=== PATIENT | female | born 1995 | race Caucasian/White ===

== ENCOUNTER 2023-09-19 18:35 | Emergency (ER) | payer MEDICAID, SELFPAY ==
[2023-09-19 18:37] VITALS: BP 118/73; PULSE 107; PULSE 112; RESP 16; RESP 20; TEMP 37.2; O2SAT 100; BMI 25.4
--- NOTE | 2023-09-19 19:42 | CT_ITS ---
INDICATION: truama, right cheek EXAMINATION: CT FACIAL BONES - CT Maxillofacial W/O Contrast Injection TECHNIQUE: Helically acquired images were obtained of the facial bones. A radiation dose optimization technique was used for this scan. IV Contrast dosage and agent: None. COMPARISON: None. FINDINGS: ORBITS: 1. RIGHT Preseptal soft tissue swelling/ecchymosis extending into the RIGHT infraorbital soft tissues however no post septal extension. 2. Normal appearance the bony stephenson the orbits. 3. Post septal soft tissue planes have normal appearance. 4. Normal appearance of the globes, ocular lenses and optic nerves. NASAL SKELETON: Normal, no fractures noted. Nasal septum is near midline. PARANASAL SINUSES: Diffuse ethmoid mucosal thickening. Remaining paranasal sinuses are clear. SKULL BASE AND ZYGOMATIC ARCHES: Normal, normal alignment, no fractures noted. VISUALIZED MANDIBLE: 1. Normal appearance of the mandibular condyles, TMJs, and the visualized mandible to the level of the symphysis. 2. The visualized dentition appears intact. OTHER: Normal appearance of the deep spaces of the head and visualized upper neck. Airway has normal appearance. CT/Sinus/Facial Bone IMPRESSION: 1. Preseptal and infraorbital soft tissue thickening bruising and neck and gliosis in the RIGHT without post septal extension. No soft tissue gas. No post septal extension. 2. No orbital fractures. Normal appearance the globes and retrobulbar soft tissue planes bilaterally. 3. Ethmoid mucosal thickening, remaining paranasal sinuses are clear. 4. No bony fractures noted. Electronically Signed: Omari Huerta MD at 21:22 EST ,
--- NOTE | 2023-09-19 19:43 | CT_ITS ---
INDICATION: Trauma EXAMINATION: CT BRAIN - CT Head or Brain W/O Contrast Injection TECHNIQUE: Multiple axial images were obtained of the head without intravenous contrast. A radiation dose optimization technique was used for this scan. IV Contrast dosage and agent: None. RADIATION DOSAGE (If Supplied By Facility): CTDIvol = ( 44.99 ) mGy, DLP = ( 812.98 ) mGycm COMPARISON: No relevant prior examinations for comparison FINDINGS: HEMISPHERES: 1. The cerebral parenchyma, ventricular system, subarachnoid spaces have normal configuration and density. There is a normal gyral pattern. There is normal martinez/white differentiation. No midline shift.. 2. The hemispheric white matter has normal appearance. 3. No intraparenchymal mass, hemorrhage, or acute territorial infarct. CEREBELLUM - BRAINSTEM: The cerebellum, brainstem, basilar and suprasellar cisterns have normal appearance. No Chiari malformation. PITUITARY: Infundibulum and pituitary have normal configuration. Midline structures appear normal. CSF SPACES: Appropriate for age. No hydrocephalus. Basal cisterns are patent. VESSELS: 1. No significant vascular calcifications in the cavernous carotid vessels. 2. No hyperdense vascular signs noted.. ORBITS AND PARANASAL SINUSES: 1. Preseptal soft tissue swelling/ecchymosis in the RIGHT. No post septal extension. 2. Normal appearance of the bony orbits. Normal appearance of the globes and retrobulbar soft tissues.. 3. Paranasal sinuses are clear. BONY ELEMENTS: Bony elements of the cranial vault, facial skeleton and skull base have normal appearance. SCALP AND SOFT TISSUES: Normal appearance of the soft tissues of the scalp and the visualized face OTHER: None ASPECTS Score for Acute Strokes: 10 CT/Brain/Head without Contrast IMPRESSION: 1. Normal CT examination of brain. 2. No intracranial evidence of acute traumatic injury. 3. Soft tissue swelling/bruising and ecchymosis in the RIGHT preseptal and infraorbital soft tissues. No post septal extension. 4. No intracranial mass, hemorrhage or acute territorial infarct. 5. No fractures noted. 6. No radiographically significant sinus disease.. Electronically Signed: Omari Huerta MD at 21:15 EST ,
--- NOTE | 2023-09-19 19:43 | CT_ITS ---
INDICATION: trauma - EXAMINATION: CT ABDOMEN AND PELVIS WITH CONTRAST - CT Chest Abdomen And Pelvis W/ Contrast Injection TECHNIQUE: Helically acquired images were obtained of the abdomen and pelvis following IV contrast. A radiation dose optimization technique was used for this scan. IV Contrast dosage and agent: Oral contrast: None. Radiation Dose (provided by facility) CTDIvol (13.76 ) mGy, DLP ( 1312.79) mGy-cm COMPARISON: None. FINDINGS: CT CHEST: LUNGS: [Unremarkable. No focal infiltrate consolidation or pulmonary contusion. There are subtle areas of interstitial prominence along the pleural surface of the LEFT lower lobe. Subtle nodular prominence in the periphery of the RIGHT upper lobe which however appears to be linear on reconstruction views.. PLEURAL SPACES: Unremarkable, no effusion or pneumothorax noted.. HEART: Unremarkable. No pericardial effusion. VASCULATURE: Unremarkable. No aortic aneurysm. MEDIASTINUM AND LYMPH NODES: Unremarkable. No significant adenopathy. CERVICAL THORACIC JUNCTION: There is normal appearance of the visualized airway. No masses or abnormal fluid collections. Visualized thyroid is within normal limits. CT ABDOMEN PELVIS: HEPATOBILIARY: Liver: The liver is homogeneous and shows no evidence of focal lesion. No evidence of parenchymal laceration or hemorrhage. Gallbladder: The gallbladder is unremarkable. Pancreas: Pancreas is normal size configuration and density. No mass is noted. Spleen: The spleen is homogeneous and normal in size. . No evidence of parenchymal laceration or hemorrhage. BOWEL: 1. Stomach: The stomach is normal in size configuration, no evidence of focal masses, abnormal calcifications. No hiatal hernia noted. 2. Bowel: Small and large have normal configuration, no masses or bowel obstruction noted. 3. Appendix: Short segments of the normal appendix are present.: GENITOURINARY: Adrenals: Both adrenal glands are normal in size. Kidneys: Kidneys appear symmetric in size. No calcifications are seen in the collecting system. There is no hydronephrosis or surrounding fluid. Bladder: Bladder is moderately distended. No masses or calcifications. Pelvic organs: The visualized pelvic organs are normal in size and configuration. No masses or adenopathy noted. RETROPERITONEUM: There is normal appearance of the abdominal aorta and inferior vena cava. No evidence of retroperitoneal or para-aortic masses fluid collections or adenopathy. ANTERIOR ABDOMINAL WALL: Normal, no hernia identified. CHEST ABDOMEN PELVIS - BONES AND BODY WALL SOFT TISSUES: 1. No displaced rib fractures identified. 2. No fractures identified involving the clavicles, shoulders, or sternum. 3. No evidence of acute fracture subluxation or canal stenosis involving the thoracic or the lumbar spine. Mild contour deformity of multiple thoracic endplates which appear chronic. 4. No fractures involving the pelvis or hips. OTHER: None CT/CT Chest, Abd, Pel w/Contrast IMPRESSION: 1. No CT evidence of acute traumatic injury to the chest, abdomen or pelvis. 2. Minimal interstitial prominence along the pleural surface of the LEFT lower lobe. No consolidation effusion or pneumothorax or effusion. 3. No evidence of acute vascular injury. 4. No evidence of masses bowel obstruction abscess free fluid or free air. No evidence of intraperitoneal or retroperitoneal fluid collections or hematoma. 5. No evidence of cholelithiasis or duct dilatation. 6. No evidence of obstructive uropathy. 7. No evidence of acute fractures involving the chest abdomen or pelvis. Electronically Signed: Omari Huerta MD at 21:37 EST ,
--- NOTE | 2023-09-19 19:44 | CT_ITS ---
INDICATION: Trauma EXAMINATION: CT CERVICAL SPINE - CT Spine Cervical W/O Contrast Injection TECHNIQUE: Helically acquired images were obtained of the cervical spine. 2D reformatted images were reviewed. A radiation dose optimization technique was used for this scan. Noncontrast images obtained. IV Contrast dosage and agent: None. Radiation Dose (provided by facility) CTDIvol (NA ) mGy, DLP ( NA) mGy-cm COMPARISON: : No relevant prior comparison study available FINDINGS: VERTEBRAE: No fracture or traumatic subluxation. No discrete lytic or blastic abnormality. Normal alignment. Normal craniocervical junction and cervicothoracic junction. Normal appearance of the odontoid process. DISCS and SPINAL CANAL: Disc heights are preserved. No critical stenosis. NECK SOFT TISSUES: No prevertebral soft tissue swelling. There is no cervical adenopathy. LUNG APICES: Clear. CT/Spine Cervical without Contras IMPRESSION: No evidence of acute cervical spinal fracture or spondylolisthesis. Electronically Signed: Omari Huerta MD at 21:41 EST ,
[2023-09-19] MEDS: Ondansetron 4 MG/2 ML Vial IV (20:06)
[2023-09-19] MEDS: 0.9% Normal Saline (1000mL) 1,000 ML 999 ML IV (20:06)
[2023-09-19] MEDS: Morphine 4 MG/ML Syringe IV (20:06)
[2023-09-19 20:27] LABS: Absolute Lymphocyte Count 1.13 X10^3/uL (0.83-4.51); Absolute Neutrophil Count 12.7 X10^3/uL (2.0-7.7); Basophil# 0.03 X10^3/uL; Basophil% 0.2 % (0-1); Hemoglobin 12.7 g/dL (12.0-15.0); Lymphocyte # 1.13 X10^3/ul (0.83-4.51); Lymphocyte % 7.7 % (19-41); Mean Corp Hgb Conc 31.8 g/dL (32-36); Mean Corpuscular Hgb 27.9 pg (27.0-32.0); Mean Corpuscular Volume 87.7 fL (81-99); Monocyte# 0.69 X10^3/uL; Monocyte% 4.7 % (0-10); NRBC Flagged by Analyzer 0 % (0-5); Neutrophil # 12.73 X10^3/uL (2.7-7.7); Platelet Count 274 K/mm3 (150-450); RBC Distribution Width CV 12.8 % (11.6-14.6); RBC Distribution Width SD 41.2 fl (35.1-43.9); Red Blood Count 4.56 M/mm3 (4.2-5.4); White Blood Count 14.6 K/mm3 (4.4-11.0)
[2023-09-19 20:42] LABS: Internal QC Validated? YES +Cl - CLEAR BKGD; Pregnancy, Serum, hCG Quali. NEGATIVE Negative; Record Kit Lot#, Serum Preg. 667200
[2023-09-19 20:49] LABS: AST(SGOT) 90 U/L (15-37); Alanine Aminotransfer ALT/SGPT 62 U/L (13-56); Alkaline Phosphatase 51 U/L (45-117); Anion Gap 5 (5-15); BUN 8 mg/dL (7-18); BUN/Creat Ratio 8.8 RATIO (10-20); Bilirubin, Direct 0.19 mg/dL (0.00-0.30); Calcium,Total 8.7 mg/dL (8.5-10.1); Chloride 113 mmol/L (98-107); Creatinine, Serum 0.91 mg/dL (0.55-1.02); EST Glomerular Filtration Rate 78 mL/min (>60); Est Glom Filt Rate - Afr Amer 94 mL/min (>60); Estimated Creatinine Clearance 88.71 ml/min; Globulin 3.9 g/dL (2.2-4.2); Glucose 94 mg/dL (74-106); Potassium 3.4 mmol/L (3.5-5.1); Protein, Total 7.9 g/dL (6.4-8.2); Sodium Level 143 mmol/L (136-145)
[2023-09-19 21:07] VITALS: BP 112/74; PULSE 88; RESP 16; O2SAT 99
[2023-09-19 21:15] LABS: Mucous, Urine 0 SEEN /hpf (<or=2+); Red Blood Cells-Urine 0 SEEN /hpf (0-5)
[2023-09-19 21:16] VITALS: BP 112/74; PULSE 88; RESP 16; TEMP 37.2; O2SAT 99; BMI 25.4
[2023-09-19 21:17] LABS: Color, Urine Yellow (Yellow); Glucose, Dipstick Normal (Normal); Ketone-Dipstick Negative (Negative); Leukocyte Esterase-Dipstick Negative /ul (Negative); Nitrite-Dipstick Negative (Negative); Occult Blood-Urine 25 /ul (Negative); Protein-Dipstick Negative (Negative); Specific Gravity, Urine 1.025 (1.002-1.030); Urine Bilirubin Dipstick Negative (Negative); Urine Clarity Clear (Clear); Urine Urobilinogen Normal (Normal)
--- OUTSIDE RECORDS SUMMARY | 2023-09-19 21:20 | XMS RPT_ITS | CCD ---
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 Work Phone: [facility] Work Phone: 06-13-2022 09:43-0400 SaO2% (BldA) [Mass fraction] 99 % Rustam Khoury CNP Work Phone: [facility] Work Phone: 06-13-2022 09:43-0400 Systolic blood pressure 108 mm[Hg] Rustam Khoury CNP Work Phone: [facility] Work Phone: 12-14-2021 11:07-0400 Body height 165.1 cm FLYNN Nikki Marroquin Work Phone: [facility] Work Phone: 12-14-2021 11:07-0400 Body mass index (BMI) [Ratio] 23.3 kg/m2 FLYNN Nikki Bucios Work Phone: [facility] Work Phone: 12-14-2021 11:07-0400 Body weight 63.5 kg FLYNN Marroquin Work Phone: [facility] Work Phone: 12-11-2021 17:12-0400 Heart rate 94 /min FLYNN Bucios Work Phone: [facility] Work Phone: 12-11-2021 17:12-0400 Respiratory rate 16 /min HOME CARE NURSE Nikki Marroquin Work Phone: [facility] Work Phone: 12-11-2021 17:12-0400 SaO2% (BldA) [Mass fraction] 100 % FLYNN Marroquin Work Phone: [facility] Work Phone: 12-11-2021 15:31-0400 Body height 165.1 cm FLYNN Marroquin Work Phone: [facility] Work Phone: 12-11-2021 15:31-0400 Body mass index (BMI) [Ratio] 23.3 kg/m2 FLYNN Marroquin Work Phone: [facility] Work Phone: 12-11-2021 15:31-0400 Body temperature 97.7 [degF] FLYNN Marroquin Work Phone: [facility] Work Phone: 12-11-2021 15:31-0400 Body weight 63.5 kg FLYNN Marroquin Work Phone: [facility] Work Phone: 12-11-2021 15:31-0400 Diastolic blood pressure 75 mm[Hg] FLYNN Bucios Work Phone: [facility] Work Phone: 12-11-2021 15:31-0400 Systolic blood pressure 117 mm[Hg] FLYNN Bucios Work Phone: [facility] Work Phone: 05-31-2021 00:29-0400 Body height 165.1 cm Gurvinder Parks MD Work Phone: [facility] 05-31-2021 00:29-0400 Body mass index (BMI) [Ratio] 24.13 kg/m2 Gurvinder Parks MD Work Phone: [email or web address] 05-31-2021 00:29-0400 Body temperature 98.29 [degF] Gurvinder Parks MD Work Phone: [email or web address] 05-31-2021 00:29-0400 Body weight 65.77 kg Gurvinder Parks MD Work Phone: [email or web address] 05-31-2021 00:29-0400 Diastolic blood pressure 73 mm[Hg] Gurvinder Parks MD Work Phone: [email or web address] 05-31-2021 00:29-0400 Heart rate 125 /min Gurvinder Parks MD Work Phone: [email or web address] 05-31-2021 00:29-0400 Respiratory rate 18 /min Gurvinder Parks MD Work Phone: [email or web address] 05-31-2021 00:29-0400 SaO2% (BldA) [Mass fraction] 100 % Gurvinder Parks MD Work Phone: [email or web address] 05-31-2021 00:29-0400 Systolic blood pressure 123 mm[Hg] Gurvinder Parks MD Work Phone: [email or web address] 03-27-2021 15:46-0400 Body mass index (BMI) [Ratio] 24.89 kg/m2 [facility] Nonstaff [facility] 03-27-2021 15:46-0400 Body weight 65.77 kg [facility]staff [facility] 03-27-2021 15:18-0400 Body temperature 98.71 [degF] [facility]staff [facility] 03-27-2021 15:18-0400 Diastolic blood pressure 69 mm[Hg] [facility] 03-27-2021 15:18-0400 Heart rate 76 /min [facility] Nonstaff [facility] 03-27-2021 15:18-0400 Respiratory rate 18 /min [facility] Nonstaff [facility] 03-27-2021 15:18-0400 SaO2% (BldA) [Mass fraction] 98 % [facility] Nonstaff [facility] 03-27-2021 15:18-0400 Systolic blood pressure 113 mm[Hg] [facility] Nonstaff [facility] 12-23-2020 17:51-0400 BMI (Body Mass Index) 24.9 kg/m2 Jacindakim Galvan [facility] Work Phone: 12-23-2020 17:51-0400 Body Temperature 97.1 [degF] Jacinda [facility] Work Phone: 12-23-2020 17:51-0400 Body weight 65.77 kg [facility] Work Phone: 12-23-2020 17:51-0400 BP Diastolic 79 mm[Hg] [facility] Work Phone: 12-23-2020 17:51-0400 BP Systolic 114 mm[Hg] [facility] Work Phone: 12-23-2020 17:51-0400 Height 162.56 cm [facility] Work Phone: 12-23-2020 17:51-0400 Pulse (Heart Rate) 69 /min Jacinda Harris [facility] Work Phone: 12-23-2020 17:51-0400 Pulse Oximetry 100 % [facility] Work Phone: 12-23-2020 17:51-0400 Respiratory Rate 18 /min [facility] Work Phone: 12-22-2020 13:15-0400 BMI (Body Mass Index) 25.2 kg/m2 Jacinda [facility] Work Phone: 12-22-2020 13:15-0400 Body Temperature 98.3 [degF] [facility] Work Phone: 12-22-2020 13:15-0400 Body weight 66.68 kg [facility] Work Phone: 12-22-2020 13:15-0400 BP Diastolic 83 mm[Hg] [facility] Work Phone: 12-22-2020 13:15-0400 BP Systolic 115 mm[Hg] [facility] Work Phone: 12-22-2020 13:15-0400 Height 162.56 cm [facility] Work Phone: 12-22-2020 13:15-0400 Pulse (Heart Rate) 75 /min [facility] Work Phone: 12-22-2020 13:15-0400 Pulse Oximetry 100 % [facility] Work Phone: 12-22-2020 13:15-0400 Respiratory Rate 18 /min [facility] Work Phone: 11-30-2020 01:30-0400 BP Diastolic 76 mm[Hg] [facility] Work Phone: 11-30-2020 01:30-0400 BP Systolic 124 mm[Hg] [facility] Work Phone: 11-30-2020 01:30-0400 Pulse (Heart Rate) 76 /min [facility] Work Phone: 11-30-2020 01:30-0400 Pulse Oximetry 100 % [facility] Work Phone: 11-30-2020 01:30-0400 Respiratory Rate 16 /min Jacinda Galvan [facility] Work Phone: 11-30-2020 00:36-0400 BMI (Body Mass Index) 24.9 kg/m2 Jacinda Galvan [facility] Work Phone: 11-30-2020 00:36-0400 Body Temperature 97.9 [degF] Jacinda Galvan [facility] Work Phone: 11-30-2020 00:36-0400 Body weight 65.77 kg Jacinda Galvan [facility] Work Phone: 11-30-2020 00:36-0400 Height 162.56 cm Jacinda [facility] Work Phone: 11-29-2020 11:06-0400 BMI (Body Mass Index) 24.89 kg/m2 Doc No [facility] 11-29-2020 11:06-0400 Body Temperature 97.81 [degF] Doc No [facility] 11-29-2020 11:06-0400 Body weight 65.77 kg Doc No [facility] 11-29-2020 11:06-0400 BP Diastolic 69 mm[Hg] Doc No [facility] 11-29-2020 11:06-0400 BP Systolic 118 mm[Hg] Doc No [facility] 11-29-2020 11:06-0400 Height 162.6 cm Doc No [facility] 11-29-2020 11:06-0400 Pulse (Heart Rate) 75 /min [facility] 11-29-2020 11:06-0400 Pulse Oximetry 100 % Doc No [facility] 11-29-2020 11:06-0400 Respiratory Rate 16 /min Doc No [facility] 11-22-2020 18:52-0500 BP Diastolic 73 mm[Hg] Jacinda [facility] Work Phone: 11-22-2020 18:52-0500 BP Systolic 109 mm[Hg] Jacinda [facility] Work Phone: 11-22-2020 18:52-0500 Pulse (Heart Rate) 66 /min Jacinda Galvan [facility] Work Phone: 11-22-2020 18:52-0500 Pulse Oximetry 98 % Jacinda Galvan [facility] Work Phone: 11-22-2020 18:52-0500 Respiratory Rate 16 /min Jacinda Galvan [facility] Work Phone: 11-22-2020 16:49-0500 BMI (Body Mass Index) 24 kg/m2 Jacinda Galvan [facility] Work Phone: 11-22-2020 16:49-0500 Body Temperature 98.4 [degF] Jacinda Galvan [facility] Work Phone: 11-22-2020 16:49-0500 Body weight 63.5 kg Jacinda [facility] Work Phone: 11-22-2020 16:49-0500 Height 162.56 cm Jacinda [facility] Work Phone: 06-20-2020 23:01-0400 BP Diastolic 66 mm[Hg] [facility] 06-20-2020 23:01-0400 BP Systolic 130 mm[Hg] [facility] 06-20-2020 23:01-0400 Pulse (Heart Rate) 63 /min [facility] 06-20-2020 23:01-0400 Pulse Oximetry 100 % [facility] 06-20-2020 23:01-0400 Respiratory Rate 21 /min [facility] 06-20-2020 20:50-0400 BMI (Body Mass Index) 24.37 kg/m2 [facility] 06-20-2020 20:50-0400 Body Temperature 98.01 [degF] [facility] 06-20-2020 20:50-0400 Body weight 64.41 kg [facility] 06-13-2020 17:27-0400 BMI (Body Mass Index) 24.37 kg/m2 Jose Romero [facility] 06-13-2020 17:27-0400 Body Temperature 98.29 [degF] Jose Romero [facility] 06-13-2020 17:27-0400 Body weight 64.41 kg Jose Romero [facility] 06-13-2020 17:27-0400 BP Diastolic 80 mm[Hg] Jose Romero [facility] 06-13-2020 17:27-0400 BP Systolic 132 mm[Hg] Jose Romero [facility] 06-13-2020 17:27-0400 Height 162.6 [facility] 17:27-0400 Pulse (Heart Rate) 64 /min Jose Romero [facility] 06-13-2020 17:27-0400 Pulse Oximetry 100 % [facility]-13-2020 17:27-0400 Respiratory Rate 18 /min [facility] En[facility] Encounter Date Encounter Type Care Provider Facility Start: 03-20-2023 End: 03-20-2023 General Felecia DENT Work Phone: [facility] Work Phone: Start: 03-20-2023 End: 03-20-2023 ambulatory Sarbjit Aly MD Work Phone: [facility] Work Phone: Start: 02-25-2023 End: 02-25-2023 [facility] visit, estab pt Felecia DENT Work Phone: [facility] Work Phone: Start: 02-25-2023 End: 02-25-2023 [facility] visit, estab pt Sarbjit Aly MD Work Phone: [facility] Work Phone: Start: 02-20-2023 End: 02-20-2023 [facility]QHC visit, estab pt Felecia DENT Work Phone: [facility] Work Phone: Start: 02-20-2023 End: 02-20-2023 [facility]QHC visit, estab pt Felecia Muniz EMOTIONALLY IMPAIRED TEACHER Work Phone: [facility] Work Phone: Start: 02-18-2023 End: 02-18-2023 [facility]QHC visit, estab pt Felecia Muniz EMOTIONALLY IMPAIRED TEACHER Work Phone: [facility] Work Phone: Start: 02-18-2023 End: 02-18-2023 [facility]QHC visit, estab pt Felecia Muniz EMOTIONALLY IMPAIRED TEACHER Work Phone: [facility] Work Phone: Start: 02-07-2023 End: 02-07-2023 [facility] Work [facility]: [facility] Work Phone: Start: 02-07-2023 End: 02-07-2023 ambulatory Jeffrey Moon MD Work Phone: [facility] Work Phone: Start: 01-29-2023 End: 01-29-2023 FQHC visit, estab pt Sarah Lakehead EMOTIONALLY IMPAIRED TEACHER-S Work Phone: [facility] Work Phone: Start: 01-29-2023 End: 01-29-2023 ambulatory Jackie Akins CNP Work Phone: [facility] Work Phone: Start: 01-02-2023 End: 01-02-2023 General Felecia Muniz EMOTIONALLY IMPAIRED TEACHER Work Phone: [facility] Work Phone: Start: 01-02-2023 End: 12-11-2022 General Felecia Muniz EMOTIONALLY IMPAIRED TEACHER Work Phone: [facility] Work Phone: Start: 01-02-2023 End: 01-02-2023 ambulatory Sarbjit Aly MD Work Phone: [facility] Work Phone: Start: 12-11-2022 End: 12-11-2022 FQHC visit, estab pt Edita DENT-Deyanira Work Phone: [facility] Work Phone: Start: 12-11-2022 End: 12-11-2022 ambulatory Jackie Akins HOME CARE NURSE Work Phone: [facility] Work Phone: Start: 12-09-2022 End: 12-09-2022 ambulatory Sarbjit Aly MD Work Phone: [facility] Work Phone: Start: 12-09-2022 End: 12-09-2022 General Sarbjit Aly MD Work Phone: [facility] Work Phone: Start: 12-04-2022 End: 12-04-2022 Patient encounter procedure Rustam Khoury HOME CARE NURSE Work Phone: [facility] Work Phone: Start: 12-04-2022 End: 12-04-2022 General Vilma Carballo LPCC-S Work Phone: [facility] Work Phone: Start: 11-07-2022 End: 11-07-2022 General Vilma Carballo LPCC-S Work Phone: [facility] Work Phone: Start: 11-07-2022 End: 11-07-2022 ambulatory Rustam Khoury HOME CARE NURSE Work Phone: [facility] Work Phone: Start: 11-07-2022 End: 11-07-2022 Patient encounter procedure Rustam Khoury HOME CARE NURSE Work Phone: [facility] Work Phone: Start: 10-09-2022 End: 10-09-2022 General Vilma Carballo LPCC-S Work Phone: [facility] Work Phone: Start: 10-09-2022 End: 10-09-2022 ambulatory Rustam Khoury HOME CARE NURSE Work Phone: [facility] Work Phone: Start: 09-11-2022 End: 09-11-2022 ambulatory Rustam Khoury HOME CARE NURSE Work Phone: [facility] Work Phone: Start: 09-11-2022 End: 09-11-2022 General Vilma Carballo LPCC-S Work Phone: [facility] Work Phone: Start: 08-15-2022 End: 08-15-2022 Alcohol abuse prevention Vilma Carballo LPCC-S Work Phone: [facility] Work Phone: Start: 08-15-2022 End: 08-15-2022 ambulatory Rustam Khoury HOME CARE NURSE Work Phone: [facility] Work Phone: Start: 07-18-2022 End: 07-18-2022 ambulatory Rustam Khoury HOME CARE NURSE Work Phone: [facility] Work Phone: Start: 06-20-2022 End: 06-20-2022 General Vilma Carballo LPCC-S Work Phone: [facility] Work Phone: Start: 06-20-2022 End: 06-20-2022 ambulatory Rustam Khoury CNP Work Phone: [facility] Work Phone: Start: 06-20-2022 End: 06-17-2022 General Rustam Khoury CNP Work Phone: [facility] Work Phone: Start: 06-17-2022 End: 06-18-2022 ambulatory RUSTAM KHOURY [facility] Start: 06-17-2022 End: 06-17-2022 Subsequent hospital visit by physician Cha Huang APRN - HOME CARE NURSE [facility] Start: 06-17-2022 End: 06-17-2022 Nursing evaluation of patient and report Rustam Khoury CNP Work Phone: [facility] Work Phone: Start: 06-13-2022 End: 06-13-2022 FQHC visit, estab pt Vilma Carballo [facility] Work Phone: [facility] Work Phone: Start: 06-13-2022 End: 06-13-2022 ambulatory Rustam Khoury CNP Work Phone: [facility] Work Phone: Start: 02-18-2022 End: 02-18-2022 Departed Referred PHYSICIAN MARÍA [facility] [address] Start: 12-14-2021 End: 12-14-2021 Patient encounter procedure FLYNN Marroquin Work Phone: [facility] Start: 12-11-2021 End: 12-11-2021 Emergency department patient visit FLYNN Marroquin Work Phone: [facility] Start: 05-31-2021 End: 05-31-2021 Emergency department patient visit Gurvinder Parks MD Work Phone: [facility] Emergency Department Start: 05-20-2021 End: 05-20-[address] JOHN IRVIN Facility:[facility] Start: 03-27-2021 End: 03-27-2021 Emergency department patient visit [facility] Nonstaff [facility] Emergency Department Start: 12-25-2020 End: 12-25-2020 ambulatory NONE LISTED REQUEST Facility:[facility] Start: 12-23-2020 End: 12-23-2020 Patient encounter procedure Jacinda [facility] Start: 12-22-2020 End: 12-22-2020 Emergency department patient visit Jacinda Harris [facility]gency [facility] Start: 11-29-2020 End: 11-30-2020 Emergency department patient visit Boby Espinoza [facility] Emergency Department Start: 11-22-2020 End: 11-22-2020 Emergency department patient visit Jacinda Galvan [facility]gency Department Start: 06-20-2020 End: 06-21-2020 Emergency department patient visit Dhaval Munoz Work Phone: [facility] Emergency Department Start: 06-13-2020 End: 06-13-2020 Emergency department patient visit Jose Pittman Work Phone: [facility] Emergency Department Procedures Date Procedure Procedure Detail Performing Clinician Start: 03-20-2023 Drug test prsmv read direct optical obs pr date Sarbjit Aly MD Work Phone: Start: 03-20-2023 Most recent diastoli c blood pressure < 80 mm hg Sarbjit Aly MD Work Phone: Start: 03-20-2023 Most recent systolic blood pressure <130 mm hg Sarbjit Aly MD Work Phone: Start: 03-20-2023 Psychotherapy w/dereje ent 30 minutes Felecia Muniz EMOTIONALLY IMPAIRED TEACHER Work Phone: Start: 03-20-2023 Pt scrnd tobacco use rcvd tobacco cessation talk Felecia Muniz EMOTIONALLY IMPAIRED TEACHER Work Phone: Start: 02-25-2023 Psychotherapy w/dereje ent 30 minutes Felecia Muniz EMOTIONALLY IMPAIRED TEACHER Work Phone: Start: 02-25-2023 Pt scrnd tobacco use rcvd tobacco cessation talk Felecia Muniz EMOTIONALLY IMPAIRED TEACHER Work Phone: Start: 02-20-2023 Drug test prsmv read direct optical obs pr date Sarbjit Aly MD Work Phone: Start: 02-20-2023 Psychotherapy w/dereje ent 30 minutes Felecia Muniz EMOTIONALLY IMPAIRED TEACHER Work Phone: Start: 02-20-2023 Pt scrnd tobacco use rcvd tobacco cessation talk Felecia DENT Work Phone: Start: 02-18-2023 Drug test prsmv read direct optical obs pr date Sarbjit Aly MD Work Phone: Start: 02-18-2023 Most recent diastoli c blood pressure < 80 mm hg Sarbjit Aly MD Work Phone: Start: 02-18-2023 Most recent systolic blood pressure <130 mm hg Sarbjit Aly MD Work Phone: Start: 02-18-2023 Psychotherapy w/dereje ent 30 minutes Felecia JIMENEZW Work Phone: Start: 02-18-2023 Pt scrnd tobacco use rcvd tobacco cessation talk Felecia DENT Work Phone: Start: 02-07-2023 Current tobacco smoker Jeffrey Moon MD Work Phone: Start: 02-07-2023 Most recent diastoli c blood pressure < 80 mm hg Jeffrey Moon MD Work Phone: Start: 02-07-2023 Most recent systolic blood pressure <130 mm hg Jeffrey Moon MD Work Phone: Start: 02-07-2023 Psychotherapy w/dereje ent 30 minutes Vilma Carballo [facility] Work Phone: Start: 02-07-2023 Pt scrnd tobacco use rcvd tobacco cessation talk Jeffrey Moon MD Work Phone: Start: 01-29-2023 Most recent diastoli c blood pressure < 80 mm hg Jackie Brocklehurst HOME CARE NURSE Work Phone: Start: 01-29-2023 Most recent systolic blood pressure <130 mm hg Jackie Brofabriziolehurst HOME CARE NURSE Work Phone: Start: 01-29-2023 Psychotherapy w/dereje ent 30 minutes Sarah Lakehead EMOTIONALLY IMPAIRED TEACHER-S Work Phone: Start: 01-29-2023 Pt scrnd tobacco use rcvd tobacco cessation talk Sarah Rosy EMOTIONALLY IMPAIRED TEACHER-S Work Phone: Start: 01-02-2023 Psychotherapy w/dereje ent 30 minutes Felecia Muniz EMOTIONALLY IMPAIRED TEACHER Work Phone: Start: 01-02-2023 Pt scrnd tobacco use rcvd tobacco cessation talk Felecia Muniz EMOTIONALLY IMPAIRED TEACHER Work Phone: Start: 12-11-2022 Iaadiadoo streptococ cus group a Jackie Brocklehurst HOME CARE NURSE Work Phone: Start: 12-11-2022 Most recent diastoli c blood pressure < 80 mm hg Jackie Brocklehurst HOME CARE NURSE Work Phone: Start: 12-11-2022 Most recent systolic blood pressure <130 mm hg Jackie Brocklehurst HOME CARE NURSE Work Phone: Start: 12-11-2022 Psychotherapy w/dereje ent 30 minutes Edita Marte EMOTIONALLY IMPAIRED TEACHER-S Work Phone: Start: 12-11-2022 Pt scrnd tobacco use rcvd tobacco cessation talk Edita Marte EMOTIONALLY IMPAIRED TEACHER-S Work Phone: Start: 12-09-2022 Drug test prsmv read direct optical obs pr date Sarbjit Aly MD Work Phone: Start: 12-09-2022 Psychotherapy w/dereje ent 30 minutes Felecia Muniz EMOTIONALLY IMPAIRED TEACHER Work Phone: Start: 12-09-2022 Pt scrnd tobacco use rcvd tobacco cessation talk Felecia Muniz EMOTIONALLY IMPAIRED TEACHER Work Phone: Start: 11-07-2022 Drug test prsmv read direct optical obs pr date Rustam Peng HOME CARE NURSE Work Phone: Start: 11-07-2022 Most recent diastoli c blood pressure < 80 mm hg Rustam Peng HOME CARE NURSE Work Phone: Start: 11-07-2022 Most recent systolic blood pressure <130 mm hg Rustam Peng HOME CARE NURSE Work Phone: Start: 11-07-2022 Psychotherapy w/dereje ent 30 minutes Vilma Carballo [facility] Work Phone: Start: 11-07-2022 Therapeutic prophylactic/dx injection subq/im Rustam Peng HOME CARE NURSE Work Phone: Start: 10-09-2022 Drug test prsmv read direct optical obs pr date Rustam Peng HOME CARE NURSE Work Phone: Start: 10-09-2022 Most recent diastoli c blood pressure < 80 mm hg Rustam Peng HOME CARE NURSE Work Phone: Start: 10-09-2022 Most recent systolic blood pressure <130 mm hg Rustam Peng HOME CARE NURSE Work Phone: Start: 10-09-2022 Psychotherapy w/dereje ent 30 minutes Vilma [facility] Work Phone: Start: 10-09-2022 Pt scrnd tobacco use rcvd tobacco cessation talk Rustam Peng HOME CARE NURSE Work Phone: Start: 10-09-2022 Therapeutic prophylactic/dx injection subq/im Rustam Peng HOME CARE NURSE Work Phone: Start: 09-11-2022 Drug test prsmv read direct optical obs pr date Rustam Peng HOME CARE NURSE Work Phone: Start: 09-11-2022 Most recent diastoli c blood pressure < 80 mm hg Rustam Peng HOME CARE NURSE Work Phone: Start: 09-11-2022 Most recent systolic blood pressure <130 mm hg Rustam Peng HOME CARE NURSE Work Phone: Start: 09-11-2022 Pt scrnd tobacco use rcvd tobacco cessation talk Rustam Khoury HOME CARE NURSE Work Phone: Start: 09-11-2022 Therapeutic prophylactic/dx injection subq/im Rustam Peng HOME CARE NURSE Work Phone: Start: 08-15-2022 Drug test prsmv read direct optical obs pr date Rustam Peng HOME CARE NURSE Work Phone: Start: 08-15-2022 Most recent diastoli c blood pressure < 80 mm hg Rustam Peng HOME CARE NURSE Work Phone: Start: 08-15-2022 Most recent systolic blood pressure <130 mm hg Rustam Peng HOME CARE NURSE Work Phone: Start: 08-15-2022 Psychotherapy w/dereje ent 30 minutes [facility] Work Phone: Start: 08-15-2022 Therapeutic prophylactic/dx injection subq/im Rustam Peng HOME CARE NURSE Work Phone: Start: 08-15-2022 Vivitrol 380Mg INJ From [facility] Rustam Brancher HOME CARE NURSE Work Phone: Start: 07-18-2022 Drug test prsmv read direct optical obs pr date Rustam Peng HOME CARE NURSE Work Phone: Start: 07-18-2022 Most recent diastoli c blood pressure < 80 mm hg Rustam Peng HOME CARE NURSE Work Phone: Start: 07-18-2022 Most recent systolic blood pressure <130 mm hg Rustam Peng HOME CARE NURSE Work Phone: Start: 07-18-2022 Therapeutic prophylactic/dx injection subq/im Rustam Peng HOME CARE NURSE Work Phone: Start: 06-20-2022 Drug test prsmv read direct optical obs pr date Rustam Peng HOME CARE NURSE Work Phone: Start: 06-20-2022 Most recent diastoli c blood pressure < 80 mm hg Rustam Peng HOME CARE NURSE Work Phone: Start: 06-20-2022 Most recent systolic blood pressure <130 mm hg Rustam Khoury CNP Work Phone: Start: 06-20-2022 Naltrexone, depot form Rustam Khoury CNP Work Phone: Start: 06-20-2022 Psychotherapy w/dereje ent 30 minutes Vilma Carballo [facility] Work Phone: Start: 06-20-2022 Therapeutic prophylactic/dx injection subq/im Rustam Khoury CNP Work Phone: Start: 06-17-2022 Antibody screen Cha guerin [employer] - HOME CARE NURSE Start: 06-17-2022 Comprehensive metabo lic panel Rustam Khoury [employer] - HR DIRECTOR Work Phone: Start: 06-17-2022 Drug test prsmv read direct optical obs pr date Rustam Khoury CNP Work Phone: Start: 06-17-2022 T. PALLIDUM AB Rustam Khoury [employer] - HR DIRECTOR Work Phone: Start: 06-13-2022 Drug test prsmv read direct optical obs pr date Rustam Khoury CNP Work Phone: Start: 06-13-2022 Hemoglobin glycosyla joann a1c Rustam Khoury CNP Work Phone: Start: 06-13-2022 Most recent diastoli c blood pressure 80-89 mm hg Rustam Khoury CNP Work Phone: Start: 06-13-2022 Most recent hemoglob in a1c level < 7.0% Rustam Khoury CNP Work Phone: Start: 06-13-2022 Most recent systolic blood pressure <130 mm hg Rustam Khoury CNP Work Phone: Start: 06-13-2022 Psychotherapy w/dereje ent 30 minutes Vilma Carballo [facility] Work Phone: Start: 06-13-2022 Surgical procedure Samantha Khoury CNP Work Phone: Start: 06-13-2022 Tonsillectomy and adenoidectomy Rustam Khoury CNP Work Phone: Start: 06-20-2020 Assay of troponin quantitative Dhaval Munoz Work Phone: Start: 06-20-2020 Ct thorax w/contrast material Dhaval Munoz Work Phone: Start: 06-20-2020 Standard ECG Dhaval Munoz Work Phone: Start: 06-20-2020 Urine test visual color cmprsn meths Dhaval Munoz Work Phone: Start: 06-20-2020 Urnls dip stick/tabl et rgnt auto w/o microscopy Dhaval Munoz Work Phone: Start: 06-20-2020 Assay of lipase Dhaval Garcia Work Phone: Start: 06-20-2020 Assay of troponin quantitative Dhaval Munoz Work Phone: Start: 06-20-2020 CBC WITH DIFFERENTIAL A rick Munoz Work Phone: Start: 06-20-2020 COMPLETE BLOOD COUNT WITH DIFFERENTIAL Dhaval Munoz Work Phone: Start: 06-20-2020 Comprehensive metabo lic panel Dhaval Munoz Work Phone: Start: 06-20-2020 D-DIMER Dhaval Munoz Work Phone: Start: 06-20-2020 Sedimentation rate r bc automated Dhaval Munoz Work Phone: Start: 06-13-2020 Radiologic exam ches t single view Jose Pittman Work Phone: Start: 06-13-2020 Radex shoulder compl ete minimum 2 views Jose Pittman Work Phone: Start: 06-13-2020 Standard ECG Jose Pittman Work Phone: Start: 06-13-2020 Assay of troponin quantitative Jose Pittman Work Phone: Start: 06-13-2020 CBC WITH DIFFERENTIAL Herminio Pittman Work Phone: Start: 06-13-2020 COMPLETE BLOOD COUNT WITH DIFFERENTIAL Jose Pittman Work Phone: NEGATED: Highlighted row has not occurred!Start: 03-20-2023 Ligation of fallopian tube Sarbjit Aly MD Work Phone: NEGATED: Highlighted row has not occurred!Start: 02-20-2023 Ligation of fallopian tube Sarbjit Aly MD Work Phone: NEGATED: Highlighted row has not occurred!Start: 02-18-2023 Ligation of fallopian tube Sarbjit Aly MD Work Phone: NEGATED: Highlighted row has not occurred!Start: 01-04-2023 Ligation of fallopian tube Sarbjit Aly MD Work Phone: NEGATED: Highlighted row has not occurred!Start: 12-09-2022 Ligation of fallopian tube Sarbjit Aly MD Work Phone: Plan of Treatment Date Care Activity Detail Author Start: 04-17-2023 Medical Substance Abuse [facility] Work Phone: Start: 03-20-2023 End: 03-20-2023 Patient education based on identified need [facility] Start: 03-20-2023 Medical Substance Abuse [facility] Work Phone: Start: 03-10-2023 FQHC visit, estab pt Medical Established Patient [facility] Work Phone: Start: 03-09-2023 CBC W Auto Differential panel - Blood [facility] Start: 03-09-2023 Comprehensive metabolic 2000 panel - Serum or Plasma Comprehensive Metabolic Panel (CP) [facility] Start: 02-25-2023 FQHC visit, estab pt Medical Established Patient [facility] Work Phone: Start: 02-25-2023 End: 02-25-2023 Patient education based on identified need [facility] Start: 02-20-2023 Nursing evaluation of patient and report Nurse Visit [facility] Work Phone: Start: 02-20-2023 End: 02-20-2023 Patient education based on identified need [facility] Start: 02-18-2023 End: 02-18-2023 Patient education based on identified need [facility] Start: 02-07-2023 End: 02-07-2023 Patient education based on identified need [facility] Start: 01-29-2023 End: 01-29-2023 Patient education based on identified need [facility] Start: 01-29-2023 End: 01-29-2023 Patient education based on identified need [facility] Start: 01-06-2023 Medical Substance Abuse [facility] Work Phone: Start: 01-02-2023 End: 01-02-2023 Patient education based on identified need [facility] Start: 12-11-2022 End: 12-11-2022 Provider instructions for treatment Intervention and counseling on cessation of tobacco use, 3-10 minutes Discussed medication and nicotine replacement for tobacco cessation [facility] Start: 12-11-2022 End: 12-11-2022 Patient education based on identified need [facility] Start: 12-09-2022 End: 12-09-2022 Patient education based on identified need [facility] Start: 11-07-2022 End: 11-07-2022 Patient education based on identified need [facility] Start: 11-06-2022 Medical Substance Abuse [facility] Work Phone: Start: 10-09-2022 Medical Substance Abuse [facility] Work Phone: Start: 10-09-2022 End: 10-09-2022 Patient education based on identified need [facility] Start: 09-12-2022 Medical Substance Abuse [facility] Work Phone: Start: 09-11-2022 End: 09-11-2022 Patient education based on identified need [facility] Start: 09-11-2022 Medical Substance Abuse [facility] Work Phone: Start: 08-15-2022 Medical Substance Abuse [facility] Work Phone: Start: 08-15-2022 End: 08-15-2022 Patient education based on identified need [facility] Start: 07-18-2022 FQHC visit, estab pt Medical Established Patient [facility] Work Phone: Start: 07-18-2022 End: 07-18-2022 Patient education based on identified need [facility] Start: 06-20-2022 Medical Substance Abuse [facility] Work Phone: Start: 06-20-2022 End: 06-20-2022 Patient education based on identified need [facility] Start: 06-17-2022 Nursing evaluation of patient and report Nurse Visit [facility] Work Phone: Start: 06-13-2022 Antibody screen [facility] Start: 06-13-2022 CBC W Auto Differential panel - Blood CBC WITH DIFF [facility] Start: 06-13-2022 Lipid 1996 panel - Serum or Plasma LIPID PROFILE [facility] Start: 06-13-2022 Reagin Ab [Presence] in Serum by RPR RPR [facility] Start: 06-13-2022 Thyrotropin [Units/volume] in Serum or Plasma TSH [facility] Start: 06-13-2022 End: 06-13-2022 Patient education based on identified need [facility] introduced pt to [facility] integrated model of care ~P offered active listening and supportive feedback; normalized emotions and feelings; provided opportunity to explore alcohol use hx/sx/dx/ and tx options. Provided psychoeducation focused on MAT program including requirements for clean UDS. ~P discussed potential benefits of counseling in conjunction with MAT. ~Supported use of healthy coping methods and seeking support, as needed [facility] Start: 06-13-2022 End: 06-13-2022 Patient education based on identified need [facility] Start: 04-15-2022 Influenza vaccination Flu vaccine (#1) [employer] [facility] Start: 04-15-2021 Influenza vaccination INFLUENZA VACCINE [facility] Start: 04-15-2020 Influenza vaccination INFLUENZA VACCINE [facility] Start: 2019 COTEST / HPV COTEST / HPV [facility] Start: 2015 Microscopic observation Cyto stain Nom (Cvx) PAP SMEAR [facility] Start: 2015 Screening for malignant neoplasm of cervix CERVICAL CANCER SCREENING [facility] Start: 2013 DTaP/Tdap/Td vaccine (1 - Tdap) DTaP/Tdap/Td vaccine (1 - Tdap) [facility] Start: 2013 DTaP/Tdap/Td VACCINES (1 - Tdap) DTaP/Tdap/Td VACCINES (1 - Tdap) [facility] Start: 02-22-2012 HEPATITIS C SCREENING HEPATITIS C SCREENING [facility] Start: 2009 HIV SCREENING HIV SCREENING [facility] Start: 2005 TETANUS VACCINE 11+ TETANUS VACCINE 11+ [facility] Start: 1997 ANNUAL PREVENTIVE PHYSICAL (INCLUDES MAAP) ANNUAL PREVENTIVE PHYSICAL (INCLUDES MAAP) [facility] Start: 1994 COVID-19 Vaccine (#1) COVID-19 Vaccine (#1) [facility] End: 06-17-2022 Erythrocyte porphyrin [facility] Work Phone: Immunizations Immunization Date Immunization Notes Care Provider Dorys townsend 01-25-2013 tetanus toxoid, redu arelis diphtheria toxoid, and acellular pertussis vaccine, adsorbed Rustam Khoury HOME CARE NURSE Work Phone: [facility] Payers Date Payer Category Payer Unknown [id number] 1994 Unknown [id number] 1994 Unknown [id number] 1994 Unknown [id number] 1959 Private Health Insurance [facility] [id number] Medicaid [facility] MEDICAID NON CONTRACTED [facility] PLN MEDICAID NON CONTRACTED [id number] Effective for all dates [phone] [address] [place] [address] O [id number] Self-pay [facility] [id number] Self-pay [id number] Social History Date Type Detail Facility Start: 06-13-2020 End: 06-20-2020 Tobacco smoking status [facility] Current every day smoker [facility] Start: 06-13-2020 End: 03-27-2021 Cigarettes smoked current (pack per day) - Reported [facility] Start: 02-08-2016 End: 06-13-2020 Alcohol intake Current non-drinker of alcohol (finding) [facility] Start: 1995 Sex Assigned At Not on file P [facility] Exposure to SARS-CoV-2 (event) Not sure [facility] Start: 06-20-2020 End: 03-27-2021 Tobacco use and exposure Never used [facility] Start: 11-29-2020 End: 03-27-2021 Tobacco smoking status [facility] Former smoker [facility] Start: 11-29-2020 Tobacco Comment quit smoking [facility] Start: 12-22-2020 End: 12-11-2021 Tobacco smoking status [facility] Unknown if ever smoked [facility] Work Phone: Start: 12-22-2020 Never [facility] Work Phone: Start: 12-22-2020 Rarely [facility] Work Phone: Start: 12-22-2020 No [facility] Work Phone: Start: 1995 Sex Assigned At Female F [facility] Start: 03-27-2021 Alcohol intake Current drinke r of alcohol (finding) [facility] Start: 03-27-2021 Alcohol Comment occ [facility] Assertion Lives with grand parents (finding) [facility] Assertion Lives with famil y (finding) [facility] Assertion Interpersonal relationship finding (finding) [facility] Assertion [facility] Assertion Problem situatio n relating to social and personal history (finding) [facility] Finding of alcoh ol intake (finding) [facility] Assertion Currently not se xually active (finding) [facility] Gender identity finding (finding) [facility] Finding of sexua l orientation (finding) [facility] Start: 08-30-2015 Tobacco smoking status [facility] Occasional tobacco smoker [facility] Work Phone: Assertion Full-time employ ment (finding) [facility] Assertion Stopped drinking alcohol (finding) [facility] Assertion Patient has move d away (finding) [facility] Emotional stress (finding) [facility] Assertion Contraception (finding) [facility] Sexually active (finding) [facility] Assertion Social drinker (finding) [facility] Assertion Smoker (finding) [facility] Assertion Finding of educa tional achievement (finding) [facility] Assertion Lives alone (finding) [facility] Assertion Ex-drinker (finding) [facility] Assertion Single person (finding) [facility] Assertion Family problems (finding) [facility] NEGATED: Highlighted row Assertion Exposure to pollution (event) [facility] NEGATED: Highlighted row Assertion Finding relating to drug misuse behavior (finding) [facility] NEGATED: Highlighted row Assertion [facility] NEGATED: Highlighted row Assertion Current drinker of alcohol (finding) [facility] NEGATED: Highlighted row Assertion Criminal behavior (finding) [facility] NEGATED: Highlighted row Assertion Contraception (finding) [facility] NEGATED: Highlighted row Assertion Inadequate food diet (finding) [facility] NEGATED: Highlighted row Assertion Legal problem (finding) [facility] NEGATED: Highlighted row Assertion History of deployment (situation) [facility] NEGATED: Highlighted row Assertion Finding of snf record and criminal activity details (finding) [facility] NEGATED: Highlighted row Assertion Attending school (finding) [facility] NEGATED: Highlighted row Assertion Finding relating to mosque movement or belief (finding) [facility] Goals Date Patient Goal Desired Activity /State Mental Status Date Assessment Result Facility Cognitive function Cognitive fun ctioning was normal Cognitive function finding (finding) [facility] Work Phone: Clinical Notes 03-27-2021 to 03-20-2023 Note Date & Type Note Facility [facility] Work Phone: 1(985) 835-249607-06-2023 Evaluation note Includes: Assessments for all patient encounters Findings Encounter Date [Z68.23 - Body mass index [B NJ] 23.0-23.9, adult] assessment of body mass index Medical Substance Abuse with Sarbjit Aly MD 03/20/2023 [facility] Work Phone: 1(169) 201-866707-06-2023 Evaluation note Includes: Assessments for all patient encounters Findings Encounter Date Alcohol dependence uncomplicated BH Subs tance Abuse with Felecia DENT 03/20/2023 [facility] Work Phone: 1([phone]) 932-518107-06-2023 History general Narrative - Reported Includes: Medical History in patient's chart Description Last Updated Not planning to have a baby in the next 12 months 03/20/2023 [facility] Work Phone: 1([phone]) 401-659807-06-2023 Progress note* Progress note Date Encounter Last Documented by 03/20/2023 Medical Substance Abuse Last doc umented on 03/20/2023; 2:40 PM, Sarbjit Aly MD; [facility] Active Problems & Conditions - F10.20 - Alcohol Dependence Uncomplicated - F41.9 - Anxiety Disorder Nos - F90.9 - Undifferentiated Attention Deficit Disorder - 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 sleep issues. Referred Here Not referred by urgent care clinic and not the emergency room. No prior encounters. - Data to be reviewed: no clinical lab tests History of Present Illness - Allergy list reviewed - Reviewed Medications d/c zofran, famotidine, flonase , adderall xr 5 mg Current Medication - Famotidine 20 MG Oral Tablet take 20 mg PO at HS, 30 days, 0 refills - Flonase Allergy Relief 50 MCG/ACT Nasal Suspension one puff to each nare daily, 31 days, 0 refills Past Medical/Surgical History Other: No previous suicide attempt. Interpersonal relationship problems Reported: No Safety Measures. Medical: No medical history or no significant history and no previous hospitalizations. Partners sexually transmitted infection status not known. : Not planning to have a baby in the next 12 months. Personal: Re-experiencing a previous traumatic event. Procedural: - Tooth extraction Surgical: - Extraction of wisdom tooth - Tonsillectomy with adenoidectomy - General surgery kidney x6 stents, tubes, cut some of the tube out - No tubal ligation Social History Environmental Exposure: No secondhand cigarette smoke exposure. Tobacco use: Using electronic cigarettes/vaping. Alcohol: Not using alcohol. Drug Use: Not using drugs denied by patient. Sexual: Denied sexual activity, sexual orientation Bisexual, and gender identity Female. Allergies - No Known Allergies Family History Father alcoholic Maternal: Depression committed suicide Review Of Systems Systemic: No systemic symptoms. Head: No head symptoms. Neck: No neck symptoms. Eyes: No eye symptoms. Otolaryngeal: No ear symptoms, no nasal symptoms, no throat symptoms, and no oral cavity symptoms. Cardiovascular: No cardiovascular symptoms. Pulmonary: No pulmonary symptoms. Gastrointestinal: No gastrointestinal symptoms and normal appetite. Genitourinary: No genitourinary symptoms. Endocrine: No endocrine symptoms. Hematologic: No hematologic symptoms. Musculoskeletal: No musculoskeletal symptoms. Neurological: No neurological symptoms. Psychological: No psychological symptoms. Skin: No skin symptoms. Allergic and Immunologic: No allergic/immunologic symptoms. She is here for her MAT follow up. She has lost her Medicaid and Vivitrol will cost her about $700 a month! The naltrexone tablets are afordable. She stopped taking Adderall and feels better without it. She is interested in trying Buspar for her anxiety (see notes). Her blood pressure is at goal. Her weight is at a healthy level. Physical Findings - Vitals taken 03/20/2023 02:07 pm BP-Pnuqwif826/78 mmHg Pulse Rate-Hgyjidk70 bpm Respiration Rate18 per min Temp-Oral97.9 F Clsrcr31 in Mynzcd319 lbs Body Mass Index23.8 kg/m2 Body Surface Area1.7 m2 Oxygen Bvxyneqwsb508 % General Appearance: - Awake. - Alert. - Well developed. - Well nourished. Head: Appearance: - Head normocephalic. Face: - Examination was performed. Neck: Thyroid: - Is normal. Eyes: General/bilateral: Pupils: - PERRLA. - Reactive to light. Ears: General/bilateral: Outer Ear: - Normal. Right Ear: - Examined. Left Ear: - Examined. Nose: General/bilateral: Discharge: - No nasal discharge. Oral Cavity: - General condition was good. Lungs: - Normal. - Respiration rhythm and depth was normal. - Respiratory movements were normal. - Clear to auscultation. Cardiovascular: Auscultation: - Normal. Heart Rate And Rhythm: - Normal. Heart Sounds: - Normal. Abdomen: Visual Inspection: - Abdomen was normal on visual inspection. Auscultation: - Bowel sounds were normal. Palpation: - Abdominal non-tender. Musculoskeletal System: General/bilateral: - Normal movement of all extremities. Posture: General/bilateral: - Posture was normal. Neurological: - No confusion was observed. - Oriented to time, place, and person. Psychiatric: - Expression of emotions finding was normal. Demonstrated Behavior: - Appropriate behavior for patient. Skin: - General appearance was normal. - Texture was normal. General body state finding: - In good general health. Tests Laboratory-based Chemistry: Drug Screen: Urine drug screen by multiple class procedure. Assessment - Z68.23 - Body mass index [BMI] 23.0-23.9, adult - F90.9 - Attention-deficit hyperactivity disorder, unspecified type - F10.20 - Alcohol dependence, uncomplicated - F41.9 - Anxiety disorder, unspecified Counseling/Education - No not wishing to stop using electronic cigarettes/vaping - Not requesting contraception Plan StartCited- Other Follow-up Appointment 1 month Naltrexone HCl 50 MG tablet 1 po qd, 30 days, 5 refills busPIRone HCl 10 MG tablet 1 po bid, 30 days, 5 refills [facility] Practice Management Systolic blood pressure < 130 mmHg and diastolic < 80 mmHg diastolic < 80 mmHg. Advance Directives - Living Will Health Reminders - Assess BMI satisfied 03/20/2023. - Assess Tobacco Use satisfied 03/20/2023. 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 sleep issues. Referred Here Not referred by urgent care clinic and not the emergency room. No prior encounters. - Data to be reviewed: no clinical lab tests History of Present Illness - Allergy list reviewed - Reviewed Medications d/c zofran, famotidine, flonase , adderall xr 5 mg Current Medication - Famotidine 20 MG Oral Tablet take 20 mg PO at HS, 30 days, 0 refills - Flonase Allergy Relief 50 MCG/ACT Nasal Suspension one puff to each nare daily, 31 days, 0 refills Past Medical/Surgical History Other: No previous suicide attempt. Interpersonal relationship problems Reported: No Safety Measures. Medical: No medical history or no significant history and no previous hospitalizations. Partners sexually transmitted infection status not known. : Not planning to have a baby in the next 12 months. Personal: Re-experiencing a previous traumatic event. Procedural: - Tooth extraction Surgical: - Extraction of wisdom tooth - Tonsillectomy with adenoidectomy - General surgery kidney x6 stents, tubes, cut some of the tube out - No tubal ligation Social History Environmental Exposure: No secondhand cigarette smoke exposure. Tobacco use: Using electronic cigarettes/vaping. Alcohol: Not using alcohol. Drug Use: Not using drugs denied by patient. Sexual: Denied sexual activity, sexual orientation Bisexual, and gender identity Female. Allergies - No Known Allergies Family History Father alcoholic Maternal: Depression committed suicide Review Of Systems Systemic: No systemic symptoms. Head: No head symptoms. Neck: No neck symptoms. Eyes: No eye symptoms. Otolaryngeal: No ear symptoms, no nasal symptoms, no throat symptoms, and no oral cavity symptoms. Cardiovascular: No cardiovascular symptoms. Pulmonary: No pulmonary symptoms. Gastrointestinal: No gastrointestinal symptoms and normal appetite. Genitourinary: No genitourinary symptoms. Endocrine: No endocrine symptoms. Hematologic: No hematologic symptoms. Musculoskeletal: No musculoskeletal symptoms. Neurological: No neurological symptoms. Psychological: No psychological symptoms. Skin: No skin symptoms. Allergic and Immunologic: No allergic/immunologic symptoms. She is here for her MAT follow up. She has lost her Medicaid and [facility] will cost her about $700 a month! The naltrexone tablets are afordable. She stopped taking Adderall and feels better without it. She is interested in trying Buspar for her anxiety (see notes). Her blood pressure is at goal. Her weight is at a healthy level. Physical Findings - Vitals taken 03/20/2023 02:07 pm BP-Ugxcgic603/78 mmHg Pulse Rate-Keqwbpv44 bpm Respiration Rate18 per min Temp-Oral97.9 F Midbpw58 in Ynpyiu498 lbs Body Mass Index23.8 kg/m2 Body Surface Area1.7 m2 Oxygen Ovsvkxcbwz353 % General Appearance: - Awake. - Alert. - Well developed. - Well nourished. Head: Appearance: - Head normocephalic. Face: - Examination was performed. Neck: Thyroid: - Is normal. Eyes: General/bilateral: Pupils: - PERRLA. - Reactive to light. Ears: General/bilateral: Outer Ear: - Normal. Right Ear: - Examined. Left Ear: - Examined. Nose: General/bilateral: Discharge: - No nasal discharge. Oral Cavity: - General condition was good. Lungs: - Normal. - Respiration rhythm and depth was normal. - Respiratory movements were normal. - Clear to auscultation. Cardiovascular: Auscultation: - Normal. Heart Rate And Rhythm: - Normal. Heart Sounds: - Normal. Abdomen: Visual Inspection: - Abdomen was normal on visual inspection. Auscultation: - Bowel sounds were normal. Palpation: - Abdominal non-tender. Musculoskeletal System: General/bilateral: - Normal movement of all extremities. Posture: General/bilateral: - Posture was normal. Neurological: - No confusion was observed. - Oriented to time, place, and person. Psychiatric: - Expression of emotions finding was normal. Demonstrated Behavior: - Appropriate behavior for patient. Skin: - General appearance was normal. - Texture was normal. General body state finding: - In good general health. Assessment - Z68.23 - Body mass index [BMI] 23.0-23.9, adult - F90.9 - Attention-deficit hyperactivity disorder, unspecified type - F10.20 - Alcohol dependence, uncomplicated - F41.9 - Anxiety disorder, unspecified Counseling/Education - No not wishing to stop using electronic cigarettes/vaping - Not requesting contraception Plan StartCited- Other Follow-up Appointment 1 month Naltrexone HCl 50 MG tablet 1 po qd, 30 days, 5 refills busPIRone HCl 10 MG tablet 1 po bid, 30 days, 5 refills EndCited Practice Management Systolic blood pressure < 130 mmHg and diastolic < 80 mmHg diastolic < 80 mmHg. Advance Directives - Living Will Health Reminders - Assess BMI satisfied 03/20/2023. - Assess Tobacco Use satisfied 03/20/2023. 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 History of Present Illness - No Bipolar Behaviors. - No service. - Appetite not normal - Irritability - Anxiety - Depression - Energy level is fair - Easily distracted - Racing thoughts - Impulsive behavior - No sleep disturbances - Not sleeping too much - No loss of interest in activities - Not feeling that nothing matters - No fear of loss of control - Not feeling guilty - Not feeling persecuted - Not feeling unique and all-powerful - Not regularly taking risks - No social isolation - Not more talkative than usual - No compulsive behavior - No high involvement in pleasurable activities - - Progress: Pt shares she stopped taking adderall several days ago and states it was causing her to be irritable. Pt has been on the vivitrol shot and has been successfully staying away from alcohol for a couple months. Pt lost her medical insurance and cannot afford the cost of the shot. Pt is willing to switch to naltrexone to remain abstinent from alcohol. Pt would like to try buspar for anxiety sxs. Pt states a friend she has is taking buspar and says it works. Pt has no other concerns today Current Medication - busPIRone HCl 10 MG Oral Tablet 1 po bid, 30 days, 5 refills - Famotidine 20 MG Oral Tablet take 20 mg PO at HS, 30 days, 0 refills - Flonase Allergy Relief 50 MCG/ACT Nasal Suspension one puff to each nare daily, 31 days, 0 refills - Naltrexone HCl 50 MG Oral Tablet 1 po qd, 30 days, 5 refills Past Medical/Surgical History Other: Interpersonal relationship problems Reported: Medical: Partners sexually transmitted infection status known. : Not planning to have a baby in the next 12 months. Personal: Re-experiencing a previous traumatic event. Procedural: - Tooth extraction Surgical: - Extraction of wisdom tooth - Tonsillectomy with adenoidectomy - General surgery kidney x6 stents, tubes, cut some of the tube out - No tubal ligation Social History Environmental Exposure: No secondhand cigarette smoke exposure. Not on probation and not on parole. Personal: Recent breakup with significant other, interpersonal problems, family problems, recent legal problems NAEL, and recent relocation. Tobacco use: Using electronic cigarettes/vaping. Alcohol: Beer consumption did not consume any alcohol since 02/17/23, evening, a social drinker wknds around 6 beers, having stopped drinking alcohol, and recovering alcoholic. Drug Use: Using marijuana and drug use. Antisocial: No criminal behavior (Felony traffic violations, Civil involvement, Criminal involvement). Housing And Economic Circumstances: Lives alone and with grandparent(s). Education: Educational level: grade. Work: Working [employer]. Faith Status: Faith practices were unknown. Marital: You are currently single. Sexual: Sexually active, denied sexual activity, sexual orientation Bisexual, and gender identity Female. - Substance Use: Recovery Allergies - No Known Allergies Family History Father alcoholic Maternal: Depression committed suicide Review Of Systems Gastrointestinal: Decreased appetite. Physical Findings General Appearance: - Normal Appearance. - You did not appear uncomfortable. - In no acute distress. Musculoskeletal System: Posture: General/bilateral: - Posture was normal. Neurological: - Estimated intelligence was normal. - Oriented to time, place, and person. - Normal recent memory for registration. - Judgement was not impaired. Speech: - Is Normal. Motor: - No involuntary movements were seen. Gait And Stance: - Normal. Psychiatric: - Attitude Open. Demonstrated Behavior: - Motor Activity Normal Activity. - Eye Contact Appropriate. Thought Content: - Insight was intact. - No report of thinking about suicide was noted. - No Passive thoughts of . - No suicidal plans. - No suicidal intent. - No report of thinking about killing someone was noted. - Revealed no plan to kill someone. - Revealed no intent to kill someone. Past Medical: - No repetitive self injurious behavior. Tests Laboratory-based Chemistry: Other Laboratory Tests: Screening for sexually transmitted infections was not performed. 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 - Non-adherent with medications stopped taking adderall- states it was causing irritability. - Plan - begin naltrexone 50mg., d/c vivitrol shot and Collaborated with patient and provider: Counseling/Education - No not wishing to stop using electronic cigarettes/vaping - Patient education about adverse reactions to medication - Reviewed side effects and Risks/Benefits analysis Discussed and encouraged healthy lifestyle behaviors. Provided supportive listening, empathy, and validation of feelings. Reviewed progress with mood sxs/management. Patient education regarding connection between physical and mental health. Stress management, coping skills, and support discussed. Educated on good sleep hygiene practices. Educated on taking medication and discuss stopping with a doctor. Plan BH at next visit. Continue taking medications as prescribed. Follow discharge instructions. Advance Directives - Living Will Health Reminders - Assess Tobacco Use satisfied 03/20/2023. - Smoking & Tobacco Cessation Intervention and Counseling satisfied 03/20/2023. [facility]07-06-2023 Instructions Includes: Instructions for all patient encounters Instructions to patient Intervention and counseling on cessation of tobacco use, 3-10 minutes Discussed medication and nicotine replacement for tobacco cessation Last Documented On 3 9:26AM ; [facility] Education and Decision Aids were provided during visit for: Not requesting contraception Last Documented On 3 2:12PM ; [facility] Not requesting contraception Last Documented On 3 9:08AM ; [facility] Patient education about adve rse reactions to medication Last Documented On 3 9:18AM ; [facility] Discussed and encouraged hea lthy lifestyle behaviors. ~Provided supportive listening, empathy, and validation of feelings. ~Reviewed progress with mood sxs/management. ~Patient education regarding connection between physical and mental health. ~Stress management, coping skills, and support discussed. ~Educated on good sleep hygiene practices. ~Praise for adderall management Last Documented On 3 9:18AM ; [facility] Reviewed side effects and Ri sks/Benefits analysis Last Documented On 3 9:18AM ; [facility] Patient education about adve rse reactions to medication Last Documented On 3 9:03AM ; [facility] Discussed and encouraged hea lthy lifestyle behaviors. ~Provided supportive listening, empathy, and validation of feelings. ~Reviewed progress with mood sxs/management. ~Patient education regarding connection between physical and mental health. ~Stress management, coping skills, and support discussed. ~Discussed sleep hygiene Last Documented On 3 9:03AM ; [facility] Reviewed side effects and Ri sks/Benefits analysis Last Documented On 3 9:03AM ; [facility] Discussed nutritional needs teach healthy choices including fruits and vegetables Last Documented On 3 8:47AM ; [facility] Patient education about a pr oper diet Last Documented On 3 8:47AM ; [facility] Discussed concerns about exe rcise : promote physical activity Last Documented On 3 8:47AM ; [facility] Not requesting contraception Last Documented On 3 8:47AM ; [facility] Patient education about adve rse reactions to medication Last Documented On 3 10:09AM ; [facility] Discussed and encouraged hea lthy lifestyle behaviors. ~Provided supportive listening, empathy, and validation of feelings. ~Reviewed progress with mood sxs/management. ~Patient education regarding connection between physical and mental health. ~Stress management, coping skills, and support discussed. ~Educated on good sleep hygiene practices. ~Relapse Prevention and harm reduction Last Documented On 3 10:09AM ; [facility] Reviewed side effects and Ri sks/Benefits analysis Last Documented On 3 10:09AM ; [facility] Not requesting contraception Last Documented On 3 9:22AM ; [facility] Discussed nutritional needs teach healthy choices including fruits and vegetables Last Documented On 3 1:55PM ; [facility] Patient education about a pr oper diet Last Documented On 3 1:55PM ; [facility] Discussed concerns about exe rcise : promote physical activity Last Documented On 3 1:55PM ; [facility] provided pt space to sha re concerns and process thoughts; utilized opportunity to explore symptoms, mood, and functioning. Offered empathy and reflective feedback. ~Discussed medication effectiveness; promoted use, as prescribed. ~ Explored stress relief methods and self-care practices; promoted use, as needed Last Documented On 3 2:33PM ; [facility] Discussed nutritional needs teach healthy choices including fruits and vegetables Last Documented On 3 2:54PM ; [facility] No patient education about a dverse reactions to medication Last Documented On 3 3:21PM ; [facility] Discussed concerns about exe rcise : promote physical activity Last Documented On 3 2:54PM ; [facility] Motivational Interviewing ~E ncouraged use of healthy coping skills ~Encouraged good sleep hygiene ~Provided active and supportive listening ~Validated and normalized emotions Last Documented On 3 3:21PM ; [facility] Reviewed side effects and Ri sks/Benefits analysis Last Documented On 3 3:21PM ; [facility] Discussed nutritional needs teach healthy choices including fruits and vegetables Last Documented On 3 12:56PM ; [facility] Patient education about a pr oper diet Last Documented On 3 12:56PM ; [facility] Discussed concerns about exe rcise : promote physical activity Last Documented On 3 12:56PM ; [facility] Discussed nutritional needs teach healthy choices including fruits and vegetables Last Documented On 3 3:41PM ; [facility] Patient education about a pr oper diet Last Documented On 3 3:41PM ; [facility] Discussed concerns about exe rcise : promote physical activity Last Documented On 3 3:41PM ; [facility] Patient education about adve rse reactions to medication Last Documented On 3 9:36AM ; [facility] Discussed lifestyle changes with patient that impact chronic illnesses. ~Supported patient's personal health goals for chronic illness management ~Discussed pt desire to be future oriented and goal directed ~Self care techniques including mindfulness techniques, deep breathing and hobbies ~Risk management: Local Crisis number, reaching out to friends/family, and community resources. ~Harm reduction and relapse prevention Last Documented On 3 9:36AM ; [facility] Reviewed side effects and Ri sks/Benefits analysis Last Documented On 3 9:36AM ; [facility] Discussed nutritional needs teach healthy choices including fruits and vegetables Last Documented On 3 9:19AM ; [facility] Patient education about a pr oper diet Last Documented On 3 9:19AM ; [facility] Patient education about adve rse reactions to medication Last Documented On 3 9:19AM ; [facility] Discussed concerns about exe rcise : promote physical activity Last Documented On 3 9:19AM ; [facility], explained role of B[facility], and briefly talked about problem behaviors and coping strategies. ~ ~P offered emotional supports, explored thoughts, feelings, behaviors, utilized motivational interviewing to encourage self-care and ongoing progress, and mindfulness practice to boost healthy dzwm-czwv-cxicda connections Last Documented On 3 9:19AM ; [facility] Reviewed side effects and Ri sks/Benefits analysis Last Documented On 3 9:19AM ; [facility] Discussed nutritional needs teach healthy choices including fruits and vegetables Last Documented On 3 8:27AM ; [facility] Patient education about a pr oper diet Last Documented On 3 8:27AM ; [facility] Discussed concerns about exe rcise : promote physical activity Last Documented On 3 8:27AM ; [facility] Patient education about adve rse reactions to medication Last Documented On 3 6:29PM ; [facility] Discussed lifestyle changes with patient that impact chronic illnesses. ~Supported patient's personal health goals for chronic illness management ~Discussed pt desire to be future oriented and goal directed ~Self care techniques including mindfulness techniques, deep breathing and hobbies ~Risk management: Local Crisis number, reaching out to friends/family, and community resources. ~Harm reduction and relapse prevention Last Documented On 3 6:29PM ; [facility] Reviewed side effects and Ri sks/Benefits analysis Last Documented On 3 6:29PM ; [facility] Discussed nutritional needs teach healthy choices including fruits and vegetables Last Documented On 3 6:00PM ; [facility] Patient education about a pr oper diet Last Documented On 3 6:00PM ; [facility] Discussed concerns about exe rcise : promote physical activity Last Documented On 3 6:00PM ; [facility] Not requesting contraception Last Documented On 3 6:00PM ; [facility] provided active listenin g; offered pt time to provide feedback required to assess for recent use/uges/cravings/triggers. ~Provided time for the pt to share and process thoughts and concerns regarding use of prescribed medication for ADHD symtoms; expressed concern for pt's health and well-being. ~Explored and assessed for issues or concerns impacting recovery; acknowledged reported abstinence/good progress. ~Encouraged use of healthy coping methods and seeking sober support, as needed Last Documented On 3 5:57PM ; [facility] Discussed nutritional needs teach healthy choices including fruits and vegetables Last Documented On 3 6:49PM ; [facility] Patient education about a pr oper diet Last Documented On 3 6:49PM ; [facility] Discussed concerns about exe rcise : promote physical activity ~ ~Follow up in 4 weeks Last Documented On 3 8:47AM ; [facility] Discussed nutritional needs teach healthy choices including fruits and vegetables Last Documented On 3 3:59PM ; [facility] Patient education about a pr oper diet Last Documented On 3 3:59PM ; [facility] Discussed concerns about exe rcise : promote physical activity ~ ~Will start hydroxyzine as needed for anxiety ~ ~Follow up in 4 weeks Last Documented On 3 4:55PM ; [facility], support and helped pt process though current symptoms and stressor(s); explored effectiveness of medication, coping mechanisms, and self-care practices. ~Encouraged use, when needed Last Documented On 3 3:57PM ; [facility] Discussed nutritional needs teach healthy choices including fruits and vegetables Last Documented On 2 6:58PM ; [facility] Patient education about a pr oper diet Last Documented On 2 6:58PM ; [facility] Discussed concerns about exe rcise : promote physical activity Last Documented On 2 6:58PM ; [facility] actively listened; provid ed empathy and unconditional positive regard. ~Acknowledged and validated emotions. ~Helped the pt to process recent alcohol use; provided encouragement to move forward with her recovery. ~Supported pt's interest in attending sober support groups and professional tx. ~Provided pt MH/[facility] resource list' ~Discussed medication; encouraged medication complaince and contacting [facility] with questions or concerns Last Documented On 2 10:15AM ; [facility] Discussed nutritional needs teach healthy choices including fruits and vegetables Last Documented On 2 7:19PM ; [facility] Patient education about a pr oper diet Last Documented On 2 7:19PM ; [facility] Discussed concerns about exe rcise : promote physical activity Last Documented On 2 7:19PM ; [facility] provided active listenin g, support and helped pt process though current stressor(s). Discussed effectiveness of medication; acknowledged and validated concerns. ~Explored use of coping mechanisms, self-care practices, and support system. ~Encouraged use, when needed Last Documented On 2 8:10AM ; [facility] Discussed nutritional needs teach healthy choices including fruits and vegetables Last Documented On 2 6:39PM ; [facility] Patient education about a pr oper diet Last Documented On 2 6:39PM ; [facility] Discussed concerns about exe rcise : promote physical activity ~ ~Follow up in 4 weeks Last Documented On 2 5:33AM ; [facility] Discussed nutritional needs teach healthy choices including fruits and vegetables Last Documented On 2 2:22PM ; [facility] Patient education about a pr oper diet Last Documented On 2 2:22PM ; [facility] Discussed concerns about exe rcise : promote physical activity Last Documented On 2 2:22PM ; [facility] provided active listenin g; assessed current symptoms and stressor(s) coping mechanisms, support system, and self-care practices Last Documented On 2 4:02PM ; [facility] introduced pt to HPWO in tegrated model of care ~[facility] offered active listening and supportive feedback; normalized emotions and feelings; provided opportunity to explore alcohol use hx/sx/dx/ and tx options. Provided psychoeducation focused on MAT program including requirements for clean UDS. ~[facility] discussed potential benefits of counseling in conjunction with MAT. ~Supported use of healthy coping methods and seeking support, as needed Last Documented On 2 11:27AM ; [facility] Discussed nutritional needs teach healthy choices including fruits and vegetables Last Documented On 2 9:47AM ; [facility] Patient education about a pr oper diet Last Documented On 2 9:47AM ; [facility] Discussed concerns about exe rcise : promote physical activity ~ ~Follow up Friday or Friday for UDS, will try for induction next Last Documented On 2 10:35AM ; [facility] Work Phone: [phone] 265-852507-06-2023 Instructions Includes: Instructions for all patient encounters Instructions to patient Intervention and counseling on cessation of tobacco use, 3-10 minutes Discussed medication and nicotine replacement for tobacco cessation Last Documented On 3 9:26AM ; [facility] Education and Decision Aids were provided during visit for: Not requesting contraception Last Documented On 3 2:12PM ; [facility] Not requesting contraception Last Documented On 3 9:08AM ; [facility] Patient education about adve rse reactions to medication Last Documented On 3 9:18AM ; [facility] Discussed and encouraged hea lthy lifestyle behaviors. ~Provided supportive listening, empathy, and validation of feelings. ~Reviewed progress with mood sxs/management. ~Patient education regarding connection between physical and mental health. ~Stress management, coping skills, and support discussed. ~Educated on good sleep hygiene practices. ~Praise for adderall management Last Documented On 3 9:18AM ; [facility] Reviewed side effects and Ri sks/Benefits analysis Last Documented On 3 9:18AM ; [facility] Patient education about adve rse reactions to medication Last Documented On 3 9:03AM ; [facility] Discussed and encouraged hea lthy lifestyle behaviors. ~Provided supportive listening, empathy, and validation of feelings. ~Reviewed progress with mood sxs/management. ~Patient education regarding connection between physical and mental health. ~Stress management, coping skills, and support discussed. ~Discussed sleep hygiene Last Documented On 3 9:03AM ; [facility] Reviewed side effects and Ri sks/Benefits analysis Last Documented On 3 9:03AM ; [facility] Discussed nutritional needs teach healthy choices including fruits and vegetables Last Documented On 3 8:47AM ; [facility] Patient education about a pr oper diet Last Documented On 3 8:47AM ; [facility] Discussed concerns about exe rcise : promote physical activity Last Documented On 3 8:47AM ; [facility] Not requesting contraception Last Documented On 3 8:47AM ; [facility] Patient education about adve rse reactions to medication Last Documented On 3 10:09AM ; [facility] Discussed and encouraged hea lthy lifestyle behaviors. ~Provided supportive listening, empathy, and validation of feelings. ~Reviewed progress with mood sxs/management. ~Patient education regarding connection between physical and mental health. ~Stress management, coping skills, and support discussed. ~Educated on good sleep hygiene practices. ~Relapse Prevention and harm reduction Last Documented On 3 10:09AM ; [facility] Reviewed side effects and Ri sks/Benefits analysis Last Documented On 3 10:09AM ; [facility] Not requesting contraception Last Documented On 3 9:22AM ; [facility] Discussed nutritional needs teach healthy choices including fruits and vegetables Last Documented On 3 1:55PM ; [facility] Patient education about a pr oper diet Last Documented On 3 1:55PM ; [facility] Discussed concerns about exe rcise : promote physical activity Last Documented On 3 1:55PM ; [facility] provided pt space to sha re concerns and process thoughts; utilized opportunity to explore symptoms, mood, and functioning. Offered empathy and reflective feedback. ~Discussed medication effectiveness; promoted use, as prescribed. ~ Explored stress relief methods and self-care practices; promoted use, as needed Last Documented On 3 2:33PM ; [facility] Discussed nutritional needs teach healthy choices including fruits and vegetables Last Documented On 3 2:54PM ; [facility] No patient education about a dverse reactions to medication Last Documented On 3 3:21PM ; [facility] Discussed concerns about exe rcise : promote physical activity Last Documented On 3 2:54PM ; [facility] Motivational Interviewing ~E ncouraged use of healthy coping skills ~Encouraged good sleep hygiene ~Provided active and supportive listening ~Validated and normalized emotions Last Documented On 3 3:21PM ; [facility] Reviewed side effects and Ri sks/Benefits analysis Last Documented On 3 3:21PM ; [facility] Discussed nutritional needs teach healthy choices including fruits and vegetables Last Documented On 3 12:56PM ; [facility] Patient education about a pr oper diet Last Documented On 3 12:56PM ; [facility] Discussed concerns about exe rcise : promote physical activity Last Documented On 3 12:56PM ; [facility] Discussed nutritional needs teach healthy choices including fruits and vegetables Last Documented On 3 3:41PM ; [facility] Patient education about a pr oper diet Last Documented On 3 3:41PM ; [facility] Discussed concerns about exe rcise : promote physical activity Last Documented On 3 3:41PM ; [facility] Patient education about adve rse reactions to medication Last Documented On 3 9:36AM ; [facility] Discussed lifestyle changes with patient that impact chronic illnesses. ~Supported patient's personal health goals for chronic illness management ~Discussed pt desire to be future oriented and goal directed ~Self care techniques including mindfulness techniques, deep breathing and hobbies ~Risk management: Local Crisis number, reaching out to friends/family, and community resources. ~Harm reduction and relapse prevention Last Documented On 3 9:36AM ; [facility] Reviewed side effects and Ri sks/Benefits analysis Last Documented On 3 9:36AM ; [facility] Discussed nutritional needs teach healthy choices including fruits and vegetables Last Documented On 3 9:19AM ; [facility] Patient education about a pr oper diet Last Documented On 3 9:19AM ; [facility] Patient education about adve rse reactions to medication Last Documented On 3 9:19AM ; [facility] Discussed concerns about exe rcise : promote physical activity Last Documented On 3 9:19AM ; [facility] BHP introduced self to patie nt, explained role of BHP, and briefly talked about problem behaviors and coping strategies. ~ ~[facility] offered emotional supports, explored thoughts, feelings, behaviors, utilized motivational interviewing to encourage self-care and ongoing progress, and mindfulness practice to boost healthy [id number] connections Last Documented On 3 9:19AM ; [facility] Reviewed side effects and Ri sks/Benefits analysis Last Documented On 3 9:19AM ; [facility] Discussed nutritional needs teach healthy choices including fruits and vegetables Last Documented On 3 8:27AM ; [facility] Patient education about a pr oper diet Last Documented On 3 8:27AM ; [facility] Discussed concerns about exe rcise : promote physical activity Last Documented On 3 8:27AM ; [facility] Patient education about adve rse reactions to medication Last Documented On 3 6:29PM ; [facility] Discussed lifestyle changes with patient that impact chronic illnesses. ~Supported patient's personal health goals for chronic illness management ~Discussed pt desire to be future oriented and goal directed ~Self care techniques including mindfulness techniques, deep breathing and hobbies ~Risk management: Local Crisis number, reaching out to friends/family, and community resources. ~Harm reduction and relapse prevention Last Documented On 3 6:29PM ; [facility] Reviewed side effects and Ri sks/Benefits analysis Last Documented On 3 6:29PM ; [facility] Discussed nutritional needs teach healthy choices including fruits and vegetables Last Documented On 3 6:00PM ; [facility] Patient education about a pr oper diet Last Documented On 3 6:00PM ; [facility] Discussed concerns about exe rcise : promote physical activity Last Documented On 3 6:00PM ; [facility] Not requesting contraception Last Documented On 3 6:00PM ; [facility] provided active listenin g; offered pt time to provide feedback required to assess for recent use/uges/cravings/triggers. ~Provided time for the pt to share and process thoughts and concerns regarding use of prescribed medication for ADHD symtoms; expressed concern for pt's health and well-being. ~Explored and assessed for issues or concerns impacting recovery; acknowledged reported abstinence/good progress. ~Encouraged use of healthy coping methods and seeking sober support, as needed Last Documented On 3 5:57PM ; [facility] Discussed nutritional needs teach healthy choices including fruits and vegetables Last Documented On 3 6:49PM ; [facility] Patient education about a pr oper diet Last Documented On 3 6:49PM ; [facility] Discussed concerns about exe rcise : promote physical activity ~ ~Follow up in 4 weeks Last Documented On 3 8:47AM ; [facility] Discussed nutritional needs teach healthy choices including fruits and vegetables Last Documented On 3 3:59PM ; [facility] Patient education about a pr oper diet Last Documented On 3 3:59PM ; [facility] Discussed concerns about exe rcise : promote physical activity ~ ~Will start hydroxyzine as needed for anxiety ~ ~Follow up in 4 weeks Last Documented On 3 4:55PM ; [facility] provided active listenin g, support and helped pt process though current symptoms and stressor(s); explored effectiveness of medication, coping mechanisms, and self-care practices. ~Encouraged use, when needed Last Documented On 3 3:57PM ; [facility] Discussed nutritional needs teach healthy choices including fruits and vegetables Last Documented On 2 6:58PM ; [facility] Patient education about a pr oper diet Last Documented On 2 6:58PM ; [facility] Discussed concerns about exe rcise : promote physical activity Last Documented On 2 6:58PM ; [facility] actively listened; provid ed empathy and unconditional positive regard. ~Acknowledged and validated emotions. ~Helped the pt to process recent alcohol use; provided encouragement to move forward with her recovery. ~Supported pt's interest in attending sober support groups and professional tx. ~Provided pt MH/[facility] resource list' ~Discussed medication; encouraged medication complaince and contacting [facility] with questions or concerns Last Documented On 2 10:15AM ; [facility] Discussed nutritional needs teach healthy choices including fruits and vegetables Last Documented On 2 7:19PM ; [facility] Patient education about a pr oper diet Last Documented On 2 7:19PM ; [facility] Discussed concerns about exe rcise : promote physical activity Last Documented On 2 7:19PM ; [facility] provided active listenin g, support and helped pt process though current stressor(s). Discussed effectiveness of medication; acknowledged and validated concerns. ~Explored use of coping mechanisms, self-care practices, and support system. ~Encouraged use, when needed Last Documented On 2 8:10AM ; [facility] Discussed nutritional needs teach healthy choices including fruits and vegetables Last Documented On 2 6:39PM ; [facility] Patient education about a pr oper diet Last Documented On 2 6:39PM ; [facility] Discussed concerns about exe rcise : promote physical activity ~ ~Follow up in 4 weeks Last Documented On 2 5:33AM ; [facility] Discussed nutritional needs teach healthy choices including fruits and vegetables Last Documented On 2 2:22PM ; [facility] Patient education about a pr oper diet Last Documented On 2 2:22PM ; [facility] Discussed concerns about exe rcise : promote physical activity Last Documented On 2 2:22PM ; [facility] provided active listenin g; assessed current symptoms and stressor(s) coping mechanisms, support system, and self-care practices Last Documented On 2 4:02PM ; [facility] introduced pt to HPWO in tegrated model of care ~[facility] offered active listening and supportive feedback; normalized emotions and feelings; provided opportunity to explore alcohol use hx/sx/dx/ and tx options. Provided psychoeducation focused on MAT program including requirements for clean UDS. ~P discussed potential benefits of counseling in conjunction with MAT. ~Supported use of healthy coping methods and seeking support, as needed Last Documented On 2 11:27AM ; [facility] Discussed nutritional needs teach healthy choices including fruits and vegetables Last Documented On 2 9:47AM ; [facility] Patient education about a pr oper diet Last Documented On 2 9:47AM ; [facility] Discussed concerns about exe rcise : promote physical activity ~ ~Follow up Friday or Friday for UDS, will try for induction next Last Documented On 2 10:35AM ; [facility] Work Phone: [phone] Instructions Includes: Instructions for all patient encounters Instructions to patient Intervention and counseling on cessation of tobacco use, 3-10 minutes Discussed medication and nicotine replacement for tobacco cessation Last Documented On 3 9:26AM ; [facility] Education and Decision Aids were provided during visit for: Not requesting contraception Last Documented On 3 2:12PM ; [facility] Patient education about adve rse reactions to medication Last Documented On 3 4:25PM ; [facility] Discussed and encouraged hea lthy lifestyle behaviors. ~Provided supportive listening, empathy, and validation of feelings. ~Reviewed progress with mood sxs/management. ~Patient education regarding connection between physical and mental health. ~Stress management, coping skills, and support discussed. ~Educated on good sleep hygiene practices. ~Educated on taking medication and discuss stopping with a doctor Last Documented On 3 4:25PM ; [facility] Reviewed side effects and Ri sks/Benefits analysis Last Documented On 3 4:25PM ; [facility] Not requesting contraception Last Documented On 3 9:08AM ; [facility] Patient education about adve rse reactions to medication Last Documented On 3 9:18AM ; [facility] Discussed and encouraged hea lthy lifestyle behaviors. ~Provided supportive listening, empathy, and validation of feelings. ~Reviewed progress with mood sxs/management. ~Patient education regarding connection between physical and mental health. ~Stress management, coping skills, and support discussed. ~Educated on good sleep hygiene practices. ~Praise for adderall management Last Documented On 3 9:18AM ; [facility] Reviewed side effects and Ri sks/Benefits analysis Last Documented On 3 9:18AM ; [facility] Patient education about adve rse reactions to medication Last Documented On 3 9:03AM ; [facility] Discussed and encouraged hea lthy lifestyle behaviors. ~Provided supportive listening, empathy, and validation of feelings. ~Reviewed progress with mood sxs/management. ~Patient education regarding connection between physical and mental health. ~Stress management, coping skills, and support discussed. ~Discussed sleep hygiene Last Documented On 3 9:03AM ; [facility] Reviewed side effects and Ri sks/Benefits analysis Last Documented On 3 9:03AM ; [facility] Discussed nutritional needs teach healthy choices including fruits and vegetables Last Documented On 3 8:47AM ; [facility] Patient education about a pr oper diet Last Documented On 3 8:47AM ; [facility] Discussed concerns about exe rcise : promote physical activity Last Documented On 3 8:47AM ; [facility] Not requesting contraception Last Documented On 3 8:47AM ; [facility] Patient education about adve rse reactions to medication Last Documented On 3 10:09AM ; [facility] Discussed and encouraged hea lthy lifestyle behaviors. ~Provided supportive listening, empathy, and validation of feelings. ~Reviewed progress with mood sxs/management. ~Patient education regarding connection between physical and mental health. ~Stress management, coping skills, and support discussed. ~Educated on good sleep hygiene practices. ~Relapse Prevention and harm reduction Last Documented On 3 10:09AM ; [facility] Reviewed side effects and Ri sks/Benefits analysis Last Documented On 3 10:09AM ; [facility] Not requesting contraception Last Documented On 3 9:22AM ; [facility] Discussed nutritional needs teach healthy choices including fruits and vegetables Last Documented On 3 1:55PM ; [facility] Patient education about a pr oper diet Last Documented On 3 1:55PM ; [facility] Discussed concerns about exe rcise : promote physical activity Last Documented On 3 1:55PM ; [facility] provided pt space to sha re concerns and process thoughts; utilized opportunity to explore symptoms, mood, and functioning. Offered empathy and reflective feedback. ~Discussed medication effectiveness; promoted use, as prescribed. ~ Explored stress relief methods and self-care practices; promoted use, as needed Last Documented On 3 2:33PM ; [facility] Discussed nutritional needs teach healthy choices including fruits and vegetables Last Documented On 3 2:54PM ; [facility] No patient education about a dverse reactions to medication Last Documented On 3 3:21PM ; [facility] Discussed concerns about exe rcise : promote physical activity Last Documented On 3 2:54PM ; [facility] Motivational Interviewing ~E ncouraged use of healthy coping skills ~Encouraged good sleep hygiene ~Provided active and supportive listening ~Validated and normalized emotions Last Documented On 3 3:21PM ; [facility] Reviewed side effects and Ri sks/Benefits analysis Last Documented On 3 3:21PM ; [facility] Discussed nutritional needs teach healthy choices including fruits and vegetables Last Documented On 3 12:56PM ; [facility] Patient education about a pr oper diet Last Documented On 3 12:56PM ; [facility] Discussed concerns about exe rcise : promote physical activity Last Documented On 3 12:56PM ; [facility] Discussed nutritional needs teach healthy choices including fruits and vegetables Last Documented On 3 3:41PM ; [facility] Patient education about a pr oper diet Last Documented On 3 3:41PM ; [facility] Discussed concerns about exe rcise : promote physical activity Last Documented On 3 3:41PM ; [facility] Patient education about adve rse reactions to medication Last Documented On 3 9:36AM ; [facility] Discussed lifestyle changes with patient that impact chronic illnesses. ~Supported patient's personal health goals for chronic illness management ~Discussed pt desire to be future oriented and goal directed ~Self care techniques including mindfulness techniques, deep breathing and hobbies ~Risk management: Local Crisis number, reaching out to friends/family, and community resources. ~Harm reduction and relapse prevention Last Documented On 3 9:36AM ; [facility] Reviewed side effects and Ri sks/Benefits analysis Last Documented On 3 9:36AM ; [facility] Discussed nutritional needs teach healthy choices including fruits and vegetables Last Documented On 3 9:19AM ; [facility] Patient education about a pr oper diet Last Documented On 3 9:19AM ; [facility] Patient education about adve rse reactions to medication Last Documented On 3 9:19AM ; [facility] Discussed concerns about exe rcise : promote physical activity Last Documented On 3 9:19AM ; [facility] BHP introduced self to patie nt, explained role of BHP, and briefly talked about problem behaviors and coping strategies. ~ ~[facility] offered emotional supports, explored thoughts, feelings, behaviors, utilized motivational interviewing to encourage self-care and ongoing progress, and mindfulness practice to boost healthy [id number] connections Last Documented On 3 9:19AM ; [facility] Reviewed side effects and Ri sks/Benefits analysis Last Documented On 3 9:19AM ; [facility] Discussed nutritional needs teach healthy choices including fruits and vegetables Last Documented On 3 8:27AM ; [facility] Patient education about a pr oper diet Last Documented On 3 8:27AM ; [facility] Discussed concerns about exe rcise : promote physical activity Last Documented On 3 8:27AM ; [facility] Patient education about adve rse reactions to medication Last Documented On 3 6:29PM ; [facility] Discussed lifestyle changes with patient that impact chronic illnesses. ~Supported patient's personal health goals for chronic illness management ~Discussed pt desire to be future oriented and goal directed ~Self care techniques including mindfulness techniques, deep breathing and hobbies ~Risk management: Local Crisis number, reaching out to friends/family, and community resources. ~Harm reduction and relapse prevention Last Documented On 3 6:29PM ; [facility] Reviewed side effects and Ri sks/Benefits analysis Last Documented On 3 6:29PM ; [facility] Discussed nutritional needs teach healthy choices including fruits and vegetables Last Documented On 3 6:00PM ; [facility] Patient education about a pr oper diet Last Documented On 3 6:00PM ; [facility] Discussed concerns about exe rcise : promote physical activity Last Documented On 3 6:00PM ; [facility] Not requesting contraception Last Documented On 3 6:00PM ; [facility] provided active listenin g; offered pt time to provide feedback required to assess for recent use/uges/cravings/triggers. ~Provided time for the pt to share and process thoughts and concerns regarding use of prescribed medication for ADHD symtoms; expressed concern for pt's health and well-being. ~Explored and assessed for issues or concerns impacting recovery; acknowledged reported abstinence/good progress. ~Encouraged use of healthy coping methods and seeking sober support, as needed Last Documented On 3 5:57PM ; [facility] Discussed nutritional needs teach healthy choices including fruits and vegetables Last Documented On 3 6:49PM ; [facility] Patient education about a pr oper diet Last Documented On 3 6:49PM ; [facility] Discussed concerns about exe rcise : promote physical activity ~ ~Follow up in 4 weeks Last Documented On 3 8:47AM ; [facility] Discussed nutritional needs teach healthy choices including fruits and vegetables Last Documented On 3 3:59PM ; [facility] Patient education about a pr oper diet Last Documented On 3 3:59PM ; [facility] Discussed concerns about exe rcise : promote physical activity ~ ~Will start hydroxyzine as needed for anxiety ~ ~Follow up in 4 weeks Last Documented On 3 4:55PM ; [facility] provided active listenin g, support and helped pt process though current symptoms and stressor(s); explored effectiveness of medication, coping mechanisms, and self-care practices. ~Encouraged use, when needed Last Documented On 3 3:57PM ; [facility] Discussed nutritional needs teach healthy choices including fruits and vegetables Last Documented On 2 6:58PM ; [facility] Patient education about a pr oper diet Last Documented On 2 6:58PM ; [facility] Discussed concerns about exe rcise : promote physical activity Last Documented On 2 6:58PM ; [facility] actively listened; provid ed empathy and unconditional positive regard. ~Acknowledged and validated emotions. ~Helped the pt to process recent alcohol use; provided encouragement to move forward with her recovery. ~Supported pt's interest in attending sober support groups and professional tx. ~Provided pt MH/[facility] resource list' ~Discussed medication; encouraged medication complaince and contacting [facility] with questions or concerns Last Documented On 2 10:15AM ; [facility] Discussed nutritional needs teach healthy choices including fruits and vegetables Last Documented On 2 7:19PM ; [facility] Patient education about a pr oper diet Last Documented On 2 7:19PM ; [facility] Discussed concerns about exe rcise : promote physical activity Last Documented On 2 7:19PM ; [facility] provided active listenin g, support and helped pt process though current stressor(s). Discussed effectiveness of medication; acknowledged and validated concerns. ~Explored use of coping mechanisms, self-care practices, and support system. ~Encouraged use, when needed Last Documented On 2 8:10AM ; [facility] Discussed nutritional needs teach healthy choices including fruits and vegetables Last Documented On 2 6:39PM ; [facility] Patient education about a pr oper diet Last Documented On 2 6:39PM ; [facility] Discussed concerns about exe rcise : promote physical activity ~ ~Follow up in 4 weeks Last Documented On 2 5:33AM ; [facility] Discussed nutritional needs teach healthy choices including fruits and vegetables Last Documented On 2 2:22PM ; [facility] Patient education about a pr oper diet Last Documented On 2 2:22PM ; [facility] Discussed concerns about exe rcise : promote physical activity Last Documented On 2 2:22PM ; [facility] provided active listenin g; assessed current symptoms and stressor(s) coping mechanisms, support system, and self-care practices Last Documented On 2 4:02PM ; [facility] introduced pt to HPWO in tegrated model of care ~[facility] offered active listening and supportive feedback; normalized emotions and feelings; provided opportunity to explore alcohol use hx/sx/dx/ and tx options. Provided psychoeducation focused on MAT program including requirements for clean UDS. ~[facility] discussed potential benefits of counseling in conjunction with MAT. ~Supported use of healthy coping methods and seeking support, as needed Last Documented On 2 11:27AM ; [facility] Discussed nutritional needs teach healthy choices including fruits and vegetables Last Documented On 2 9:47AM ; [facility] Patient education about a pr oper diet Last Documented On 2 9:47AM ; [facility] Discussed concerns about exe rcise : promote physical activity ~ ~Follow up Friday or Friday for UDS, will try for induction next Last Documented On 2 10:35AM ; [facility] Work Phone: [phone]) 823-319906-13-2023 History general Narrative - Reported Includes: Medical History in patient's chart Description Last Updated Not planning to have a baby in the next 12 months 02/25/2023 [facility] Work Phone: [phone]) 724-726006-13-2023 History general Narrative - Reported Includes: Medical History in patient's chart Description Last Updated Not planning to have a baby in the next 12 months 02/25/2023 [facility] Work Phone: [phone]) 306-179606-13-2023 Progress note* Progress note Date Encounter Last Documented by 02/25/2023 Medical Established Patient Last documented on 02/25/2023; 9:18 AM, Sarbjit Aly MD; [facility] Active Problems & Conditions - F10.20 - Alcohol Dependence Uncomplicated - F41.9 - Anxiety Disorder Nos - F90.9 - Undifferentiated Attention Deficit Disorder - 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 Referred Here Not referred by urgent care clinic and not the emergency room. No prior encounters. - Data to be reviewed: no clinical lab tests History of Present Illness - Allergy list reviewed - Reviewed Medications Current Medication - Adderall XR 5 MG Oral Capsule Extended Release 24 Hour ONE PO QD, 30 days, 0 refills - Famotidine 20 MG Oral Tablet take 20 mg PO at HS, 30 days, 0 refills - Flonase Allergy Relief 50 MCG/ACT Nasal Suspension one puff to each nare daily, 31 days, 0 refills - Naltrexone HCl 50 MG Oral Tablet 1 po qd, 90 days, 1 refills - Ondansetron HCl 4 MG Oral Tablet take 4 mg PO every 8 hours as needed, 3 days, 0 refills - Vivitrol 380 MG Intramuscular Suspension Reconstituted Inject intrarmuscular every month, 28 days, 12 refills Past Medical/Surgical History Other: No previous suicide attempt. Interpersonal relationship problems Reported: No Safety Measures. Medical: No medical history or no significant history and no previous hospitalizations. Partners sexually transmitted infection status not known. : Not planning to have a baby in the next 12 months. Personal: Re-experiencing a previous traumatic event. Procedural: - Tooth extraction Surgical: - Extraction of wisdom tooth - Tonsillectomy with adenoidectomy - General surgery kidney x6 stents, tubes, cut some of the tube out - No tubal ligation Social History Environmental Exposure: No secondhand cigarette smoke exposure. Tobacco use: Using electronic cigarettes/vaping. Alcohol: Not using alcohol. Drug Use: Not using drugs denied by patient. Sexual: Denied sexual activity, sexual orientation Bisexual, and gender identity Female. Allergies - No Known Allergies Family History Father alcoholic Maternal: Depression committed suicide Review Of Systems Systemic: No systemic symptoms. Head: No head symptoms. Neck: No neck symptoms. Eyes: No eye symptoms. Otolaryngeal: No ear symptoms, no nasal symptoms, no throat symptoms, and no oral cavity symptoms. Cardiovascular: No cardiovascular symptoms. Pulmonary: No pulmonary symptoms. Gastrointestinal: No gastrointestinal symptoms and normal appetite. Genitourinary: No genitourinary symptoms. Endocrine: No endocrine symptoms. Hematologic: No hematologic symptoms. Musculoskeletal: No musculoskeletal symptoms. Neurological: No neurological symptoms. Psychological: No psychological symptoms. Skin: No skin symptoms. Allergic and Immunologic: No allergic/immunologic symptoms. She is here to follow up on her ADHD. She has taken 2 of her Adderall XR daily as directed with good results. I will refill it at the 10mg dose. Her alcohol cravings have been well controlled by her Vivitrol injection. Her blood pressure is fine. Her weight is stable. Physical Findings - Vitals taken 02/25/2023 09:05 am BP-Qhrzzzf287/77 mmHg Pulse Rate-Zfparmh25 bpm Respiration Rate18 per min Temp-Oral97.2 F Wikkiy84 in Bmjgrs933 lbs 6.4 oz Body Mass Index24.2 kg/m2 Body Surface Area1.7 m2 Oxygen Yfwrzfczlm27 % General Appearance: - Awake. - Alert. - Well developed. - Well nourished. Head: Appearance: - Head normocephalic. Face: - Examination was performed. Neck: Thyroid: - Is normal. Eyes: General/bilateral: Pupils: - PERRLA. - Reactive to light. Ears: General/bilateral: Outer Ear: - Normal. Right Ear: - Examined. Left Ear: - Examined. Nose: General/bilateral: Discharge: - No nasal discharge. Oral Cavity: - General condition was good. Lungs: - Normal. - Respiration rhythm and depth was normal. - Respiratory movements were normal. - Clear to auscultation. Cardiovascular: Auscultation: - Normal. Heart Rate And Rhythm: - Normal. Heart Sounds: - Normal. Abdomen: Visual Inspection: - Abdomen was normal on visual inspection. Auscultation: - Bowel sounds were normal. Palpation: - Abdominal non-tender. Musculoskeletal System: General/bilateral: - Normal movement of all extremities. Posture: General/bilateral: - Posture was normal. Neurological: - No confusion was observed. - Oriented to time, place, and person. Psychiatric: - Expression of emotions finding was normal. Demonstrated Behavior: - Appropriate behavior for patient. Skin: - General appearance was normal. - Texture was normal. General body state finding: - In good general health. Assessment - Z68.24 - Body mass index [BMI] 24.0-24.9, adult Counseling/Education - No not wishing to stop using electronic cigarettes/vaping - Not requesting contraception Plan StartCited- Other Follow-up Appointment 3 weeks Amphetamine-Dextroamphet ER 10 MG capsule 1 po qam, 21 days, 0 refills EndCited Practice Management Systolic blood pressure < 130 mmHg and diastolic < 80 mmHg diastolic < 80 mmHg. Advance Directives - Living Will Health Reminders - Assess BMI satisfied 02/25/2023. - Assess Tobacco Use satisfied 02/25/2023. 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 History of Present Illness - No Bipolar Behaviors. - No service. - Normal appetite. - Anxiety - Depression - Energy level is fair - Fear of loss of control - No sleep disturbances - Not sleeping too much - No loss of interest in activities - Not feeling that nothing matters - Not feeling guilty - Not feeling persecuted - Not feeling unique and all-powerful - Not easily distracted - No racing thoughts - Not regularly taking risks - No social isolation - Not more talkative than usual - No compulsive behavior - No impulsive behavior - No high involvement in pleasurable activities - - Progress: Pt states the adjustment to adderall XR, taking 2- 5mg in the morninghas been beneficial for pt's focus and concentration. Pt states she is not having any crash ib the afternoon and is no longer having any headaches. Pt states there has been fewer interruptions in her sleep since the adjustment to her adderall. Pt states the first few days after the vivitrol shot she felt weak. Pt will further discuss this with PCP - Irritability Current Medication - Adderall XR 5 MG Oral Capsule Extended Release 24 Hour ONE PO QD, 30 days, 0 refills - Amphetamine-Dextroamphet ER 10 MG Oral Capsule Extended Release 24 Hour 1 po qam, 21 days, 0 refills - Famotidine 20 MG Oral Tablet take 20 mg PO at HS, 30 days, 0 refills - Flonase Allergy Relief 50 MCG/ACT Nasal Suspension one puff to each nare daily, 31 days, 0 refills - Naltrexone HCl 50 MG Oral Tablet 1 po qd, 90 days, 1 refills - Ondansetron HCl 4 MG Oral Tablet take 4 mg PO every 8 hours as needed, 3 days, 0 refills - Vivitrol 380 MG Intramuscular Suspension Reconstituted Inject intrarmuscular every month, 28 days, 12 refills Past Medical/Surgical History Other: Interpersonal relationship problems Reported: Medical: Partners sexually transmitted infection status not known. : Not planning to have a baby in the next 12 months. Personal: Re-experiencing a previous traumatic event. Procedural: - Tooth extraction Surgical: - Extraction of wisdom tooth - Tonsillectomy with adenoidectomy - General surgery kidney x6 stents, tubes, cut some of the tube out Social History Environmental Exposure: No secondhand cigarette smoke exposure. Not on probation and not on parole. Personal: Recent breakup with significant other, interpersonal problems, family problems, recent legal problems NAEL, and recent relocation. Behavioral: Not a current tobacco user. Tobacco use: Using electronic cigarettes/vaping. Alcohol: A social drinker wknds around 6 beers, having stopped drinking alcohol, and recovering alcoholic. Drug Use: Using marijuana and drug use. Antisocial: No criminal behavior (Felony traffic violations, Civil involvement, Criminal involvement). Housing And Economic Circumstances: Lives alone and with grandparent(s). Education: Educational level: grade. Work: Working [employer]. Faith Status: Faith practices were unknown. Marital: You are currently single. Sexual: Sexually active, denied sexual activity, sexual orientation Chose Not to Disclose, and gender identity Chose Not To Disclose. - Substance Use: Recovery Allergies - No Known Allergies Family History Father alcoholic Maternal: Depression committed suicide Physical Findings General Appearance: - Normal Appearance. - You did not appear uncomfortable. - In no acute distress. Musculoskeletal System: Posture: General/bilateral: - Posture was normal. Neurological: - Cognitive Functions was Normal. - Estimated intelligence was normal. - Oriented to time, place, and person. - No perceptual disturbances were noted. - No imagined perceptions not based in reality. - Memory was unimpaired. - Normal recent memory for registration. - Judgement was not impaired. Speech: - Is Normal. Motor: - No involuntary movements were seen. Gait And Stance: - Normal. Psychiatric: - Mood is Euthymic. - Attitude Guarded. Demonstrated Behavior: - Motor Activity Normal Activity. - Eye Contact Decreased. Affect: - Congruent with the mood. Thought Processes: - Not impaired. Thought Content: - Revealed no impairment. - Insight was intact. - No delusions. - No report of thinking about suicide was noted. - No Passive thoughts of . - No suicidal plans. - No suicidal intent. - No report of thinking about killing someone was noted. - Revealed no plan to kill someone. - Revealed no intent to kill someone. Past Medical: - No repetitive self injurious behavior. Tests Laboratory-based Chemistry: Other Laboratory Tests: Screening for sexually transmitted infections was not performed. 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 - Adherent with medications. - Plan - do not modify medication. Collaborated with patient and provider: Counseling/Education - No not wishing to stop using electronic cigarettes/vaping - Patient education about adverse reactions to medication - Reviewed side effects and Risks/Benefits analysis Discussed and encouraged healthy lifestyle behaviors. Provided supportive listening, empathy, and validation of feelings. Reviewed progress with mood sxs/management. Patient education regarding connection between physical and mental health. Stress management, coping skills, and support discussed. Educated on good sleep hygiene practices. Praise for adderall management. Plan BH at next visit. Take medication as prescribed. Follow discharge instructions. Advance Directives - Living Will Health Reminders - Assess Tobacco Use satisfied 02/25/2023. - Smoking & Tobacco Cessation Intervention and Counseling satisfied 02/25/2023. [facility]06-13-2023 Instructions Includes: Instructions for all patient encounters Instructions to patient Intervention and counseling on cessation of tobacco use, 3-10 minutes Discussed medication and nicotine replacement for tobacco cessation Last Documented On 3 9:26AM ; [facility] Education and Decision Aids were provided during visit for: Not requesting contraception Last Documented On 3 9:08AM ; [facility] Patient education about adve rse reactions to medication Last Documented On 3 9:03AM ; [facility] Discussed and encouraged hea lthy lifestyle behaviors. ~Provided supportive listening, empathy, and validation of feelings. ~Reviewed progress with mood sxs/management. ~Patient education regarding connection between physical and mental health. ~Stress management, coping skills, and support discussed. ~Discussed sleep hygiene Last Documented On 3 9:03AM ; [facility] Reviewed side effects and Ri sks/Benefits analysis Last Documented On 3 9:03AM ; [facility] Discussed nutritional needs teach healthy choices including fruits and vegetables Last Documented On 3 8:47AM ; [facility] Patient education about a pr oper diet Last Documented On 3 8:47AM ; [facility] Discussed concerns about exe rcise : promote physical activity Last Documented On 3 8:47AM ; [facility] Not requesting contraception Last Documented On 3 8:47AM ; [facility] Patient education about adve rse reactions to medication Last Documented On 3 10:09AM ; [facility] Discussed and encouraged hea lthy lifestyle behaviors. ~Provided supportive listening, empathy, and validation of feelings. ~Reviewed progress with mood sxs/management. ~Patient education regarding connection between physical and mental health. ~Stress management, coping skills, and support discussed. ~Educated on good sleep hygiene practices. ~Relapse Prevention and harm reduction Last Documented On 3 10:09AM ; [facility] Reviewed side effects and Ri sks/Benefits analysis Last Documented On 3 10:09AM ; [facility] Not requesting contraception Last Documented On 3 9:22AM ; [facility] Discussed nutritional needs teach healthy choices including fruits and vegetables Last Documented On 3 1:55PM ; [facility] Patient education about a pr oper diet Last Documented On 3 1:55PM ; [facility] Discussed concerns about exe rcise : promote physical activity Last Documented On 3 1:55PM ; [facility] provided pt space to sha re concerns and process thoughts; utilized opportunity to explore symptoms, mood, and functioning. Offered empathy and reflective feedback. ~Discussed medication effectiveness; promoted use, as prescribed. ~ Explored stress relief methods and self-care practices; promoted use, as needed Last Documented On 3 2:33PM ; [facility] Discussed nutritional needs teach healthy choices including fruits and vegetables Last Documented On 3 2:54PM ; [facility] No patient education about a dverse reactions to medication Last Documented On 3 3:21PM ; [facility] Discussed concerns about exe rcise : promote physical activity Last Documented On 3 2:54PM ; [facility] Motivational Interviewing ~E ncouraged use of healthy coping skills ~Encouraged good sleep hygiene ~Provided active and supportive listening ~Validated and normalized emotions Last Documented On 3 3:21PM ; [facility] Reviewed side effects and Ri sks/Benefits analysis Last Documented On 3 3:21PM ; [facility] Discussed nutritional needs teach healthy choices including fruits and vegetables Last Documented On 3 12:56PM ; [facility] Patient education about a pr oper diet Last Documented On 3 12:56PM ; [facility] Discussed concerns about exe rcise : promote physical activity Last Documented On 3 12:56PM ; [facility] Discussed nutritional needs teach healthy choices including fruits and vegetables Last Documented On 3 3:41PM ; [facility] Patient education about a pr oper diet Last Documented On 3 3:41PM ; [facility] Discussed concerns about exe rcise : promote physical activity Last Documented On 3 3:41PM ; [facility] Patient education about adve rse reactions to medication Last Documented On 3 9:36AM ; [facility] Discussed lifestyle changes with patient that impact chronic illnesses. ~Supported patient's personal health goals for chronic illness management ~Discussed pt desire to be future oriented and goal directed ~Self care techniques including mindfulness techniques, deep breathing and hobbies ~Risk management: Local Crisis number, reaching out to friends/family, and community resources. ~Harm reduction and relapse prevention Last Documented On 3 9:36AM ; [facility] Reviewed side effects and Ri sks/Benefits analysis Last Documented On 3 9:36AM ; [facility] Discussed nutritional needs teach healthy choices including fruits and vegetables Last Documented On 3 9:19AM ; [facility] Patient education about a pr oper diet Last Documented On 3 9:19AM ; [facility] Patient education about adve rse reactions to medication Last Documented On 3 9:19AM ; [facility] Discussed concerns about exe rcise : promote physical activity Last Documented On 3 9:19AM ; [facility] BHP introduced self to patie nt, explained role of BHP, and briefly talked about problem behaviors and coping strategies. ~ ~[facility] offered emotional supports, explored thoughts, feelings, behaviors, utilized motivational interviewing to encourage self-care and ongoing progress, and mindfulness practice to boost healthy uwry-bhht-wbfvei connections Last Documented On 3 9:19AM ; [facility] Reviewed side effects and Ri sks/Benefits analysis Last Documented On 3 9:19AM ; [facility] Discussed nutritional needs teach healthy choices including fruits and vegetables Last Documented On 3 8:27AM ; [facility] Patient education about a pr oper diet Last Documented On 3 8:27AM ; [facility] Discussed concerns about exe rcise : promote physical activity Last Documented On 3 8:27AM ; [facility] Patient education about adve rse reactions to medication Last Documented On 3 6:29PM ; [facility] Discussed lifestyle changes with patient that impact chronic illnesses. ~Supported patient's personal health goals for chronic illness management ~Discussed pt desire to be future oriented and goal directed ~Self care techniques including mindfulness techniques, deep breathing and hobbies ~Risk management: Local Crisis number, reaching out to friends/family, and community resources. ~Harm reduction and relapse prevention Last Documented On 3 6:29PM ; [facility] Reviewed side effects and Ri sks/Benefits analysis Last Documented On 3 6:29PM ; [facility] Discussed nutritional needs teach healthy choices including fruits and vegetables Last Documented On 3 6:00PM ; [facility] Patient education about a pr oper diet Last Documented On 3 6:00PM ; [facility] Discussed concerns about exe rcise : promote physical activity Last Documented On 3 6:00PM ; [facility] Not requesting contraception Last Documented On 3 6:00PM ; [facility] provided active listenin g; offered pt time to provide feedback required to assess for recent use/uges/cravings/triggers. ~Provided time for the pt to share and process thoughts and concerns regarding use of prescribed medication for ADHD symtoms; expressed concern for pt's health and well-being. ~Explored and assessed for issues or concerns impacting recovery; acknowledged reported abstinence/good progress. ~Encouraged use of healthy coping methods and seeking sober support, as needed Last Documented On 3 5:57PM ; [facility] Discussed nutritional needs teach healthy choices including fruits and vegetables Last Documented On 3 6:49PM ; [facility] Patient education about a pr oper diet Last Documented On 3 6:49PM ; [facility] Discussed concerns about exe rcise : promote physical activity ~ ~Follow up in 4 weeks Last Documented On 3 8:47AM ; [facility] Discussed nutritional needs teach healthy choices including fruits and vegetables Last Documented On 3 3:59PM ; [facility] Patient education about a pr oper diet Last Documented On 3 3:59PM ; [facility] Discussed concerns about exe rcise : promote physical activity ~ ~Will start hydroxyzine as needed for anxiety ~ ~Follow up in 4 weeks Last Documented On 3 4:55PM ; [facility] provided active listenin g, support and helped pt process though current symptoms and stressor(s); explored effectiveness of medication, coping mechanisms, and self-care practices. ~Encouraged use, when needed Last Documented On 3 3:57PM ; [facility] Discussed nutritional needs teach healthy choices including fruits and vegetables Last Documented On 2 6:58PM ; [facility] Patient education about a pr oper diet Last Documented On 2 6:58PM ; [facility] Discussed concerns about exe rcise : promote physical activity Last Documented On 2 6:58PM ; [facility] actively listened; provid ed empathy and unconditional positive regard. ~Acknowledged and validated emotions. ~Helped the pt to process recent alcohol use; provided encouragement to move forward with her recovery. ~Supported pt's interest in attending sober support groups and professional tx. ~Provided pt MH/ANTONY resource list' ~Discussed medication; encouraged medication complaince and contacting [facility] with questions or concerns Last Documented On 2 10:15AM ; [facility] Discussed nutritional needs teach healthy choices including fruits and vegetables Last Documented On 2 7:19PM ; [facility] Patient education about a pr oper diet Last Documented On 2 7:19PM ; [facility] Discussed concerns about exe rcise : promote physical activity Last Documented On 2 7:19PM ; [facility] provided active listenin g, support and helped pt process though current stressor(s). Discussed effectiveness of medication; acknowledged and validated concerns. ~Explored use of coping mechanisms, self-care practices, and support system. ~Encouraged use, when needed Last Documented On 2 8:10AM ; [facility] Discussed nutritional needs teach healthy choices including fruits and vegetables Last Documented On 11/03/202 2 6:39PM ; [facility] Patient education about a pr oper diet Last Documented On 2 6:39PM ; [facility] Discussed concerns about exe rcise : promote physical activity ~ ~Follow up in 4 weeks Last Documented On 2 5:33AM ; [facility] Discussed nutritional needs teach healthy choices including fruits and vegetables Last Documented On 2 2:22PM ; [facility] Patient education about a pr oper diet Last Documented On 2 2:22PM ; [facility] Discussed concerns about exe rcise : promote physical activity Last Documented On 2 2:22PM ; [facility] provided active listenin g; assessed current symptoms and stressor(s) coping mechanisms, support system, and self-care practices Last Documented On 2 4:02PM ; [facility] introduced pt to HPWO in tegrated model of care ~[facility] offered active listening and supportive feedback; normalized emotions and feelings; provided opportunity to explore alcohol use hx/sx/dx/ and tx options. Provided psychoeducation focused on MAT program including requirements for clean UDS. ~[facility] discussed potential benefits of counseling in conjunction with MAT. ~Supported use of healthy coping methods and seeking support, as needed Last Documented On 2 11:27AM ; [facility] Discussed nutritional needs teach healthy choices including fruits and vegetables Last Documented On 2 9:47AM ; [facility] Patient education about a pr oper diet Last Documented On 2 9:47AM ; [facility] Discussed concerns about exe rcise : promote physical activity ~ ~Follow up Friday or Friday for UDS, will try for induction next Last Documented On 2 10:35AM ; [facility] Work Phone: 1([phone]) 519-593206-08-2023 History general Narrative - Reported Includes: Medical History in patient's chart Description Last Updated Not planning to have a baby in the next 12 months 02/20/2023 [facility] Work Phone: 1(270) 514-633406-08-2023 Progress note* Progress note Date Encounter Last Documented by 02/20/2023 Established Patient Last docu mented on 02/20/2023; 11:55 AM, Felecia DENT; [facility] Active Problems & Conditions - F10.20 - Alcohol Dependence Uncomplicated - F41.9 - Anxiety Disorder Nos - 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 History of Present Illness - No Bipolar Behaviors. - No service. - Normal appetite. - Anxiety - Hard to stay asleep due to anxiety waking 4 to 5 times a night - Energy level is fair - Fear of loss of control - Easily distracted - Racing thoughts - No depression - Not sleeping too much - No loss of interest in activities - Not feeling that nothing matters - Not feeling guilty - Not feeling persecuted - Not feeling unique and all-powerful - Not regularly taking risks - No social isolation - No compulsive behavior - No impulsive behavior - No high involvement in pleasurable activities - - Progress: Pt reports she is not crashing as much when taking the adderall during the day. Pt is taking the medication at 7-8am and the next dose at 1pm. Pt is still waking 4-5 times a night - No Irritability Current Medication - Adderall XR 5 MG Oral Capsule Extended Release 24 Hour ONE PO QD, 30 days, 0 refills - Famotidine 20 MG Oral Tablet take 20 mg PO at HS, 30 days, 0 refills - Flonase Allergy Relief 50 MCG/ACT Nasal Suspension one puff to each nare daily, 31 days, 0 refills - Naltrexone HCl 50 MG Oral Tablet 1 po qd, 90 days, 1 refills - Ondansetron HCl 4 MG Oral Tablet take 4 mg PO every 8 hours as needed, 3 days, 0 refills - Vivitrol 380 MG Intramuscular Suspension Reconstituted Inject intrarmuscular every month, 28 days, 12 refills Past Medical/Surgical History Other: Interpersonal relationship problems Reported: Medical: Partners sexually transmitted infection status not known. : Not planning to have a baby in the next 12 months. Personal: Re-experiencing a previous traumatic event. Procedural: - Tooth extraction Surgical: - Extraction of wisdom tooth - Tonsillectomy with adenoidectomy - General surgery kidney x6 stents, tubes, cut some of the tube out - No tubal ligation Social History Environmental Exposure: No secondhand cigarette smoke exposure. Not on probation and not on parole. Personal: Recent breakup with significant other, interpersonal problems, family problems, recent legal problems NAEL, and recent relocation. Tobacco use: Using electronic cigarettes/vaping. Alcohol: Beer consumption did not consume any alcohol since 02/17/23, evening and a social drinker wknds around 6 beers. Drug Use: Using marijuana and drug use. Antisocial: No criminal behavior (Felony traffic violations, Civil involvement, Criminal involvement). Housing And Economic Circumstances: Lives alone and with grandparent(s). Education: Educational level: grade. Work: Working [employer]. Marital: You are currently single. Sexual: Sexually active, denied sexual activity, sexual orientation Bisexual, and gender identity Female. - Substance Use: Recovery Allergies - No Known Allergies Family History Father alcoholic Maternal: Depression committed suicide Physical Findings General Appearance: - Normal Appearance. - You did not appear uncomfortable. - In no acute distress. Musculoskeletal System: Posture: General/bilateral: - Posture was normal. Neurological: - Not oriented to time, place, and person. - Cognitive Functions was Normal. - Estimated intelligence was normal. - No perceptual disturbances were noted. - No imagined perceptions not based in reality. - Memory was unimpaired. - Normal recent memory for registration. - Judgement was not impaired. Speech: - Is Normal. Motor: - No involuntary movements were seen. Gait And Stance: - Normal. Psychiatric: - Mood is Euthymic. - Attitude Guarded. Demonstrated Behavior: - Motor Activity Normal Activity. - Eye Contact Decreased. Affect: - Congruent with the mood. Thought Processes: - Not impaired. Thought Content: - Revealed no impairment. - Insight was intact. - No delusions. - No report of thinking about suicide was noted. - No Passive thoughts of . - No suicidal plans. - No suicidal intent. - No report of thinking about killing someone was noted. - Revealed no plan to kill someone. - Revealed no intent to kill someone. Past Medical: - No repetitive self injurious behavior. Tests Laboratory-based Chemistry: Other Laboratory Tests: Screening for sexually transmitted infections was not performed. 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 - Adherent with medications taking adderall at 7-8a and then at 1p. - Plan - do not modify medication. Collaborated with patient and provider: Counseling/Education - No not wishing to stop using electronic cigarettes/vaping - Patient education about adverse reactions to medication - Reviewed side effects and Risks/Benefits analysis Discussed and encouraged healthy lifestyle behaviors. Provided supportive listening, empathy, and validation of feelings. Reviewed progress with mood sxs/management. Patient education regarding connection between physical and mental health. Stress management, coping skills, and support discussed. Discussed sleep hygiene. Plan BH at next visit. Take medication as prescribed. Follow discharge instructions. Advance Directives - Living Will Health Reminders - Assess Tobacco Use satisfied 02/20/2023. - Smoking & Tobacco Cessation Intervention and Counseling satisfied 02/20/2023. 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 Referred Here Not referred by urgent care clinic and not the emergency room. No prior encounters. - Data to be reviewed: no clinical lab tests History of Present Illness - Reviewed Medications. Current Medication - Adderall XR 5 MG Oral Capsule Extended Release 24 Hour ONE PO QD, 30 days, 0 refills - Famotidine 20 MG Oral Tablet take 20 mg PO at HS, 30 days, 0 refills - Flonase Allergy Relief 50 MCG/ACT Nasal Suspension one puff to each nare daily, 31 days, 0 refills - Naltrexone HCl 50 MG Oral Tablet 1 po qd, 90 days, 1 refills - Ondansetron HCl 4 MG Oral Tablet take 4 mg PO every 8 hours as needed, 3 days, 0 refills - Vivitrol 380 MG Intramuscular Suspension Reconstituted Inject intrarmuscular every month, 28 days, 12 refills Past Medical/Surgical History Other: No previous suicide attempt. Interpersonal relationship problems Reported: No Safety Measures. Medical: No medical history or no significant history and no previous hospitalizations. Partners sexually transmitted infection status not known. : Not planning to have a baby in the next 12 months. Personal: Re-experiencing a previous traumatic event. Procedural: - Tooth extraction Surgical: - Extraction of wisdom tooth - Tonsillectomy with adenoidectomy - General surgery kidney x6 stents, tubes, cut some of the tube out - No tubal ligation Social History Environmental Exposure: No secondhand cigarette smoke exposure. Behavioral: Not a current tobacco user. Tobacco use: Not using electronic cigarettes/vaping. Alcohol: Not using alcohol. Drug Use: Not using drugs denied by patient. Sexual: Denied sexual activity, sexual orientation Chose Not to Disclose, and gender identity Chose Not To Disclose. Allergies - No Known Allergies Family History Father alcoholic Maternal: Depression committed suicide Physical Findings - Vitals taken 02/20/2023 08:45 am BP-Fjuqfuu843/68 mmHg BP Cuff SizeRegular Pulse Rate-Vnfovqq40 bpm Respiration Rate20 per min Temp-Gvtsdqam26.2 F Yseemf78 in Cxztke649 lbs Body Mass Index24.1 kg/m2 Body Surface Area1.7 m2 Oxygen Kjgufkqrik67 % O2 DeviceNone (Room Air) AuN804 % Tests Urinalysis Was Performed: Urine color. Laboratory-based Chemistry: Drug Screen: Value UDS Staff Members Present 2 Urine drug screen by multiple class procedure. THC Not Present, PCP Not Present, OXY Not Present, SRK758 Not Present, MTD Not Present, MET Not Present, MDMA Not Present, MESHA Not Present, BZO Not Present, BUP Not Present, and BAR Not Present. AMP Present and UDS Specimen sent to lab Urine Temperature. Assessment - Z68.24 - Body mass index [BMI] 24.0-24.9, adult Therapy - Other Administered 1 applicator of Vivitrol 380 MG on 02/20/23 08:15a, Patient tolerated therapy well. No signs or symptoms of adverse reactions. Patient waited in clinic for 15 minutes after administration. - Patient refused flu vaccine. Discussed benefits of flu vaccine with Patient. Vaccinations - Received dose of Reported: Patient has received the COVID Vaccine Counseling/Education - Discussed nutritional needs teach healthy choices including fruits and vegetables - Patient education about a proper diet - Not requesting contraception - Discussed concerns about exercise: promote physical activity Notes - Patient is not interested in the COVID-19 vaccination at this time. Practice Management Systolic blood pressure < 130 mmHg and diastolic < 80 mmHg diastolic < 80 mmHg. Advance Directives - Living Will Health Reminders - Assess BMI satisfied 02/20/2023. - Assess Tobacco Use satisfied 02/20/2023. [facility]06-06-2023 History general Narrative - Reported Includes: Medical History in patient's chart Description Last Updated Not planning to have a baby in the next 12 months 02/18/2023 [facility] Work Phone: 1(104) 331-930506-06-2023 History general Narrative - Reported Includes: Medical History in patient's chart Description Last Updated Not planning to have a baby in the next 12 months 02/18/2023 [facility] Work Phone: [phone]) 779-586906-06-2023 Progress note* Progress note Date Encounter Last Documented by 02/18/2023 Established Patient Last docu mented on 02/18/2023; 10:19 AM, Felecia DENT; [facility] Active Problems & Conditions - F10.20 - Alcohol Dependence Uncomplicated - F41.9 - Anxiety Disorder Nos - F90.9 - Undifferentiated Attention Deficit Disorder - 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 Pt was seen 02/07/23 at [facility] and rescheduled an appointment with [facility] on 03/10/23. History of Present Illness - No Bipolar Behaviors. - No service. - Normal appetite. - Anxiety - Depression - Sleeping too much - Loss of interest in activities - Feeling that nothing matters - Energy level is fair - Fear of loss of control - Easily distracted - Racing thoughts - Regularly taking risks - Impulsive behavior - Not feeling guilty - Not feeling persecuted - Not feeling unique and all-powerful - No social isolation - No compulsive behavior - No high involvement in pleasurable activities - - Progress: Pt was recently seen at [facility] and recieved adderall. Pt was also assess for a vivitrol shot. Pt states she has been taking 3 adderall pills per day. Pt states the doctor she saw in [place] told her she was to take 3 a day and will be out soon. [facility] could not find evidence pt was directed to take adderall 3 times a day. Pt is not taking Pt would like to have her vivitrol shot today but did drink alcohol last night. Pt is not taking effexor, strattera, naltrexone, or hydroxzyine - Irritability Current Medication - Adderall XR 5 MG Oral Capsule Extended Release 24 Hour ONE PO QD, 30 days, 0 refills - Effexor XR 37.5 MG Oral Capsule Extended Release 24 Hour 1 po qd, 30 days, 5 refills - Famotidine 20 MG Oral Tablet take 20 mg PO at HS, 30 days, 0 refills - Flonase Allergy Relief 50 MCG/ACT Nasal Suspension one puff to each nare daily, 31 days, 0 refills - hydrOXYzine HCl 25 MG Oral Tablet Take one tablet three times a day as needed for anxiety, 30 days, 5 refills - MiraLax 17 GM/SCOOP Oral Powder Dissolve one capful (17g) into 4-8oz of liquid and drink daily, 30 days, 2 refills - Naltrexone HCl 50 MG Oral Tablet 1 po qd, 90 days, 1 refills - Ondansetron HCl 4 MG Oral Tablet take 4 mg PO every 8 hours as needed, 3 days, 0 refills - Strattera 18 MG Oral Capsule 1 po qd, 30 days, 5 refills - Vivitrol 380 MG Intramuscular Suspension Reconstituted Inject intrarmuscular every month, 28 days, 12 refills - Vivitrol 380 MG Intramuscular Suspension Reconstituted Inject intrarmuscular every month, 28 days, 11 refills Past Medical/Surgical History Other: Interpersonal relationship problems Reported: Medical: Partners sexually transmitted infection status not known. : Not planning to have a baby in the next 12 months. Personal: Re-experiencing a previous traumatic event. Procedural: - Tooth extraction Surgical: - Extraction of wisdom tooth - Tonsillectomy with adenoidectomy - General surgery kidney x6 stents, tubes, cut some of the tube out - No tubal ligation Social History Environmental Exposure: No secondhand cigarette smoke exposure. Not on probation and not on parole. Personal: Recent breakup with significant other, interpersonal problems, family problems, recent legal problems NAEL, and recent relocation. Tobacco use: Using electronic cigarettes/vaping. Alcohol: Beer consumption tall boy and 2 bottle of bud light several weks ago. Drug Use: Using marijuana and drug use. Antisocial: No criminal behavior (Felony traffic violations, Civil involvement, Criminal involvement). Housing And Economic Circumstances: Lives alone and with grandparent(s). Education: Educational level: grade. Work: Working [employer]. Marital: You are currently single. Sexual: Sexually active, sexual orientation Bisexual, and gender identity Female. - Substance Use: Recovery Allergies - No Known Allergies Family History Father alcoholic Maternal: Depression committed suicide Physical Findings General Appearance: - Normal Appearance. - You did not appear uncomfortable. - In no acute distress. Musculoskeletal System: Posture: General/bilateral: - Posture was normal. Neurological: - Cognitive Functions was Normal. - Estimated intelligence was normal. - Oriented to time, place, and person. - No perceptual disturbances were noted. - No imagined perceptions not based in reality. - Memory was unimpaired. - Normal recent memory for registration. - Judgement was not impaired. Speech: - Is Normal. Motor: - No involuntary movements were seen. Gait And Stance: - Normal. Psychiatric: - Mood was anxious. - Attitude Evasive. Demonstrated Behavior: - Motor Activity Normal Activity. - Eye Contact Appropriate. Affect: - Flat. - Anxious. - Congruent with the mood. Thought Processes: - Not impaired. Thought Content: - Revealed no impairment. - Insight was intact. - No delusions. - No report of thinking about suicide was noted. - No Passive thoughts of . - No suicidal plans. - No suicidal intent. - No report of thinking about killing someone was noted. - Revealed no plan to kill someone. - Revealed no intent to kill someone. Past Medical: - No repetitive self injurious behavior. Tests Laboratory-based Chemistry: Other Laboratory Tests: Screening for sexually transmitted infections was not performed. 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 - Non-adherent with medications. - Plan - begin taking 2 .5mg adderall each morning for 1 week and Collaborated with patient and provider: Counseling/Education - No not wishing to stop using electronic cigarettes/vaping - Patient education about adverse reactions to medication - Reviewed side effects and Risks/Benefits analysis Discussed and encouraged healthy lifestyle behaviors. Provided supportive listening, empathy, and validation of feelings. Reviewed progress with mood sxs/management. Patient education regarding connection between physical and mental health. Stress management, coping skills, and support discussed. Educated on good sleep hygiene practices. Relapse Prevention and harm reduction. Plan BH at next visit. Take medication as prescribed. Follow discharge instructions. Pt to return on 02/20 for vivitrol shot. Pt to return Sunday 02/25 to reassess adderall. Advance Directives - Living Will Health Reminders - Assess Tobacco Use satisfied 02/18/2023. - Smoking & Tobacco Cessation Intervention and Counseling satisfied 02/18/2023. 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 No prior encounters. - Data to be reviewed: no clinical lab tests History of Present Illness - Allergy list reviewed - Reviewed Medications d/c effexor , hydroxyzine , miralax, strattera Current Medication - Adderall XR 5 MG Oral Capsule Extended Release 24 Hour ONE PO QD, 30 days, 0 refills - Effexor XR 37.5 MG Oral Capsule Extended Release 24 Hour 1 po qd, 30 days, 5 refills - Famotidine 20 MG Oral Tablet take 20 mg PO at HS, 30 days, 0 refills - Flonase Allergy Relief 50 MCG/ACT Nasal Suspension one puff to each nare daily, 31 days, 0 refills - hydrOXYzine HCl 25 MG Oral Tablet Take one tablet three times a day as needed for anxiety, 30 days, 5 refills - MiraLax 17 GM/SCOOP Oral Powder Dissolve one capful (17g) into 4-8oz of liquid and drink daily, 30 days, 2 refills - Naltrexone HCl 50 MG Oral Tablet 1 po qd, 90 days, 1 refills - Ondansetron HCl 4 MG Oral Tablet take 4 mg PO every 8 hours as needed, 3 days, 0 refills - Strattera 18 MG Oral Capsule 1 po qd, 30 days, 5 refills - Vivitrol 380 MG Intramuscular Suspension Reconstituted Inject intrarmuscular every month, 28 days, 11 refills Past Medical/Surgical History Other: No previous suicide attempt. Interpersonal relationship problems Reported: No Safety Measures. Medical: No medical history or no significant history and no previous hospitalizations. : Not planning to have a baby in the next 12 months. Personal: Re-experiencing a previous traumatic event. Procedural: - Tooth extraction Surgical: - Extraction of wisdom tooth - Tonsillectomy with adenoidectomy - General surgery kidney x6 stents, tubes, cut some of the tube out - No tubal ligation Social History Environmental Exposure: No secondhand cigarette smoke exposure. Tobacco use: Using electronic cigarettes/vaping. Alcohol: A social drinker wknds around 6 beers. Drug Use: Not using drugs denied by patient. Sexual: Denied sexual activity, sexual orientation Bisexual, and gender identity Female. Allergies - No Known Allergies Family History Father alcoholic Maternal: Depression committed suicide Review Of Systems Systemic: No systemic symptoms. Head: No head symptoms. Neck: No neck symptoms. Eyes: No eye symptoms. Otolaryngeal: No ear symptoms, no nasal symptoms, no throat symptoms, and no oral cavity symptoms. Cardiovascular: No cardiovascular symptoms. Pulmonary: No pulmonary symptoms. Gastrointestinal: No gastrointestinal symptoms and normal appetite. Genitourinary: No genitourinary symptoms. Endocrine: No endocrine symptoms. Hematologic: No hematologic symptoms. Musculoskeletal: No musculoskeletal symptoms. Neurological: No neurological symptoms. Psychological: No psychological symptoms. Skin: No skin symptoms. Allergic and Immunologic: No allergic/immunologic symptoms. She is here to follow up on her alcoholism. she requested a Vivitrol injection. It was due 2 weeks ago. She drank a significant amount of alcohol last evening and we agreed to give her the Vivitrol in 2 days to avoid inducing nausea. She also reports the 5mg dose of Adderall XR does not feel like it is doing anything. I instructed her to take 2 capsules (10mg) qam for a week and return here in 1 week to reassess. She has 15 capsules left which will last a week. Her blood pressure is at goal. Her weight is stable. Physical Findings - Vitals taken 02/18/2023 09:14 am BP-Gwubngl809/70 mmHg Pulse Rate-Dmkhtou10 bpm Respiration Rate18 per min Temp-Oral98.2 F Pkhmci34 in Aeeuwm128 lbs 12.8 oz Body Mass Index24.3 kg/m2 Body Surface Area1.7 m2 Oxygen Zahnssbsog10 % General Appearance: - Awake. - Alert. - Well developed. - Well nourished. Head: Appearance: - Head normocephalic. Face: - Examination was performed. Neck: Thyroid: - Is normal. Eyes: General/bilateral: Pupils: - PERRLA. - Reactive to light. Ears: General/bilateral: Outer Ear: - Normal. Right Ear: - Examined. Left Ear: - Examined. Nose: General/bilateral: Discharge: - No nasal discharge. Oral Cavity: - General condition was good. Lungs: - Normal. - Respiration rhythm and depth was normal. - Respiratory movements were normal. - Clear to auscultation. Cardiovascular: Auscultation: - Normal. Heart Rate And Rhythm: - Normal. Heart Sounds: - Normal. Abdomen: Visual Inspection: - Abdomen was normal on visual inspection. Auscultation: - Bowel sounds were normal. Palpation: - Abdominal non-tender. Musculoskeletal System: General/bilateral: - Normal movement of all extremities. Posture: General/bilateral: - Posture was normal. Neurological: - No confusion was observed. - Oriented to time, place, and person. Psychiatric: - Expression of emotions finding was normal. Demonstrated Behavior: - Appropriate behavior for patient. Skin: - General appearance was normal. - Texture was normal. General body state finding: - In good general health. Assessment - Z68.24 - Body mass index [BMI] 24.0-24.9, adult - F90.9 - Attention-deficit hyperactivity disorder, unspecified type - F10.20 - Alcohol dependence, uncomplicated - F41.9 - Anxiety disorder, unspecified Therapy - Patient refused flu vaccine. Discussed benefits of flu vaccine with Patient. Vaccinations - Did not receive dose of Reported: Patient has not received the Covid Vaccine Counseling/Education - No not wishing to stop using electronic cigarettes/vaping - Not requesting contraception Plan StartCited- Alcohol abuse, uncomplicated Vivitrol 380 MG each Inject intrarmuscular every month, 28 days, 12 refills EndCited StartCited- Other Follow-up Appointment Vivitrol injection this - [facility] visit 1 week with me EndCited Notes - Patient is not interested in the COVID-19 vaccination at this time. Practice Management Systolic blood pressure < 130 mmHg and diastolic < 80 mmHg diastolic < 80 mmHg. Advance Directives - Living Will Health Reminders - Assess BMI satisfied 02/18/2023. - Assess Tobacco Use satisfied 02/18/2023. [facility]05-26-2023 History general Narrative - Reported Includes: Medical History in patient's chart Description Last Updated Not planning to have a baby in the next 12 months 02/07/2023 [facility] Work Phone: 1(327) 388-238705-26-2023 History general Narrative - Reported Includes: Medical History in patient's chart Description Last Updated Not planning to have a baby in the next 12 months 02/07/2023 [facility] Work Phone: 1(462) 412-533205-26-2023 Progress note* Progress note Date Encounter Last Documented by 02/07/2023 Open Access - Established Last d ocumented on 02/07/2023; 2:18 PM, Jeffrey Moon MD; [facility] Active Problems & Conditions - F10.20 - Alcohol Dependence Uncomplicated - F41.9 - Anxiety Disorder Nos - 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 Referred Here No prior encounters. History of Present Illness Melina Valenzuela is a 27 year old female. - Allergy list reviewed - Medication reconciliation performed Reviewed Medications - Duration of symptoms PATIENT RETURNS FOR TREATEMENT OF ADD -- FINDS ADDERALL HELPS CONCENTRATION BUT WHEN DOSE WEARS OFF SHE FEELS PROFOUNDLY DOWN -- WILL DECREASE DOSE FROM 10 MG TO 5 MG XR AND TRY FOR A MONTH, MAY NEED 2-3 SMALL DOSES DURING THE DAY -- WANTS TO RESUME VIVITROL FOR ETOH -- WILL CHECK UDS AND UPDATE BW -- WILL RESUME VIVITROL ON RETURN -- - Date of last menstruation 01/24/2023 Current Medication - Effexor XR 37.5 MG Oral Capsule Extended Release 24 Hour 1 po qd, 30 days, 5 refills - Famotidine 20 MG Oral Tablet take 20 mg PO at HS, 30 days, 0 refills - Flonase Allergy Relief 50 MCG/ACT Nasal Suspension one puff to each nare daily, 31 days, 0 refills - hydrOXYzine HCl 25 MG Oral Tablet Take one tablet three times a day as needed for anxiety, 30 days, 5 refills - MiraLax 17 GM/SCOOP Oral Powder Dissolve one capful (17g) into 4-8oz of liquid and drink daily, 30 days, 2 refills - Naltrexone HCl 50 MG Oral Tablet 1 po qd, 90 days, 1 refills - OLANZapine 2.5 MG Oral Tablet 15 days, 0 refills - Ondansetron HCl 4 MG Oral Tablet take 4 mg PO every 8 hours as needed, 3 days, 0 refills - Strattera 18 MG Oral Capsule 1 po qd, 30 days, 5 refills - Vivitrol 380 MG Intramuscular Suspension Reconstituted Inject intrarmuscular every month, 28 days, 11 refills Past Medical/Surgical History Other: Interpersonal relationship problems Reported: : Not planning to have a baby in the next 12 months. Personal: Re-experiencing a previous traumatic event. Procedural: - Tooth extraction Surgical: - Extraction of wisdom tooth - Tonsillectomy with adenoidectomy - General surgery kidney x6 stents, tubes, cut some of the tube out Social History Environmental Exposure: No secondhand cigarette smoke exposure. Personal: Recent breakup with significant other, interpersonal problems, recent legal problems NAEL, and recent relocation. Behavioral: Not a current tobacco user. Tobacco use: Using electronic cigarettes/vaping. Alcohol: Beer consumption tall boy and 2 bottle of bud light several weks ago, a social drinker, having stopped drinking alcohol, and recovering alcoholic. Drug Use: Not using drugs denied by patient. Using marijuana. Housing And Economic Circumstances: Lives alone and with grandparent(s). Education: Educational level: grade. Work: Working [employer]. Marital: Single. Sexual: Sexually active, denied sexual activity, sexual orientation Straight (not lesbian or crawford), sexual orientation Bisexual, and gender identity Female. - Substance Use: Early Recovery Allergies - No Known Allergies Family History Father alcoholic Maternal: Depression committed suicide Review Of Systems Systemic: No systemic symptoms. Head: No head symptoms. Eyes: No eye symptoms. Cardiovascular: No cardiovascular symptoms. Pulmonary: No pulmonary symptoms. Gastrointestinal: No gastrointestinal symptoms. Genitourinary: No genitourinary symptoms. Endocrine: No endocrine symptoms. Hematologic: No hematologic symptoms. Neurological: No neurological symptoms. Psychological: No psychological symptoms. Skin: No skin symptoms. Nursing Assessment: Other reporting data. Objective OBJECTIVE [Use for s.o.a.p note free text]. Physical Findings - Vitals taken 02/07/2023 01:52 pm BP-Sitting R118/80 mmHg Pulse Rate-Lblsbou52 bpm Nimrnw77 in Dngfrk281 lbs Body Mass Index23.5 kg/m2 Body Surface Area1.7 m2 Oxygen Fhffzfpfkn90 % Assessment - Z68.23 - Body mass index [BMI] 23.0-23.9, adult - F90.9 - Attention-deficit hyperactivity disorder, unspecified type - F10.20 - Alcohol dependence, uncomplicated PLAN. Therapy - Patient refused flu vaccine. Discussed benefits of flu vaccine with Patient. Vaccinations - Did not receive dose of Reported: Patient has not received the Covid Vaccine Counseling/Education - No not wishing to stop using electronic cigarettes/vaping - Discussed nutritional needs teach healthy choices including fruits and vegetables - Patient education about a proper diet - Discussed concerns about exercise: promote physical activity Plan StartCited- Alcohol dependence, uncomplicated Outside Labs/General Labs: CBC with diff (CDP), Comprehensive Metabolic Panel (CP), GGT Enzyme (GGT) EndCited StartCited- Attention-deficit hyperactivity disorder, unspecified type Adderall XR 5 MG capsule ONE PO QD, 30 days, 0 refills EndCited Notes - Patient is not interested in the COVID-19 vaccination at this time. Practice Management Systolic blood pressure < 130 mmHg and diastolic < 80 mmHg diastolic < 80 mmHg. Advance Directives - Living Will Health Reminders - Assess BMI satisfied 02/07/2023. - Assess Tobacco Use satisfied 02/07/2023. - Smoking & Tobacco Cessation Intervention and Counseling satisfied 02/07/2023. 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 Pt advised that she has stopped all medication and decided to return to [facility] because she feels comfortable at this center and likes everyone who works here. Pt shared concerns regarding negative effects associated with adderall ADHD and abilify for depression symptoms. Pt reported crashing when the adderall wears off and sleeping up to 18 hours after taking the abilify. Pt was receptive to sharing in discussion focused on lowering dosage of adderall to 5 mg. and return in one month for med f/up with plan to restart Vivitrol due to recurrent alcohol use. Pt also advised that she would like to discuss other treatment options for depression. Chief Complaint The Chief Complaint is: Pt presents for anxiety symptoms. Current Medication - Adderall XR 5 MG Oral Capsule Extended Release 24 Hour ONE PO QD, 30 days, 0 refills - Effexor XR 37.5 MG Oral Capsule Extended Release 24 Hour 1 po qd, 30 days, 5 refills - Famotidine 20 MG Oral Tablet take 20 mg PO at HS, 30 days, 0 refills - Flonase Allergy Relief 50 MCG/ACT Nasal Suspension one puff to each nare daily, 31 days, 0 refills - hydrOXYzine HCl 25 MG Oral Tablet Take one tablet three times a day as needed for anxiety, 30 days, 5 refills - MiraLax 17 GM/SCOOP Oral Powder Dissolve one capful (17g) into 4-8oz of liquid and drink daily, 30 days, 2 refills - Naltrexone HCl 50 MG Oral Tablet 1 po qd, 90 days, 1 refills - OLANZapine 2.5 MG Oral Tablet 15 days, 0 refills - Ondansetron HCl 4 MG Oral Tablet take 4 mg PO every 8 hours as needed, 3 days, 0 refills - Strattera 18 MG Oral Capsule 1 po qd, 30 days, 5 refills - Vivitrol 380 MG Intramuscular Suspension Reconstituted Inject intrarmuscular every month, 28 days, 11 refills Past Medical/Surgical History Other: No previous suicide attempt. Interpersonal relationship problems Reported: No Safety Measures. Medical: No medical history or no significant history and no previous hospitalizations. : Not planning to have a baby in the next 12 months. Personal: Re-experiencing a previous traumatic event. Procedural: - Tooth extraction Surgical: - Extraction of wisdom tooth - Tonsillectomy with adenoidectomy - General surgery kidney x6 stents, tubes, cut some of the tube out - No tubal ligation Social History Environmental Exposure: No secondhand cigarette smoke exposure. Not on probation and not on parole. Personal: Recent breakup with significant other, interpersonal problems, recent legal problems NAEL, and recent relocation. Behavioral: Not a current tobacco user. Tobacco use: Using electronic cigarettes/vaping. Alcohol: Not using alcohol. Beer consumption tall boy and 2 bottle of bud light several weks ago, having stopped drinking alcohol, and recovering alcoholic. Drug Use: Not using drugs denied by patient. Using marijuana. Not using drugs. Antisocial: No criminal behavior (Felony traffic violations, Civil involvement, Criminal involvement), no legal problems or arrests: on probation / parole for felony, and no conviction for driving while intoxicated. Housing And Economic Circumstances: Lives alone and with grandparent(s). Abuse or neglect: Not receiving inadequate meals. Education: Currently not in school. Educational level: grade. : No deployment, direct combat. Work: Working [employer]. Marital: Single. Sexual: Sexually active, denied sexual activity, sexual orientation Bisexual, and gender identity Female. No report of control being practiced. - Substance Use: Early Recovery Allergies - No Known Allergies Family History Father alcoholic Maternal: Depression committed suicide Physical Findings General Appearance: - Normal Appearance. Neurological: - Cognitive Functions was Normal. - Oriented to time, place, and person. - Executive Functions: Logical and organized. Speech: - Is Normal. Psychiatric: - Mood is Euthymic. - Attitude Open. Appearance: - Normal. Demonstrated Behavior: - Motor Activity Normal Activity. - Eye Contact Appropriate. Thought Processes: - Not impaired. Thought Content: - Revealed no impairment. - No suicidal ideation. - No suicidal plans. - No suicidal intent. Assessment - F90.9 - Attention-deficit hyperactivity disorder, unspecified type Therapy - Brief solution-focused therapy. - Collaborated with patient and provider: Counseling/Education BHP provided pt space to share concerns and process thoughts; utilized opportunity to explore symptoms, mood, and functioning. Offered empathy and reflective feedback. Discussed medication effectiveness; promoted use, as prescribed. Explored stress relief methods and self-care practices; promoted use, as needed. Plan Patient to implement coping skills and positive supports as discussed. Pt to take medications as prescribed and contact [facility] with any questions or concerns. BHP to follow-up with patient at next visit in office in one month, as needed. Advance Directives - Living Will Health Reminders - Assess Tobacco Use satisfied 02/07/2023. - Smoking & Tobacco Cessation Intervention and Counseling satisfied 02/07/2023. 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 met with pt to assess symptoms. Pt presents as irritable, tearful and alert and oriented x 4. Pt reports poor sleep, poor appetite and increased anxiety. She denies alcohol use or other drug use. She reports that at her last appt with PCP she decided to stop the vivotrol shots and start Naltrexone. Pt also shared that she contacted a psychiatrist in [place] that she used to see, who called in Zyprexa 2.5mg for her. Pt did not want to take the Zyprexa because it makes her tired. Pt denies SI/HI, and reports no symptoms of psychosis or delusional thinking. Pt agreed to f/u with Dr. Aly on 02-18-23 and agreed to support calls from until her appt. History of Present Illness Melina Valenzuela is a 27 year old female. - No Bipolar Behaviors. - No service. - Anxiety - Depression - Difficulty falling asleep - Middle-night awakening with difficulty getting back to sleep - Hard to stay asleep due to anxiety - Loss of interest in activities - Apathy - Energy level is fair - Fear of loss of control - Paranoid ideations - Easily distracted - Racing thoughts - Regularly taking risks - Impulsive behavior - No hypersomnia - Not feeling guilty - No feelings of grandeur - No social isolation - Not more talkative than usual - No compulsive behavior - No high involvement in pleasurable activities - Irritability Current Medication - Effexor XR 37.5 MG Oral Capsule Extended Release 24 Hour 1 po qd, 30 days, 5 refills - Famotidine 20 MG Oral Tablet take 20 mg PO at HS, 30 days, 0 refills - Flonase Allergy Relief 50 MCG/ACT Nasal Suspension one puff to each nare daily, 31 days, 0 refills - hydrOXYzine HCl 25 MG Oral Tablet Take one tablet three times a day as needed for anxiety, 30 days, 5 refills - MiraLax 17 GM/SCOOP Oral Powder Dissolve one capful (17g) into 4-8oz of liquid and drink daily, 30 days, 2 refills - Naltrexone HCl 50 MG Oral Tablet 1 po qd, 90 days, 1 refills - OLANZapine 2.5 MG Oral Tablet 15 days, 0 refills - Ondansetron HCl 4 MG Oral Tablet take 4 mg PO every 8 hours as needed, 3 days, 0 refills - Strattera 18 MG Oral Capsule 1 po qd, 30 days, 5 refills - Vivitrol 380 MG Intramuscular Suspension Reconstituted Inject intrarmuscular every month, 28 days, 11 refills Past Medical/Surgical History Other: No previous suicide attempt. Interpersonal relationship problems Reported: No Safety Measures. Medical: No medical history or no significant history and no previous hospitalizations. : Not planning to have a baby in the next 12 months. Personal: Re-experiencing a previous traumatic event. Procedural: - Tooth extraction Surgical: - Extraction of wisdom tooth - Tonsillectomy with adenoidectomy - General surgery kidney x6 stents, tubes, cut some of the tube out - No tubal ligation Social History Environmental Exposure: Secondhand cigarette smoke exposure. Personal: Interpersonal problems and recent emotional stress. Tobacco use: Using electronic cigarettes/vaping. Alcohol: Recovering alcoholic. Drug Use: Not using drugs. Antisocial: No criminal behavior (Felony traffic violations, Civil involvement, Criminal involvement). Housing And Economic Circumstances: Lives alone. Education: Currently not in school. Educational level: grade. : No deployment, direct combat. Work: Working [employer]. Marital: Single. Sexual: Sexually active, sexual orientation Lesbian or Crawford, and gender identity Female. Allergies - No Known Allergies Family History Father alcoholic Maternal: Depression committed suicide Review Of Systems Gastrointestinal: Decreased appetite. Physical Findings General Appearance: - Appears distressed. Musculoskeletal System: Posture: General/bilateral: - Posture was normal. Neurological: - Estimated intelligence was not average. - Cognitive Functions was Normal. - Judgement was impaired. - Oriented to time, place, and person. - No hallucinations. - Executive Functions: Logical and organized. Speech: - Is Normal. Motor: - No involuntary movements were seen. Gait And Stance: - Normal. Psychiatric: - Mood was anxious. - Mood was depressed. - Attitude Open. Demonstrated Behavior: - Motor Activity Normal Activity. - Eye Contact Appropriate. Affect: - Anxious. - Depressed. Thought Processes: - Not impaired. Thought Content: - Impaired insight. - Revealed no impairment. - No delusions. - No suicidal ideation. - No Passive thoughts of . - No suicidal plans. - No suicidal intent. - No homicidal ideations. - No homicidal plans. - No homicidal intent. Past Medical: - No repetitive self injurious behavior. - No access to weapons / guns in home. 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 - Non-adherent with medications. - Plan - do not modify medication. Collaborated with patient and provider: Counseling/Education - No not wishing to stop using electronic cigarettes/vaping - Discussed nutritional needs teach healthy choices including fruits and vegetables - No patient education about adverse reactions to medication - Reviewed side effects and Risks/Benefits analysis - Discussed concerns about exercise: promote physical activity Motivational Interviewing Encouraged use of healthy coping skills Encouraged good sleep hygiene Provided active and supportive listening Validated and normalized emotions. Plan Pt agreed to f/u with Dr. Aly on 02-18-23 Discussed healthy coping skills and support system offered emotional support and reflected and normalized thoughts and emotions Encouraged pt to practice good sleep hygiene Encouraged medication compliance to remain available for support as needed. Advance Directives - Living Will Health Reminders - Assess Tobacco Use satisfied 01/29/2023. User Defined 1 Do you feel stress - tense, restless, nervous, or anxious, or unable to sleep at night because your mind is troubled all the time - these days? Very much, Does patient feel physically and emotionally safe where he/she lives: Yes, What is the highest grade or level of school you have completed or the highest degree you have received? More than high school, and How often does patient see or talk to people that that he/she cares about and feels close to: 1 or 2 times a week. [facility]05-17-2023 Progress note* Progress note Date Encounter Last Documented by 01/29/2023 Open Access - Established Last d ocumented on 01/29/2023; 4:41 PM, Jackie Akins CNP; [facility] Active Problems & Conditions - F10.20 - Alcohol Dependence Uncomplicated - F41.9 - Anxiety Disorder Nos - F90.9 - Undifferentiated Attention Deficit Disorder - U07.0 - Vaping Related Disorder Chief Complaint The Chief Complaint is: Anxiety. wants a med change. Referred Here No prior encounters. History of Present Illness Melina Valenzuela is a 27 year old female. - Allergy list reviewed - Reviewed Medications - Date of last menstruation 01/24/2023 Patient encounter for possible medication change due to increased anxiety Patient reports recent telehealth visit with childhood pcp - states He prescribed me Olanzapine but it makes me tired so I need something else for my anxiety Current Medication - Effexor XR 37.5 MG Oral Capsule Extended Release 24 Hour 1 po qd, 30 days, 5 refills - Famotidine 20 MG Oral Tablet take 20 mg PO at HS, 30 days, 0 refills - Flonase Allergy Relief 50 MCG/ACT Nasal Suspension one puff to each nare daily, 31 days, 0 refills - hydrOXYzine HCl 25 MG Oral Tablet Take one tablet three times a day as needed for anxiety, 30 days, 5 refills - MiraLax 17 GM/SCOOP Oral Powder Dissolve one capful (17g) into 4-8oz of liquid and drink daily, 30 days, 2 refills - Naltrexone HCl 50 MG Oral Tablet 1 po qd, 90 days, 1 refills - OLANZapine 2.5 MG Oral Tablet 15 days, 0 refills - Ondansetron HCl 4 MG Oral Tablet take 4 mg PO every 8 hours as needed, 3 days, 0 refills - Strattera 18 MG Oral Capsule 1 po qd, 30 days, 5 refills - Vivitrol 380 MG Intramuscular Suspension Reconstituted Inject intrarmuscular every month, 28 days, 11 refills Past Medical/Surgical History Other: No previous suicide attempt. Interpersonal relationship problems Reported: No Safety Measures. Medical: No medical history or no significant history and no previous hospitalizations. : Not planning to have a baby in the next 12 months. Procedural: - Tooth extraction Surgical: - Extraction of wisdom tooth - Tonsillectomy with adenoidectomy - General surgery kidney x6 stents, tubes, cut some of the tube out - No tubal ligation Social History Environmental Exposure: No secondhand cigarette smoke exposure. Behavioral: Not a current tobacco user. Tobacco use: Using electronic cigarettes/vaping. Alcohol: Not using alcohol. Drug Use: Not using drugs denied by patient. Sexual: Denied sexual activity, sexual orientation Bisexual, and gender identity Female. Allergies - No Known Allergies Family History Father alcoholic Maternal: Depression committed suicide Review Of Systems Systemic: No systemic symptoms. Head: No head symptoms. Neck: No neck symptoms. Eyes: No eye symptoms. Otolaryngeal: No ear symptoms and no throat symptoms. Cardiovascular: No cardiovascular symptoms. Pulmonary: No pulmonary symptoms. Gastrointestinal: No gastrointestinal symptoms. Genitourinary: No genitourinary symptoms. Endocrine: No endocrine symptoms. Musculoskeletal: No musculoskeletal symptoms. Neurological: No neurological symptoms. Psychological: Anxiety Patient reports increaseed anxiety and sleep patient reports difficulty initiating and maintaining sleep. Skin: No skin symptoms. Physical Findings - Vitals taken 01/29/2023 12:51 pm BP-Mjyrjgi062/71 mmHg Pulse Rate-[id number] bpm Respiration Rate18 per min Temp-Oral98.6 F Kqrsxp42 in Lxazmq714 lbs 6 oz Body Mass Index24 kg/m2 Body Surface Area1.7 m2 Oxygen Tfdgignmpe68 % O2 DeviceNone (Room Air) [id number] % General Appearance: - Awake. - Alert. - Well developed. - Well nourished. - In no acute distress. Head: Appearance: - Head normocephalic. Eyes: General/bilateral: Pupils: - PERRLA. Ears: Right Ear: - Examined. Left Ear: - Examined. Nose: General/bilateral: Discharge: - No nasal discharge. Cavity: - Nasal turbinate normal. Sinus Tenderness: - No sinus tenderness. Pharynx: Oropharynx: - Normal. Lymph Nodes: - No adenopathy. Lungs: - Respiration rhythm and depth was normal. - Clear to auscultation. Cardiovascular: Heart Rate And Rhythm: - Normal. Heart Sounds: - Normal. Abdomen: Visual Inspection: - Abdomen was normal on visual inspection. Auscultation: - Bowel sounds were normal. Musculoskeletal System: General/bilateral: - Normal movement of all extremities. Neurological: - No confusion was observed. - Oriented to time, place, and person. Cranial Nerves: - Normal. Sensation: - No sensory exam abnormalities were noted. Balance: - Normal. Gait And Stance: - Normal. Psychiatric: Appearance: - Not tired. - Clothing was appropriate. - Grooming was normal. Demonstrated Behavior: - Appropriate behavior for patient. Attitude: - Not abnormal. Affect: - Abnormal. - Flat. Thought Processes: - Rate of thought was normal. - Attention demonstrated no abnormalities. Thought Content: - Revealed no impairment. - No suicidal thoughts. Skin: - General appearance was normal. Assessment - Z68.24 - Body mass index [BMI] 24.0-24.9, adult Therapy - Patient refused flu vaccine. Discussed benefits of flu vaccine with Patient. Vaccinations - Did not receive dose of Reported: Patient has not received the Covid Vaccine Counseling/Education - No not wishing to stop using electronic cigarettes/vaping - Discussed nutritional needs teach healthy choices including fruits and vegetables - Patient education about a proper diet - Discussed concerns about exercise: promote physical activity Plan Patient advised to start Olanzapine as prescribed Follow up with pcp as scheduled . Notes - Patient is not interested in the COVID-19 vaccination at this time. Practice Management Systolic blood pressure < 130 mmHg and diastolic < 80 mmHg diastolic < 80 mmHg. Advance Directives - Living Will Health Reminders - Assess BMI satisfied 01/29/2023. - Assess Tobacco Use satisfied 01/29/2023. - Smoking & Tobacco Cessation Intervention and Counseling satisfied 01/29/2023. [facility]04-20-2023 Evaluation note Includes: Assessments for all patient encounters Findings Encounter Date [Z68.24 - Body mass index [B NJ] 24.0-24.9, adult] assessment of body mass index Medical Substance Abuse with Sarbjit Aly MD 01/02/2023 [facility] Work Phone: 1(955) 422-952104-20-2023 Progress note* Progress note Date Encounter Last Documented by 01/02/2023 Medical Substance Abuse Last doc umented on 01/02/2023; 4:28 PM, Sarbjit Aly MD; [facility] Active Problems & Conditions - F10.20 - Alcohol Dependence Uncomplicated - F41.9 - Anxiety Disorder Nos - 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 Referred Here No prior encounters. History of Present Illness - Reviewed Medications. Current Medication - Effexor XR 37.5 MG Oral Capsule Extended Release 24 Hour 1 po qd, 30 days, 5 refills - Famotidine 20 MG Oral Tablet take 20 mg PO at HS, 30 days, 0 refills - Flonase Allergy Relief 50 MCG/ACT Nasal Suspension one puff to each nare daily, 31 days, 0 refills - hydrOXYzine HCl 25 MG Oral Tablet Take one tablet three times a day as needed for anxiety, 30 days, 1 refills - MiraLax 17 GM/SCOOP Oral Powder Dissolve one capful (17g) into 4-8oz of liquid and drink daily, 30 days, 2 refills - Ondansetron HCl 4 MG Oral Tablet take 4 mg PO every 8 hours as needed, 3 days, 0 refills - Vivitrol 380 MG Intramuscular Suspension Reconstituted Inject intrarmuscular every month, 28 days, 11 refills Past Medical/Surgical History Other: No previous suicide attempt. Interpersonal relationship problems Reported: No Safety Measures. Medical: No medical history or no significant history and no previous hospitalizations. : Not planning to have a baby in the next 12 months. Procedural: - Tooth extraction Surgical: - Extraction of wisdom tooth - Tonsillectomy with adenoidectomy - General surgery kidney x6 stents, tubes, cut some of the tube out - No tubal ligation Social History Environmental Exposure: Secondhand cigarette smoke exposure. No secondhand cigarette smoke exposure. Tobacco use: Using electronic cigarettes/vaping. Alcohol: Not using alcohol. Drug Use: Not using drugs denied by patient. Sexual: Sexually active, sexual orientation Lesbian or [place], and gender identity Female. Allergies - No Known Allergies Family History Father alcoholic Maternal: Depression committed suicide Review Of Systems Systemic: No systemic symptoms. Head: No head symptoms. Neck: No neck symptoms. Eyes: No eye symptoms. Otolaryngeal: No ear symptoms, no nasal symptoms, no throat symptoms, and no oral cavity symptoms. Cardiovascular: No cardiovascular symptoms. Pulmonary: No pulmonary symptoms. Gastrointestinal: No gastrointestinal symptoms and normal appetite. Genitourinary: No genitourinary symptoms. Endocrine: No endocrine symptoms. Hematologic: No hematologic symptoms. Musculoskeletal: No musculoskeletal symptoms. Neurological: No neurological symptoms. Psychological: No psychological symptoms. Skin: No skin symptoms. Allergic and Immunologic: No allergic/immunologic symptoms. She is here for her MAT follow up. She asks to switch from Vivitrol injections to oral naltrexone because her job will have her travelling and she cannot get back for the injection. The medication has been effective at helping her avoid alcohol abuse. Straterra was effective for her ADHD but caused her heart rate to be in the 100- 120 range. We agreed to try a lower dose. Her blood pressure is at goal. Her weight remains at a healthy level. Physical Findings - Vitals taken 01/02/2023 03:27 pm BP-Qpsgsur295/79 mmHg Pulse Rate-Lsyxzqe84 bpm Respiration Rate18 per min Temp-Oral99 F Kcejxw08 in Lsrdae974 lbs Body Mass Index24.1 kg/m2 Body Surface Area1.7 m2 Oxygen Ijigmgvutg226 % General Appearance: - Awake. - Alert. - Well developed. - Well nourished. Head: Appearance: - Head normocephalic. Face: - Examination was performed. Neck: Thyroid: - Is normal. Eyes: General/bilateral: Pupils: - PERRLA. - Reactive to light. Ears: General/bilateral: Outer Ear: - Normal. Right Ear: - Examined. Left Ear: - Examined. Nose: General/bilateral: Discharge: - No nasal discharge. Oral Cavity: - General condition was good. Lungs: - Normal. - Respiration rhythm and depth was normal. - Respiratory movements were normal. - Clear to auscultation. Cardiovascular: Auscultation: - Normal. Heart Rate And Rhythm: - Normal. Heart Sounds: - Normal. Abdomen: Visual Inspection: - Abdomen was normal on visual inspection. Auscultation: - Bowel sounds were normal. Palpation: - Abdominal non-tender. Musculoskeletal System: General/bilateral: - Normal movement of all extremities. Posture: General/bilateral: - Posture was normal. Neurological: - No confusion was observed. - Oriented to time, place, and person. Psychiatric: - Expression of emotions finding was normal. Demonstrated Behavior: - Appropriate behavior for patient. Skin: - General appearance was normal. - Texture was normal. General body state finding: - In good general health. 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 Discussed benefits of flu vaccine with Patient. - Referral to mental health team. Vaccinations - Did not receive dose of Reported: Patient has not received the Covid Vaccine Counseling/Education - Discussed nutritional needs teach healthy choices including fruits and vegetables - Patient education about a proper diet - Discussed concerns about exercise: promote physical activity Plan StartCited- Anxiety disorder, unspecified hydrOXYzine HCl 25 MG tablet Take one tablet three times a day as needed for anxiety, 30 days, 5 refills EndCited StartCited- Other Follow-up Appointment 3 months Strattera 18 MG capsule 1 po qd, 30 days, 5 refills Naltrexone HCl 50 MG tablet 1 po qd, 90 days, 1 refills EndCited Notes - Patient is not interested in the COVID-19 vaccination at this time. Practice Management Systolic blood pressure < 130 mmHg and diastolic < 80 mmHg diastolic < 80 mmHg. Advance Directives - Living Will Health Reminders - Assess BMI satisfied 01/02/2023. - Assess Tobacco Use satisfied 01/02/2023. - PHQ9 / PHQA satisfied 01/02/2023. User Defined 1 PHQ-9: total score was twelve 01/02/2023 If you checked off problems, how difficult is it for you to do your work? + : Somewhat difficult, [PHQ-9-1] Little interest or pleasure in doing things? + 2 pt : More than half the days, [PHQ-9-2] Feeling down, depressed, or hopeless? + 2 pt : More than half the days, [PHQ-9-3] Trouble falling or staying asleep or sleeping too much? + 2 pt : More than half the days, [PHQ-9-4] Feeling tired or having little energy? + 1 pt : Several days, [PHQ-9-5] Poor appetite or overeating? + 1 pt : Several days, [PHQ-9-6] Feeling bad about yourself-or that you are a failure + 0 pt : Not at all, [PHQ-9-7] Trouble concentrating on things such as reading the newspaper + 1 pt : Several days, [PHQ-9-8] Moving or speaking so slowly that other people have noticed. + 3 pt : Nearly every day, and [PHQ-9-9] Thoughts that you would be better off or hurting yourself? + 0 pt : Not at all. [facility]04-20-2023 Progress note* Progress note Date Encounter Last Documented by 01/02/2023 Substance Abuse Last document ed on 01/04/2023; 9:39 AM, Felecia DENT; [facility] Active Problems & Conditions - F10.20 - Alcohol Dependence Uncomplicated - F41.9 - Anxiety Disorder Nos - F90.9 - Undifferentiated Attention Deficit Disorder - U07.0 - Vaping Related Disorder Chief Complaint The Chief Complaint is: MAT follow up- vivitrol shot. History of Present Illness - No Bipolar Behaviors. - No service. - Normal appetite. - Anxiety - Depression - Hard to stay asleep due to anxiety - Energy level is fair - Fear of loss of control - Easily distracted - Racing thoughts - Impulsive behavior - Not sleeping too much - No loss of interest in activities - Not feeling that nothing matters - Not feeling guilty - Not feeling persecuted - Not feeling unique and all-powerful - Not regularly taking risks - No compulsive behavior - No high involvement in pleasurable activities - - Progress: Pt states she stopped taking Strattera and says it caused high heart rate, but the medication was working to help control her sxs. Pt is wanting to stop her vivitrol shot and switch to naltrexone tablets because she is going to be travelling for work for the next several months. Pt reports hydroxyzine was helping for anxiety and did not make her tired - Irritability Current Medication - Effexor XR 37.5 MG Oral Capsule Extended Release 24 Hour 1 po qd, 30 days, 5 refills - Famotidine 20 MG Oral Tablet take 20 mg PO at HS, 30 days, 0 refills - Flonase Allergy Relief 50 MCG/ACT Nasal Suspension one puff to each nare daily, 31 days, 0 refills - hydrOXYzine HCl 25 MG Oral Tablet Take one tablet three times a day as needed for anxiety, 30 days, 5 refills - hydrOXYzine HCl 25 MG Oral Tablet Take one tablet three times a day as needed for anxiety, 30 days, 1 refills - MiraLax 17 GM/SCOOP Oral Powder Dissolve one capful (17g) into 4-8oz of liquid and drink daily, 30 days, 2 refills - Naltrexone HCl 50 MG Oral Tablet 1 po qd, 90 days, 1 refills - Ondansetron HCl 4 MG Oral Tablet take 4 mg PO every 8 hours as needed, 3 days, 0 refills - Strattera 18 MG Oral Capsule 1 po qd, 30 days, 5 refills - Vivitrol 380 MG Intramuscular Suspension Reconstituted Inject intrarmuscular every month, 28 days, 11 refills Past Medical/Surgical History Other: Interpersonal relationship problems Reported: : Not planning to have a baby in the next 12 months. Procedural: - Tooth extraction Surgical: - Extraction of wisdom tooth - Tonsillectomy with adenoidectomy - General surgery kidney x6 stents, tubes, cut some of the tube out - No tubal ligation Social History Environmental Exposure: No secondhand cigarette smoke exposure. Not on probation and not on parole. Personal: Recent breakup with significant other, recent legal problems NAEL, and recent relocation. Behavioral: Not a current tobacco user. Tobacco use: Using electronic cigarettes/vaping. Alcohol: Having stopped drinking alcohol and recovering alcoholic. Drug Use: Using marijuana and drug use. Antisocial: No criminal behavior (Felony traffic violations, Civil involvement, Criminal involvement). Housing And Economic Circumstances: Lives with grandparent(s). Work: Working [employer]. Sexual: Sexually active, sexual orientation Bisexual, and gender identity Female. - Substance Use: Early Recovery Allergies - No Known Allergies Family History Father alcoholic Maternal: Depression committed suicide Physical Findings General Appearance: - Normal Appearance. - You did not appear uncomfortable. - In no acute distress. Musculoskeletal System: Posture: General/bilateral: - Posture was normal. Neurological: - Cognitive Functions was Normal. - Estimated intelligence was normal. - Oriented to time, place, and person. - No perceptual disturbances were noted. - No imagined perceptions not based in reality. - Memory was unimpaired. - Cognitive functioning was not decreased. - Normal recent memory for registration. - Judgement was not impaired. Speech: - Is Normal. Motor: - No involuntary movements were seen. Gait And Stance: - Normal. Psychiatric: - Mood was concerned. - Mood is Euthymic. - Attitude Open. Demonstrated Behavior: - Motor Activity Normal Activity. - Eye Contact Appropriate. Affect: - Congruent with the mood. Thought Processes: - Not impaired. Thought Content: - Revealed no impairment. - Insight was intact. - No delusions. - No report of thinking about suicide was noted. - No Passive thoughts of . - No suicidal plans. - No suicidal intent. - No report of thinking about killing someone was noted. - Revealed no plan to kill someone. - Revealed no intent to kill someone. Past Medical: - No repetitive self injurious behavior. 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 - Non-adherent with medications pt stopped taking strattera 2-3 days after beginning it d/t high heart rate. - Plan - d/c straterra 25mg and begin strattera 18mg. d/c vivitrol shot and begin naltrexone 50mg and Collaborated with patient and provider: Counseling/Education - No not wishing to stop using electronic cigarettes/vaping - Patient education about adverse reactions to medication - Reviewed side effects and Risks/Benefits analysis Discussed lifestyle changes with patient that impact chronic illnesses. Supported patient's personal health goals for chronic illness management Discussed pt desire to be future oriented and goal directed Self care techniques including mindfulness techniques, deep breathing and hobbies Risk management: Local Crisis number, reaching out to friends/family, and community resources. Harm reduction and relapse prevention. Plan Pt to maintain healthy people, places, and situations to avoid relapse. Pt to abstain from all illicit/rx substances and alcohol. Pt to follow up with and PCP next visit - 4weeks. Possible Qelbree if strattera continues to cause high heart rate. Advance Directives - Living Will Health Reminders - Assess Tobacco Use satisfied 01/04/2023. [facility]04-20-2023 Reason for referral (narrative)* Date Encounter Description Provider Reason for Referral 01/02/23 Medical Substance Abuse Sarbjit Aly MD Referral To Mental Health Team 10/09/22 [facility]stance [facility] To [facility] Health Team 06/13/22 Established Patient Vilma Carballo [facility] Referral To Mental Health Team [facility] Work Phone: 1(398) 394-999304-20-2023 Instructions Includes: Instructions for all patient encounters Instructions to patient Intervention and counseling on cessation of tobacco use, 3-10 minutes Discussed medication and nicotine replacement for tobacco cessation Last Documented On 3 9:26AM ; [facility] Education and Decision Aids were provided during visit for: Discussed nutritional needs teach healthy choices including fruits and vegetables Last Documented On 3 3:41PM ; [facility] Patient education about a pr oper diet Last Documented On 3 3:41PM ; [facility] Discussed concerns about exe rcise : promote physical activity Last Documented On 3 3:41PM ; [facility] Discussed nutritional needs teach healthy choices including fruits and vegetables Last Documented On 3 9:19AM ; [facility] Patient education about a pr oper diet Last Documented On 3 9:19AM ; [facility] Patient education about adve rse reactions to medication Last Documented On 3 9:19AM ; [facility] Discussed concerns about exe rcise : promote physical activity Last Documented On 3 9:19AM ; [facility], explained role of [facility], and briefly talked about problem behaviors and coping strategies. ~ ~P offered emotional supports, explored thoughts, feelings, behaviors, utilized motivational interviewing to encourage self-care and ongoing progress, and mindfulness practice to boost healthy lwhv-kpkv-gixrxb connections Last Documented On 3 9:19AM ; [facility] Reviewed side effects and Ri sks/Benefits analysis Last Documented On 3 9:19AM ; [facility] Discussed nutritional needs teach healthy choices including fruits and vegetables Last Documented On 3 8:27AM ; [facility] Patient education about a pr oper diet Last Documented On 3 8:27AM ; [facility] Discussed concerns about exe rcise : promote physical activity Last Documented On 3 8:27AM ; [facility] Patient education about adve rse reactions to medication Last Documented On 3 6:29PM ; [facility] Discussed lifestyle changes with patient that impact chronic illnesses. ~Supported patient's personal health goals for chronic illness management ~Discussed pt desire to be future oriented and goal directed ~Self care techniques including mindfulness techniques, deep breathing and hobbies ~Risk management: Local Crisis number, reaching out to friends/family, and community resources. ~Harm reduction and relapse prevention Last Documented On 3 6:29PM ; [facility] Reviewed side effects and Ri sks/Benefits analysis Last Documented On 3 6:29PM ; [facility] Discussed nutritional needs teach healthy choices including fruits and vegetables Last Documented On 3 6:00PM ; [facility] Patient education about a pr oper diet Last Documented On 3 6:00PM ; [facility] Discussed concerns about exe rcise : promote physical activity Last Documented On 3 6:00PM ; [facility] Not requesting contraception Last Documented On 3 6:00PM ; [facility] provided active listenin g; offered pt time to provide feedback required to assess for recent use/uges/cravings/triggers. ~Provided time for the pt to share and process thoughts and concerns regarding use of prescribed medication for ADHD symtoms; expressed concern for pt's health and well-being. ~Explored and assessed for issues or concerns impacting recovery; acknowledged reported abstinence/good progress. ~Encouraged use of healthy coping methods and seeking sober support, as needed Last Documented On 3 5:57PM ; [facility] Discussed nutritional needs teach healthy choices including fruits and vegetables Last Documented On 3 6:49PM ; [facility] Patient education about a pr oper diet Last Documented On 3 6:49PM ; [facility] Discussed concerns about exe rcise : promote physical activity ~ ~Follow up in 4 weeks Last Documented On 3 8:47AM ; [facility] Discussed nutritional needs teach healthy choices including fruits and vegetables Last Documented On 3 3:59PM ; [facility] Patient education about a pr oper diet Last Documented On 3 3:59PM ; [facility] Discussed concerns about exe rcise : promote physical activity ~ ~Will start hydroxyzine as needed for anxiety ~ ~Follow up in 4 weeks Last Documented On 3 4:55PM ; [facility], support and helped pt process though current symptoms and stressor(s); explored effectiveness of medication, coping mechanisms, and self-care practices. ~Encouraged use, when needed Last Documented On 3 3:57PM ; [facility] Discussed nutritional needs teach healthy choices including fruits and vegetables Last Documented On 2 6:58PM ; [facility] Patient education about a pr oper diet Last Documented On 2 6:58PM ; [facility] Discussed concerns about exe rcise : promote physical activity Last Documented On 2 6:58PM ; [facility] actively listened; provid ed empathy and unconditional positive regard. ~Acknowledged and validated emotions. ~Helped the pt to process recent alcohol use; provided encouragement to move forward with her recovery. ~Supported pt's interest in attending sober support groups and professional tx. ~Provided pt MH/[facility] resource list' ~Discussed medication; encouraged medication complaince and contacting [facility] with questions or concerns Last Documented On 2 10:15AM ; [facility] Discussed nutritional needs teach healthy choices including fruits and vegetables Last Documented On 2 7:19PM ; [facility] Patient education about a pr oper diet Last Documented On 2 7:19PM ; [facility] Discussed concerns about exe rcise : promote physical activity Last Documented On 2 7:19PM ; [facility] provided active listenin g, support and helped pt process though current stressor(s). Discussed effectiveness of medication; acknowledged and validated concerns. ~Explored use of coping mechanisms, self-care practices, and support system. ~Encouraged use, when needed Last Documented On 2 8:10AM ; [facility] Discussed nutritional needs teach healthy choices including fruits and vegetables Last Documented On 2 6:39PM ; [facility] Patient education about a pr oper diet Last Documented On 2 6:39PM ; [facility] Discussed concerns about exe rcise : promote physical activity ~ ~Follow up in 4 weeks Last Documented On 2 5:33AM ; [facility] Discussed nutritional needs teach healthy choices including fruits and vegetables Last Documented On 2 2:22PM ; [facility] Patient education about a pr oper diet Last Documented On 2 2:22PM ; [facility] Discussed concerns about exe rcise : promote physical activity Last Documented On 2 2:22PM ; [facility] provided active listenin g; assessed current symptoms and stressor(s) coping mechanisms, support system, and self-care practices Last Documented On 2 4:02PM ; [facility] introduced pt to [facility] in tegrated model of care ~[facility] offered active listening and supportive feedback; normalized emotions and feelings; provided opportunity to explore alcohol use hx/sx/dx/ and tx options. Provided psychoeducation focused on MAT program including requirements for clean UDS. ~[facility] discussed potential benefits of counseling in conjunction with MAT. ~Supported use of healthy coping methods and seeking support, as needed Last Documented On 2 11:27AM ; [facility] Discussed nutritional needs teach healthy choices including fruits and vegetables Last Documented On 2 9:47AM ; [facility] Patient education about a pr oper diet Last Documented On 2 9:47AM ; [facility] Discussed concerns about exe rcise : promote physical activity ~ ~Follow up Friday or Friday for UDS, will try for induction next Last Documented On 2 10:35AM ; [facility] Work Phone: [phone]) 820-898203-29-2023 Evaluation note Includes: Assessments for all patient encounters Findings Encounter Date Alcohol dependence uncomplicated BH Esta blished Patient with Edita GOMES 12/11/2022 [facility] Work Phone: [phone]) 606-185003-29-2023 History general Narrative - Reported Includes: Medical History in patient's chart Description Last Updated Interpersonal relationship problems 11/14 [facility] Work Phone: [phone]) 293-873703-29-2023 History general Narrative - Reported Includes: Medical History in patient's chart Description Last Updated Interpersonal relationship problems 11/14 [facility] Work Phone: [phone]) [phone] Progress note* Progress note Date Encounter Last Documented by 12/11/2022 Open Access - Established Last d ocumented on 12/11/2022; 9:24 AM, Jackie Akins CNP; [facility] Active Problems & Conditions - F10.20 - Alcohol Dependence Uncomplicated - F41.9 - Anxiety Disorder Nos - 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 Referred Here No prior encounters. History of Present Illness Melina Valenzuela is a 27 year old female. - Allergy list reviewed - Reviewed Medications hasn't started new medications yet - Medication list reviewed - Date of last menstruation 11/26/2022 Patient encounter for nausea, headache, body aches and fatigue after taking Nyquil Friday evening for cold-like symptoms Patient received vivitrol injection friday; states I did not know it had alcohol in it Patient states she has not started taking Strattera or Effexor; states she wants to do it at home because I don't know how it will affect me and I don't want to be around people Patient denies using or cravings Patient requesting work slip Current Medication - Effexor XR 37.5 MG Oral Capsule Extended Release 24 Hour 1 po qd, 30 days, 5 refills - hydrOXYzine HCl 25 MG Oral Tablet Take one tablet three times a day as needed for anxiety, 30 days, 1 refills - MiraLax 17 GM/SCOOP Oral Powder Dissolve one capful (17g) into 4-8oz of liquid and drink daily, 30 days, 2 refills - Strattera 25 MG Oral Capsule 1 po am, 30 days, 5 refills - Vivitrol 380 MG Intramuscular Suspension Reconstituted Inject intrarmuscular every month, 28 days, 11 refills Past Medical/Surgical History Other: No interpersonal relationship problems Reported: Medical: No medical history or no significant history and no previous hospitalizations. : Not planning to have a baby in the next 12 months. Procedural: - Tooth extraction Surgical: - Extraction of wisdom tooth - Tonsillectomy with adenoidectomy - General surgery kidney x6 stents, tubes, cut some of the tube out - No tubal ligation Social History Environmental Exposure: No secondhand cigarette smoke exposure. Behavioral: Not a current tobacco user. Tobacco use: Using electronic cigarettes/vaping. Alcohol: Not using alcohol. Drug Use: Not using drugs denied by patient. Sexual: Sexually active, sexual orientation Bisexual, and gender identity Female. No report of control being practiced. Allergies - No Known Allergies Family History Father alcoholic Maternal: Depression committed suicide Review Of Systems Systemic: Aching. Head: Headache generalized. Neck: No neck symptoms. Eyes: No eye symptoms. Otolaryngeal: No ear symptoms. Nasal discharge and itchy throat. Cardiovascular: No cardiovascular symptoms. Pulmonary: No pulmonary symptoms. Gastrointestinal: Nausea. Genitourinary: No genitourinary symptoms. Musculoskeletal: No musculoskeletal symptoms. Neurological: No neurological symptoms. Psychological: No psychological symptoms. Skin: No skin symptoms. Physical Findings - Vitals taken 12/11/2022 08:28 am BP-Yejujip395/64 mmHg Pulse Rate-Jxfjqrl69 bpm Respiration Rate18 per min Temp-Oral97.1 F Rqmaio76 in Kbmqxg156 lbs 4 oz Body Mass Index24.2 kg/m2 Body Surface Area1.7 m2 Oxygen Wzynpnhzgw38 % O2 DeviceNone (Room Air) KlP890 % General Appearance: - Awake. - Alert. - Well developed. - Well nourished. - In no acute distress. Head: Appearance: - Head normocephalic. Eyes: General/bilateral: Pupils: - PERRLA. Ears: Right Ear: - Examined. Left Ear: - Examined. Nose: General/bilateral: Discharge: - No nasal discharge. Cavity: - Nasal turbinate abnormalities. - Nasal turbinate erythematous. - Nasal turbinate swollen. Sinus Tenderness: - No sinus tenderness. Oral Cavity: Palate: - Hard palate was abnormal. - Petechiae on the hard palate. - Petechiae midline on the hard palate. Pharynx: Oropharynx: - Abnormal oropharynx inflammed and erythematous. Lymph Nodes: - No adenopathy. - Cervical lymph nodes were not enlarged. Lungs: - Respiration rhythm and depth was normal. - Clear to auscultation. Cardiovascular: Heart Rate And Rhythm: - Normal. Heart Sounds: - Normal. Abdomen: Visual Inspection: - Abdomen was normal on visual inspection. Auscultation: - Bowel sounds were normal. Musculoskeletal System: General/bilateral: - Normal movement of all extremities. Neurological: - No confusion was observed. - Oriented to time, place, and person. Speech: - Normal. Cranial Nerves: - Normal. Balance: - Normal. Gait And Stance: - Normal. Psychiatric: - Expression of emotions finding was normal. Skin: - General appearance was normal. Tests Laboratory-based Chemistry: Immunology Studies: Streptococcus Group A Screen was negative. Assessment - Z68.24 - Body mass index [BMI] 24.0-24.9, adult Therapy - Patient refused flu vaccine. Discussed benefits of flu vaccine with Patient. Vaccinations - Did not receive dose of Reported: Patient has not received the Covid Vaccine Counseling/Education - Not wishing to stop smoking offered Quit Line information - Discussed nutritional needs teach healthy choices including fruits and vegetables - Patient education about a proper diet - Discussed concerns about exercise: promote physical activity Plan StartCited- Allergic rhinitis, unspecified Flonase Allergy Relief 50 MCG/ACT mL one puff to each nare daily, 31 days, 0 refills EndCited StartCited- Nausea Ondansetron HCl 4 MG tablet take 4 mg PO every 8 hours as needed, 3 days, 0 refills EndCited StartCited- Other gastritis without bleeding Famotidine 20 MG tablet take 20 mg PO at HS, 30 days, 0 refills EndCited Medications as discussed Patient advised to read all ingredients in sbap-lec-qtpzzyb medications prior to consumption Follow up with pcp as scheduled- sooner with concerns. Notes - Patient is not interested in the COVID-19 vaccination at this time. Practice Management Systolic blood pressure < 130 mmHg and diastolic < 80 mmHg diastolic < 80 mmHg. Advance Directives - Living Will Health Reminders - Assess BMI satisfied 12/11/2022. - Assess Tobacco Use satisfied 12/11/2022. [facility]03-29-2023 Progress note* Progress note Date Encounter Last Documented by 12/11/2022 Established Patient Last docu mented on 12/11/2022; 4:53 PM, Edita GOMES; [facility] Chief Complaint The Chief Complaint is: Pt was seen by [facility] today at [facility] when he presented for headache and nausea and due for follow-up and support. History of Present Illness Melina Valenzuela is a 27 year old female. - Bipolar Behaviors. - No service. - Normal appetite. - No Stuttering. - Anxiety - Depression - Sleep disturbances - Loss of interest in activities - Energy level is fair - Easily distracted - Being more talkative than usual - No apathy - No fear of loss of control - Not feeling guilty - No paranoid ideations - No feelings of grandeur - No racing thoughts - Not regularly taking risks - No social isolation - No compulsive behavior - No impulsive behavior - No high involvement in pleasurable activities - - Progress: Pt was seen by [facility] today at [facility] when she presented for not feeling well. She told the medical provider that she waitinng on taking her new meds that were just prescribed since her stomach hurts and she was scared to make it worse. She was open to feedback and support, denies any SI/HI, and agreed to try one med today, and the other tomorrow. Planning on calling back if she has any issues - No Irritability Past Medical/Surgical History Other: No previous suicide attempt. Interpersonal relationship problems Reported: No Safety Measures. Social History Environmental Exposure: No secondhand cigarette smoke exposure. Not on probation and not on parole. Personal: Recent breakup with significant other, recent legal problems NAEL, and recent relocation. Behavioral: Not a current tobacco user. Tobacco use: Using electronic cigarettes/vaping. Alcohol: Not using alcohol. Having stopped drinking alcohol. Drug Use: Using marijuana and drug use. Antisocial: No criminal behavior (Felony traffic violations, Civil involvement, Criminal involvement), no legal problems or arrests: on probation / parole for felony, and no conviction for driving while intoxicated. Housing And Economic Circumstances: Lives with grandparent(s). Abuse and Neglect: Not receiving inadequate meals. : No deployment, direct combat. Work: Working [employer] through [email or web address]. Sexual: Sexually active, denied sexual activity, sexual orientation Bisexual, gender identity Female, and control is being practiced Other. - Substance Use: Early Recovery Review Of Systems Gastrointestinal: Not a picky eater, appetite not decreased, and appetite not increased. No anorexia. Physical Findings General Appearance: - Normal Appearance. - Patient did not appear uncomfortable. - Body odor was normal. - In no acute distress. Musculoskeletal System: Posture: General/bilateral: ? Posture was normal. Neurological: - Cognitive Functions was Normal. - Judgement was impaired. - Estimated intelligence was normal. - Oriented to time, place, and person. - No perceptual disturbances were noted. - Memory was unimpaired. - Cognitive functioning was not decreased. - Normal recent memory for registration. - Executive Functions: Logical and organized. - No Incongruent with content of speech. Speech: ? Is Normal. ? Rate was normal. ? Volume was normal. ? Fluent. ? No articulation abnormalities. ? Pragmatics were normal. Motor: ? No involuntary movements were seen. Gait And Stance: ? Normal. Psychiatric: - Mood was anxious. - Mood was concerned. - Mood was depressed. - Mood was euphoric. - Mood was fearful. - Mood is Euthymic. Appearance: ? Not unkempt. ? Grooming was not meticulous. ? Abnormal grooming. Demonstrated Behavior: ? Motor Activity Normal Activity. ? Eye Contact Appropriate. Affect: ? Flat. ? Tearful. ? Anxious. ? Depressed. ? Not elated. ? Not inappropriate. ? Not labile. ? Not sad. ? Showed no irritability. ? Not agitated. ? Not angry. ? Congruent with the mood. ? No Expansive. Thought Processes: ? Not impaired. Thought Content: ? Impaired insight. ? Revealed no impairment. ? No suicidal ideation. ? No Passive thoughts of . ? No suicidal plans. ? No suicidal intent. ? No homicidal ideations. ? No homicidal plans. ? No homicidal intent. Past Medical: - No repetitive self injurious behavior. - No access to weapons / guns in home. Assessment - Undifferentiated attention deficit disorder - Alcohol dependence uncomplicated - Vaping related disorder - Anxiety disorder NOS - Intervention and counseling on cessation of tobacco use, 3-10 minutes Discussed medication and nicotine replacement for tobacco cessation Therapy - Cognitive behavioral and brief solution-focused. - Non-adherent with medications has been a little reluctant to taking her effexor and strattera, but P ensured that if she was prescibed them they should be fine, advised to take one one day, then the other the next so she would know if she had a side effect which med caused it. - Plan - famotidine, flonase, ondansetron and Collaborated with patient and provider: Edita Akins. Counseling/Education - No not wishing to stop using electronic cigarettes/vaping - Discussed nutritional needs teach healthy choices including fruits and vegetables - Patient education about a proper diet - Patient education about adverse reactions to medication - Reviewed side effects and Risks/Benefits analysis - Discussed concerns about exercise: promote physical activity BHP introduced self to patient, explained role of BHP, and briefly talked about problem behaviors and coping strategies. [facility] offered emotional supports, explored thoughts, feelings, behaviors, utilized motivational interviewing to encourage self-care and ongoing progress, and mindfulness practice to boost healthy uvtm-ymqc-jorrka connections. Plan Follow-up with [facility] at next visit or as needed. Follow-up with [facility]/team [place] for routine wellness and medication management/exploration. Educated on [place], Quit Line, area resources for counsling services and ongoing supoort. Recommended AA/NA/CR meetings. User Defined 1 Has not worked without getting the payment you thought you would, has not felt pressured to do something against will to keep job, have not felt threatened in a relationship, has not been put down, humilitated, or someone has tried to control them, has not been hit, kicked, punched, or sexually forced to do something, or hurt, and not afraid of someone you have a relationship with. Domestic Violence/ Human Trafficking Screening was completed. [facility]03-29-2023 Instructions Includes: Instructions for all patient encounters Instructions to patient Intervention and counseling on cessation of tobacco use, 3-10 minutes Discussed medication and nicotine replacement for tobacco cessation Last Documented On 3 9:26AM ; [facility] Education and Decision Aids were provided during visit for: Not requesting contraception Last Documented On 3 9:22AM ; [facility] Discussed nutritional needs teach healthy choices including fruits and vegetables Last Documented On 3 1:55PM ; [facility] Patient education about a pr oper diet Last Documented On 3 1:55PM ; [facility] Discussed concerns about exe rcise : promote physical activity Last Documented On 3 1:55PM ; [facility] provided pt space to sha re concerns and process thoughts; utilized opportunity to explore symptoms, mood, and functioning. Offered empathy and reflective feedback. ~Discussed medication effectiveness; promoted use, as prescribed. ~ Explored stress relief methods and self-care practices; promoted use, as needed Last Documented On 3 2:33PM ; [facility] Discussed nutritional needs teach healthy choices including fruits and vegetables Last Documented On 3 2:54PM ; [facility] No patient education about a dverse reactions to medication Last Documented On 3 3:21PM ; [facility] Discussed concerns about exe rcise : promote physical activity Last Documented On 3 2:54PM ; [facility] Motivational Interviewing ~E ncouraged use of healthy coping skills ~Encouraged good sleep hygiene ~Provided active and supportive listening ~Validated and normalized emotions Last Documented On 3 3:21PM ; [facility] Reviewed side effects and Ri sks/Benefits analysis Last Documented On 3 3:21PM ; [facility] Discussed nutritional needs teach healthy choices including fruits and vegetables Last Documented On 3 12:56PM ; [facility] Patient education about a pr oper diet Last Documented On 3 12:56PM ; [facility] Discussed concerns about exe rcise : promote physical activity Last Documented On 3 12:56PM ; [facility] Discussed nutritional needs teach healthy choices including fruits and vegetables Last Documented On 3 3:41PM ; [facility] Patient education about a pr oper diet Last Documented On 3 3:41PM ; [facility] Discussed concerns about exe rcise : promote physical activity Last Documented On 3 3:41PM ; [facility] Patient education about adve rse reactions to medication Last Documented On 3 9:36AM ; [facility] Discussed lifestyle changes with patient that impact chronic illnesses. ~Supported patient's personal health goals for chronic illness management ~Discussed pt desire to be future oriented and goal directed ~Self care techniques including mindfulness techniques, deep breathing and hobbies ~Risk management: Local Crisis number, reaching out to friends/family, and community resources. ~Harm reduction and relapse prevention Last Documented On 3 9:36AM ; [facility] Reviewed side effects and Ri sks/Benefits analysis Last Documented On 3 9:36AM ; [facility] Discussed nutritional needs teach healthy choices including fruits and vegetables Last Documented On 3 9:19AM ; [facility] Patient education about a pr oper diet Last Documented On 3 9:19AM ; [facility] Patient education about adve rse reactions to medication Last Documented On 3 9:19AM ; [facility] Discussed concerns about exe rcise : promote physical activity Last Documented On 3 9:19AM ; [facility], explained role of [facility], and briefly talked about problem behaviors and coping strategies. ~ ~P offered emotional supports, explored thoughts, feelings, behaviors, utilized motivational interviewing to encourage self-care and ongoing progress, and mindfulness practice to boost healthy yxxa-wxyd-jgupnz connections Last Documented On 3 9:19AM ; [facility] Reviewed side effects and Ri sks/Benefits analysis Last Documented On 3 9:19AM ; [facility] Discussed nutritional needs teach healthy choices including fruits and vegetables Last Documented On 3 8:27AM ; [facility] Patient education about a pr oper diet Last Documented On 3 8:27AM ; [facility] Discussed concerns about exe rcise : promote physical activity Last Documented On 3 8:27AM ; [facility] Patient education about adve rse reactions to medication Last Documented On 3 6:29PM ; [facility] Discussed lifestyle changes with patient that impact chronic illnesses. ~Supported patient's personal health goals for chronic illness management ~Discussed pt desire to be future oriented and goal directed ~Self care techniques including mindfulness techniques, deep breathing and hobbies ~Risk management: Local Crisis number, reaching out to friends/family, and community resources. ~Harm reduction and relapse prevention Last Documented On 3 6:29PM ; [facility] Reviewed side effects and Ri sks/Benefits analysis Last Documented On 3 6:29PM ; [facility] Discussed nutritional needs teach healthy choices including fruits and vegetables Last Documented On 3 6:00PM ; [facility] Patient education about a pr oper diet Last Documented On 3 6:00PM ; [facility] Discussed concerns about exe rcise : promote physical activity Last Documented On 3 6:00PM ; [facility] Not requesting contraception Last Documented On 3 6:00PM ; [facility] provided active listenin g; offered pt time to provide feedback required to assess for recent use/uges/cravings/triggers. ~Provided time for the pt to share and process thoughts and concerns regarding use of prescribed medication for ADHD symtoms; expressed concern for pt's health and well-being. ~Explored and assessed for issues or concerns impacting recovery; acknowledged reported abstinence/good progress. ~Encouraged use of healthy coping methods and seeking sober support, as needed Last Documented On 3 5:57PM ; [facility] Discussed nutritional needs teach healthy choices including fruits and vegetables Last Documented On 3 6:49PM ; [facility] Patient education about a pr oper diet Last Documented On 3 6:49PM ; [facility] Discussed concerns about exe rcise : promote physical activity ~ ~Follow up in 4 weeks Last Documented On 3 8:47AM ; [facility] Discussed nutritional needs teach healthy choices including fruits and vegetables Last Documented On 3 3:59PM ; [facility] Patient education about a pr oper diet Last Documented On 3 3:59PM ; [facility] Discussed concerns about exe rcise : promote physical activity ~ ~Will start hydroxyzine as needed for anxiety ~ ~Follow up in 4 weeks Last Documented On 3 4:55PM ; [facility] provided active listenin g, support and helped pt process though current symptoms and stressor(s); explored effectiveness of medication, coping mechanisms, and self-care practices. ~Encouraged use, when needed Last Documented On 3 3:57PM ; [facility] Discussed nutritional needs teach healthy choices including fruits and vegetables Last Documented On 2 6:58PM ; [facility] Patient education about a pr oper diet Last Documented On 2 6:58PM ; [facility] Discussed concerns about exe rcise : promote physical activity Last Documented On 2 6:58PM ; [facility] actively listened; provid ed empathy and unconditional positive regard. ~Acknowledged and validated emotions. ~Helped the pt to process recent alcohol use; provided encouragement to move forward with her recovery. ~Supported pt's interest in attending sober support groups and professional tx. ~Provided pt MH/[facility] resource list' ~Discussed medication; encouraged medication complaince and contacting [facility] with questions or concerns Last Documented On 2 10:15AM ; [facility] Discussed nutritional needs teach healthy choices including fruits and vegetables Last Documented On 2 7:19PM ; [facility] Patient education about a pr oper diet Last Documented On 2 7:19PM ; [facility] Discussed concerns about exe rcise : promote physical activity Last Documented On 2 7:19PM ; [facility] provided active listenin g, support and helped pt process though current stressor(s). Discussed effectiveness of medication; acknowledged and validated concerns. ~Explored use of coping mechanisms, self-care practices, and support system. ~Encouraged use, when needed Last Documented On 2 8:10AM ; [facility] Discussed nutritional needs teach healthy choices including fruits and vegetables Last Documented On 2 6:39PM ; [facility] Patient education about a pr oper diet Last Documented On 2 6:39PM ; [facility] Discussed concerns about exe rcise : promote physical activity ~ ~Follow up in 4 weeks Last Documented On 2 5:33AM ; [facility] Discussed nutritional needs teach healthy choices including fruits and vegetables Last Documented On 2 2:22PM ; [facility] Patient education about a pr oper diet Last Documented On 2 2:22PM ; [facility] [facility] Discussed concerns about exe rcise : promote physical activity Last Documented On 2 2:22PM ; [facility] provided active listenin g; assessed current symptoms and stressor(s) coping mechanisms, support system, and self-care practices Last Documented On 2 4:02PM ; [facility] introduced pt to HPWO in tegrated model of care ~[facility] offered active listening and supportive feedback; normalized emotions and feelings; provided opportunity to explore alcohol use hx/sx/dx/ and tx options. Provided psychoeducation focused on MAT program including requirements for clean UDS. ~[facility] discussed potential benefits of counseling in conjunction with MAT. ~Supported use of healthy coping methods and seeking support, as needed Last Documented On 2 11:27AM ; [facility] Discussed nutritional needs teach healthy choices including fruits and vegetables Last Documented On 2 9:47AM ; [facility] Patient education about a pr oper diet Last Documented On 2 9:47AM ; [facility] Discussed concerns about exe rcise : promote physical activity ~ ~Follow up Friday or Friday for UDS, will try for induction next Last Documented On 2 10:35AM ; [facility] Work Phone: [phone] Instructions Includes: Instructions for all patient encounters Instructions to patient Intervention and counseling on cessation of tobacco use, 3-10 minutes Discussed medication and nicotine replacement for tobacco cessation Last Documented On 3 9:26AM ; [facility] Education and Decision Aids were provided during visit for: Not requesting contraception Last Documented On 3 9:22AM ; [facility] Discussed nutritional needs teach healthy choices including fruits and vegetables Last Documented On 3 1:55PM ; [facility] Patient education about a pr oper diet Last Documented On 3 1:55PM ; [facility] Discussed concerns about exe rcise : promote physical activity Last Documented On 3 1:55PM ; [facility] provided pt space to sha re concerns and process thoughts; utilized opportunity to explore symptoms, mood, and functioning. Offered empathy and reflective feedback. ~Discussed medication effectiveness; promoted use, as prescribed. ~ Explored stress relief methods and self-care practices; promoted use, as needed Last Documented On 3 2:33PM ; [facility] Discussed nutritional needs teach healthy choices including fruits and vegetables Last Documented On 3 2:54PM ; [facility] No patient education about a dverse reactions to medication Last Documented On 3 3:21PM ; [facility] Discussed concerns about exe rcise : promote physical activity Last Documented On 3 2:54PM ; [facility] Motivational Interviewing ~E ncouraged use of healthy coping skills ~Encouraged good sleep hygiene ~Provided active and supportive listening ~Validated and normalized emotions Last Documented On 3 3:21PM ; [facility] Reviewed side effects and Ri sks/Benefits analysis Last Documented On 3 3:21PM ; [facility] Discussed nutritional needs teach healthy choices including fruits and vegetables Last Documented On 3 12:56PM ; [facility] Patient education about a pr oper diet Last Documented On 3 12:56PM ; [facility] Discussed concerns about exe rcise : promote physical activity Last Documented On 3 12:56PM ; [facility] Discussed nutritional needs teach healthy choices including fruits and vegetables Last Documented On 3 3:41PM ; [facility] Patient education about a pr oper diet Last Documented On 3 3:41PM ; [facility] Discussed concerns about exe rcise : promote physical activity Last Documented On 3 3:41PM ; [facility] Patient education about adve rse reactions to medication Last Documented On 3 9:36AM ; [facility] Discussed lifestyle changes with patient that impact chronic illnesses. ~Supported patient's personal health goals for chronic illness management ~Discussed pt desire to be future oriented and goal directed ~Self care techniques including mindfulness techniques, deep breathing and hobbies ~Risk management: Local Crisis number, reaching out to friends/family, and community resources. ~Harm reduction and relapse prevention Last Documented On 3 9:36AM ; [facility] Reviewed side effects and Ri sks/Benefits analysis Last Documented On 3 9:36AM ; [facility] Discussed nutritional needs teach healthy choices including fruits and vegetables Last Documented On 3 9:19AM ; [facility] Patient education about a pr oper diet Last Documented On 3 9:19AM ; [facility] Patient education about adve rse reactions to medication Last Documented On 3 9:19AM ; [facility] Discussed concerns about exe rcise : promote physical activity Last Documented On 3 9:19AM ; [facility] BHP introduced self to patidavid nt, explained role of BHP, and briefly talked about problem behaviors and coping strategies. ~ ~P offered emotional supports, explored thoughts, feelings, behaviors, utilized motivational interviewing to encourage self-care and ongoing progress, and mindfulness practice to boost healthy [id number] connections Last Documented On 3 9:19AM ; [facility] Reviewed side effects and Ri sks/Benefits analysis Last Documented On 3 9:19AM ; [facility] Discussed nutritional needs teach healthy choices including fruits and vegetables Last Documented On 3 8:27AM ; [facility] Patient education about a pr oper diet Last Documented On 3 8:27AM ; [facility] Discussed concerns about exe rcise : promote physical activity Last Documented On 3 8:27AM ; [facility] Patient education about adve rse reactions to medication Last Documented On 3 6:29PM ; [facility] Discussed lifestyle changes with patient that impact chronic illnesses. ~Supported patient's personal health goals for chronic illness management ~Discussed pt desire to be future oriented and goal directed ~Self care techniques including mindfulness techniques, deep breathing and hobbies ~Risk management: Local Crisis number, reaching out to friends/family, and community resources. ~Harm reduction and relapse prevention Last Documented On 3 6:29PM ; [facility] Reviewed side effects and Ri sks/Benefits analysis Last Documented On 3 6:29PM ; [facility] Discussed nutritional needs teach healthy choices including fruits and vegetables Last Documented On 3 6:00PM ; [facility] Patient education about a pr oper diet Last Documented On 3 6:00PM ; [facility] Discussed concerns about exe rcise : promote physical activity Last Documented On 3 6:00PM ; [facility] Not requesting contraception Last Documented On 3 6:00PM ; [facility] provided active listenin g; offered pt time to provide feedback required to assess for recent use/uges/cravings/triggers. ~Provided time for the pt to share and process thoughts and concerns regarding use of prescribed medication for ADHD symtoms; expressed concern for pt's health and well-being. ~Explored and assessed for issues or concerns impacting recovery; acknowledged reported abstinence/good progress. ~Encouraged use of healthy coping methods and seeking sober support, as needed Last Documented On 3 5:57PM ; [facility] Discussed nutritional needs teach healthy choices including fruits and vegetables Last Documented On 3 6:49PM ; [facility] Patient education about a pr oper diet Last Documented On 3 6:49PM ; [facility] Discussed concerns about exe rcise : promote physical activity ~ ~Follow up in 4 weeks Last Documented On 3 8:47AM ; [facility] Discussed nutritional needs teach healthy choices including fruits and vegetables Last Documented On 3 3:59PM ; [facility] Patient education about a pr oper diet Last Documented On 3 3:59PM ; [facility] Discussed concerns about exe rcise : promote physical activity ~ ~Will start hydroxyzine as needed for anxiety ~ ~Follow up in 4 weeks Last Documented On 3 4:55PM ; [facility] support and helped pt process though current symptoms and stressor(s); explored effectiveness of medication, coping mechanisms, and self-care practices. ~Encouraged use, when needed Last Documented On 3 3:57PM ; [facility] Discussed nutritional needs teach healthy choices including fruits and vegetables Last Documented On 2 6:58PM ; [facility] Patient education about a pr oper diet Last Documented On 2 6:58PM ; [facility] Discussed concerns about exe rcise : promote physical activity Last Documented On 2 6:58PM ; [facility] actively listened; provid ed empathy and unconditional positive regard. ~Acknowledged and validated emotions. ~Helped the pt to process recent alcohol use; provided encouragement to move forward with her recovery. ~Supported pt's interest in attending sober support groups and professional tx. ~Provided pt MH/[facility] resource list' ~Discussed medication; encouraged medication complaince and contacting [facility] with questions or concerns Last Documented On 2 10:15AM ; [facility] Discussed nutritional needs teach healthy choices including fruits and vegetables Last Documented On 2 7:19PM ; [facility] Patient education about a pr oper diet Last Documented On 2 7:19PM ; [facility] Discussed concerns about exe rcise : promote physical activity Last Documented On 2 7:19PM ; [facility] provided active listenin g, support and helped pt process though current stressor(s). Discussed effectiveness of medication; acknowledged and validated concerns. ~Explored use of coping mechanisms, self-care practices, and support system. ~Encouraged use, when needed Last Documented On 2 8:10AM ; [facility] Discussed nutritional needs teach healthy choices including fruits and vegetables Last Documented On 2 6:39PM ; [facility] Patient education about a pr oper diet Last Documented On 2 6:39PM ; [facility] Discussed concerns about exe rcise : promote physical activity ~ ~Follow up in 4 weeks Last Documented On 2 5:33AM ; [facility] Discussed nutritional needs teach healthy choices including fruits and vegetables Last Documented On 2 2:22PM ; [facility] Patient education about a pr oper diet Last Documented On 2 2:22PM ; [facility] Discussed concerns about exe rcise : promote physical activity Last Documented On 2 2:22PM ; [facility] provided active listenin g; assessed current symptoms and stressor(s) coping mechanisms, support system, and self-care practices Last Documented On 2 4:02PM ; [facility] introduced pt to HPWO in tegrated model of care ~[facility] offered active listening and supportive feedback; normalized emotions and feelings; provided opportunity to explore alcohol use hx/sx/dx/ and tx options. Provided psychoeducation focused on MAT program including requirements for clean UDS. ~[facility] discussed potential benefits of counseling in conjunction with MAT. ~Supported use of healthy coping methods and seeking support, as needed Last Documented On 2 11:27AM ; [facility] Discussed nutritional needs teach healthy choices including fruits and vegetables Last Documented On 2 9:47AM ; [facility] Patient education about a pr oper diet Last Documented On 2 9:47AM ; [facility] Discussed concerns about exe rcise : promote physical activity ~ ~Follow up Friday or Friday for UDS, will try for induction next Last Documented On 2 10:35AM ; [facility] Work Phone: [phone] Instructions Includes: Instructions for all patient encounters Instructions to patient Intervention and counseling on cessation of tobacco use, 3-10 minutes Discussed medication and nicotine replacement for tobacco cessation Last Documented On 3 9:26AM ; [facility] Education and Decision Aids were provided during visit for: Patient education about adve rse reactions to medication Last Documented On 3 10:09AM ; [facility] Discussed and encouraged hea lthy lifestyle behaviors. ~Provided supportive listening, empathy, and validation of feelings. ~Reviewed progress with mood sxs/management. ~Patient education regarding connection between physical and mental health. ~Stress management, coping skills, and support discussed. ~Educated on good sleep hygiene practices. ~Relapse Prevention and harm reduction Last Documented On 3 10:09AM ; [facility] Reviewed side effects and Ri sks/Benefits analysis Last Documented On 3 10:09AM ; [facility] Not requesting contraception Last Documented On 3 9:22AM ; [facility] Discussed nutritional needs teach healthy choices including fruits and vegetables Last Documented On 3 1:55PM ; [facility] Patient education about a pr oper diet Last Documented On 3 1:55PM ; [facility] Discussed concerns about exe rcise : promote physical activity Last Documented On 3 1:55PM ; [facility] provided pt space to sha re concerns and process thoughts; utilized opportunity to explore symptoms, mood, and functioning. Offered empathy and reflective feedback. ~Discussed medication effectiveness; promoted use, as prescribed. ~ Explored stress relief methods and self-care practices; promoted use, as needed Last Documented On 3 2:33PM ; [facility] Discussed nutritional needs teach healthy choices including fruits and vegetables Last Documented On 3 2:54PM ; [facility] No patient education about a dverse reactions to medication Last Documented On 3 3:21PM ; [facility] Discussed concerns about exe rcise : promote physical activity Last Documented On 3 2:54PM ; [facility] Motivational Interviewing ~E ncouraged use of healthy coping skills ~Encouraged good sleep hygiene ~Provided active and supportive listening ~Validated and normalized emotions Last Documented On 3 3:21PM ; [facility] Reviewed side effects and Ri sks/Benefits analysis Last Documented On 3 3:21PM ; [facility] Discussed nutritional needs teach healthy choices including fruits and vegetables Last Documented On 3 12:56PM ; [facility] Patient education about a pr oper diet Last Documented On 3 12:56PM ; [facility] Discussed concerns about exe rcise : promote physical activity Last Documented On 3 12:56PM ; [facility] Discussed nutritional needs teach healthy choices including fruits and vegetables Last Documented On 3 3:41PM ; [facility] Patient education about a pr oper diet Last Documented On 3 3:41PM ; [facility] Discussed concerns about exe rcise : promote physical activity Last Documented On 3 3:41PM ; [facility] Patient education about adve rse reactions to medication Last Documented On 3 9:36AM ; [facility] Discussed lifestyle changes with patient that impact chronic illnesses. ~Supported patient's personal health goals for chronic illness management ~Discussed pt desire to be future oriented and goal directed ~Self care techniques including mindfulness techniques, deep breathing and hobbies ~Risk management: Local Crisis number, reaching out to friends/family, and community resources. ~Harm reduction and relapse prevention Last Documented On 3 9:36AM ; [facility] Reviewed side effects and Ri sks/Benefits analysis Last Documented On 3 9:36AM ; [facility] Discussed nutritional needs teach healthy choices including fruits and vegetables Last Documented On 3 9:19AM ; [facility] Patient education about a pr oper diet Last Documented On 3 9:19AM ; [facility] Patient education about adve rse reactions to medication Last Documented On 3 9:19AM ; [facility] Discussed concerns about exe rcise : promote physical activity Last Documented On 3 9:19AM ; [facility] BHP introduced self to patie nt, explained role of BHP, and briefly talked about problem behaviors and coping strategies. ~ ~[facility] offered emotional supports, explored thoughts, feelings, behaviors, utilized motivational interviewing to encourage self-care and ongoing progress, and mindfulness practice to boost healthy wild-[id number]-[id number] connections Last Documented On 3 9:19AM ; [facility] Reviewed side effects and Ri sks/Benefits analysis Last Documented On 3 9:19AM ; [facility] Discussed nutritional needs teach healthy choices including fruits and vegetables Last Documented On 3 8:27AM ; [facility] Patient education about a pr oper diet Last Documented On 3 8:27AM ; [facility] Discussed concerns about exe rcise : promote physical activity Last Documented On 3 8:27AM ; [facility] Patient education about adve rse reactions to medication Last Documented On 3 6:29PM ; [facility] Discussed lifestyle changes with patient that impact chronic illnesses. ~Supported patient's personal health goals for chronic illness management ~Discussed pt desire to be future oriented and goal directed ~Self care techniques including mindfulness techniques, deep breathing and hobbies ~Risk management: Local Crisis number, reaching out to friends/family, and community resources. ~Harm reduction and relapse prevention Last Documented On 3 6:29PM ; [facility] Reviewed side effects and Ri sks/Benefits analysis Last Documented On 3 6:29PM ; [facility] Discussed nutritional needs teach healthy choices including fruits and vegetables Last Documented On 3 6:00PM ; [facility] Patient education about a pr oper diet Last Documented On 3 6:00PM ; [facility] Discussed concerns about exe rcise : promote physical activity Last Documented On 3 6:00PM ; [facility] Not requesting contraception Last Documented On 3 6:00PM ; [facility] provided active listenin g; offered pt time to provide feedback required to assess for recent use/uges/cravings/triggers. ~Provided time for the pt to share and process thoughts and concerns regarding use of prescribed medication for ADHD symtoms; expressed concern for pt's health and well-being. ~Explored and assessed for issues or concerns impacting recovery; acknowledged reported abstinence/good progress. ~Encouraged use of healthy coping methods and seeking sober support, as needed Last Documented On 3 5:57PM ; [facility] Discussed nutritional needs teach healthy choices including fruits and vegetables Last Documented On 3 6:49PM ; [facility] Patient education about a pr oper diet Last Documented On 3 6:49PM ; [facility] Discussed concerns about exe rcise : promote physical activity ~ ~Follow up in 4 weeks Last Documented On 3 8:47AM ; [facility] Discussed nutritional needs teach healthy choices including fruits and vegetables Last Documented On 3 3:59PM ; [facility] Patient education about a pr oper diet Last Documented On 3 3:59PM ; [facility] Discussed concerns about exe rcise : promote physical activity ~ ~Will start hydroxyzine as needed for anxiety ~ ~Follow up in 4 weeks Last Documented On 3 4:55PM ; [facility] provided active listenin g, support and helped pt process though current symptoms and stressor(s); explored effectiveness of medication, coping mechanisms, and self-care practices. ~Encouraged use, when needed Last Documented On 3 3:57PM ; [facility] Discussed nutritional needs teach healthy choices including fruits and vegetables Last Documented On 2 6:58PM ; [facility] Patient education about a pr oper diet Last Documented On 2 6:58PM ; [facility] Discussed concerns about exe rcise : promote physical activity Last Documented On 2 6:58PM ; [facility] actively listened; provid ed empathy and unconditional positive regard. ~Acknowledged and validated emotions. ~Helped the pt to process recent alcohol use; provided encouragement to move forward with her recovery. ~Supported pt's interest in attending sober support groups and professional tx. ~Provided pt MH/[facility] resource list' ~Discussed medication; encouraged medication complaince and contacting [facility] with questions or concerns Last Documented On 2 10:15AM ; [facility] Discussed nutritional needs teach healthy choices including fruits and vegetables Last Documented On 2 7:19PM ; [facility] Patient education about a pr oper diet Last Documented On 2 7:19PM ; [facility] Discussed concerns about exe rcise : promote physical activity Last Documented On 2 7:19PM ; [facility] provided active listenin g, support and helped pt process though current stressor(s). Discussed effectiveness of medication; acknowledged and validated concerns. ~Explored use of coping mechanisms, self-care practices, and support system. ~Encouraged use, when needed Last Documented On 2 8:10AM ; [facility] Discussed nutritional needs teach healthy choices including fruits and vegetables Last Documented On 2 6:39PM ; [facility] Patient education about a pr oper diet Last Documented On 2 6:39PM ; [facility] Discussed concerns about exe rcise : promote physical activity ~ ~Follow up in 4 weeks Last Documented On 2 5:33AM ; [facility] Discussed nutritional needs teach healthy choices including fruits and vegetables Last Documented On 2 2:22PM ; [facility] Patient education about a pr oper diet Last Documented On 2 2:22PM ; [facility] Discussed concerns about exe rcise : promote physical activity Last Documented On 2 2:22PM ; [facility] provided active listenin g; assessed current symptoms and stressor(s) coping mechanisms, support system, and self-care practices Last Documented On 2 4:02PM ; [facility] introduced pt to HPWO in tegrated model of care ~P offered active listening and supportive feedback; normalized emotions and feelings; provided opportunity to explore alcohol use hx/sx/dx/ and tx options. Provided psychoeducation focused on MAT program including requirements for clean UDS. ~[facility] discussed potential benefits of counseling in conjunction with MAT. ~Supported use of healthy coping methods and seeking support, as needed Last Documented On 2 11:27AM ; [facility] Discussed nutritional needs teach healthy choices including fruits and vegetables Last Documented On 2 9:47AM ; [facility] Patient education about a pr oper diet Last Documented On 2 9:47AM ; [facility] Discussed concerns about exe rcise : promote physical activity ~ ~Follow up Friday or Friday for UDS, will try for induction next Last Documented On 2 10:35AM ; [facility] Work Phone: [phone]) [phone] Instructions Includes: Instructions for all patient encounters Instructions to patient Intervention and counseling on cessation of tobacco use, 3-10 minutes Discussed medication and nicotine replacement for tobacco cessation Last Documented On 3 9:26AM ; [facility] Education and Decision Aids were provided during visit for: Patient education about adve rse reactions to medication Last Documented On 3 10:09AM ; [facility] Discussed and encouraged hea lthy lifestyle behaviors. ~Provided supportive listening, empathy, and validation of feelings. ~Reviewed progress with mood sxs/management. ~Patient education regarding connection between physical and mental health. ~Stress management, coping skills, and support discussed. ~Educated on good sleep hygiene practices. ~Relapse Prevention and harm reduction Last Documented On 3 10:09AM ; [facility] Reviewed side effects and Ri sks/Benefits analysis Last Documented On 3 10:09AM ; [facility] Not requesting contraception Last Documented On 3 9:22AM ; [facility] Discussed nutritional needs teach healthy choices including fruits and vegetables Last Documented On 3 1:55PM ; [facility] Patient education about a pr oper diet Last Documented On 3 1:55PM ; [facility] Discussed concerns about exe rcise : promote physical activity Last Documented On 3 1:55PM ; [facility] provided pt space to sha re concerns and process thoughts; utilized opportunity to explore symptoms, mood, and functioning. Offered empathy and reflective feedback. ~Discussed medication effectiveness; promoted use, as prescribed. ~ Explored stress relief methods and self-care practices; promoted use, as needed Last Documented On 3 2:33PM ; [facility] Discussed nutritional needs teach healthy choices including fruits and vegetables Last Documented On 3 2:54PM ; [facility] No patient education about a dverse reactions to medication Last Documented On 3 3:21PM ; [facility] Discussed concerns about exe rcise : promote physical activity Last Documented On 3 2:54PM ; [facility] Motivational Interviewing ~E ncouraged use of healthy coping skills ~Encouraged good sleep hygiene ~Provided active and supportive listening ~Validated and normalized emotions Last Documented On 3 3:21PM ; [facility] Reviewed side effects and Ri sks/Benefits analysis Last Documented On 3 3:21PM ; [facility] Discussed nutritional needs teach healthy choices including fruits and vegetables Last Documented On 3 12:56PM ; [facility] Patient education about a pr oper diet Last Documented On 3 12:56PM ; [facility] Discussed concerns about exe rcise : promote physical activity Last Documented On 3 12:56PM ; [facility] Discussed nutritional needs teach healthy choices including fruits and vegetables Last Documented On 3 3:41PM ; [facility] Patient education about a pr oper diet Last Documented On 3 3:41PM ; [facility] Discussed concerns about exe rcise : promote physical activity Last Documented On 3 3:41PM ; [facility] Patient education about adve rse reactions to medication Last Documented On 3 9:36AM ; [facility] Discussed lifestyle changes with patient that impact chronic illnesses. ~Supported patient's personal health goals for chronic illness management ~Discussed pt desire to be future oriented and goal directed ~Self care techniques including mindfulness techniques, deep breathing and hobbies ~Risk management: Local Crisis number, reaching out to friends/family, and community resources. ~Harm reduction and relapse prevention Last Documented On 3 9:36AM ; [facility] Reviewed side effects and Ri sks/Benefits analysis Last Documented On 3 9:36AM ; [facility] Discussed nutritional needs teach healthy choices including fruits and vegetables Last Documented On 3 9:19AM ; [facility] Patient education about a pr oper diet Last Documented On 3 9:19AM ; [facility] Patient education about adve rse reactions to medication Last Documented On 3 9:19AM ; [facility] Discussed concerns about exe rcise : promote physical activity Last Documented On 3 9:19AM ; [facility] BHP introduced self to patie nt, explained role of BHP, and briefly talked about problem behaviors and coping strategies. ~ ~[facility] offered emotional supports, explored thoughts, feelings, behaviors, utilized motivational interviewing to encourage self-care and ongoing progress, and mindfulness practice to boost healthy xshn-fdoc-oewrky connections Last Documented On 3 9:19AM ; [facility] Reviewed side effects and Ri sks/Benefits analysis Last Documented On 3 9:19AM ; [facility] Discussed nutritional needs teach healthy choices including fruits and vegetables Last Documented On 3 8:27AM ; [facility] Patient education about a pr oper diet Last Documented On 3 8:27AM ; [facility] Discussed concerns about exe rcise : promote physical activity Last Documented On 3 8:27AM ; [facility] Patient education about adve rse reactions to medication Last Documented On 3 6:29PM ; [facility] Discussed lifestyle changes with patient that impact chronic illnesses. ~Supported patient's personal health goals for chronic illness management ~Discussed pt desire to be future oriented and goal directed ~Self care techniques including mindfulness techniques, deep breathing and hobbies ~Risk management: Local Crisis number, reaching out to friends/family, and community resources. ~Harm reduction and relapse prevention Last Documented On 3 6:29PM ; [facility] Reviewed side effects and Ri sks/Benefits analysis Last Documented On 3 6:29PM ; [facility] Discussed nutritional needs teach healthy choices including fruits and vegetables Last Documented On 3 6:00PM ; [facility] Patient education about a pr oper diet Last Documented On 3 6:00PM ; [facility] Discussed concerns about exe rcise : promote physical activity Last Documented On 3 6:00PM ; [facility] Not requesting contraception Last Documented On 3 6:00PM ; [facility] provided active listenin g; offered pt time to provide feedback required to assess for recent use/uges/cravings/triggers. ~Provided time for the pt to share and process thoughts and concerns regarding use of prescribed medication for ADHD symtoms; expressed concern for pt's health and well-being. ~Explored and assessed for issues or concerns impacting recovery; acknowledged reported abstinence/good progress. ~Encouraged use of healthy coping methods and seeking sober support, as needed Last Documented On 3 5:57PM ; [facility] Discussed nutritional needs teach healthy choices including fruits and vegetables Last Documented On 3 6:49PM ; [facility] Patient education about a pr oper diet Last Documented On 3 6:49PM ; [facility] Discussed concerns about exe rcise : promote physical activity ~ ~Follow up in 4 weeks Last Documented On 3 8:47AM ; [facility] Discussed nutritional needs teach healthy choices including fruits and vegetables Last Documented On 3 3:59PM ; [facility] Patient education about a pr oper diet Last Documented On 3 3:59PM ; [facility] Discussed concerns about exe rcise : promote physical activity ~ ~Will start hydroxyzine as needed for anxiety ~ ~Follow up in 4 weeks Last Documented On 3 4:55PM ; [facility] provided active listenin g, support and helped pt process though current symptoms and stressor(s); explored effectiveness of medication, coping mechanisms, and self-care practices. ~Encouraged use, when needed Last Documented On 3 3:57PM ; [facility] Discussed nutritional needs teach healthy choices including fruits and vegetables Last Documented On 2 6:58PM ; [facility] Patient education about a pr oper diet Last Documented On 2 6:58PM ; [facility] Discussed concerns about exe rcise : promote physical activity Last Documented On 2 6:58PM ; [facility] actively listened; provid ed empathy and unconditional positive regard. ~Acknowledged and validated emotions. ~Helped the pt to process recent alcohol use; provided encouragement to move forward with her recovery. ~Supported pt's interest in attending sober support groups and professional tx. ~Provided pt MH/[facility] resource list' ~Discussed medication; encouraged medication complaince and contacting [facility] with questions or concerns Last Documented On 2 10:15AM ; [facility] Discussed nutritional needs teach healthy choices including fruits and vegetables Last Documented On 2 7:19PM ; [facility] Patient education about a pr oper diet Last Documented On 2 7:19PM ; [facility] Discussed concerns about exe rcise : promote physical activity Last Documented On 2 7:19PM ; [facility] provided active listenin g, support and helped pt process though current stressor(s). Discussed effectiveness of medication; acknowledged and validated concerns. ~Explored use of coping mechanisms, self-care practices, and support system. ~Encouraged use, when needed Last Documented On 2 8:10AM ; [facility] Discussed nutritional needs teach healthy choices including fruits and vegetables Last Documented On 2 6:39PM ; [facility] Patient education about a pr oper diet Last Documented On 2 6:39PM ; [facility] Discussed concerns about exe rcise : promote physical activity ~ ~Follow up in 4 weeks Last Documented On 2 5:33AM ; [facility] Discussed nutritional needs teach healthy choices including fruits and vegetables Last Documented On 2 2:22PM ; [facility] Patient education about a pr oper diet Last Documented On 2 2:22PM ; [facility] Discussed concerns about exe rcise : promote physical activity Last Documented On 2 2:22PM ; [facility] provided active listenin g; assessed current symptoms and stressor(s) coping mechanisms, support system, and self-care practices Last Documented On 2 4:02PM ; [facility] introduced pt to HPWO in tegrated model of care ~[facility] offered active listening and supportive feedback; normalized emotions and feelings; provided opportunity to explore alcohol use hx/sx/dx/ and tx options. Provided psychoeducation focused on MAT program including requirements for clean UDS. ~[facility] discussed potential benefits of counseling in conjunction with MAT. ~Supported use of healthy coping methods and seeking support, as needed Last Documented On 2 11:27AM ; [facility] Discussed nutritional needs teach healthy choices including fruits and vegetables Last Documented On 2 9:47AM ; [facility] Patient education about a pr oper diet Last Documented On 2 9:47AM ; [facility] Discussed concerns about exe rcise : promote physical activity ~ ~Follow up Friday or Friday for UDS, will try for induction next Last Documented On 2 10:35AM ; [facility] Work Phone: [phone]) [phone] Instructions Includes: Instructions for all patient encounters Instructions to patient Intervention and counseling on cessation of tobacco use, 3-10 minutes Discussed medication and nicotine replacement for tobacco cessation Last Documented On 3 9:26AM ; [facility] Education and Decision Aids were provided during visit for: Patient education about adve rse reactions to medication Last Documented On 3 9:03AM ; [facility] Discussed and encouraged hea lthy lifestyle behaviors. ~Provided supportive listening, empathy, and validation of feelings. ~Reviewed progress with mood sxs/management. ~Patient education regarding connection between physical and mental health. ~Stress management, coping skills, and support discussed. ~Discussed sleep hygiene Last Documented On 3 9:03AM ; [facility] Reviewed side effects and Ri sks/Benefits analysis Last Documented On 3 9:03AM ; [facility] Discussed nutritional needs teach healthy choices including fruits and vegetables Last Documented On 3 8:47AM ; [facility] Patient education about a pr oper diet Last Documented On 3 8:47AM ; [facility] Discussed concerns about exe rcise : promote physical activity Last Documented On 3 8:47AM ; [facility] Not requesting contraception Last Documented On 3 8:47AM ; [facility] Patient education about adve rse reactions to medication Last Documented On 3 10:09AM ; [facility] Discussed and encouraged hea lthy lifestyle behaviors. ~Provided supportive listening, empathy, and validation of feelings. ~Reviewed progress with mood sxs/management. ~Patient education regarding connection between physical and mental health. ~Stress management, coping skills, and support discussed. ~Educated on good sleep hygiene practices. ~Relapse Prevention and harm reduction Last Documented On 3 10:09AM ; [facility] Reviewed side effects and Ri sks/Benefits analysis Last Documented On 3 10:09AM ; [facility] Not requesting contraception Last Documented On 3 9:22AM ; [facility] Discussed nutritional needs teach healthy choices including fruits and vegetables Last Documented On 3 1:55PM ; [facility] Patient education about a pr oper diet Last Documented On 3 1:55PM ; [facility] Discussed concerns about exe rcise : promote physical activity Last Documented On 3 1:55PM ; [facility] provided pt space to sha re concerns and process thoughts; utilized opportunity to explore symptoms, mood, and functioning. Offered empathy and reflective feedback. ~Discussed medication effectiveness; promoted use, as prescribed. ~ Explored stress relief methods and self-care practices; promoted use, as needed Last Documented On 3 2:33PM ; [facility] Discussed nutritional needs teach healthy choices including fruits and vegetables Last Documented On 3 2:54PM ; [facility] No patient education about a dverse reactions to medication Last Documented On 3 3:21PM ; [facility] Discussed concerns about exe rcise : promote physical activity Last Documented On 3 2:54PM ; [facility] Motivational Interviewing ~E ncouraged use of healthy coping skills ~Encouraged good sleep hygiene ~Provided active and supportive listening ~Validated and normalized emotions Last Documented On 3 3:21PM ; [facility] Reviewed side effects and Ri sks/Benefits analysis Last Documented On 3 3:21PM ; [facility] Discussed nutritional needs teach healthy choices including fruits and vegetables Last Documented On 3 12:56PM ; [facility] Patient education about a pr oper diet Last Documented On 3 12:56PM ; [facility] Discussed concerns about exe rcise : promote physical activity Last Documented On 3 12:56PM ; [facility] Discussed nutritional needs teach healthy choices including fruits and vegetables Last Documented On 3 3:41PM ; [facility] Patient education about a pr oper diet Last Documented On 3 3:41PM ; [facility] Discussed concerns about exe rcise : promote physical activity Last Documented On 3 3:41PM ; [facility] Patient education about adve rse reactions to medication Last Documented On 3 9:36AM ; [facility] Discussed lifestyle changes with patient that impact chronic illnesses. ~Supported patient's personal health goals for chronic illness management ~Discussed pt desire to be future oriented and goal directed ~Self care techniques including mindfulness techniques, deep breathing and hobbies ~Risk management: Local Crisis number, reaching out to friends/family, and community resources. ~Harm reduction and relapse prevention Last Documented On 3 9:36AM ; [facility] Reviewed side effects and Ri sks/Benefits analysis Last Documented On 3 9:36AM ; [facility] Discussed nutritional needs teach healthy choices including fruits and vegetables Last Documented On 3 9:19AM ; [facility] Patient education about a pr oper diet Last Documented On 3 9:19AM ; [facility] Patient education about adve rse reactions to medication Last Documented On 3 9:19AM ; [facility] Discussed concerns about exe rcise : promote physical activity Last Documented On 3 9:19AM ; [facility]HP introduced self to patidavid nt, explained role of BHP, and briefly talked about problem behaviors and coping strategies. ~ ~[facility] offered emotional supports, explored thoughts, feelings, behaviors, utilized motivational interviewing to encourage self-care and ongoing progress, and mindfulness practice to boost healthy dyeo-itzr-[id number] connections Last Documented On 3 9:19AM ; [facility] Reviewed side effects and Ri sks/Benefits analysis Last Documented On 3 9:19AM ; [facility] Discussed nutritional needs teach healthy choices including fruits and vegetables Last Documented On 3 8:27AM ; [facility] Patient education about a pr oper diet Last Documented On 3 8:27AM ; [facility] Discussed concerns about exe rcise : promote physical activity Last Documented On 3 8:27AM ; [facility] Patient education about adve rse reactions to medication Last Documented On 3 6:29PM ; [facility] Discussed lifestyle changes with patient that impact chronic illnesses. ~Supported patient's personal health goals for chronic illness management ~Discussed pt desire to be future oriented and goal directed ~Self care techniques including mindfulness techniques, deep breathing and hobbies ~Risk management: Local Crisis number, reaching out to friends/family, and community resources. ~Harm reduction and relapse prevention Last Documented On 3 6:29PM ; [facility] Reviewed side effects and Ri sks/Benefits analysis Last Documented On 3 6:29PM ; [facility] Discussed nutritional needs teach healthy choices including fruits and vegetables Last Documented On 3 6:00PM ; [facility] Patient education about a pr oper diet Last Documented On 3 6:00PM ; [facility] Discussed concerns about exe rcise : promote physical activity Last Documented On 3 6:00PM ; [facility] Not requesting contraception Last Documented On 3 6:00PM ; [facility] provided active listenin g; offered pt time to provide feedback required to assess for recent use/uges/cravings/triggers. ~Provided time for the pt to share and process thoughts and concerns regarding use of prescribed medication for ADHD symtoms; expressed concern for pt's health and well-being. ~Explored and assessed for issues or concerns impacting recovery; acknowledged reported abstinence/good progress. ~Encouraged use of healthy coping methods and seeking sober support, as needed Last Documented On 3 5:57PM ; [facility] Discussed nutritional needs teach healthy choices including fruits and vegetables Last Documented On 3 6:49PM ; [facility] Patient education about a pr oper diet Last Documented On 3 6:49PM ; [facility] Discussed concerns about exe rcise : promote physical activity ~ ~Follow up in 4 weeks Last Documented On 3 8:47AM ; [facility] Discussed nutritional needs teach healthy choices including fruits and vegetables Last Documented On 3 3:59PM ; [facility] Patient education about a pr oper diet Last Documented On 3 3:59PM ; [facility] Discussed concerns about exe rcise : promote physical activity ~ ~Will start hydroxyzine as needed for anxiety ~ ~Follow up in 4 weeks Last Documented On 3 4:55PM ; [facility] provided active listenin g, support and helped pt process though current symptoms and stressor(s); explored effectiveness of medication, coping mechanisms, and self-care practices. ~Encouraged use, when needed Last Documented On 3 3:57PM ; [facility] Discussed nutritional needs teach healthy choices including fruits and vegetables Last Documented On 2 6:58PM ; [facility] Patient education about a pr oper diet Last Documented On 2 6:58PM ; [facility] Discussed concerns about exe rcise : promote physical activity Last Documented On 2 6:58PM ; [facility] actively listened; provid ed empathy and unconditional positive regard. ~Acknowledged and validated emotions. ~Helped the pt to process recent alcohol use; provided encouragement to move forward with her recovery. ~Supported pt's interest in attending sober support groups and professional tx. ~Provided pt MH/[facility] resource list' ~Discussed medication; encouraged medication complaince and contacting [facility] with questions or concerns Last Documented On 2 10:15AM ; [facility] Discussed nutritional needs teach healthy choices including fruits and vegetables Last Documented On 2 7:19PM ; [facility] Patient education about a pr oper diet Last Documented On 2 7:19PM ; [facility] Discussed concerns about exe rcise : promote physical activity Last Documented On 2 7:19PM ; [facility] provided active listenin g, support and helped pt process though current stressor(s). Discussed effectiveness of medication; acknowledged and validated concerns. ~Explored use of coping mechanisms, self-care practices, and support system. ~Encouraged use, when needed Last Documented On 2 8:10AM ; [facility] Discussed nutritional needs teach healthy choices including fruits and vegetables Last Documented On 2 6:39PM ; [facility] Patient education about a pr oper diet Last Documented On 2 6:39PM ; [facility] Discussed concerns about exe rcise : promote physical activity ~ ~Follow up in 4 weeks Last Documented On 2 5:33AM ; [facility] Discussed nutritional needs teach healthy choices including fruits and vegetables Last Documented On 2 2:22PM ; [facility] Patient education about a pr oper diet Last Documented On 2 2:22PM ; [facility] Discussed concerns about exe rcise : promote physical activity Last Documented On 2 2:22PM ; [facility] provided active listenin g; assessed current symptoms and stressor(s) coping mechanisms, support system, and self-care practices Last Documented On 2 4:02PM ; [facility] introduced pt to HPWO in tegrated model of care ~P offered active listening and supportive feedback; normalized emotions and feelings; provided opportunity to explore alcohol use hx/sx/dx/ and tx options. Provided psychoeducation focused on MAT program including requirements for clean UDS. ~P discussed potential benefits of counseling in conjunction with MAT. ~Supported use of healthy coping methods and seeking support, as needed Last Documented On 2 11:27AM ; [facility] Discussed nutritional needs teach healthy choices including fruits and vegetables Last Documented On 2 9:47AM ; [facility] Patient education about a pr oper diet Last Documented On 2 9:47AM ; [facility] Discussed concerns about exe rcise : promote physical activity ~ ~Follow up Friday or Friday for UDS, will try for induction next Last Documented On 2 10:35AM ; [facility] Work Phone: [phone] Instructions Includes: Instructions for all patient encounters Instructions to patient Intervention and counseling on cessation of tobacco use, 3-10 minutes Discussed medication and nicotine replacement for tobacco cessation Last Documented On 3 9:26AM ; [facility] Education and Decision Aids were provided during visit for: Patient education about adve rse reactions to medication Last Documented On 3 9:03AM ; [facility] Discussed and encouraged hea lthy lifestyle behaviors. ~Provided supportive listening, empathy, and validation of feelings. ~Reviewed progress with mood sxs/management. ~Patient education regarding connection between physical and mental health. ~Stress management, coping skills, and support discussed. ~Discussed sleep hygiene Last Documented On 3 9:03AM ; [facility] Reviewed side effects and Ri sks/Benefits analysis Last Documented On 3 9:03AM ; [facility] Discussed nutritional needs teach healthy choices including fruits and vegetables Last Documented On 3 8:47AM ; [facility] Patient education about a pr oper diet Last Documented On 3 8:47AM ; [facility] Discussed concerns about exe rcise : promote physical activity Last Documented On 3 8:47AM ; [facility] Not requesting contraception Last Documented On 3 8:47AM ; [facility] Patient education about adve rse reactions to medication Last Documented On 3 10:09AM ; [facility] Discussed and encouraged hea lthy lifestyle behaviors. ~Provided supportive listening, empathy, and validation of feelings. ~Reviewed progress with mood sxs/management. ~Patient education regarding connection between physical and mental health. ~Stress management, coping skills, and support discussed. ~Educated on good sleep hygiene practices. ~Relapse Prevention and harm reduction Last Documented On 3 10:09AM ; [facility] Reviewed side effects and Ri sks/Benefits analysis Last Documented On 3 10:09AM ; [facility] Not requesting contraception Last Documented On 3 9:22AM ; [facility] Discussed nutritional needs teach healthy choices including fruits and vegetables Last Documented On 3 1:55PM ; [facility] Patient education about a pr oper diet Last Documented On 3 1:55PM ; [facility] Discussed concerns about exe rcise : promote physical activity Last Documented On 3 1:55PM ; [facility] provided pt space to sha re concerns and process thoughts; utilized opportunity to explore symptoms, mood, and functioning. Offered empathy and reflective feedback. ~Discussed medication effectiveness; promoted use, as prescribed. ~ Explored stress relief methods and self-care practices; promoted use, as needed Last Documented On 3 2:33PM ; [facility] Discussed nutritional needs teach healthy choices including fruits and vegetables Last Documented On 3 2:54PM ; [facility] No patient education about a dverse reactions to medication Last Documented On 3 3:21PM ; [facility] Discussed concerns about exe rcise : promote physical activity Last Documented On 3 2:54PM ; [facility] Motivational Interviewing ~E ncouraged use of healthy coping skills ~Encouraged good sleep hygiene ~Provided active and supportive listening ~Validated and normalized emotions Last Documented On 3 3:21PM ; [facility] Reviewed side effects and Ri sks/Benefits analysis Last Documented On 3 3:21PM ; [facility] Discussed nutritional needs teach healthy choices including fruits and vegetables Last Documented On 3 12:56PM ; [facility] Patient education about a pr oper diet Last Documented On 3 12:56PM ; [facility] Discussed concerns about exe rcise : promote physical activity Last Documented On 3 12:56PM ; [facility] Discussed nutritional needs teach healthy choices including fruits and vegetables Last Documented On 3 3:41PM ; [facility] Patient education about a pr oper diet Last Documented On 3 3:41PM ; [facility] Discussed concerns about exe rcise : promote physical activity Last Documented On 3 3:41PM ; [facility] Patient education about adve rse reactions to medication Last Documented On 3 9:36AM ; [facility] Discussed lifestyle changes with patient that impact chronic illnesses. ~Supported patient's personal health goals for chronic illness management ~Discussed pt desire to be future oriented and goal directed ~Self care techniques including mindfulness techniques, deep breathing and hobbies ~Risk management: Local Crisis number, reaching out to friends/family, and community resources. ~Harm reduction and relapse prevention Last Documented On 3 9:36AM ; [facility] Reviewed side effects and Ri sks/Benefits analysis Last Documented On 3 9:36AM ; [facility] Discussed nutritional needs teach healthy choices including fruits and vegetables Last Documented On 3 9:19AM ; [facility] Patient education about a pr oper diet Last Documented On 3 9:19AM ; [facility] Patient education about adve rse reactions to medication Last Documented On 3 9:19AM ; [facility] Discussed concerns about exe rcise : promote physical activity Last Documented On 3 9:19AM ; [facility] introduced self to patidavid nt, explained role of BHP, and briefly talked about problem behaviors and coping strategies. ~ ~P offered emotional supports, explored thoughts, feelings, behaviors, utilized motivational interviewing to encourage self-care and ongoing progress, and mindfulness practice to boost healthy [id number] connections Last Documented On 3 9:19AM ; [facility] Reviewed side effects and Ri sks/Benefits analysis Last Documented On 3 9:19AM ; [facility] Discussed nutritional needs teach healthy choices including fruits and vegetables Last Documented On 3 8:27AM ; [facility] Patient education about a pr oper diet Last Documented On 3 8:27AM ; [facility] Discussed concerns about exe rcise : promote physical activity Last Documented On 3 8:27AM ; [facility] Patient education about adve rse reactions to medication Last Documented On 3 6:29PM ; [facility] Discussed lifestyle changes with patient that impact chronic illnesses. ~Supported patient's personal health goals for chronic illness management ~Discussed pt desire to be future oriented and goal directed ~Self care techniques including mindfulness techniques, deep breathing and hobbies ~Risk management: Local Crisis number, reaching out to friends/family, and community resources. ~Harm reduction and relapse prevention Last Documented On 3 6:29PM ; [facility] Reviewed side effects and Ri sks/Benefits analysis Last Documented On 3 6:29PM ; [facility] Discussed nutritional needs teach healthy choices including fruits and vegetables Last Documented On 3 6:00PM ; [facility] Patient education about a pr oper diet Last Documented On 3 6:00PM ; [facility] Discussed concerns about exe rcise : promote physical activity Last Documented On 3 6:00PM ; [facility] Not requesting contraception Last Documented On 3 6:00PM ; [facility] provided active listenin g; offered pt time to provide feedback required to assess for recent use/uges/cravings/triggers. ~Provided time for the pt to share and process thoughts and concerns regarding use of prescribed medication for ADHD symtoms; expressed concern for pt's health and well-being. ~Explored and assessed for issues or concerns impacting recovery; acknowledged reported abstinence/good progress. ~Encouraged use of healthy coping methods and seeking sober support, as needed Last Documented On 3 5:57PM ; [facility] Discussed nutritional needs teach healthy choices including fruits and vegetables Last Documented On 3 6:49PM ; [facility] Patient education about a pr oper diet Last Documented On 3 6:49PM ; [facility] Discussed concerns about exe rcise : promote physical activity ~ ~Follow up in 4 weeks Last Documented On 3 8:47AM ; [facility] Discussed nutritional needs teach healthy choices including fruits and vegetables Last Documented On 3 3:59PM ; [facility] Patient education about a pr oper diet Last Documented On 3 3:59PM ; [facility] Discussed concerns about exe rcise : promote physical activity ~ ~Will start hydroxyzine as needed for anxiety ~ ~Follow up in 4 weeks Last Documented On 3 4:55PM [facility] support and helped pt process though current symptoms and stressor(s); explored effectiveness of medication, coping mechanisms, and self-care practices. ~Encouraged use, when needed Last Documented On 3 3:57PM ; [facility] Discussed nutritional needs teach healthy choices including fruits and vegetables Last Documented On 2 6:58PM ; [facility] Patient education about a pr oper diet Last Documented On 2 6:58PM ; [facility] Discussed concerns about exe rcise : promote physical activity Last Documented On 2 6:58PM ; [facility] actively listened; provid ed empathy and unconditional positive regard. ~Acknowledged and validated emotions. ~Helped the pt to process recent alcohol use; provided encouragement to move forward with her recovery. ~Supported pt's interest in attending sober support groups and professional tx. ~Provided pt MH/[facility] resource list' ~Discussed medication; encouraged medication complaince and contacting [facility] with questions or concerns Last Documented On 2 10:15AM ; [facility] Discussed nutritional needs teach healthy choices including fruits and vegetables Last Documented On 2 7:19PM ; [facility] Patient education about a pr oper diet Last Documented On 2 7:19PM ; [facility] Discussed concerns about exe rcise : promote physical activity Last Documented On 2 7:19PM ; [facility] provided active listenin g, support and helped pt process though current stressor(s). Discussed effectiveness of medication; acknowledged and validated concerns. ~Explored use of coping mechanisms, self-care practices, and support system. ~Encouraged use, when needed Last Documented On 2 8:10AM ; [facility] Discussed nutritional needs teach healthy choices including fruits and vegetables Last Documented On 2 6:39PM ; [facility] Patient education about a pr oper diet Last Documented On 2 6:39PM ; [facility] Discussed concerns about exe rcise : promote physical activity ~ ~Follow up in 4 weeks Last Documented On 2 5:33AM ; [facility] Discussed nutritional needs teach healthy choices including fruits and vegetables Last Documented On 2 2:22PM ; [facility] Patient education about a pr oper diet Last Documented On 2 2:22PM ; [facility] Discussed concerns about exe rcise : promote physical activity Last Documented On 2 2:22PM ; [facility] provided active listenin g; assessed current symptoms and stressor(s) coping mechanisms, support system, and self-care practices Last Documented On 2 4:02PM ; [facility] introduced pt to HPWO in tegrated model of care ~[facility] offered active listening and supportive feedback; normalized emotions and feelings; provided opportunity to explore alcohol use hx/sx/dx/ and tx options. Provided psychoeducation focused on MAT program including requirements for clean UDS. ~[facility] discussed potential benefits of counseling in conjunction with MAT. ~Supported use of healthy coping methods and seeking support, as needed Last Documented On 2 11:27AM ; [facility] Discussed nutritional needs teach healthy choices including fruits and vegetables Last Documented On 2 9:47AM ; [facility] Patient education about a pr oper diet Last Documented On 2 9:47AM ; [facility] Discussed concerns about exe rcise : promote physical activity ~ ~Follow up Friday or Friday for UDS, will try for induction next Last Documented On 2 10:35AM ; [facility] Work Phone: [phone] Instructions Includes: Instructions for all patient encounters Instructions to patient Intervention and counseling on cessation of tobacco use, 3-10 minutes Discussed medication and nicotine replacement for tobacco cessation Last Documented On 3 9:26AM ; [facility] Education and Decision Aids were provided during visit for: Patient education about adve rse reactions to medication Last Documented On 3 9:03AM ; [facility] Discussed and encouraged hea lthy lifestyle behaviors. ~Provided supportive listening, empathy, and validation of feelings. ~Reviewed progress with mood sxs/management. ~Patient education regarding connection between physical and mental health. ~Stress management, coping skills, and support discussed. ~Discussed sleep hygiene Last Documented On 3 9:03AM ; [facility] Reviewed side effects and Ri sks/Benefits analysis Last Documented On 3 9:03AM ; [facility] Discussed nutritional needs teach healthy choices including fruits and vegetables Last Documented On 3 8:47AM ; [facility] Patient education about a pr oper diet Last Documented On 3 8:47AM ; [facility] Discussed concerns about exe rcise : promote physical activity Last Documented On 3 8:47AM ; [facility] Not requesting contraception Last Documented On 3 8:47AM ; [facility] Patient education about adve rse reactions to medication Last Documented On 3 10:09AM ; [facility] Discussed and encouraged hea lthy lifestyle behaviors. ~Provided supportive listening, empathy, and validation of feelings. ~Reviewed progress with mood sxs/management. ~Patient education regarding connection between physical and mental health. ~Stress management, coping skills, and support discussed. ~Educated on good sleep hygiene practices. ~Relapse Prevention and harm reduction Last Documented On 3 10:09AM ; [facility] Reviewed side effects and Ri sks/Benefits analysis Last Documented On 3 10:09AM ; [facility] Not requesting contraception Last Documented On 3 9:22AM ; [facility] Discussed nutritional needs teach healthy choices including fruits and vegetables Last Documented On 3 1:55PM ; [facility] Patient education about a pr oper diet Last Documented On 3 1:55PM ; [facility] Discussed concerns about exe rcise : promote physical activity Last Documented On 3 1:55PM ; [facility] provided pt space to sha re concerns and process thoughts; utilized opportunity to explore symptoms, mood, and functioning. Offered empathy and reflective feedback. ~Discussed medication effectiveness; promoted use, as prescribed. ~ Explored stress relief methods and self-care practices; promoted use, as needed Last Documented On 3 2:33PM ; [facility] Discussed nutritional needs teach healthy choices including fruits and vegetables Last Documented On 3 2:54PM ; [facility] No patient education about a dverse reactions to medication Last Documented On 3 3:21PM ; [facility] Discussed concerns about exe rcise : promote physical activity Last Documented On 3 2:54PM ; [facility] Motivational Interviewing ~E ncouraged use of healthy coping skills ~Encouraged good sleep hygiene ~Provided active and supportive listening ~Validated and normalized emotions Last Documented On 3 3:21PM ; [facility] Reviewed side effects and Ri sks/Benefits analysis Last Documented On 3 3:21PM ; [facility] Discussed nutritional needs teach healthy choices including fruits and vegetables Last Documented On 3 12:56PM ; [facility] Patient education about a pr oper diet Last Documented On 3 12:56PM ; [facility] Discussed concerns about exe rcise : promote physical activity Last Documented On 3 12:56PM ; [facility] Discussed nutritional needs teach healthy choices including fruits and vegetables Last Documented On 3 3:41PM ; [facility] Patient education about a pr oper diet Last Documented On 3 3:41PM ; [facility] Discussed concerns about exe rcise : promote physical activity Last Documented On 3 3:41PM ; [facility] Patient education about adve rse reactions to medication Last Documented On 3 9:36AM ; [facility] Discussed lifestyle changes with patient that impact chronic illnesses. ~Supported patient's personal health goals for chronic illness management ~Discussed pt desire to be future oriented and goal directed ~Self care techniques including mindfulness techniques, deep breathing and hobbies ~Risk management: Local Crisis number, reaching out to friends/family, and community resources. ~Harm reduction and relapse prevention Last Documented On 3 9:36AM ; [facility] Reviewed side effects and Ri sks/Benefits analysis Last Documented On 3 9:36AM ; [facility] Discussed nutritional needs teach healthy choices including fruits and vegetables Last Documented On 3 9:19AM ; [facility] Patient education about a pr oper diet Last Documented On 3 9:19AM ; [facility] Patient education about adve rse reactions to medication Last Documented On 3 9:19AM ; [facility] Discussed concerns about exe rcise : promote physical activity Last Documented On 3 9:19AM ; [facility] introduced self to patidavid nt, explained role of P, and briefly talked about problem behaviors and coping strategies. ~ ~[facility] offered emotional supports, explored thoughts, feelings, behaviors, utilized motivational interviewing to encourage self-care and ongoing progress, and mindfulness practice to boost healthy [id number] connections Last Documented On 3 9:19AM ; [facility] Reviewed side effects and Ri sks/Benefits analysis Last Documented On 3 9:19AM ; [facility] Discussed nutritional needs teach healthy choices including fruits and vegetables Last Documented On 3 8:27AM ; [facility] Patient education about a pr oper diet Last Documented On 3 8:27AM ; [facility] Discussed concerns about exe rcise : promote physical activity Last Documented On 3 8:27AM ; [facility] Patient education about adve rse reactions to medication Last Documented On 3 6:29PM ; [facility] Discussed lifestyle changes with patient that impact chronic illnesses. ~Supported patient's personal health goals for chronic illness management ~Discussed pt desire to be future oriented and goal directed ~Self care techniques including mindfulness techniques, deep breathing and hobbies ~Risk management: Local Crisis number, reaching out to friends/family, and community resources. ~Harm reduction and relapse prevention Last Documented On 3 6:29PM ; [facility] Reviewed side effects and Ri sks/Benefits analysis Last Documented On 3 6:29PM ; [facility] Discussed nutritional needs teach healthy choices including fruits and vegetables Last Documented On 3 6:00PM ; [facility] Patient education about a pr oper diet Last Documented On 3 6:00PM ; [facility] Discussed concerns about exe rcise : promote physical activity Last Documented On 3 6:00PM ; [facility] Not requesting contraception Last Documented On 3 6:00PM ; [facility] provided active listenin g; offered pt time to provide feedback required to assess for recent use/uges/cravings/triggers. ~Provided time for the pt to share and process thoughts and concerns regarding use of prescribed medication for ADHD symtoms; expressed concern for pt's health and well-being. ~Explored and assessed for issues or concerns impacting recovery; acknowledged reported abstinence/good progress. ~Encouraged use of healthy coping methods and seeking sober support, as needed Last Documented On 3 5:57PM ; [facility] Discussed nutritional needs teach healthy choices including fruits and vegetables Last Documented On 3 6:49PM ; [facility] Patient education about a pr oper diet Last Documented On 3 6:49PM ; [facility] Discussed concerns about exe rcise : promote physical activity ~ ~Follow up in 4 weeks Last Documented On 3 8:47AM ; [facility] Discussed nutritional needs teach healthy choices including fruits and vegetables Last Documented On 3 3:59PM ; [facility] Patient education about a pr oper diet Last Documented On 3 3:59PM ; [facility] Discussed concerns about exe rcise : promote physical activity ~ ~Will start hydroxyzine as needed for anxiety ~ ~Follow up in 4 weeks Last Documented On 3 4:55PM ; [facility] provided active listenin g, support and helped pt process though current symptoms and stressor(s); explored effectiveness of medication, coping mechanisms, and self-care practices. ~Encouraged use, when needed Last Documented On 3 3:57PM ; [facility] Discussed nutritional needs teach healthy choices including fruits and vegetables Last Documented On 2 6:58PM ; [facility] Patient education about a pr oper diet Last Documented On 2 6:58PM ; [facility] Discussed concerns about exe rcise : promote physical activity Last Documented On 2 6:58PM ; [facility] actively listened; provid ed empathy and unconditional positive regard. ~Acknowledged and validated emotions. ~Helped the pt to process recent alcohol use; provided encouragement to move forward with her recovery. ~Supported pt's interest in attending sober support groups and professional tx. ~Provided pt MH/[facility] resource list' ~Discussed medication; encouraged medication complaince and contacting [facility] with questions or concerns Last Documented On 2 10:15AM ; [facility] Discussed nutritional needs teach healthy choices including fruits and vegetables Last Documented On 2 7:19PM ; [facility] Patient education about a pr oper diet Last Documented On 2 7:19PM ; [facility] Discussed concerns about exe rcise : promote physical activity Last Documented On 2 7:19PM ; [facility] provided active listenin g, support and helped pt process though current stressor(s). Discussed effectiveness of medication; acknowledged and validated concerns. ~Explored use of coping mechanisms, self-care practices, and support system. ~Encouraged use, when needed Last Documented On 2 8:10AM ; [facility] Discussed nutritional needs teach healthy choices including fruits and vegetables Last Documented On 2 6:39PM ; [facility] Patient education about a pr oper diet Last Documented On 2 6:39PM ; [facility] Discussed concerns about exe rcise : promote physical activity ~ ~Follow up in 4 weeks Last Documented On 2 5:33AM ; [facility] Discussed nutritional needs teach healthy choices including fruits and vegetables Last Documented On 2 2:22PM ; [facility] Patient education about a pr oper diet Last Documented On 2 2:22PM ; [facility] Discussed concerns about exe rcise : promote physical activity Last Documented On 2 2:22PM ; [facility] provided active listenin g; assessed current symptoms and stressor(s) coping mechanisms, support system, and self-care practices Last Documented On 2 4:02PM ; [facility] introduced pt to HPWO in tegrated model of care ~[facility] offered active listening and supportive feedback; normalized emotions and feelings; provided opportunity to explore alcohol use hx/sx/dx/ and tx options. Provided psychoeducation focused on MAT program including requirements for clean UDS. ~[facility] discussed potential benefits of counseling in conjunction with MAT. ~Supported use of healthy coping methods and seeking support, as needed Last Documented On 2 11:27AM ; [facility] Discussed nutritional needs teach healthy choices including fruits and vegetables Last Documented On 2 9:47AM ; [facility] Patient education about a pr oper diet Last Documented On 2 9:47AM ; [facility] Discussed concerns about exe rcise : promote physical activity ~ ~Follow up Friday or Friday for UDS, will try for induction next Last Documented On 2 10:35AM ; [facility] Work Phone: 1(489) 930-503203-29-2023 Instructions Includes: Instructions for all patient encounters Instructions to patient Intervention and counseling on cessation of tobacco use, 3-10 minutes Discussed medication and nicotine replacement for tobacco cessation Last Documented On 3 9:26AM ; [facility] Education and Decision Aids were provided during visit for: Discussed nutritional needs teach healthy choices including fruits and vegetables Last Documented On 3 9:19AM ; [facility] Patient education about a pr oper diet Last Documented On 3 9:19AM ; [facility] Patient education about adve rse reactions to medication Last Documented On 3 9:19AM ; [facility] Discussed concerns about exe rcise : promote physical activity Last Documented On 3 9:19AM ; [facility] BHP introduced self to patie nt, explained role of BHP, and briefly talked about problem behaviors and coping strategies. ~ ~[facility] offered emotional supports, explored thoughts, feelings, behaviors, utilized motivational interviewing to encourage self-care and ongoing progress, and mindfulness practice to boost healthy jket-hoai-lihdlv connections Last Documented On 3 9:19AM ; [facility] Reviewed side effects and Ri sks/Benefits analysis Last Documented On 3 9:19AM ; [facility] Discussed nutritional needs teach healthy choices including fruits and vegetables Last Documented On 3 8:27AM ; [facility] Patient education about a pr oper diet Last Documented On 3 8:27AM ; [facility] Discussed concerns about exe rcise : promote physical activity Last Documented On 3 8:27AM ; [facility] Patient education about adve rse reactions to medication Last Documented On 3 6:29PM ; [facility] Discussed lifestyle changes with patient that impact chronic illnesses. ~Supported patient's personal health goals for chronic illness management ~Discussed pt desire to be future oriented and goal directed ~Self care techniques including mindfulness techniques, deep breathing and hobbies ~Risk management: Local Crisis number, reaching out to friends/family, and community resources. ~Harm reduction and relapse prevention Last Documented On 3 6:29PM ; [facility] Reviewed side effects and Ri sks/Benefits analysis Last Documented On 3 6:29PM ; [facility] Discussed nutritional needs teach healthy choices including fruits and vegetables Last Documented On 3 6:00PM ; [facility] Patient education about a pr oper diet Last Documented On 3 6:00PM ; [facility] Discussed concerns about exe rcise : promote physical activity Last Documented On 3 6:00PM ; [facility] Not requesting contraception Last Documented On 3 6:00PM ; [facility] provided active listenin g; offered pt time to provide feedback required to assess for recent use/uges/cravings/triggers. ~Provided time for the pt to share and process thoughts and concerns regarding use of prescribed medication for ADHD symtoms; expressed concern for pt's health and well-being. ~Explored and assessed for issues or concerns impacting recovery; acknowledged reported abstinence/good progress. ~Encouraged use of healthy coping methods and seeking sober support, as needed Last Documented On 3 5:57PM ; [facility] Discussed nutritional needs teach healthy choices including fruits and vegetables Last Documented On 3 6:49PM ; [facility] Patient education about a pr oper diet Last Documented On 3 6:49PM ; [facility] Discussed concerns about exe rcise : promote physical activity ~ ~Follow up in 4 weeks Last Documented On 3 8:47AM ; [facility] Discussed nutritional needs teach healthy choices including fruits and vegetables Last Documented On 3 3:59PM ; [facility] Patient education about a pr oper diet Last Documented On 3 3:59PM ; [facility] Discussed concerns about exe rcise : promote physical activity ~ ~Will start hydroxyzine as needed for anxiety ~ ~Follow up in 4 weeks Last Documented On 3 4:55PM ; [facility] provided active listenin g, support and helped pt process though current symptoms and stressor(s); explored effectiveness of medication, coping mechanisms, and self-care practices. ~Encouraged use, when needed Last Documented On 3 3:57PM ; [facility] Discussed nutritional needs teach healthy choices including fruits and vegetables Last Documented On 2 6:58PM ; [facility] Patient education about a pr oper diet Last Documented On 2 6:58PM ; [facility] Discussed concerns about exe rcise : promote physical activity Last Documented On 2 6:58PM ; [facility] actively listened; provid ed empathy and unconditional positive regard. ~Acknowledged and validated emotions. ~Helped the pt to process recent alcohol use; provided encouragement to move forward with her recovery. ~Supported pt's interest in attending sober support groups and professional tx. ~Provided pt MH/[facility] resource list' ~Discussed medication; encouraged medication complaince and contacting [facility] with questions or concerns Last Documented On 2 10:15AM ; [facility] Discussed nutritional needs teach healthy choices including fruits and vegetables Last Documented On 2 7:19PM ; [facility] Patient education about a pr oper diet Last Documented On 2 7:19PM ; [facility] Discussed concerns about exe rcise : promote physical activity Last Documented On 2 7:19PM ; [facility] provided active listenin g, support and helped pt process though current stressor(s). Discussed effectiveness of medication; acknowledged and validated concerns. ~Explored use of coping mechanisms, self-care practices, and support system. ~Encouraged use, when needed Last Documented On 2 8:10AM ; [facility] Discussed nutritional needs teach healthy choices including fruits and vegetables Last Documented On 2 6:39PM ; [facility] Patient education about a pr oper diet Last Documented On 2 6:39PM ; [facility] Discussed concerns about exe rcise : promote physical activity ~ ~Follow up in 4 weeks Last Documented On 2 5:33AM ; [facility] Discussed nutritional needs teach healthy choices including fruits and vegetables Last Documented On 2 2:22PM ; [facility] Patient education about a pr oper diet Last Documented On 2 2:22PM ; [facility] Discussed concerns about exe rcise : promote physical activity Last Documented On 2 2:22PM ; [facility] provided active listenin g; assessed current symptoms and stressor(s) coping mechanisms, support system, and self-care practices Last Documented On 2 4:02PM ; [facility] introduced pt to HPWO in tegrated model of care ~[facility] offered active listening and supportive feedback; normalized emotions and feelings; provided opportunity to explore alcohol use hx/sx/dx/ and tx options. Provided psychoeducation focused on MAT program including requirements for clean UDS. ~[facility] discussed potential benefits of counseling in conjunction with MAT. ~Supported use of healthy coping methods and seeking support, as needed Last Documented On 2 11:27AM ; [facility] Discussed nutritional needs teach healthy choices including fruits and vegetables Last Documented On 2 9:47AM ; [facility] Patient education about a pr oper diet Last Documented On 2 9:47AM ; [facility] Discussed concerns about exe rcise : promote physical activity ~ ~Follow up Friday or Friday for UDS, will try for induction next Last Documented On 2 10:35AM ; [facility] Work Phone: [phone]) 143-824503-27-2023 Evaluation note Includes: Assessments for all patient encounters Findings Encounter Date Alcohol dependence uncomplicated BH Esta blished Patient with Felecia Muniz 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/09/2022 [facility] Work Phone: [phone]) [phone] Evaluation note Includes: Assessments for all patient encounters Findings Encounter Date Alcohol dependence uncomplicated BH Esta blished Patient with Felecia Muniz 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/09/2022 [facility] Work Phone: [phone] History general Narrative - Reported Includes: Medical History in patient's chart Description Last Updated No interpersonal relationship problems 0 12/09/2022 [facility] Work Phone: [phone]) [phone] History general Narrative - Reported Includes: Medical History in patient's chart Description Last Updated Not planning to have a baby in the next 12 months 12/09/2022 [facility] Work Phone: [phone]) 700-785003-27-2023 History general Narrative - Reported Includes: Medical History in patient's chart Description Last Updated No interpersonal relationship problems 0 12/09/2022 [facility] Work Phone: [phone]) [phone] Progress note* Progress note Date Encounter Last Documented by 12/09/2022 Established Patient Last docu mented on 12/09/2022; 6:45 PM, Felecia DENT; [facility] Active Problems & Conditions - F10.20 - Alcohol Dependence Uncomplicated - F41.9 - Anxiety Disorder Nos - F90.9 - Undifferentiated Attention Deficit Disorder - 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 History of Present Illness - No Bipolar Behaviors. - No service. - Normal appetite. - Anxiety - Depression - Sleep disturbances - Energy level is fair - Fear of loss of control - Racing thoughts - Not sleeping too much - No loss of interest in activities - Not feeling that nothing matters - Not feeling persecuted - Not easily distracted - No social isolation - - Progress: Pt is here to get her monthly vivitrol shot. Pt recently moved to [place] from the [facility]. Pt is going through a break up and is liing with family in [place]. Pt is taking Adderall but does not like the rapid heartbeat te medication causes. Pt is also taking wellbutrin and thinks she is having suicidal thoughts because of the medication. Pt would like to take medication for focus and concentration and also for her depression. Pt states she understands getting the corret medication can be trial and error. Pt also shares her mom committed suicide - No Irritability Current Medication - Effexor XR 37.5 MG Oral Capsule Extended Release 24 Hour 1 po qd, 30 days, 5 refills - hydrOXYzine HCl 25 MG Oral Tablet Take one tablet three times a day as needed for anxiety, 30 days, 1 refills - MiraLax 17 GM/SCOOP Oral Powder Dissolve one capful (17g) into 4-8oz of liquid and drink daily, 30 days, 2 refills - Strattera 25 MG Oral Capsule 1 po am, 30 days, 5 refills - Vivitrol 380 MG Intramuscular Suspension Reconstituted Inject intrarmuscular every month, 28 days, 11 refills Past Medical/Surgical History Other: No interpersonal relationship problems Reported: : Not planning to have a baby in the next 12 months. Procedural: - Tooth extraction Surgical: - Extraction of wisdom tooth - Tonsillectomy with adenoidectomy - General surgery kidney x6 stents, tubes, cut some of the tube out - No tubal ligation Social History Environmental Exposure: No secondhand cigarette smoke exposure. Personal: Recent breakup with significant other, recent legal problems NAEL, and recent relocation. Behavioral: Not a current tobacco user. Tobacco use: Using electronic cigarettes/vaping. Alcohol: Having stopped drinking alcohol. Drug Use: Using marijuana and drug use. Antisocial: No criminal behavior (Felony traffic violations, Civil involvement, Criminal involvement). Housing And Economic Circumstances: Lives with grandparent(s). Work: Working [employer]. Sexual: Sexually active, denied sexual activity, sexual orientation Bisexual, gender identity Female, and control is being practiced Other. - Substance Use: Early Recovery Allergies - No Known Allergies Family History Father alcoholic Maternal: Depression committed suicide Physical Findings General Appearance: - Normal Appearance. Musculoskeletal System: Posture: General/bilateral: - Posture was normal. Neurological: - Cognitive Functions was Normal. - Estimated intelligence was normal. - Oriented to time, place, and person. - Normal recent memory for registration. - Judgement was not impaired. Speech: - Is Normal. Motor: - No involuntary movements were seen. Gait And Stance: - Normal. Psychiatric: - Mood is Euthymic. Affect: - Congruent with the mood. Thought Processes: - Not impaired. Thought Content: - Revealed no impairment. - Insight was intact. 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 - Reviewed side effects and Risks/Benefits analysis. - Adherent with medications. - Plan - begin strattera and effexor xr; d/c adderall and wellbutrin and Collaborated with patient and provider: Counseling/Education - No not wishing to stop using electronic cigarettes/vaping - Patient education about adverse reactions to medication Discussed lifestyle changes with patient that impact chronic illnesses. Supported patient's personal health goals for chronic illness management Discussed pt desire to be future oriented and goal directed Self care techniques including mindfulness techniques, deep breathing and hobbies Risk management: Local Crisis number, reaching out to friends/family, and community resources. Harm reduction and relapse prevention. Plan Pt to maintain healthy people, places, and situations to avoid relapse. Pt to abstain from all illicit/rx substances and alcohol. Pt to follow up with and PCP next visit - 4 weeks. Advance Directives - Living Will Health Reminders - Assess Tobacco Use satisfied 12/09/2022. 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 Pt reporting that she does not like the way adderall effects her heartbeat. Pt also states the wellbutrin has caused her to have suicidal thoughts in past-reports she does have depression at times but is not suicidal. Preventive care visit. Referred Here Not referred by urgent care clinic and not the emergency room. No prior encounters. - Data to be reviewed: no clinical lab tests History of Present Illness preliminary background HPI [use for free text]. - Allergy list reviewed - Reviewed Medications - No headache - No sinus pain - No sore throat - Not feeling congested in the chest - No cough - No wheezing - No nausea - No abdominal pain - No diarrhea - No hematuria - No dysuria - No burning sensation during urination - No myalgia Current Medication - hydrOXYzine HCl 25 MG Oral Tablet Take one tablet three times a day as needed for anxiety, 30 days, 1 refills - MiraLax 17 GM/SCOOP Oral Powder Dissolve one capful (17g) into 4-8oz of liquid and drink daily, 30 days, 2 refills - Vivitrol 380 MG Intramuscular Suspension Reconstituted Inject intrarmuscular every month, 28 days, 11 refills Past Medical/Surgical History Reported: Medical: No medical history or no significant history and no previous hospitalizations. : Not planning to have a baby in the next 12 months. Procedural: - Tooth extraction Surgical: - Extraction of wisdom tooth - Tonsillectomy with adenoidectomy - General surgery kidney x6 stents, tubes, cut some of the tube out Social History Environmental Exposure: Secondhand cigarette smoke exposure. No secondhand cigarette smoke exposure. Personal: Recent breakup with significant other and recent legal problems NAEL. Behavioral: Not a current tobacco user. Tobacco use: Using electronic cigarettes/vaping. Alcohol: Not using alcohol. Beer consumption tall boy and 2 bottle of bud light several weks ago. Drug Use: Not using drugs denied by patient. Using marijuana. Housing And Economic Circumstances: Lives with grandparent(s). Sexual: Sexually active, denied sexual activity, sexual orientation Bisexual, gender identity Female, and control is being practiced Other. Allergies - No Known Allergies Family History Father alcoholic Maternal: Depression committed suicide Review Of Systems Systemic: No fever, no chills, and no recent weight change. Head: No facial pain. Neck: No neck pain, no neck stiffness, and no muscle spasms in the neck. Eyes: No vision problems. Otolaryngeal: No hearing loss, no earache, no nasal discharge, and no sore throat. Cardiovascular: No chest pain or discomfort. Pulmonary: No dyspnea and no cough. Gastrointestinal: No heartburn. No nausea, no vomiting, no abdominal pain, and no melena. No diarrhea and no chronic constipation. Genitourinary: No change in urinary frequency. No dysuria. Musculoskeletal: No lower back pain. No muscle aches. Neurological: No vertigo, no fainting, no difficulty walking, and no numbness/tingling. Psychological: No anxiety and no depression. Skin: No pruritus and no rash. She is here to transfer her primary care and MAT from our [place] office as she moved to the [facility]. Vivitrol has been effective to help her avoid alcohol. Wellbutrin caused suicidal ideation and we will change this to Effexor. Adderall causes tachycardia and we agreed to try Strattera. Her blood pressure is normal. Her weight is at a healthy level for he height. Physical Findings - Vitals taken 12/09/2022 05:56 pm BP-Hxuedlo970/78 mmHg BP Cuff SizeRegular Pulse Rate-Bctibla83 bpm Respiration Rate18 per min Temp-Yuxplcgc364.4 F Hzspco46 in Cfmzay163 lbs 9.6 oz Body Mass Index24.2 kg/m2 Body Surface Area1.7 m2 Oxygen Gftombkfiw929 % O2 DeviceNone (Room Air) TiO160 % Standard Measurements: - Patient's weight not too low. - Patient was not cachectic. General Appearance: - Normal. - Alert and oriented. Neck: Suppleness: - Neck demonstrated no decrease in suppleness. Thyroid: - Showed no abnormalities. Eyes: General/bilateral: - Eyes: normal. Extraocular Movements: - Normal. Ears: General/bilateral: - Ears: normal. Nose: General/bilateral: External Deformities: - No external nose deformities. Sinus Tenderness: - No sinus tenderness. Pharynx: Oropharynx: - Normal. - Not inflamed. Mucosal: - Pharynx was not dry. Lungs: - Normal breath sounds/voice sounds. - No decrease in breath sounds was heard. - No wheezing was heard. - No rhonchi were heard. - No rales/crackles were heard. Cardiovascular: Heart Rate And Rhythm: - Heart rate was normal. - Heart rhythm regular. Murmurs: - No murmurs were heard. Edema: - Not present. - No pitting edema. Back: - No costovertebral angle tenderness. Abdomen: Palpation: - Abdomen was not soft. - Abdominal non-tender. Musculoskeletal System: Other: General/bilateral: - No tenderness was elicited. Urinalysis Was Performed: - Skin was normal. Tests Urinalysis Was Performed: Urine color. Laboratory-based Chemistry: Drug Screen: Value UDS Staff Members Present 2 Urine drug screen by multiple class procedure. THC Not Present, PCP Not Present, OXY Not Present, [id number] Not Present, MTD Not Present, MET Not Present, MDMA Not Present, MESHA Not Present, BZO Not Present, BUP Not Present, BAR Not Present, and AMP Not Present. Urine Temperature. Assessment - Z68.24 - Body mass index [BMI] 24.0-24.9, adult - F90.9 - Attention-deficit hyperactivity disorder, unspecified type - F10.20 - Alcohol dependence, uncomplicated - F41.9 - Anxiety disorder, unspecified Therapy - Other Administered 1 applicator of Vivitrol 380 MG on 12/09/22 06:15p, Patient tolerated therapy well. No signs or symptoms of adverse reactions. - Patient refused flu vaccine. Discussed benefits of flu vaccine with Patient. Vaccinations - Did not receive dose of Reported: Patient has not received the Covid Vaccine Counseling/Education - No not wishing to stop using electronic cigarettes/vaping - Discussed nutritional needs teach healthy choices including fruits and vegetables - Patient education about a proper diet - Not requesting contraception - Discussed concerns about exercise: promote physical activity Plan StartCited- Other Strattera 25 MG capsule 1 po am, 30 days, 5 refills Effexor XR 37.5 MG capsule 1 po qd, 30 days, 5 refills EndCited Notes - Patient is not interested in the COVID-19 vaccination at this time. Practice Management Systolic blood pressure < 130 mmHg and diastolic < 80 mmHg diastolic < 80 mmHg. Advance Directives - Living Will Health Reminders - Assess BMI satisfied 12/09/2022. - Assess Tobacco Use satisfied 12/09/2022. 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 Pt reporting that she does not like the way adderall effects her heartbeat. Pt also states the wellbutrin has caused her to have suicidal thoughts in past-reports she does have depression at times but is not suicidal. Preventive care visit. Referred Here Not referred by urgent care clinic and not the emergency room. No prior encounters. - Data to be reviewed: no clinical lab tests History of Present Illness preliminary background HPI [use for free text]. - Allergy list reviewed - Reviewed Medications - No headache - No sinus pain - No sore throat - Not feeling congested in the chest - No cough - No wheezing - No nausea - No abdominal pain - No diarrhea - No hematuria - No dysuria - No burning sensation during urination - No myalgia Current Medication - hydrOXYzine HCl 25 MG Oral Tablet Take one tablet three times a day as needed for anxiety, 30 days, 1 refills - MiraLax 17 GM/SCOOP Oral Powder Dissolve one capful (17g) into 4-8oz of liquid and drink daily, 30 days, 2 refills - Vivitrol 380 MG Intramuscular Suspension Reconstituted Inject intrarmuscular every month, 28 days, 11 refills Past Medical/Surgical History Reported: Medical: No medical history or no significant history and no previous hospitalizations. : Not planning to have a baby in the next 12 months. Procedural: - Tooth extraction Surgical: - Extraction of wisdom tooth - Tonsillectomy with adenoidectomy - General surgery kidney x6 stents, tubes, cut some of the tube out Social History Environmental Exposure: Secondhand cigarette smoke exposure. No secondhand cigarette smoke exposure. Personal: Recent breakup with significant other and recent legal problems NAEL. Behavioral: Not a current tobacco user. Tobacco use: Using electronic cigarettes/vaping. Alcohol: Not using alcohol. Beer consumption tall boy and 2 bottle of bud light several weks ago. Drug Use: Not using drugs denied by patient. Using marijuana. Housing And Economic Circumstances: Lives with grandparent(s). Sexual: Sexually active, denied sexual activity, sexual orientation Bisexual, gender identity Female, and control is being practiced Other. Allergies - No Known Allergies Family History Father alcoholic Maternal: Depression committed suicide Review Of Systems Systemic: No fever, no chills, and no recent weight change. Head: No facial pain. Neck: No neck pain, no neck stiffness, and no muscle spasms in the neck. Eyes: No vision problems. Otolaryngeal: No hearing loss, no earache, no nasal discharge, and no sore throat. Cardiovascular: No chest pain or discomfort. Pulmonary: No dyspnea and no cough. Gastrointestinal: No heartburn. No nausea, no vomiting, no abdominal pain, and no melena. No diarrhea and no chronic constipation. Genitourinary: No change in urinary frequency. No dysuria. Musculoskeletal: No lower back pain. No muscle aches. Neurological: No vertigo, no fainting, no difficulty walking, and no numbness/tingling. Psychological: No anxiety and no depression. Skin: No pruritus and no rash. She is here to transfer her primary care and MAT from our [place] office as she moved to the [facility]. Vivitrol has been effective to help her avoid alcohol. Wellbutrin caused suicidal ideation and we will change this to Effexor. Adderall causes tachycardia and we agreed to try Strattera. Her blood pressure is normal. Her weight is at a healthy level for he height. Physical Findings - Vitals taken 12/09/2022 05:56 pm BP-Usljuyp730/78 mmHg BP Cuff SizeRegular Pulse Rate-Tiltewd03 bpm Respiration Rate18 per min Temp-Nuppcegb757.4 F Evedgl89 in Vdjlcm554 lbs 9.6 oz Body Mass Index24.2 kg/m2 Body Surface Area1.7 m2 Oxygen Jtdisqcjdd531 % O2 DeviceNone (Room Air) YuY455 % Standard Measurements: - Patient's weight not too low. - Patient was not cachectic. General Appearance: - Normal. - Alert and oriented. Neck: Suppleness: - Neck demonstrated no decrease in suppleness. Thyroid: - Showed no abnormalities. Eyes: General/bilateral: - Eyes: normal. Extraocular Movements: - Normal. Ears: General/bilateral: - Ears: normal. Nose: General/bilateral: External Deformities: - No external nose deformities. Sinus Tenderness: - No sinus tenderness. Pharynx: Oropharynx: - Normal. - Not inflamed. Mucosal: - Pharynx was not dry. Lungs: - Normal breath sounds/voice sounds. - No decrease in breath sounds was heard. - No wheezing was heard. - No rhonchi were heard. - No rales/crackles were heard. Cardiovascular: Heart Rate And Rhythm: - Heart rate was normal. - Heart rhythm regular. Murmurs: - No murmurs were heard. Edema: - Not present. - No pitting edema. Back: - No costovertebral angle tenderness. Abdomen: Palpation: - Abdomen was not soft. - Abdominal non-tender. Musculoskeletal System: Other: General/bilateral: - No tenderness was elicited. Urinalysis Was Performed: - Skin was normal. Tests Urinalysis Was Performed: Urine color. Laboratory-based Chemistry: Drug Screen: Value UDS Staff Members Present 2 Urine drug screen by multiple class procedure. THC Not Present, PCP Not Present, OXY Not Present, [id number] Not Present, MTD Not Present, MET Not Present, MDMA Not Present, MESHA Not Present, BZO Not Present, BUP Not Present, BAR Not Present, and AMP Not Present. Urine Temperature. Assessment - Z68.24 - Body mass index [BMI] 24.0-24.9, adult - F90.9 - Attention-deficit hyperactivity disorder, unspecified type - F10.20 - Alcohol dependence, uncomplicated - F41.9 - Anxiety disorder, unspecified Therapy - Other Administered 1 applicator of Vivitrol 380 MG on 12/09/22 06:15p, Patient tolerated therapy well. No signs or symptoms of adverse reactions. - Patient refused flu vaccine. Discussed benefits of flu vaccine with Patient. Vaccinations - Did not receive dose of Reported: Patient has not received the Covid Vaccine Counseling/Education - No not wishing to stop using electronic cigarettes/vaping - Discussed nutritional needs teach healthy choices including fruits and vegetables - Patient education about a proper diet - Not requesting contraception - Discussed concerns about exercise: promote physical activity Plan StartCited- Other Strattera 25 MG capsule 1 po am, 30 days, 5 refills Effexor XR 37.5 MG capsule 1 po qd, 30 days, 5 refills EndCited Notes - Patient is not interested in the COVID-19 vaccination at this time. Practice Management Systolic blood pressure < 130 mmHg and diastolic < 80 mmHg diastolic < 80 mmHg. Advance Directives - Living Will Health Reminders - Assess BMI satisfied 12/09/2022. - Assess Tobacco Use satisfied 12/09/2022. [facility]02-23-2023 Evaluation note Includes: Assessments for all patient encounters Findings Encounter Date Opioid dependence BH Substance Abuse with Vilma Carballo [facility] 11/07/2022 [facility] Work Phone: [phone]) 605-580002-23-2023 Evaluation note Includes: Assessments for all patient encounters Findings Encounter Date Opioid dependence Substance Abuse with Vilma Carballo [facility] 11/07/2022 [facility] Work Phone: [phone]) 330-550802-23-2023 Progress note* Progress note Date Encounter Last Documented by 11/07/2022 Substance Abuse Last document ed on 11/08/2022; 5:58 PM, Vilma Carballo [facility]; [facility] Active Problems & Conditions - F10.20 - Alcohol Dependence Uncomplicated - F41.9 - Anxiety Disorder Nos - 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 Pt reported she recognizes the seriousness of getting this off the streets but felt that it was important to disclose use. Pt advised that she has moved and will need to transfer care to [place] [facility] office and expressed concern for what this may mean for her treatment. Pt requested PCP consider prescribing her Adderall; acknowledged having been prescribed this throughout much of her chiildhood and adolescence. Pt confirmed that she has experienced some relief in symtoms with use of prescribed Wellbutrin and confirmed that she will continue to take it as prescribed. Pt expressed appreciation for the support and treatment she has received at the center. Chief Complaint The Chief Complaint is: Pt presents for MSA - 28 days/Vivitrol. History of Present Illness Melina Valenzuela is a 27 year old female. - Easily distracted. - - Progress: Pt advised she has been using Adderall for the past 2 weeks and finds that it has provided her with significant relief for focus and concentration problems. Pt reported she recognizes the seriousness of getting this off the streets but felt that it was important to disclose use. Pt advised that she has moved and will need to transfer care to [facility] office and expressed concern for what this may mean for her treatment. Pt requested PCP consider prescribing her Adderall; acknowledged having been prescribed this throughout much of her chiildhood and adolescence. Pt confirmed that she has experienced some relief in symtoms with use of prescribed Wellbutrin and confirmed that she will continue to take it as prescribed. Pt expressed appreciation for the support and treatment she has received at the center Current Medication - hydrOXYzine HCl 25 MG Oral Tablet Take one tablet three times a day as needed for anxiety, 30 days, 1 refills - MiraLax 17 GM/SCOOP Oral Powder Dissolve one capful (17g) into 4-8oz of liquid and drink daily, 30 days, 2 refills - Vivitrol 380 MG Intramuscular Suspension Reconstituted Inject intrarmuscular every month, 28 days, 11 refills - Wellbutrin XL 150 MG Oral Tablet Extended Release 24 Hour Take one tablet daily, 30 days, 1 refills Past Medical/Surgical History Reported: Medical: No medical history or no significant history and no previous hospitalizations. Procedural: - Tooth extraction Surgical: - Extraction of wisdom tooth - Tonsillectomy with adenoidectomy - General surgery kidney x6 stents, tubes, cut some of the tube out Social History Environmental Exposure: No secondhand cigarette smoke exposure. Personal: Recent breakup with significant other and recent legal problems NAEL. Behavioral: Not a current tobacco user. Tobacco use: Using electronic cigarettes/vaping. Alcohol: Not using alcohol. Beer consumption tall boy and 2 bottle of bud light several weks ago. Drug Use: Not using drugs denied by patient. Using marijuana. Housing And Economic Circumstances: Lives with grandparent(s). Sexual: Denied sexual activity, sexual orientation Bisexual, and gender identity Female. Allergies - No Known Allergies Family History Father alcoholic Maternal: Depression committed suicide Physical Findings General Appearance: - Normal Appearance. Neurological: - Cognitive Functions was Normal. - Oriented to time, place, and person. - Executive Functions: Logical and organized. Speech: - Is Normal. Psychiatric: - Mood is Euthymic. - Attitude Bonita Friendly. Appearance: - Normal. Demonstrated Behavior: - Motor Activity Normal Activity. - Eye Contact Appropriate. Thought Processes: - Not impaired. Thought Content: - Revealed no impairment. - No suicidal ideation. - No Passive thoughts of . - No suicidal plans. - No suicidal intent. Assessment - F90.9 - Attention-deficit hyperactivity disorder, unspecified type - F11.20 - Opioid dependence, uncomplicated Therapy - Brief solution-focused therapy. - Plan - modify medication Pt will begin Adderall XR 10 MG and continue with Wellbutrin XL 150 MG, and Vivitrol 380 MG. Counseling/Education P provided active listening; offered pt time to provide feedback required to assess for recent use/uges/cravings/triggers. Provided time for the pt to share and process thoughts and concerns regarding use of prescribed medication for ADHD symtoms; expressed concern for pt's health and well-being. Explored and assessed for issues or concerns impacting recovery; acknowledged reported abstinence/good progress. Encouraged use of healthy coping methods and seeking sober support, as needed. Plan Patient to implement coping skills and positive supports as discussed. Pt to take medications as prescribed and contact WO with any questions or concerns. Pt to transfer services to [facility]. Advance Directives - Living Will Health Reminders - Assess Tobacco Use satisfied 11/07/2022. 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 Referred Here Not referred by urgent care clinic and not the emergency room. No prior encounters. - Data to be reviewed: no clinical lab tests History of Present Illness Melina Valenzuela is a 27 year old female. - Reviewed Medications. Patient present for follow up carolynn States that she got some adderall and thinks it has helped with mental health, was on adderall in the past for years, however it does raise her heart rate, does not know that dose thinks its 20mg But due to being on the adderall for years in the past and tolerating it well would like to restart it. Patient states that she started adderall when she was 6 years old and continued to take medication until 2013, then was on and off of it Currently has moved, and will be transfering to [facility] in [place], states she moved to help with her sobriety Denies triggers, cravings or drug use . Current Medication - hydrOXYzine HCl 25 MG Oral Tablet Take one tablet three times a day as needed for anxiety, 30 days, 1 refills - MiraLax 17 GM/SCOOP Oral Powder Dissolve one capful (17g) into 4-8oz of liquid and drink daily, 30 days, 2 refills - Vivitrol 380 MG Intramuscular Suspension Reconstituted Inject intrarmuscular every month, 28 days, 11 refills - Wellbutrin XL 150 MG Oral Tablet Extended Release 24 Hour Take one tablet daily, 30 days, 1 refills Past Medical/Surgical History Reported: Medical: No medical history or no significant history and no previous hospitalizations. Procedural: - Tooth extraction Surgical: - Extraction of wisdom tooth - Tonsillectomy with adenoidectomy - General surgery kidney x6 stents, tubes, cut some of the tube out Social History Environmental Exposure: No secondhand cigarette smoke exposure. Behavioral: Not a current tobacco user. Tobacco use: Using electronic cigarettes/vaping. Alcohol: Not using alcohol. Drug Use: Not using drugs denied by patient. Sexual: Sexual orientation Bisexual and gender identity Female. Allergies - No Known Allergies Family History Father alcoholic Maternal: Depression committed suicide Review Of Systems Head: No head symptoms and no facial pain. Otolaryngeal: No nose and sinus finding. Cardiovascular: No cardiovascular symptoms. Pulmonary: No pulmonary symptoms. Musculoskeletal: No musculoskeletal symptoms. Neurological: No neurological symptoms. Psychological: Psychological symptoms. Skin: No skin symptoms. review of systems [use for free text]. Physical Findings - Vitals taken 11/07/2022 06:46 pm BP-Sitting R118/77 mmHg BP Cuff SizeRegular Pulse Rate-Funclvc529 bpm Pulse RhythmRegular Temp-Ivoqeycn44.5 F Jwxwic31 in Gypdjs932 lbs 6.4 oz Body Mass Index24 kg/m2 Body Surface Area1.7 m2 Oxygen Huhlvuppsl43 % General Appearance: - Awake. - Alert. - Well developed. Lungs: - Respiration rhythm and depth was normal. - Clear to auscultation. Cardiovascular: Heart Rate And Rhythm: - Normal. Heart Sounds: - Normal. Neurological: - Oriented to time, place, and person. Psychiatric: - Expression of emotions finding was normal. Tests Laboratory-based Chemistry: Drug Screen: Value UDS Staff Members Present 2.0 Urine Temperature 94 Urine drug screen by multiple class procedure. THC Not Present, PCP Not Present, OXY Not Present, [id number] Not Present, MTD Not Present, MET Not Present, MDMA Not Present, MESHA Not Present, BZO Not Present, BUP Not Present, and BAR Not Present. AMP Present. Assessment - Body mass index [Body mass index [BMI] 24.0-24.9, adult] - Undifferentiated attention deficit disorder [Attention-deficit hyperactivity disorder, unspecified type] - Alcohol dependence uncomplicated [Alcohol dependence, uncomplicated] Therapy - Other Administered 4.2 mL of Vivitrol 380 MG on 11/07/22 06:15p, Patient tolerated therapy well. No signs or symptoms of adverse reactions. Patient refused to wait 15 minutes after injection. - Patient refused flu vaccine. Discussed benefits of flu vaccine with Patient. Vaccinations - Did not receive dose of Reported: Patient has not received the Covid Vaccine Counseling/Education - No not wishing to stop using electronic cigarettes/vaping - Discussed nutritional needs teach healthy choices including fruits and vegetables - Patient education about a proper diet - Discussed concerns about exercise: promote physical activity Follow up in 4 weeks Plan StartCited- Alcohol dependence, uncomplicated In House Medications/Meds: Vivitrol 380mg INJ From a Pharmacy In House Medications/Injection Codes: 15244 Therapeutic Prophy or Diag Injection, EACH EndCited StartCited- Attention-deficit hyperactivity disorder, unspecified type Adderall XR 10 MG capsule Take one tablet daily, 30 days, 0 refills Adderall XR 10 MG capsule Take one tablet daily, 30 days, 0 refills EndCited Notes - Patient is not interested in the COVID-19 vaccination at this time. Practice Management Systolic blood pressure < 130 mmHg and diastolic < 80 mmHg diastolic < 80 mmHg. Advance Directives - Living Will [facility]01-25-2023 Instructions Includes: Instructions for all patient encounters Education and Decision Aids were provided during visit for: Discussed nutritional needs teach healthy choices including fruits and vegetables Last Documented On 3 3:59PM ; [facility] Patient education about a pr oper diet Last Documented On 3 3:59PM ; [facility] Discussed concerns about exe rcise : promote physical activity ~ ~Will start hydroxyzine as needed for anxiety ~ ~Follow up in 4 weeks Last Documented On 3 4:55PM ; [facility] provided active listenin g, support and helped pt process though current symptoms and stressor(s); explored effectiveness of medication, coping mechanisms, and self-care practices. ~Encouraged use, when needed Last Documented On 3 3:57PM ; [facility] Discussed nutritional needs teach healthy choices including fruits and vegetables Last Documented On 2 6:58PM ; [facility] Patient education about a pr oper diet Last Documented On 2 6:58PM ; [facility] Discussed concerns about exe rcise : promote physical activity Last Documented On 2 6:58PM ; [facility] actively listened; provid ed empathy and unconditional positive regard. ~Acknowledged and validated emotions. ~Helped the pt to process recent alcohol use; provided encouragement to move forward with her recovery. ~Supported pt's interest in attending sober support groups and professional tx. ~Provided pt MH/ANTONY resource list' ~Discussed medication; encouraged medication complaince and contacting [facility] with questions or concerns Last Documented On 2 10:15AM ; [facility] Discussed nutritional needs teach healthy choices including fruits and vegetables Last Documented On 2 7:19PM ; [facility] Patient education about a pr oper diet Last Documented On 2 7:19PM ; [facility] Discussed concerns about exe rcise : promote physical activity Last Documented On 2 7:19PM ; [facility] provided active listenin g, support and helped pt process though current stressor(s). Discussed effectiveness of medication; acknowledged and validated concerns. ~Explored use of coping mechanisms, self-care practices, and support system. ~Encouraged use, when needed Last Documented On 2 8:10AM ; [facility] Discussed nutritional needs teach healthy choices including fruits and vegetables Last Documented On 2 6:39PM ; [facility] Patient education about a pr oper diet Last Documented On 2 6:39PM ; [facility] Discussed concerns about exe rcise : promote physical activity ~ ~Follow up in 4 weeks Last Documented On 2 5:33AM ; [facility] Discussed nutritional needs teach healthy choices including fruits and vegetables Last Documented On 2 2:22PM ; [facility] Patient education about a pr oper diet Last Documented On 2 2:22PM ; [facility] Discussed concerns about exe rcise : promote physical activity Last Documented On 2 2:22PM ; [facility] provided active listenin g; assessed current symptoms and stressor(s) coping mechanisms, support system, and self-care practices Last Documented On 2 4:02PM ; [facility] introduced pt to HPWO in tegrated model of care ~[facility] offered active listening and supportive feedback; normalized emotions and feelings; provided opportunity to explore alcohol use hx/sx/dx/ and tx options. Provided psychoeducation focused on MAT program including requirements for clean UDS. ~[facility] discussed potential benefits of counseling in conjunction with MAT. ~Supported use of healthy coping methods and seeking support, as needed Last Documented On 2 11:27AM ; [facility] Discussed nutritional needs teach healthy choices including fruits and vegetables Last Documented On 2 9:47AM ; [facility] Patient education about a pr oper diet Last Documented On 2 9:47AM ; [facility] Discussed concerns about exe rcise : promote physical activity ~ ~Follow up Friday or Friday for UDS, will try for induction next Last Documented On 2 10:35AM ; [facility] Work Phone: 1(330) 131-431101-25-2023 Instructions Includes: Instructions for all patient encounters Education and Decision Aids were provided during visit for: Discussed nutritional needs teach healthy choices including fruits and vegetables Last Documented On 3 3:59PM ; [facility] Patient education about a pr oper diet Last Documented On 3 3:59PM ; [facility] Discussed concerns about exe rcise : promote physical activity ~ ~Will start hydroxyzine as needed for anxiety ~ ~Follow up in 4 weeks Last Documented On 3 4:55PM ; [facility] provided active listenin g, support and helped pt process though current symptoms and stressor(s); explored effectiveness of medication, coping mechanisms, and self-care practices. ~Encouraged use, when needed Last Documented On 3 3:57PM ; [facility] Discussed nutritional needs teach healthy choices including fruits and vegetables Last Documented On 2 6:58PM ; [facility] Patient education about a pr oper diet Last Documented On 2 6:58PM ; [facility] Discussed concerns about exe rcise : promote physical activity Last Documented On 2 6:58PM ; [facility] actively listened; provid ed empathy and unconditional positive regard. ~Acknowledged and validated emotions. ~Helped the pt to process recent alcohol use; provided encouragement to move forward with her recovery. ~Supported pt's interest in attending sober support groups and professional tx. ~Provided pt MH/ANTONY resource list' ~Discussed medication; encouraged medication complaince and contacting [facility] with questions or concerns Last Documented On 2 10:15AM ; [facility] Discussed nutritional needs teach healthy choices including fruits and vegetables Last Documented On 2 7:19PM ; [facility] Patient education about a pr oper diet Last Documented On 2 7:19PM ; [facility] Discussed concerns about exe rcise : promote physical activity Last Documented On 2 7:19PM ; [facility] provided active listenin g, support and helped pt process though current stressor(s). Discussed effectiveness of medication; acknowledged and validated concerns. ~Explored use of coping mechanisms, self-care practices, and support system. ~Encouraged use, when needed Last Documented On 2 8:10AM ; [facility] Discussed nutritional needs teach healthy choices including fruits and vegetables Last Documented On 2 6:39PM ; [facility] Patient education about a pr oper diet Last Documented On 2 6:39PM ; [facility] Discussed concerns about exe rcise : promote physical activity ~ ~Follow up in 4 weeks Last Documented On 2 5:33AM ; [facility] Discussed nutritional needs teach healthy choices including fruits and vegetables Last Documented On 2 2:22PM ; [facility] Patient education about a pr oper diet Last Documented On 2 2:22PM ; [facility] Discussed concerns about exe rcise : promote physical activity Last Documented On 2 2:22PM ; [facility] provided active listenin g; assessed current symptoms and stressor(s) coping mechanisms, support system, and self-care practices Last Documented On 2 4:02PM ; [facility] introduced pt to HPWO in tegrated model of care ~[facility] offered active listening and supportive feedback; normalized emotions and feelings; provided opportunity to explore alcohol use hx/sx/dx/ and tx options. Provided psychoeducation focused on MAT program including requirements for clean UDS. ~[facility] discussed potential benefits of counseling in conjunction with MAT. ~Supported use of healthy coping methods and seeking support, as needed Last Documented On 2 11:27AM ; [facility] Discussed nutritional needs teach healthy choices including fruits and vegetables Last Documented On 2 9:47AM ; [facility] Patient education about a pr oper diet Last Documented On 2 9:47AM ; [facility] Discussed concerns about exe rcise : promote physical activity ~ ~Follow up Friday or Friday for UDS, will try for induction next Last Documented On 2 10:35AM ; [facility] Work Phone: [phone]) 332-381101-25-2023 Evaluation note Includes: Assessments for all patient encounters Findings Encounter Date Alcohol dependence uncomplicated BH Subs tance Abuse with Vilmaaileen GillCarballo [facility] 10/09/2022 [facility] Work Phone: [phone] Evaluation note Includes: Assessments for all patient encounters Findings Encounter Date Alcohol dependence uncomplicated BH Subs tance [facility] 10/09/2022 [facility] Work Phone: [phone]) 702-383201-25-2023 Progress note* Progress note Date Encounter Last Documented by 10/09/2022 Substance Abuse Last document ed on 10/10/2022; 11:48 AM, Vilma Carballo [facility]; [facility] Active Problems & Conditions - F10.20 - Alcohol Dependence Uncomplicated - F41.9 - Anxiety Disorder Nos - F90.9 - Undifferentiated Attention Deficit Disorder Subjective Pt reported I didn't take that medicine referring to Buspirone prescribed for anxiety symptoms. Pt reported noticing increased anxiety after taking it and additionally expressed concern regarding prescribed medication Wellbutrin. Pt reported noticing increased agitation/irritation and being an asshole to people she cares about. Pt reported having noticed improvement in motivation and energy level and questioned if these changes could be attributed to the medication. Pt engaged in time provided to explore and assess benefits vs risks of medication and making a change in medication prescribed for anxiety symptoms. Pt was agreeable to continuing with Wellbutrin and adding Hydroxyzine with plan to return for F/up. Pt reported they will contact the center should they have questions or concerns. Chief Complaint The Chief Complaint is: Pt presents MSA - 4 week /Vivitrol. History of Present Illness Melina Valenzuela is a 27 year old female. - Anxiety. Current Medication - hydrOXYzine HCl 25 MG Oral Tablet Take one tablet three times a day as needed for anxiety, 30 days, 1 refills - MiraLax 17 GM/SCOOP Oral Powder Dissolve one capful (17g) into 4-8oz of liquid and drink daily, 30 days, 2 refills - Vivitrol 380 MG Intramuscular Suspension Reconstituted Inject intrarmuscular every month, 28 days, 11 refills - Wellbutrin XL 150 MG Oral Tablet Extended Release 24 Hour Take one tablet daily, 30 days, 1 refills Past Medical/Surgical History Reported: Medical: No medical history or no significant history and no previous hospitalizations. Procedural: - Tooth extraction Surgical: - Extraction of wisdom tooth - Tonsillectomy with adenoidectomy - General surgery kidney x6 stents, tubes, cut some of the tube out Social History Environmental Exposure: No secondhand cigarette smoke exposure. Personal: Recent breakup with significant other and recent legal problems NAEL. Behavioral: Not a current tobacco user. Tobacco use: Using electronic cigarettes/vaping. Alcohol: Not using alcohol. Beer consumption tall boy and 2 bottle of bud light several weks ago. Drug Use: Not using drugs denied by patient. Using marijuana. Housing And Economic Circumstances: Lives with grandparent(s). Sexual: Denied sexual activity, sexual orientation Bisexual, and gender identity Female. Allergies - No Known Allergies Family History Father alcoholic Maternal: Depression committed suicide Physical Findings General Appearance: - Abnormal Appearance. Neurological: - Cognitive Functions was Normal. - Oriented to time, place, and person. - Executive Functions: Logical and organized. Speech: - Is Normal. Psychiatric: - Mood is Euthymic. Appearance: - Normal. Demonstrated Behavior: - Eye Contact Appropriate. Affect: - Irritability. Thought Processes: - Not impaired. Thought Content: - Revealed no impairment. - No suicidal ideation. - No Passive thoughts of . - No suicidal plans. - No suicidal intent. Assessment - F10.20 - Alcohol dependence, uncomplicated Therapy - Brief solution-focused therapy. - Referral to mental health team. Counseling/Education [facility] provided active listening, support and helped pt process though current symptoms and stressor(s); explored effectiveness of medication, coping mechanisms, and self-care practices. Encouraged use, when needed. Plan Patient to implement coping skills and positive supports as discussed. Pt to contact [facility] with any questions or concerns. [facility] to follow-up with patient at next visit in office in 28 days. Advance Directives - Living Will Health Reminders - Assess Tobacco Use satisfied 10/09/2022. - PHQ9 / PHQA satisfied 10/09/2022. User Defined 1 Not afraid of someone you have a relationship with No. Has lack of transportation kept patient from medical appointments or from getting medications: No and lack of transportation has kept patient from beneficial non-medical activities: No. Do you feel stress - tense, restless, nervous, or anxious, or unable to sleep at night because your mind is troubled all the time - these days? Somewhat and Does patient feel physically and emotionally safe where he/she lives: Yes. Is patient is worried about losing housing: No. What is the highest grade or level of school you have completed or the highest degree you have received? More than high school. In the past year, patient or family members in household were unable to get needed clothing: No, unable to get needed child caregiver: No, unable to get other needs No, unable to get needed phone: No, unable to get needed utilities: No, unable to get needed Medicine or Health Care: No, and In the past year, patient or family members in household were unable to get needed food: No. How often does patient see or talk to people that that he/she cares about and feels close to: 1 or 2 times a week. PHQ-9: total score was seven 10/09/2022 If you checked off problems, how difficult is it for you to do your work? + : Somewhat difficult, [PHQ-9-1] Little interest or pleasure in doing things? + 1 pt : Several days, [PHQ-9-2] Feeling down, depressed, or hopeless? + 0 pt : Not at all, [PHQ-9-3] Trouble falling or staying asleep or sleeping too much? + 2 pt : More than half the days, [PHQ-9-4] Feeling tired or having little energy? + 0 pt : Not at all, [PHQ-9-5] Poor appetite or overeating? + 2 pt : More than half the days, [PHQ-9-6] Feeling bad about yourself-or that you are a failure + 0 pt : Not at all, [PHQ-9-7] Trouble concentrating on things such as reading the newspaper + 0 pt : Not at all, [PHQ-9-8] Moving or speaking so slowly that other people have noticed. + 2 pt : More than half the days, and [PHQ-9-9] Thoughts that you would be better off or hurting yourself? + 0 pt : Not at all. [facility]01-25-2023 Progress note* Progress note Date Encounter Last Documented by 10/09/2022 Medical Substance Abuse Last doc umented on 10/10/2022; 4:48 PM, Rustam Khoury CNP; [facility] Active Problems & Conditions - F10.20 - Alcohol Dependence Uncomplicated - F41.9 - Anxiety Disorder Nos - F90.9 - Undifferentiated Attention Deficit Disorder Chief Complaint The Chief Complaint is: Vivitrol injection would lik to talk about medications. Probation needs letter stating that they are recieving vivitrol injections from us monthly. Referred Here Not referred by urgent care clinic and not the emergency room. No prior encounters. - Data to be reviewed: no clinical lab tests History of Present Illness Melina Valenzuela is a 27 year old female. - Allergy list reviewed - Reviewed Medications Patient present for vivitrol injection Denies triggers, cravings or use States that buspirone made her more anxious and does not want to continue taking it Has more motivation with the wellbutrin Current Medication - MiraLax 17 GM/SCOOP Oral Powder Dissolve one capful (17g) into 4-8oz of liquid and drink daily, 30 days, 2 refills - Vivitrol 380 MG Intramuscular Suspension Reconstituted Inject intrarmuscular every month, 28 days, 11 refills - Wellbutrin XL 150 MG Oral Tablet Extended Release 24 Hour Take one tablet daily, 30 days, 1 refills Past Medical/Surgical History Reported: Medical: No medical history or no significant history and no previous hospitalizations. Procedural: - Tooth extraction Surgical: - Extraction of wisdom tooth - Tonsillectomy with adenoidectomy - General surgery kidney x6 stents, tubes, cut some of the tube out Social History Environmental Exposure: No secondhand cigarette smoke exposure. Behavioral: Not a current tobacco user. Tobacco use: Using electronic cigarettes/vaping. Alcohol: Not using alcohol. Drug Use: Using marijuana. Sexual: Sexual orientation Bisexual and gender identity Female. Allergies - No Known Allergies Family History Father alcoholic Maternal: Depression committed suicide Review Of Systems Head: No head symptoms and no facial pain. Otolaryngeal: No nose and sinus finding. Cardiovascular: No cardiovascular symptoms. Pulmonary: No pulmonary symptoms. Musculoskeletal: No musculoskeletal symptoms. Neurological: No neurological symptoms. Psychological: Psychological symptoms. Skin: No skin symptoms. Physical Findings - Vitals taken 10/09/2022 03:56 pm BP-Sitting R121/76 mmHg BP Cuff SizeRegular Pulse Rate-Svwatop23 bpm Pulse RhythmRegular Temp-Cazfplek53.7 F Kkwyvo49 in Sjqbob388 lbs Body Mass Index25.1 kg/m2 Body Surface Area1.8 m2 Oxygen Smlivppdqr04 % General Appearance: - Awake. - Alert. - Well developed. Lungs: - Respiration rhythm and depth was normal. - Clear to auscultation. Cardiovascular: Heart Rate And Rhythm: - Normal. Heart Sounds: - Normal. Neurological: - Oriented to time, place, and person. Psychiatric: - Expression of emotions finding was normal. Tests Laboratory-based Chemistry: Drug Screen: Value UDS Staff Members Present 2.0 Urine Temperature 94 Urine drug screen by multiple class procedure. THC Not Present, PCP Not Present, OXY Not Present, DRI028 Not Present, MTD Not Present, MET Not Present, MDMA Not Present, MESHA Not Present, BZO Not Present, BUP Not Present, BAR Not Present, and AMP Not Present. Assessment - Body mass index [Body mass index [BMI] 25.0-25.9, adult] - Undifferentiated attention deficit disorder [Attention-deficit hyperactivity disorder, unspecified type] - Alcohol dependence uncomplicated [Alcohol dependence, uncomplicated] Therapy - Other Administered 4 mL of Vivitrol 380 MG on 10/09/22 04:00p, Patient tolerated therapy well. No signs or symptoms of adverse reactions. Patient didn't wait 15 min. - Patient refused flu vaccine. Discussed benefits of flu vaccine with Patient. Vaccinations - Did not receive dose of Reported: Patient has not received the Covid Vaccine Counseling/Education - Not wishing to stop smoking offered Quit Line information - Discussed nutritional needs teach healthy choices including fruits and vegetables - Patient education about a proper diet - Discussed concerns about exercise: promote physical activity Will start hydroxyzine as needed for anxiety Follow up in 4 weeks Plan StartCited- Alcohol dependence, uncomplicated In House Medications/Meds: Vivitrol 380mg INJ From a Pharmacy In House Medications/Injection Codes: 83935 Therapeutic Prophy or Diag Injection, EACH EndCited StartCited- Anxiety disorder, unspecified hydrOXYzine HCl 25 MG tablet Take one tablet three times a day as needed for anxiety, 30 days, 1 refills EndCited Notes - Patient is not interested in the COVID-19 vaccination at this time. Practice Management Systolic blood pressure < 130 mmHg and diastolic < 80 mmHg diastolic < 80 mmHg. Advance Directives - Living Will [facility]01-25-2023 Reason for referral (narrative)* Date Encounter Description Provider Reason for Referral 10/09/22 Substance Abuse Vil[facility]aileen [facility]Carballo [facility] Referral To Mental Health Team 06/13/22 Established Patient Vilma Carballo [facility] Referral To Mental Health Team [facility] Work Phone: [phone]) [phone] Instructions Includes: Instructions for all patient encounters Education and Decision Aids were provided during visit for: Discussed nutritional needs teach healthy choices including fruits and vegetables Last Documented On 2 6:58PM ; [facility] Patient education about a pr oper diet Last Documented On 2 6:58PM ; [facility] Discussed concerns about exe rcise : promote physical activity Last Documented On 2 6:58PM ; [facility] actively listened; provid ed empathy and unconditional positive regard. ~Acknowledged and validated emotions. ~Helped the pt to process recent alcohol use; provided encouragement to move forward with her recovery. ~Supported pt's interest in attending sober support groups and professional tx. ~Provided pt MH/[facility] resource list' ~Discussed medication; encouraged medication complaince and contacting [facility] with questions or concerns Last Documented On 2 10:15AM ; [facility] Discussed nutritional needs teach healthy choices including fruits and vegetables Last Documented On 2 7:19PM ; [facility] Patient education about a pr oper diet Last Documented On 2 7:19PM ; [facility] Discussed concerns about exe rcise : promote physical activity Last Documented On 2 7:19PM ; [facility], support and helped pt process though current stressor(s). Discussed effectiveness of medication; acknowledged and validated concerns. ~Explored use of coping mechanisms, self-care practices, and support system. ~Encouraged use, when needed Last Documented On 2 8:10AM ; [facility] Discussed nutritional needs teach healthy choices including fruits and vegetables Last Documented On 2 6:39PM ; [facility] Patient education about a pr oper diet Last Documented On 2 6:39PM ; [facility] Discussed concerns about exe rcise : promote physical activity ~ ~Follow up in 4 weeks Last Documented On 2 5:33AM ; [facility] Discussed nutritional needs teach healthy choices including fruits and vegetables Last Documented On 2 2:22PM ; [facility] Patient education about a pr oper diet Last Documented On 2 2:22PM ; [facility] Discussed concerns about exe rcise : promote physical activity Last Documented On 2 2:22PM ; [facility] provided active listenin g; assessed current symptoms and stressor(s) coping mechanisms, support system, and self-care practices Last Documented On 2 4:02PM ; [facility] introduced pt to HPWO in tegrated model of care ~[facility] offered active listening and supportive feedback; normalized emotions and feelings; provided opportunity to explore alcohol use hx/sx/dx/ and tx options. Provided psychoeducation focused on MAT program including requirements for clean UDS. ~[facility] discussed potential benefits of counseling in conjunction with MAT. ~Supported use of healthy coping methods and seeking support, as needed Last Documented On 2 11:27AM ; [facility] Discussed nutritional needs teach healthy choices including fruits and vegetables Last Documented On 2 9:47AM ; [facility] Patient education about a pr oper diet Last Documented On 2 9:47AM ; [facility] Discussed concerns about exe rcise : promote physical activity ~ ~Follow up Friday or Friday for UDS, will try for induction next Last Documented On 2 10:35AM ; [facility] Work Phone: 1([phone]) 368-235912-28-2022 Instructions Includes: Instructions for all patient encounters Education and Decision Aids were provided during visit for: Discussed nutritional needs teach healthy choices including fruits and vegetables Last Documented On 2 6:58PM ; [facility] Patient education about a pr oper diet Last Documented On 2 6:58PM ; [facility] Discussed concerns about exe rcise : promote physical activity Last Documented On 2 6:58PM ; [facility] actively listened; provid ed empathy and unconditional positive regard. ~Acknowledged and validated emotions. ~Helped the pt to process recent alcohol use; provided encouragement to move forward with her recovery. ~Supported pt's interest in attending sober support groups and professional tx. ~Provided pt MH/[facility] resource list' ~Discussed medication; encouraged medication complaince and contacting [facility] with questions or concerns Last Documented On 2 10:15AM ; [facility] Discussed nutritional needs teach healthy choices including fruits and vegetables Last Documented On 2 7:19PM ; [facility] Patient education about a pr oper diet Last Documented On 2 7:19PM ; [facility] Discussed concerns about exe rcise : promote physical activity Last Documented On 2 7:19PM ; [facility] provided active listenin g, support and helped pt process though current stressor(s). Discussed effectiveness of medication; acknowledged and validated concerns. ~Explored use of coping mechanisms, self-care practices, and support system. ~Encouraged use, when needed Last Documented On 2 8:10AM ; [facility] Discussed nutritional needs teach healthy choices including fruits and vegetables Last Documented On 2 6:39PM ; [facility] Patient education about a pr oper diet Last Documented On 2 6:39PM ; [facility] Discussed concerns about exe rcise : promote physical activity ~ ~Follow up in 4 weeks Last Documented On 2 5:33AM ; [facility] Discussed nutritional needs teach healthy choices including fruits and vegetables Last Documented On 2 2:22PM ; [facility] Patient education about a pr oper diet Last Documented On 2 2:22PM ; [facility] Discussed concerns about exe rcise : promote physical activity Last Documented On 2 2:22PM ; [facility] provided active listenin g; assessed current symptoms and stressor(s) coping mechanisms, support system, and self-care practices Last Documented On 2 4:02PM ; [facility] BH introduced pt to HPWO in tegrated model of care ~P offered active listening and supportive feedback; normalized emotions and feelings; provided opportunity to explore alcohol use hx/sx/dx/ and tx options. Provided psychoeducation focused on MAT program including requirements for clean UDS. ~[facility] discussed potential benefits of counseling in conjunction with MAT. ~Supported use of healthy coping methods and seeking support, as needed Last Documented On 2 11:27AM ; [facility] Discussed nutritional needs teach healthy choices including fruits and vegetables Last Documented On 2 9:47AM ; [facility] Patient education about a pr oper diet Last Documented On 2 9:47AM ; [facility] Discussed concerns about exe rcise : promote physical activity ~ ~Follow up Friday or Friday for UDS, will try for induction next Last Documented On 2 10:35AM ; [facility] Work Phone: [phone]) [phone] Evaluation note Includes: Assessments for all patient encounters Findings Encounter Date Alcohol dependence uncomplicated Subs tance Abuse with Vilma Haris [facility] 09/11/2022 [facility] Work Phone: [phone]) [phone] Evaluation note Includes: Assessments for all patient encounters Findings Encounter Date Alcohol dependence uncomplicated Subs tance Abuse with Vilma Haris [facility] 09/11/2022 [facility] Work Phone: [phone]) [phone] Progress note* Progress note Date Encounter Last Documented by 09/11/2022 Substance Abuse Last document ed on 09/12/2022; 7:22 PM, Vilma Carballo [facility]; [facility] Active Problems & Conditions - F10.20 - Alcohol Dependence Uncomplicated - F90.9 - Undifferentiated Attention Deficit Disorder Subjective Pt reported she drank alcohol 2 weeks ago and became very sick. Pt became tearful at times as she processed current stressor(s) in her life currently. Pt identified a recent break up and legal problems resulting from an NAEL that have left her feeling overwhelmed and resulted alcohol use. Pt reported that she has not drank since and engaged in opportunity to explore lapse in her recovery and what may be helpful for her moving forward. Pt confirmed that she intends to connect with local AA groups and was receptive to suggestion that she seek MH/ANTONY counseling. Pt was provided the MDQ and Adult ADHD Self-Report screening. Pt reported hx of ADHD dx and tx with rx (Adderall). Pt expressed concerns regarding negative side-effects associated with adderall and was agreeable to beginning low dose of Wellbutrin. Pt agrees to contact the center should she experience negative side-effects; will contact pt for medication f/up. Chief Complaint The Chief Complaint is: Pt presents for MSA - Vivitrol. History of Present Illness Melina Valenzuela is a 27 year old female. - Loss of interest in activities - Easily distracted - Racing thoughts Current Medication - DULoxetine HCl 60 MG Oral Capsule Delayed Release Particles once dailyDr. Rana, 30 days, 0 refills - MiraLax 17 GM/SCOOP Oral Powder Dissolve one capful (17g) into 4-8oz of liquid and drink daily, 30 days, 2 refills - Vivitrol 380 MG Intramuscular Suspension Reconstituted Inject intrarmuscular every month, 28 days, 11 refills - Wellbutrin XL 150 MG Oral Tablet Extended Release 24 Hour Take one tablet daily, 30 days, 1 refills Past Medical/Surgical History Reported: Medical: No medical history or no significant history and no previous hospitalizations. Procedural: - Tooth extraction Surgical: - Extraction of wisdom tooth - Tonsillectomy with adenoidectomy - General surgery kidney x6 stents, tubes, cut some of the tube out Social History Environmental Exposure: No secondhand cigarette smoke exposure. Personal: Recent breakup with significant other and recent legal problems NAEL. Behavioral: Not a current tobacco user. Tobacco use: Using electronic cigarettes/vaping. Alcohol: Not using alcohol. Beer consumption 12 -20. Drug Use: Not using drugs denied by patient. Using marijuana. Housing And Economic Circumstances: Lives with grandparent(s). Sexual: Denied sexual activity, sexual orientation Bisexual, and gender identity Female. Allergies - No Known Allergies Family History Father alcoholic Maternal: Depression committed suicide Physical Findings Neurological: - Cognitive functioning was normal. - Oriented to time, place, and person. - Executive Functions: Logical and organized. Speech: - Normal. Psychiatric: - Mood was concerned. - Mood was depressed. Appearance: - Normal. - Grooming was normal. Affect: - Tearful. - Showed worry. - Congruent with the mood. Thought Processes: - Not impaired. Thought Content: - Revealed no impairment. - No suicidal ideation. - No suicidal plans. - No suicidal intent. Assessment - F90.9 - Attention-deficit hyperactivity disorder, unspecified type - F10.20 - Alcohol dependence, uncomplicated Counseling/Education BH actively listened; provided empathy and unconditional positive regard. Acknowledged and validated emotions. Helped the pt to process recent alcohol use; provided encouragement to move forward with her recovery. Supported pt's interest in attending sober support groups and professional tx. Provided pt MH/[facility] resource list' Discussed medication; encouraged medication complaince and contacting [facility] with questions or concerns. Plan Patient to implement coping skills and positive supports as discussed. Pt to take medications as prescribed and contact [facility] with any questions or concerns. [facility] to follow-up with patient at next visit in office in 4 weeks. Advance Directives - Living Will Health Reminders - Assess Tobacco Use satisfied 09/12/2022. [facility]12-28-2022 Progress note* Progress note Date Encounter Last Documented by 09/11/2022 Medical Substance Abuse Last doc umented on 09/16/2022; 4:48 PM, Rustam Khoury CNP; [facility] Active Problems & Conditions - F10.20 - Alcohol Dependence Uncomplicated - F90.9 - Undifferentiated Attention Deficit Disorder Chief Complaint The Chief Complaint is: Vivitrol injection patient had a few questions with vivitrol injection. Referred Here Not referred by urgent care clinic and not the emergency room. No prior encounters. - Data to be reviewed: no clinical lab tests History of Present Illness Melina Valenzuela is a 27 year old female. - Reviewed Medications. Patient presents for vivitrol States that two weeks ago she drank and got sick, states it just happened , has been having a lot of stress due to a break up and also legal problems from a NAEL Denies any alcohol use since 2 weeks ago Also stopped duloxetine Patient also concerned with ADHD, was on adderall in the past but had some negative side effects, willing to try Wellbutrin. Current Medication - DULoxetine HCl 60 MG Oral Capsule Delayed Release Particles once dailyDr. Rana, 30 days, 0 refills - MiraLax 17 GM/SCOOP Oral Powder Dissolve one capful (17g) into 4-8oz of liquid and drink daily, 30 days, 2 refills - Vivitrol 380 MG Intramuscular Suspension Reconstituted Inject intrarmuscular every month, 28 days, 11 refills Past Medical/Surgical History Reported: Medical: No medical history or no significant history and no previous hospitalizations. Procedural: - Tooth extraction Surgical: - Extraction of wisdom tooth - Tonsillectomy with adenoidectomy - General surgery kidney x6 stents, tubes, cut some of the tube out Social History Environmental Exposure: No secondhand cigarette smoke exposure. Behavioral: Not a current tobacco user. Tobacco use: Using electronic cigarettes/vaping. Alcohol: Beer consumption tall boy and 2 bottle of bud light several weks ago. Drug Use: Not using drugs denied by patient. Sexual: Sexual orientation Bisexual and gender identity Female. Allergies - No Known Allergies Family History Father alcoholic Maternal: Depression committed suicide Review Of Systems Head: No head symptoms and no facial pain. Otolaryngeal: No nose and sinus finding. Cardiovascular: No cardiovascular symptoms. Pulmonary: No pulmonary symptoms. Musculoskeletal: No musculoskeletal symptoms. Neurological: No neurological symptoms. Psychological: Psychological symptoms. Skin: No skin symptoms. Physical Findings - Vitals taken 09/11/2022 06:55 pm BP-Sitting R110/70 mmHg BP Cuff SizeRegular Pulse Rate-Amkahba45 bpm Pulse RhythmRegular Temp-Jndosspn26.2 F Lynnug67 in Rmhonl415 lbs Body Mass Index25 kg/m2 Body Surface Area1.8 m2 Oxygen Ksmlcpejyr05 % General Appearance: - Awake. - Alert. - Well developed. Lungs: - Respiration rhythm and depth was normal. - Clear to auscultation. Cardiovascular: Heart Rate And Rhythm: - Normal. Heart Sounds: - Normal. Neurological: - Oriented to time, place, and person. Psychiatric: - Expression of emotions finding was normal. Tests Laboratory-based Chemistry: Drug Screen: Value UDS Staff Members Present 2.0 Urine Temperature 90 Urine drug screen by multiple class procedure. THC Not Present, PCP Not Present, OXY Not Present, GSK840 Not Present, MTD Not Present, MET Not Present, MDMA Not Present, MESHA Not Present, BZO Not Present, BUP Not Present, BAR Not Present, and AMP Not Present. Assessment - Body mass index [Body mass index [BMI] 25.0-25.9, adult] - Undifferentiated attention deficit disorder [Attention-deficit hyperactivity disorder, unspecified type] - Alcohol dependence uncomplicated [Alcohol dependence, uncomplicated] Therapy - Other Administered 4 mL of Vivitrol 380 MG on 09/11/22 06:30p, Patient tolerated therapy well. No signs or symptoms of adverse reactions. Patient waited in clinic for 15 minutes after administration. - Patient refused flu vaccine. Discussed benefits of flu vaccine with Patient. Vaccinations - Did not receive dose of Reported: Patient has not received the Covid Vaccine Counseling/Education - Not wishing to stop smoking offered Quit Line information - No not wishing to stop using electronic cigarettes/vaping - Discussed nutritional needs teach healthy choices including fruits and vegetables - Patient education about a proper diet - Discussed concerns about exercise: promote physical activity Plan StartCited- Alcohol dependence, uncomplicated In House Medications/Meds: Vivitrol 380mg INJ From a Pharmacy In House Medications/Injection Codes: 57468 Therapeutic Prophy or Diag Injection, EACH EndCited StartCited- Anxiety disorder, unspecified Wellbutrin XL 150 MG tablet Take one tablet daily, 30 days, 1 refills EndCited Notes - Patient is not interested in the COVID-19 vaccination at this time. Practice Management Systolic blood pressure < 130 mmHg and diastolic < 80 mmHg diastolic < 80 mmHg. Advance Directives - [id number] Evaluation note Includes: Assessments for all patient encounters Findings Encounter Date Alcohol abuse - uncomplicated BH Substan ce Abuse with Vilma Carballo [facility] 08/15/2022 [Body mass index [BMI] 25.0- 25.9, adult] assessment of body mass index Medical Substance Abuse with Rustam Khoury CNP 08/15/2022 Alcohol dependence uncomplicated Medical Substance Abuse with Rustam Peng HOME CARE NURSE 08/15/2022 [Body mass index [BMI] 25.0- 25.9, adult] assessment of body mass index Medical Substance Abuse with Rustam Peng HOME CARE NURSE 07/18/2022 Alcohol dependence uncomplicated Medical Substance Abuse with Rustam Peng HOME CARE NURSE 07/18/2022 Alcohol dependence uncomplicated BH Subs tance Abuse with Vilmaaileen Carballo [facility] 06/20/2022 Alcohol dependence uncomplic ated Follow up in 28 days [Alcohol dependence, uncomplicated] Medical Substance Abuse with Rustam Peng HOME CARE NURSE 06/20/2022 Assessment of body mass index Medical Mireles bstance Abuse with Rustam Peng HOME CARE NURSE 06/20/2022 Alcohol abuse - uncomplicated BH Establi shed Patient with Vilmaaileen Carballo [facility] 06/13/2022 Assessment of body mass inde x [Body mass index [BMI] 26.0-26.9, adult] Medical Substance Abuse with Rustam Brancher HOME CARE NURSE 06/13/2022 Diabetes Risk Test Score was one score 06/13/2022 Medical Substance Abuse with Rustam Peng HOME CARE NURSE 06/13/2022 Screening for HIV Medical Substance Ab use with Rustam Peng HOME CARE NURSE 06/13/2022 PLAN Teledentistry with Ry Sanderson DDS 12/06/2019 [facility] Work Phone: 1(231) 498-399012-01-2022 History general Narrative - Reported Includes: Medical History in patient's chart Description Last Updated No previous hospitalizations 08/15/2022 History of extraction of wisdom tooth History of tooth extraction 06/13/2022 No medical history or no significant his tory 06/13/2022 [facility] Work Phone: 1(294) 154-890012-01-2022 History general Narrative - Reported Includes: Medical History in patient's chart Description Last Updated No previous hospitalizations 08/15/2022 [facility] Work Phone: 1(450) 701-429112-01-2022 History general Narrative - Reported Includes: Medical History in patient's chart Description Last Updated No previous hospitalizations 08/15/2022 [facility] Work Phone: 1(361) 446-231512-01-2022 History general Narrative - Reported Includes: Medical History in patient's chart Description Last Updated No previous hospitalizations 08/15/2022 [facility] Work Phone: 1(213) 656-762212-01-2022 History general Narrative - Reported Includes: Medical History in patient's chart Description Last Updated No previous hospitalizations 08/15/2022 [facility] Work Phone: 1(509) 362-292112-01-2022 History general Narrative - Reported Includes: Medical History in patient's chart Description Last Updated No previous hospitalizations 08/15/2022 [facility] Work Phone: 1(502) 378-301512-01-2022 History general Narrative - Reported Includes: Medical History in patient's chart Description Last Updated No previous hospitalizations 08/15/2022 [facility] Work Phone: 1(449) 145-346411-03-2022 Evaluation note Includes: Assessments for all patient encounters Findings Encounter Date [Body mass index [BMI] 25.0- 25.9, adult] assessment of body mass index Medical Substance Abuse with Rustam Peng HOME CARE NURSE 07/18/2022 Alcohol dependence uncomplicated Medical Substance Abuse with Rustam Peng HOME CARE NURSE 07/18/2022 Alcohol dependence uncomplicated BH Subs tance Abuse with Vilmaaileen Carballo [facility] 06/20/2022 Alcohol dependence uncomplic ated Follow up in 28 days [Alcohol dependence, uncomplicated] Medical Substance Abuse with Rustam Peng HOME CARE NURSE 06/20/2022 Assessment of body mass index Medical Mireles bstance Abuse with Rustam Peng HOME CARE NURSE 06/20/2022 Alcohol abuse - uncomplicated BH Establi shed [facility]/13/[facility] Assessment of body mass inde x [Body mass index [BMI] 26.0-26.9, adult] Medical Substance Abuse with Rustam Peng HOME CARE NURSE 06/13/2022 Diabetes Risk Test Score was one score 06/13/2022 Medical Substance Abuse with Rustam Peng HOME CARE NURSE 06/13/2022 Screening for HIV Medical Substance Ab use with Rustam Peng HOME CARE NURSE 06/13/2022 PLAN Teledentistry with Ry Snaderson DDS 12/06/2019 [facility] Work Phone: [phone]) 351-250010-06-2022 Evaluation note Includes: Assessments for all patient encounters Findings Encounter Date Alcohol dependence uncomplicated BH Subs tance Abuse with Vilmaaileen [facility]ballo [facility] 06/20/2022 Assessment of body mass index Medical Mireles bstance Abuse with Rustam Peng HOME CARE NURSE 06/20/2022 Alcohol abuse - uncomplicated BH Establi shed Patient with Vilma Carballo [facility] 06/13/2022 Assessment of body mass inde x [Body mass index [BMI] 26.0-26.9, adult] Medical Substance Abuse with Rustam Peng HOME CARE NURSE 06/13/2022 Diabetes Risk Test Score was one score 06/13/2022 Medical Substance Abuse with Rustam Peng HOME CARE NURSE 06/13/2022 Screening for HIV Medical Substance Ab use with Rustam Peng HOME CARE NURSE 06/13/2022 PLAN Teledentistry with Ry Sanderson DDS 12/06/2019 [facility] Work Phone: [phone]) 130-707910-06-2022 Evaluation note Includes: Assessments for all patient encounters Findings Encounter Date Alcohol dependence uncomplicated BH Subs tance Abuse with Vilma Carballo [facility] 06/20/2022 Alcohol dependence uncomplic ated Follow up in 28 days [Alcohol dependence, uncomplicated] Medical Substance Abuse with Rustam Peng HOME CARE NURSE 06/20/2022 Assessment of body mass index Medical Mireles bstance Abuse with Rustam Peng HOME CARE NURSE 06/20/2022 Alcohol abuse - uncomplicated BH Establi shed Patient with Vilma Carballo [facility] 06/13/2022 Assessment of body mass inde x [Body mass index [BMI] 26.0-26.9, adult] Medical Substance Abuse with Rustam Peng HOME CARE NURSE 06/13/2022 Diabetes Risk Test Score was one score 06/13/2022 Medical Substance Abuse with Rustam Peng HOME CARE NURSE 06/13/2022 Screening for HIV Medical Substance Ab use with Rustma Peng HOME CARE NURSE 06/13/2022 PLAN Teledentistry with Ry Sanderson DDS 12/06/2019 [facility] Work Phone: 1([phone]) 393-444609-29-2022 Evaluation note Includes: Assessments for all patient encounters Findings Encounter Date Alcohol abuse - uncomplicated BH Establi shed Patient with Vilma Carballo [facility] 06/13/2022 Assessment of body mass inde x [Body mass index [BMI] 26.0-26.9, adult] Medical Substance Abuse with Rustam Peng HOME CARE NURSE 06/13/2022 Diabetes Risk Test Score was one score 06/13/2022 Medical Substance Abuse with Rustam Peng [facility] 06/13/2022 Screening for HIV Medical Substance Ab use with Rustam Khoury [facility] 06/13/2022 PLAN Teledentistry with Ry Sanderson DDS 12/06/2019 [facility] Work Phone: [phone]) 263-456309-29-2022 History general Narrative - Reported Includes: Medical History in patient's chart Description Last Updated History of extraction of wisdom tooth History of tooth extraction 06/13/2022 No medical history or no significant his tory 06/13/2022 [facility] Work Phone: 1(295) 646-390509-29-2022 Reason for referral (narrative)* Date Encounter Description Provider Reason for Referral 06/13/22 Established Patient Vilma Carballo [facility] Referral To Mental Health Team [facility] Work Phone: 1([phone]) 729-462909-16-2021 Emergency department Note* Jackie Maldonado RN - 05/31/2021 12:48 AM EDT Patient discharged to home alert and oriented, skin dry, pink, warm, RN discussed, educated, and counseled on care plan. Denies needs or questions at this time and states will follow up as directed. Encouraged to return for worsening or new symptoms . * Gurvinder Parks MD - 05/31/2021 12:42 AM EDT TRIAGE CHIEF COMPLAINT: Chief Complaint Patient presents with Poison Monica HPI: Melina Valenzuela is a 26 year old female who presents for poison monica. He has it primarily on his arms. Has had this for a week. He says he bought some medication at [facility] which helped a littlebit. He says typically when he gets this point [facility] [place] prescribes him some steroids. Hesays he is not able to see his doctor at this time so he is hoping to get some steroids here. He isnot have difficulty breathing or swallowing. He has been through this before. REVIEW OF SYSTEMS: Otherwise Negative PAST MEDICAL HISTORY: Past Medical History: Diagnosis Date ADHD (attention deficit hyperactivity disorder) Anxiety Asthma FAMILY HISTORY: No family history on file. SOCIAL HISTORY: Social History Socioeconomic History Marital status: Single Spouse name: Not on file Number of children: Not on file Years of education: Not on file Highest education level: Not on file Occupational History Not on file Tobacco Use Smoking status: Former Smoker Packs/day: 0.25 Smokeless tobacco: Never Used Tobacco comment: quit smoking Vaping Use Vaping Use: Never used Substance and Sexual Activity Alcohol use: Yes Comment: occ Drug use: No Sexual activity: Not on file Other Topics Concern Not on file Social History Narrative Not on file Social Determinants of Health Financial Resource Strain: Difficulty of Paying Living Expenses: Food Insecurity: Worried About Running Out of Food in the Last Year: Ran Out of Food in the Last Year: Transportation Needs: Lack of Transportation (Medical): Lack of Transportation (Non-Medical): Physical Activity: Days of Exercise per Week: Minutes of Exercise per Session: Stress: Feeling of Stress : Social Connections: Frequency of Communication with Friends and Family: Frequency of Social Gatherings with Friends and Family: Attends Faith Services: Active Member of Clubs or Organizations: Attends Club or Organization Meetings: Marital Status: Intimate Partner Violence: Fear of Current or Ex-Partner: Emotionally Abused: Physically Abused: Sexually Abused: SURGICAL HISTORY: No past surgical history on file. CURRENT MEDICATIONS: Current Facility-Administered Medications: predniSONE tablet 60 mg, 60 mg, Oral, Jon, Gurvinder Parks MD Current Outpatient Medications: diclofenac (VOLTAREN) 50 mg enteric-coated tablet, Take 1 Tab by mouth three times a day, Disp: 15 Tab, Rfl: 0 ALLERGIES: Hydrocodone PHYSICAL EXAM: VITAL SIGNS: Visit Vitals BP 123/73 Pulse 125 Temp 98.3 F (36.8 C) Resp 18 Ht 1.651 m (5' 5 ) Wt 65.8 kg (145 lb) SpO2 100% BMI 24.13 kg/m OB Status Having periods Smoking Status Former Smoker BSA 1.74 m CONSTITUTIONAL: Awake, oriented, appears non-toxic HENT: Atraumatic, normocephalic, oral mucosa pink and moist, airway patent EYES: Conjunctiva clear, PERRL NECK: Trachea midline, non-tender, supple CARDIOVASCULAR: Normal heart rate, Normal rhythm, No murmurs, rubs, gallops PULMONARY/CHEST: Clear to auscultation, no rhonchi, wheezes, or rales. Symmetrical breath sounds. Non-tender. NEUROLOGIC: Non-focal EXTREMITIES: No clubbing, cyanosis, or edema. No calf pain or swelling SKIN: Warm, Dry, erythematous rash to both forearms Pertinent Labs & Imaging studies reviewed. (See chart for details) ED COURSE / MEDICAL DECISION MAKING: Patient has poison monica which is a week old at this point. Explained to him that typically we would do a prolonged prednisone course but with him being a week intoit already I think we can do a shorter course. He prefers this because he does not want to take pills longer than he has to. He will be given a dose of prednisone here and discharged home with a prescription. He is agreement with this plan. FINAL IMPRESSION: 1 -poison monica 2 -- 3 -- I have reviewed the past medical, family, and social history sections including the medications andallergies listed in the above medical record. I have also reviewed the physician field assistant or resident documentation when applicable. Electronically signed by: Gurvinder Parks MD, 05/31/2021 12:44 AM * Jackie Maldonado RN - 05/31/2021 12:36 AM EDT Arrived as walk in reporting poison monica rash over whole body . AOx3 skin w/p/d. No respiratory distress noted. [facility] in [facility] encounterFort [facility] [id number] Emergency department Note* Juan Carlos RN - 03/27/2021 3:47 PM EDT Pt noted with no adverse reactions from medication administration per NOV. Discharge instructions, medications, medication side effects, and follow up care reviewed with Pt. Pt verbalizes understanding at this time. Patient discharged to home, alert and oriented, skin warm, dry and pink. Denies needs and or questions. Will follow-up as directed, patient encouraged to return for worsening or new symptoms or other concerns. Discussed, educated and counseled with the patient, and any questioned answered and addressed. Pt refused offer of wheelchair and ambulated to exit. Resps even and unlaboredwith 0 S&S's of distress upon discharge. * Dwight Vallejo PA-C - 03/27/2021 3:25 PM EDT [address] [facility] [address] EMERGENCY DEPARTMENT ENCOUNTER TRIAGE CHIEF COMPLAINT: Chief Complaint Patient presents with Dental Pain HPI: Melina Valenzuela is a 26 year old female who presents with complaints of dental pain. Patient states that the cap of her tooth broke. This happened today while she was at work. Patient states appointment her dentist on 10 of April. Patient states that she is going to get amoxicillin. Patient is just here for pain control. Patient denies any difficulty breathing or swallowing. Denies any fevers or chills. Denies any vomiting diarrhea. REVIEW OF SYSTEMS: 10 point review of systems was discussed the patient and the pertinent positives and negatives are listed as above in the HPI. I have reviewed the nursing triage documentation and agree unless otherwise noted below. PAST MEDICAL HISTORY: Past Medical History: Diagnosis Date ADHD (attention deficit hyperactivity disorder) Anxiety Asthma CURRENT MEDICATIONS: Current Facility-Administered Medications: lidocaine (LIDOCAINE VISCOUS) 2 % mucous memb solution 30 mL, 30 mL, Oral, Now, JanuaryDwight PA-C benzocaine (TOPEX) metered spray 1 [place], 1 [place], Mucous Membrane, Once PRN, JanuaryDwight PA-C ketorolac (TORADOL) tablet 10 mg, 10 mg, Oral, Once, JanuaryDwight PA-C Current Outpatient Medications: etodolac (LODINE) 300 mg capsule, Take 1 Cap by mouth three times a day, Disp: 15 Cap, Rfl: 0 SURGICAL HISTORY: History reviewed. No pertinent surgical history. FAMILY HISTORY: History reviewed. No pertinent family history. SOCIAL HISTORY: Social History Socioeconomic History Marital status: Single Spouse name: Not on file Number of children: Not on file Years of education: Not on file Highest education level: Not on file Occupational History Not on file Tobacco Use Smoking status: Former Smoker Packs/day: 0.25 Smokeless tobacco: Never Used Tobacco comment: quit smoking Vaping Use Vaping Use: Never used Substance and Sexual Activity Alcohol use: Yes Comment: occ Drug use: No Sexual activity: Not on file Other Topics Concern Not on file Social History Narrative Not on file Social Determinants of Health Financial Resource Strain: Difficulty of Paying Living Expenses: Food Insecurity: Worried About Running Out of Food in the Last Year: Ran Out of Food in the Last Year: Transportation Needs: Lack of Transportation (Medical): Lack of Transportation (Non-Medical): Physical Activity: Days of Exercise per Week: Minutes of Exercise per Session: Stress: Feeling of Stress : Social Connections: Frequency of Communication with Friends and Family: Frequency of Social Gatherings with Friends and Family: Attends Faith Services: Active Member of Clubs or Organizations: Attends Club or Organization Meetings: Marital Status: Intimate Partner Violence: Fear of Current or Ex-Partner: Emotionally Abused: Physically Abused: Sexually Abused: ALLERGIES: Hydrocodone PHYSICAL EXAM: VITAL SIGNS: The Initial Triage assessment is as follows: ED Vitals Temp: 98.7 F (37.1 C) (03/27/21 1518) Temp Source: Oral (03/27/21 1518) Pulse: 76 (03/27/21 1518) Resp: 18 (03/27/21 1518) BP: 113/69 (03/27/21 1518) SpO2: 98 % (03/27/21 1518) Oxygen Source: Rm Air (03/27/21 1518) Constitutional: Non-toxic appearance. HEENT: Normocephalic, atraumatic. Extraocular muscles are intact. Posterior oropharynx is patent. Oral mucosa moist and pink. Broken tooth in the right top side. No obvious of dental abscess. No trismus. Neck: Normal range of motion. No meningeal signs noted. Cardiovascular: Normal heart rate, Normal rhythm. Pulmonary/Chest: Clear to auscultation in all lung [place]. No respiratory distress. Abdomen: Soft, nontender. Extremities: Normal range of motion. Neurologic: Alert, Normal motor function, Normal sensory function, No focal deficits. Skin: Warm, Dry, No erythema, No rash. Radiology / Procedures: No orders to display Labs Reviewed - No data to display ED COURSE & MEDICAL DECISION MAKING: Pertinent Labs & Imaging studies reviewed. (See chart for details) Patient given benzocaine and this is lidocaine saturated cotton balls to use at home. As well as anti-inflammatory. Follow with your dentist as scheduled FINAL IMPRESSION: ICD-10-CM ICD-9-CM 1. Pneumonia of both lungs due to infectious organism, unspecified part of lung J18.9 483.8 2. Septicemia (HC CODE) A41.9 038.9 3. Hypoxia R09.[address] Isauro Gallardo Functioning independently as an advanced practitioner, I have fully participated in the care of this patient. I have reviewed and agree with all clinical information including history, past medical history, medications, allergies, physical exam and plan for this patient. Electronically signed by: Dwight Vallejo PA-C, 03/27/2021 3:41 PM * Juan Carlos RN - 03/27/2021 3:13 PM EDT Pt c/o dental pain to the Rt Upper tooth [facility]Prem[facility]Evaluation [facility]* Diagnosis Pain, dental- Primary Unspecified disorder of the teeth and supporting structures [facility]* Diagnosis Allergic dermatitis due to poison monica- Primary Contact dermatitis and other eczema due to plants (except food) documented in this encounter [facility]Evaluation noteNo assessment information availableOhio[facility] Work Phone: evaluation note* Diagnosis Onset Date Resolution Status Former cigarette smoker none active [facility] Work Phone: evaluation note Includes: Assessments for all patient encounters Findings Encounter Date Alcohol dependence uncomplicated BH Esta blished Patient with [facility] 12/11/2022 [facility] Work Phone: Evaluation note Includes: Assessments for all patient encounters Findings Encounter Date Alcohol dependence uncomplicated BH Esta blished Patient with Felecia DENT 02/18/2023 [facility] Work Phone: Evaluation note Includes: Assessments for all patient encounters Findings Encounter Date Alcohol dependence uncomplicated BH Esta blished Patient with Felecia Muniz EMOTIONALLY IMPAIRED TEACHER 02/18/2023 [facility] Work Phone: Evaluation note Includes: Assessments for all patient encounters Findings Encounter Date Alcohol dependence uncomplicated BH Esta blished Patient with Felecia Muniz EMOTIONALLY IMPAIRED TEACHER 02/18/2023 [facility] Work Phone: Evaluation note Includes: Assessments for all patient encounters Findings Encounter Date Alcohol dependence uncomplicated BH Esta blished Patient with Felecia Muniz EMOTIONALLY IMPAIRED TEACHER 02/18/2023 [facility] Work Phone: Evaluation note Includes: Assessments for all patient encounters Findings Encounter Date [Z68.24 - Body mass index [B NJ] 24.0-24.9, adult] assessment of body mass index Medical Established Patient with Sarbjit Aly MD 02/20/2023 [facility] Work Phone: Evaluation note Includes: Assessments for all patient encounters Findings Encounter Date [Z68.24 - Body mass index [B NJ] 24.0-24.9, adult] assessment of body mass index Medical Established Patient with Sarbjit Aly MD 02/20/2023 [facility] Work Phone: Evaluation note Includes: Assessments for all patient encounters Findings Encounter Date Alcohol dependence uncomplicated BH Esta blished Patient with Felecia Muniz EMOTIONALLY IMPAIRED TEACHER 02/20/2023 [facility] Work Phone: Evaluation note Includes: Assessments for all patient encounters Findings Encounter Date [Z68.24 - Body mass index [B NJ] 24.0-24.9, adult] assessment of body mass index Medical Established Patient with Sarbjit Aly MD 02/25/2023 [facility] Work Phone: History general Narrative - Reported Includes: Medical History in patient's chart Description Last Updated Not planning to have a baby in the next 12 months 02/18/2023 [facility] Work Phone: History general Narrative - Reported Includes: Medical History in patient's chart Description Last Updated Not planning to have a baby in the next 12 months 02/18/2023 [facility] Work Phone: History general Narrative - Reported Includes: Medical History in patient's chart Description Last Updated Not planning to have a baby in the next 12 months 02/20/2023 [facility] Work Phone: History of Present illness Narrative History of Present Illness not supported for this document type No [facility] of [facility] Work Phone: Hospital Discharge instructions* Attachments The following attachments cannot be sent through Care Everywhere. * Tooth and Gum Pain ([place]) [facility] Additional Instructions You will need to see the manager publishing in the next 24 to 48 hours for evaluation and packing removal. Make sure you stay well-hydrated, eat small nutritious meals. Do not take medications that can potentially thin your blood such as aspirin, ibuprofen, or Aleve. Tylenol as needed for discomfort. Return to the emergency department if you have any worsening symptoms, new symptoms, or concerns.[facility] Work Phone: [facility] Work Phone: Instructions Instructions not supported for this document type No [facility]: Instructions Includes: Instructions for all patient encounters Education and Decision Aids were provided during visit for: P provided active listenin g; offered pt time to provide feedback required to assess for recent use/uges/cravings/triggers. ~Provided time for the pt to share and process thoughts and concerns regarding use of prescribed medication for ADHD symtoms; expressed concern for pt's health and well-being. ~Explored and assessed for issues or concerns impacting recovery; acknowledged reported abstinence/good progress. ~Encouraged use of healthy coping methods and seeking sober support, as needed Last Documented On 3 5:57PM ; [facility] Discussed nutritional needs teach healthy choices including fruits and vegetables Last Documented On 3 6:49PM ; [facility] Patient education about a pr oper diet Last Documented On 3 6:49PM ; [facility] Discussed concerns about exe rcise : promote physical activity Last Documented On 3 6:49PM ; [facility] Discussed nutritional needs teach healthy choices including fruits and vegetables Last Documented On 3 3:59PM ; [facility] Patient education about a pr oper diet Last Documented On 3 3:59PM ; [facility] Discussed concerns about exe rcise : promote physical activity ~ ~Will start hydroxyzine as needed for anxiety ~ ~Follow up in 4 weeks Last Documented On 3 4:55PM ; [facility], support and helped pt process though current symptoms and stressor(s); explored effectiveness of medication, coping mechanisms, and self-care practices. ~Encouraged use, when needed Last Documented On 3 3:57PM ; [facility] Discussed nutritional needs teach healthy choices including fruits and vegetables Last Documented On 2 6:58PM ; [facility] Patient education about a pr oper diet Last Documented On 2 6:58PM ; [facility] Discussed concerns about exe rcise : promote physical activity Last Documented On 2 6:58PM ; [facility] actively listened; provid ed empathy and unconditional positive regard. ~Acknowledged and validated emotions. ~Helped the pt to process recent alcohol use; provided encouragement to move forward with her recovery. ~Supported pt's interest in attending sober support groups and professional tx. ~Provided pt MH/ANTONY resource list' ~Discussed medication; encouraged medication complaince and contacting [facility] with questions or concerns Last Documented On 2 10:15AM ; [facility] Discussed nutritional needs teach healthy choices including fruits and vegetables Last Documented On 2 7:19PM ; [facility] Patient education about a pr oper diet Last Documented On 2 7:19PM ; [facility] Discussed concerns about exe rcise : promote physical activity Last Documented On 2 7:19PM ; [facility] provided active listenin g, support and helped pt process though current stressor(s). Discussed effectiveness of medication; acknowledged and validated concerns. ~Explored use of coping mechanisms, self-care practices, and support system. ~Encouraged use, when needed Last Documented On 2 8:10AM ; [facility] Discussed nutritional needs teach healthy choices including fruits and vegetables Last Documented On 2 6:39PM ; [facility] Patient education about a pr oper diet Last Documented On 2 6:39PM ; [facility] Discussed concerns about exe rcise : promote physical activity ~ ~Follow up in 4 weeks Last Documented On 2 5:33AM ; [facility] Discussed nutritional needs teach healthy choices including fruits and vegetables Last Documented On 2 2:22PM ; [facility] Patient education about a pr oper diet Last Documented On 2 2:22PM ; [facility] Discussed concerns about exe rcise : promote physical activity Last Documented On 2 2:22PM ; [facility] provided active listenin g; assessed current symptoms and stressor(s) coping mechanisms, support system, and self-care practices Last Documented On 2 4:02PM ; [facility] introduced pt to HPWO in tegrated model of care ~[facility] offered active listening and supportive feedback; normalized emotions and feelings; provided opportunity to explore alcohol use hx/sx/dx/ and tx options. Provided psychoeducation focused on MAT program including requirements for clean UDS. ~[facility] discussed potential benefits of counseling in conjunction with MAT. ~Supported use of healthy coping methods and seeking support, as needed Last Documented On 2 11:27AM ; [facility] Discussed nutritional needs teach healthy choices including fruits and vegetables Last Documented On 2 9:47AM ; [facility] Patient education about a pr oper diet Last Documented On 2 9:47AM ; [facility] Discussed concerns about exe rcise : promote physical activity ~ ~Follow up Friday or Friday for UDS, will try for induction next Thursday Last Documented On 2 10:35AM ; [facility] Work Phone: Instructions Includes: Instructions for all patient encounters Education and Decision Aids were provided during visit for: [facility] provided active listenin g; offered pt time to provide feedback required to assess for recent use/uges/cravings/triggers. ~Provided time for the pt to share and process thoughts and concerns regarding use of prescribed medication for ADHD symtoms; expressed concern for pt's health and well-being. ~Explored and assessed for issues or concerns impacting recovery; acknowledged reported abstinence/good progress. ~Encouraged use of healthy coping methods and seeking sober support, as needed Last Documented On 3 5:57PM ; [facility] Discussed nutritional needs teach healthy choices including fruits and vegetables Last Documented On 3 6:49PM ; [facility] Patient education about a pr oper diet Last Documented On 3 6:49PM ; [facility] Discussed concerns about exe rcise : promote physical activity ~ ~Follow up in 4 weeks Last Documented On 3 8:47AM ; [facility] Discussed nutritional needs teach healthy choices including fruits and vegetables Last Documented On 3 3:59PM ; [facility] Patient education about a pr oper diet Last Documented On 3 3:59PM ; [facility] Discussed concerns about exe rcise : promote physical activity ~ ~Will start hydroxyzine as needed for anxiety ~ ~Follow up in 4 weeks Last Documented On 3 4:55PM ; [facility] provided active listenin g, support and helped pt process though current symptoms and stressor(s); explored effectiveness of medication, coping mechanisms, and self-care practices. ~Encouraged use, when needed Last Documented On 3 3:57PM ; [facility] Discussed nutritional needs teach healthy choices including fruits and vegetables Last Documented On 2 6:58PM ; [facility] Patient education about a pr oper diet Last Documented On 2 6:58PM ; [facility] Discussed concerns about exe rcise : promote physical activity Last Documented On 2 6:58PM ; [facility] actively listened; provid ed empathy and unconditional positive regard. ~Acknowledged and validated emotions. ~Helped the pt to process recent alcohol use; provided encouragement to move forward with her recovery. ~Supported pt's interest in attending sober support groups and professional tx. ~Provided pt MH/[facility]ONY resource list' ~Discussed medication; encouraged medication complaince and contacting [facility] with questions or concerns Last Documented On 2 10:15AM ; [facility] Discussed nutritional needs teach healthy choices including fruits and vegetables Last Documented On 2 7:19PM ; [facility] Patient education about a pr oper diet Last Documented On 2 7:19PM ; [facility] Discussed concerns about exe rcise : promote physical activity Last Documented On 2 7:19PM ; [facility] provided active listenin g, support and helped pt process though current stressor(s). Discussed effectiveness of medication; acknowledged and validated concerns. ~Explored use of coping mechanisms, self-care practices, and support system. ~Encouraged use, when needed Last Documented On 2 8:10AM ; [facility] Discussed nutritional needs teach healthy choices including fruits and vegetables Last Documented On 2 6:39PM ; [facility] Patient education about a pr oper diet Last Documented On 2 6:39PM ; [facility] Discussed concerns about exe rcise : promote physical activity ~ ~Follow up in 4 weeks Last Documented On 2 5:33AM ; [facility] Discussed nutritional needs teach healthy choices including fruits and vegetables Last Documented On 2 2:22PM ; [facility] Patient education about a pr oper diet Last Documented On 2 2:22PM ; [facility] Discussed concerns about exe rcise : promote physical activity Last Documented On 2 2:22PM ; [facility] provided active listenin g; assessed current symptoms and stressor(s) coping mechanisms, support system, and self-care practices Last Documented On 2 4:02PM ; [facility] introduced pt to HPWO in tegrated model of care ~P offered active listening and supportive feedback; normalized emotions and feelings; provided opportunity to explore alcohol use hx/sx/dx/ and tx options. Provided psychoeducation focused on MAT program including requirements for clean UDS. ~[facility] discussed potential benefits of counseling in conjunction with MAT. ~Supported use of healthy coping methods and seeking support, as needed Last Documented On 2 11:27AM ; [facility] Discussed nutritional needs teach healthy choices including fruits and vegetables Last Documented On 2 9:47AM ; [facility] Patient education about a pr oper diet Last Documented On 2 9:47AM ; [facility] Discussed concerns about exe rcise : promote physical activity ~ ~Follow up Friday or Friday for UDS, will try for induction next Last Documented On 2 10:35AM ; [facility] Work Phone: Instructions Includes: Instructions for all patient encounters Education and Decision Aids were provided during visit for: Patient education about adve rse reactions to medication Last Documented On 3 6:29PM ; [facility] Discussed lifestyle changes with patient that impact chronic illnesses. ~Supported patient's personal health goals for chronic illness management ~Discussed pt desire to be future oriented and goal directed ~Self care techniques including mindfulness techniques, deep breathing and hobbies ~Risk management: Local Crisis number, reaching out to friends/family, and community resources. ~Harm reduction and relapse prevention Last Documented On 3 6:29PM ; [facility] Reviewed side effects and Ri sks/Benefits analysis Last Documented On 3 6:29PM ; [facility] Discussed nutritional needs teach healthy choices including fruits and vegetables Last Documented On 3 6:00PM ; [facility] Patient education about a pr oper diet Last Documented On 3 6:00PM ; [facility] Discussed concerns about exe rcise : promote physical activity Last Documented On 3 6:00PM ; [facility] Not requesting contraception Last Documented On 3 6:00PM ; [facility] provided active listenin g; offered pt time to provide feedback required to assess for recent use/uges/cravings/triggers. ~Provided time for the pt to share and process thoughts and concerns regarding use of prescribed medication for ADHD symtoms; expressed concern for pt's health and well-being. ~Explored and assessed for issues or concerns impacting recovery; acknowledged reported abstinence/good progress. ~Encouraged use of healthy coping methods and seeking sober support, as needed Last Documented On 3 5:57PM ; [facility] Discussed nutritional needs teach healthy choices including fruits and vegetables Last Documented On 3 6:49PM ; [facility] Patient education about a pr oper diet Last Documented On 3 6:49PM ; [facility] Discussed concerns about exe rcise : promote physical activity ~ ~Follow up in 4 weeks Last Documented On 3 8:47AM ; [facility] Discussed nutritional needs teach healthy choices including fruits and vegetables Last Documented On 3 3:59PM ; [facility] Patient education about a pr oper diet Last Documented On 3 3:59PM ; [facility] Discussed concerns about exe rcise : promote physical activity ~ ~Will start hydroxyzine as needed for anxiety ~ ~Follow up in 4 weeks Last Documented On 3 4:55PM ; [facility] provided active listenin g, support and helped pt process though current symptoms and stressor(s); explored effectiveness of medication, coping mechanisms, and self-care practices. ~Encouraged use, when needed Last Documented On 3 3:57PM ; [facility] Discussed nutritional needs teach healthy choices including fruits and vegetables Last Documented On 2 6:58PM ; [facility] Patient education about a pr oper diet Last Documented On 2 6:58PM ; [facility] Discussed concerns about exe rcise : promote physical activity Last Documented On 2 6:58PM ; [facility] actively listened; provid ed empathy and unconditional positive regard. ~Acknowledged and validated emotions. ~Helped the pt to process recent alcohol use; provided encouragement to move forward with her recovery. ~Supported pt's interest in attending sober support groups and professional tx. ~Provided pt MH/[facility]ONY resource list' ~Discussed medication; encouraged medication complaince and contacting [facility] with questions or concerns Last Documented On 2 10:15AM ; [facility] Discussed nutritional needs teach healthy choices including fruits and vegetables Last Documented On 2 7:19PM ; [facility] Patient education about a pr oper diet Last Documented On 2 7:19PM ; [facility] Discussed concerns about exe rcise : promote physical activity Last Documented On 2 7:19PM ; [facility] provided active listenin g, support and helped pt process though current stressor(s). Discussed effectiveness of medication; acknowledged and validated concerns. ~Explored use of coping mechanisms, self-care practices, and support system. ~Encouraged use, when needed Last Documented On 2 8:10AM ; [facility] Discussed nutritional needs teach healthy choices including fruits and vegetables Last Documented On 2 6:39PM ; [facility] Patient education about a pr oper diet Last Documented On 2 6:39PM ; [facility] Discussed concerns about exe rcise : promote physical activity ~ ~Follow up in 4 weeks Last Documented On 2 5:33AM ; [facility] Discussed nutritional needs teach healthy choices including fruits and vegetables Last Documented On 2 2:22PM ; [facility] Patient education about a pr oper diet Last Documented On 2 2:22PM ; [facility] Discussed concerns about exe rcise : promote physical activity Last Documented On 2 2:22PM ; [facility] provided active listenin g; assessed current symptoms and stressor(s) coping mechanisms, support system, and self-care practices Last Documented On 2 4:02PM ; [facility] introduced pt to HPWO in tegrated model of care ~[facility] offered active listening and supportive feedback; normalized emotions and feelings; provided opportunity to explore alcohol use hx/sx/dx/ and tx options. Provided psychoeducation focused on MAT program including requirements for clean UDS. ~P discussed potential benefits of counseling in conjunction with MAT. ~Supported use of healthy coping methods and seeking support, as needed Last Documented On 2 11:27AM ; [facility] Discussed nutritional needs teach healthy choices including fruits and vegetables Last Documented On 2 9:47AM ; [facility] Patient education about a pr oper diet Last Documented On 2 9:47AM ; [facility] Discussed concerns about exe rcise : promote physical activity ~ ~Follow up Friday or Friday for UDS, will try for induction next Last Documented On 2 10:35AM ; [facility] Work Phone: Instructions Includes: Instructions for all patient encounters Education and Decision Aids were provided during visit for: Patient education about adve rse reactions to medication Last Documented On 3 6:29PM ; [facility] Discussed lifestyle changes with patient that impact chronic illnesses. ~Supported patient's personal health goals for chronic illness management ~Discussed pt desire to be future oriented and goal directed ~Self care techniques including mindfulness techniques, deep breathing and hobbies ~Risk management: Local Crisis number, reaching out to friends/family, and community resources. ~Harm reduction and relapse prevention Last Documented On 3 6:29PM ; [facility] Reviewed side effects and Ri sks/Benefits analysis Last Documented On 3 6:29PM ; [facility] Discussed nutritional needs teach healthy choices including fruits and vegetables Last Documented On 3 6:00PM ; [facility] Patient education about a pr oper diet Last Documented On 3 6:00PM ; [facility] Discussed concerns about exe rcise : promote physical activity Last Documented On 3 6:00PM ; [facility] Not requesting contraception Last Documented On 3 6:00PM ; [facility] provided active listenin g; offered pt time to provide feedback required to assess for recent use/uges/cravings/triggers. ~Provided time for the pt to share and process thoughts and concerns regarding use of prescribed medication for ADHD symtoms; expressed concern for pt's health and well-being. ~Explored and assessed for issues or concerns impacting recovery; acknowledged reported abstinence/good progress. ~Encouraged use of healthy coping methods and seeking sober support, as needed Last Documented On 3 5:57PM ; [facility] Discussed nutritional needs teach healthy choices including fruits and vegetables Last Documented On 3 6:49PM ; [facility] Patient education about a pr oper diet Last Documented On 3 6:49PM ; [facility] Discussed concerns about exe rcise : promote physical activity ~ ~Follow up in 4 weeks Last Documented On 3 8:47AM ; [facility] Discussed nutritional needs teach healthy choices including fruits and vegetables Last Documented On 3 3:59PM ; [facility] Patient education about a pr oper diet Last Documented On 3 3:59PM ; [facility] Discussed concerns about exe rcise : promote physical activity ~ ~Will start hydroxyzine as needed for anxiety ~ ~Follow up in 4 weeks Last Documented On 3 4:55PM ; [facility], support and helped pt process though current symptoms and stressor(s); explored effectiveness of medication, coping mechanisms, and self-care practices. ~Encouraged use, when needed Last Documented On 3 3:57PM ; [facility] Discussed nutritional needs teach healthy choices including fruits and vegetables Last Documented On 2 6:58PM ; [facility] Patient education about a pr oper diet Last Documented On 2 6:58PM ; [facility] Discussed concerns about exe rcise : promote physical activity Last Documented On 2 6:58PM ; [facility] actively listened; provid ed empathy and unconditional positive regard. ~Acknowledged and validated emotions. ~Helped the pt to process recent alcohol use; provided encouragement to move forward with her recovery. ~Supported pt's interest in attending sober support groups and professional tx. ~Provided pt MH/[facility]Y resource list' ~Discussed medication; encouraged medication complaince and contacting [facility] with questions or concerns Last Documented On 2 10:15AM ; [facility] Discussed nutritional needs teach healthy choices including fruits and vegetables Last Documented On 2 7:19PM ; [facility] Patient education about a pr oper diet Last Documented On 2 7:19PM ; [facility] Discussed concerns about exe rcise : promote physical activity Last Documented On 2 7:19PM ; [facility] provided active listenin g, support and helped pt process though current stressor(s). Discussed effectiveness of medication; acknowledged and validated concerns. ~Explored use of coping mechanisms, self-care practices, and support system. ~Encouraged use, when needed Last Documented On 2 8:10AM ; [facility] Discussed nutritional needs teach healthy choices including fruits and vegetables Last Documented On 2 6:39PM ; [facility] Patient education about a pr oper diet Last Documented On 2 6:39PM ; [facility] Discussed concerns about exe rcise : promote physical activity ~ ~Follow up in 4 weeks Last Documented On 2 5:33AM ; [facility] Discussed nutritional needs teach healthy choices including fruits and vegetables Last Documented On 2 2:22PM ; [facility] Patient education about a pr oper diet Last Documented On 2 2:22PM ; [facility] Discussed concerns about exe rcise : promote physical activity Last Documented On 2 2:22PM ; [facility] provided active listenin g; assessed current symptoms and stressor(s) coping mechanisms, support system, and self-care practices Last Documented On 2 4:02PM ; [facility] introduced pt to HPWO in tegrated model of care ~[facility] offered active listening and supportive feedback; normalized emotions and feelings; provided opportunity to explore alcohol use hx/sx/dx/ and tx options. Provided psychoeducation focused on MAT program including requirements for clean UDS. ~[facility] discussed potential benefits of counseling in conjunction with MAT. ~Supported use of healthy coping methods and seeking support, as needed Last Documented On 2 11:27AM ; [facility] Discussed nutritional needs teach healthy choices including fruits and vegetables Last Documented On 2 9:47AM ; [facility] Patient education about a pr oper diet Last Documented On 2 9:47AM ; [facility] Discussed concerns about exe rcise : promote physical activity ~ ~Follow up Friday or Friday for UDS, will try for induction next Last Documented On 2 10:35AM ; [facility] Work Phone: Instructions Includes: Instructions for all patient encounters Education and Decision Aids were provided during visit for: Discussed nutritional needs teach healthy choices including fruits and vegetables Last Documented On 3 9:19AM ; [facility] Patient education about a pr oper diet Last Documented On 3 9:19AM ; [facility] Patient education about adve rse reactions to medication Last Documented On 3 9:19AM ; [facility] Discussed concerns about exe rcise : promote physical activity Last Documented On 3 9:19AM ; [facility] BHP introduced self to patie nt, explained role of BHP, and briefly talked about problem behaviors and coping strategies. ~ ~P offered emotional supports, explored thoughts, feelings, behaviors, utilized motivational interviewing to encourage self-care and ongoing progress, and mindfulness practice to boost healthy fccm-mtsx-[id number] connections Last Documented On 3 9:19AM ; [facility] Reviewed side effects and Ri sks/Benefits analysis Last Documented On 3 9:19AM ; [facility] Discussed nutritional needs teach healthy choices including fruits and vegetables Last Documented On 3 8:27AM ; [facility] Patient education about a pr oper diet Last Documented On 3 8:27AM ; [facility] Discussed concerns about exe rcise : promote physical activity Last Documented On 3 8:27AM ; [facility] Patient education about adve rse reactions to medication Last Documented On 3 6:29PM ; [facility] Discussed lifestyle changes with patient that impact chronic illnesses. ~Supported patient's personal health goals for chronic illness management ~Discussed pt desire to be future oriented and goal directed ~Self care techniques including mindfulness techniques, deep breathing and hobbies ~Risk management: Local Crisis number, reaching out to friends/family, and community resources. ~Harm reduction and relapse prevention Last Documented On 3 6:29PM ; [facility] Reviewed side effects and Ri sks/Benefits analysis Last Documented On 3 6:29PM ; [facility] Discussed nutritional needs teach healthy choices including fruits and vegetables Last Documented On 3 6:00PM ; [facility] Patient education about a pr oper diet Last Documented On 3 6:00PM ; [facility] Discussed concerns about exe rcise : promote physical activity Last Documented On 3 6:00PM ; [facility] Not requesting contraception Last Documented On 3 6:00PM ; [facility] provided active listenin g; offered pt time to provide feedback required to assess for recent use/uges/cravings/triggers. ~Provided time for the pt to share and process thoughts and concerns regarding use of prescribed medication for ADHD symtoms; expressed concern for pt's health and well-being. ~Explored and assessed for issues or concerns impacting recovery; acknowledged reported abstinence/good progress. ~Encouraged use of healthy coping methods and seeking sober support, as needed Last Documented On 3 5:57PM ; [facility] Discussed nutritional needs teach healthy choices including fruits and vegetables Last Documented On 3 6:49PM ; [facility] Patient education about a pr oper diet Last Documented On 3 6:49PM ; [facility] Discussed concerns about exe rcise : promote physical activity ~ ~Follow up in 4 weeks Last Documented On 3 8:47AM ; [facility] Discussed nutritional needs teach healthy choices including fruits and vegetables Last Documented On 3 3:59PM ; [facility] Patient education about a pr oper diet Last Documented On 3 3:59PM ; [facility] Discussed concerns about exe rcise : promote physical activity ~ ~Will start hydroxyzine as needed for anxiety ~ ~Follow up in 4 weeks Last Documented On 3 4:55PM ; [facility] provided active listenin g, support and helped pt process though current symptoms and stressor(s); explored effectiveness of medication, coping mechanisms, and self-care practices. ~Encouraged use, when needed Last Documented On 3 3:57PM ; [facility] Discussed nutritional needs teach healthy choices including fruits and vegetables Last Documented On 2 6:58PM ; [facility] Patient education about a pr oper diet Last Documented On 2 6:58PM ; [facility] Discussed concerns about exe rcise : promote physical activity Last Documented On 2 6:58PM ; [facility] actively listened; provid ed empathy and unconditional positive regard. ~Acknowledged and validated emotions. ~Helped the pt to process recent alcohol use; provided encouragement to move forward with her recovery. ~Supported pt's interest in attending sober support groups and professional tx. ~Provided pt MH/[facility] resource list' ~Discussed medication; encouraged medication complaince and contacting [facility] with questions or concerns Last Documented On 2 10:15AM ; [facility] Discussed nutritional needs teach healthy choices including fruits and vegetables Last Documented On 2 7:19PM ; [facility] Patient education about a pr oper diet Last Documented On 2 7:19PM ; [facility] Discussed concerns about exe rcise : promote physical activity Last Documented On 2 7:19PM ; [facility] provided active listenin g, support and helped pt process though current stressor(s). Discussed effectiveness of medication; acknowledged and validated concerns. ~Explored use of coping mechanisms, self-care practices, and support system. ~Encouraged use, when needed Last Documented On 2 8:10AM ; [facility] Discussed nutritional needs teach healthy choices including fruits and vegetables Last Documented On 2 6:39PM ; [facility] Patient education about a pr oper diet Last Documented On 2 6:39PM ; [facility] Discussed concerns about exe rcise : promote physical activity ~ ~Follow up in 4 weeks Last Documented On 2 5:33AM ; [facility] Discussed nutritional needs teach healthy choices including fruits and vegetables Last Documented On 2 2:22PM ; [facility] Patient education about a pr oper diet Last Documented On 2 2:22PM ; [facility] Discussed concerns about exe rcise : promote physical activity Last Documented On 2 2:22PM ; [facility] provided active listenin g; assessed current symptoms and stressor(s) coping mechanisms, support system, and self-care practices Last Documented On 2 4:02PM ; [facility] introduced pt to HPWO in tegrated model of care ~[facility] offered active listening and supportive feedback; normalized emotions and feelings; provided opportunity to explore alcohol use hx/sx/dx/ and tx options. Provided psychoeducation focused on MAT program including requirements for clean UDS. ~[facility] discussed potential benefits of counseling in conjunction with MAT. ~Supported use of healthy coping methods and seeking support, as needed Last Documented On 2 11:27AM ; [facility] Discussed nutritional needs teach healthy choices including fruits and vegetables Last Documented On 2 9:47AM ; [facility] Patient education about a pr oper diet Last Documented On 2 9:47AM ; [facility] Discussed concerns about exe rcise : promote physical activity ~ ~Follow up Friday or Friday for UDS, will try for induction next Last Documented On 2 10:35AM ; [facility] Work Phone: Patient problem outcome Narrative Includes: Evaluations & Outcomes for active Goals No [facility] Work [facility]: Progress note* Progress note Date Encounter Last Documented by 02/18/2023 Medical Established Patient Last documented on 02/18/2023; 9:55 AM, Sarbjit lAy MD; [facility] Active Problems & Conditions - F10.20 - Alcohol Dependence Uncomplicated - F41.9 - Anxiety Disorder Nos - F90.9 - Undifferentiated Attention Deficit Disorder - 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 No prior encounters. - Data to be reviewed: no clinical lab tests History of Present Illness - Allergy list reviewed - Reviewed Medications d/c effexor , hydroxyzine , miralax, strattera Current Medication - Adderall XR 5 MG Oral Capsule Extended Release 24 Hour ONE PO QD, 30 days, 0 refills - Effexor XR 37.5 MG Oral Capsule Extended Release 24 Hour 1 po qd, 30 days, 5 refills - Famotidine 20 MG Oral Tablet take 20 mg PO at HS, 30 days, 0 refills - Flonase Allergy Relief 50 MCG/ACT Nasal Suspension one puff to each nare daily, 31 days, 0 refills - hydrOXYzine HCl 25 MG Oral Tablet Take one tablet three times a day as needed for anxiety, 30 days, 5 refills - MiraLax 17 GM/SCOOP Oral Powder Dissolve one capful (17g) into 4-8oz of liquid and drink daily, 30 days, 2 refills - Naltrexone HCl 50 MG Oral Tablet 1 po qd, 90 days, 1 refills - Ondansetron HCl 4 MG Oral Tablet take 4 mg PO every 8 hours as needed, 3 days, 0 refills - Strattera 18 MG Oral Capsule 1 po qd, 30 days, 5 refills - Vivitrol 380 MG Intramuscular Suspension Reconstituted Inject intrarmuscular every month, 28 days, 11 refills Past Medical/Surgical History Other: No previous suicide attempt. Interpersonal relationship problems Reported: No Safety Measures. Medical: No medical history or no significant history and no previous hospitalizations. : Not planning to have a baby in the next 12 months. Personal: Re-experiencing a previous traumatic event. Procedural: - Tooth extraction Surgical: - Extraction of wisdom tooth - Tonsillectomy with adenoidectomy - General surgery kidney x6 stents, tubes, cut some of the tube out - No tubal ligation Social History Environmental Exposure: No secondhand cigarette smoke exposure. Tobacco use: Using electronic cigarettes/vaping. Alcohol: A social drinker wknds around 6 beers. Drug Use: Not using drugs denied by patient. Sexual: Denied sexual activity, sexual orientation Bisexual, and gender identity Female. Allergies - No Known Allergies Family History Father alcoholic Maternal: Depression committed suicide Review Of Systems Systemic: No systemic symptoms. Head: No head symptoms. Neck: No neck symptoms. Eyes: No eye symptoms. Otolaryngeal: No ear symptoms, no nasal symptoms, no throat symptoms, and no oral cavity symptoms. Cardiovascular: No cardiovascular symptoms. Pulmonary: No pulmonary symptoms. Gastrointestinal: No gastrointestinal symptoms and normal appetite. Genitourinary: No genitourinary symptoms. Endocrine: No endocrine symptoms. Hematologic: No hematologic symptoms. Musculoskeletal: No musculoskeletal symptoms. Neurological: No neurological symptoms. Psychological: No psychological symptoms. Skin: No skin symptoms. Allergic and Immunologic: No allergic/immunologic symptoms. She is here to follow up on her alcoholism. she requested a Vivitrol injection. It was due 2 weeks ago. She drank a significant amount of alcohol last evening and we agreed to give her the Vivitrol in 2 days to avoid inducing nausea. She also reports the 5mg dose of Adderall XR does not feel like it is doing anything. I instructed her to take 2 capsules (10mg) qam for a week and return here in 1 week to reassess. She has 15 capsules left which will last a week. Her blood pressure is at goal. Her weight is stable. Physical Findings - Vitals taken 02/18/2023 09:14 am BP-Rmedbjz313/70 mmHg Pulse Rate-Ronaixm77 bpm Respiration Rate18 per min Temp-Oral98.2 F Hfbenk44 in Opnffm775 lbs 12.8 oz Body Mass Index24.3 kg/m2 Body Surface Area1.7 m2 Oxygen Ymcsoudrpl14 % General Appearance: - Awake. - Alert. - Well developed. - Well nourished. Head: Appearance: - Head normocephalic. Face: - Examination was performed. Neck: Thyroid: - Is normal. Eyes: General/bilateral: Pupils: - PERRLA. - Reactive to light. Ears: General/bilateral: Outer Ear: - Normal. Right Ear: - Examined. Left Ear: - Examined. Nose: General/bilateral: Discharge: - No nasal discharge. Oral Cavity: - General condition was good. Lungs: - Normal. - Respiration rhythm and depth was normal. - Respiratory movements were normal. - Clear to auscultation. Cardiovascular: Auscultation: - Normal. Heart Rate And Rhythm: - Normal. Heart Sounds: - Normal. Abdomen: Visual Inspection: - Abdomen was normal on visual inspection. Auscultation: - Bowel sounds were normal. Palpation: - Abdominal non-tender. Musculoskeletal System: General/bilateral: - Normal movement of all extremities. Posture: General/bilateral: - Posture was normal. Neurological: - No confusion was observed. - Oriented to time, place, and person. Psychiatric: - Expression of emotions finding was normal. Demonstrated Behavior: - Appropriate behavior for patient. Skin: - General appearance was normal. - Texture was normal. General body state finding: - In good general health. Tests Laboratory-based Chemistry: Drug Screen: Urine drug screen by multiple class procedure. Assessment - Z68.24 - Body mass index [BMI] 24.0-24.9, adult - F90.9 - Attention-deficit hyperactivity disorder, unspecified type - F10.20 - Alcohol dependence, uncomplicated - F41.9 - Anxiety disorder, unspecified Therapy - Patient refused flu vaccine. Discussed benefits of flu vaccine with Patient. Vaccinations - Did not receive dose of Reported: Patient has not received the Covid Vaccine Counseling/Education - No not wishing to stop using electronic cigarettes/vaping - Not requesting contraception Plan StartCited- Other Follow-up Appointment Vivitrol injection this - [facility] visit 1 week with me EndCited Notes - Patient is not interested in the COVID-19 vaccination at this time. Practice Management Systolic blood pressure < 130 mmHg and diastolic < 80 mmHg diastolic < 80 mmHg. Advance Directives - Living Will Health Reminders - Assess BMI satisfied 02/18/2023. - Assess Tobacco Use satisfied 02/18/2023. 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 No prior encounters. - Data to be reviewed: no clinical lab tests History of Present Illness - Allergy list reviewed - Reviewed Medications d/c effexor , hydroxyzine , miralax, strattera Current Medication - Adderall XR 5 MG Oral Capsule Extended Release 24 Hour ONE PO QD, 30 days, 0 refills - Effexor XR 37.5 MG Oral Capsule Extended Release 24 Hour 1 po qd, 30 days, 5 refills - Famotidine 20 MG Oral Tablet take 20 mg PO at HS, 30 days, 0 refills - Flonase Allergy Relief 50 MCG/ACT Nasal Suspension one puff to each nare daily, 31 days, 0 refills - hydrOXYzine HCl 25 MG Oral Tablet Take one tablet three times a day as needed for anxiety, 30 days, 5 refills - MiraLax 17 GM/SCOOP Oral Powder Dissolve one capful (17g) into 4-8oz of liquid and drink daily, 30 days, 2 refills - Naltrexone HCl 50 MG Oral Tablet 1 po qd, 90 days, 1 refills - Ondansetron HCl 4 MG Oral Tablet take 4 mg PO every 8 hours as needed, 3 days, 0 refills - Strattera 18 MG Oral Capsule 1 po qd, 30 days, 5 refills - Vivitrol 380 MG Intramuscular Suspension Reconstituted Inject intrarmuscular every month, 28 days, 11 refills Past Medical/Surgical History Other: No previous suicide attempt. Interpersonal relationship problems Reported: No Safety Measures. Medical: No medical history or no significant history and no previous hospitalizations. : Not planning to have a baby in the next 12 months. Personal: Re-experiencing a previous traumatic event. Procedural: - Tooth extraction Surgical: - Extraction of wisdom tooth - Tonsillectomy with adenoidectomy - General surgery kidney x6 stents, tubes, cut some of the tube out - No tubal ligation Social History Environmental Exposure: No secondhand cigarette smoke exposure. Tobacco use: Using electronic cigarettes/vaping. Alcohol: A social drinker wknds around 6 beers. Drug Use: Not using drugs denied by patient. Sexual: Denied sexual activity, sexual orientation Bisexual, and gender identity Female. Allergies - No Known Allergies Family History Father alcoholic Maternal: Depression committed suicide Review Of Systems Systemic: No systemic symptoms. Head: No head symptoms. Neck: No neck symptoms. Eyes: No eye symptoms. Otolaryngeal: No ear symptoms, no nasal symptoms, no throat symptoms, and no oral cavity symptoms. Cardiovascular: No cardiovascular symptoms. Pulmonary: No pulmonary symptoms. Gastrointestinal: No gastrointestinal symptoms and normal appetite. Genitourinary: No genitourinary symptoms. Endocrine: No endocrine symptoms. Hematologic: No hematologic symptoms. Musculoskeletal: No musculoskeletal symptoms. Neurological: No neurological symptoms. Psychological: No psychological symptoms. Skin: No skin symptoms. Allergic and Immunologic: No allergic/immunologic symptoms. She is here to follow up on her alcoholism. she requested a Vivitrol injection. It was due 2 weeks ago. She drank a significant amount of alcohol last evening and we agreed to give her the Vivitrol in 2 days to avoid inducing nausea. She also reports the 5mg dose of Adderall XR does not feel like it is doing anything. I instructed her to take 2 capsules (10mg) qam for a week and return here in 1 week to reassess. She has 15 capsules left which will last a week. Her blood pressure is at goal. Her weight is stable. Physical Findings - Vitals taken 02/18/2023 09:14 am BP-Bofqfmu423/70 mmHg Pulse Rate-Gjhqsha37 bpm Respiration Rate18 per min Temp-Oral98.2 F Nkrvds92 in Tibwzm664 lbs 12.8 oz Body Mass Index24.3 kg/m2 Body Surface Area1.7 m2 Oxygen Ixvcqwwcqc62 % General Appearance: - Awake. - Alert. - Well developed. - Well nourished. Head: Appearance: - Head normocephalic. Face: - Examination was performed. Neck: Thyroid: - Is normal. Eyes: General/bilateral: Pupils: - PERRLA. - Reactive to light. Ears: General/bilateral: Outer Ear: - Normal. Right Ear: - Examined. Left Ear: - Examined. Nose: General/bilateral: Discharge: - No nasal discharge. Oral Cavity: - General condition was good. Lungs: - Normal. - Respiration rhythm and depth was normal. - Respiratory movements were normal. - Clear to auscultation. Cardiovascular: Auscultation: - Normal. Heart Rate And Rhythm: - Normal. Heart Sounds: - Normal. Abdomen: Visual Inspection: - Abdomen was normal on visual inspection. Auscultation: - Bowel sounds were normal. Palpation: - Abdominal non-tender. Musculoskeletal System: General/bilateral: - Normal movement of all extremities. Posture: General/bilateral: - Posture was normal. Neurological: - No confusion was observed. - Oriented to time, place, and person. Psychiatric: - Expression of emotions finding was normal. Demonstrated Behavior: - Appropriate behavior for patient. Skin: - General appearance was normal. - Texture was normal. General body state finding: - In good general health. Tests Laboratory-based Chemistry: Drug Screen: Urine drug screen by multiple class procedure. Assessment - Z68.24 - Body mass index [BMI] 24.0-24.9, adult - F90.9 - Attention-deficit hyperactivity disorder, unspecified type - F10.20 - Alcohol dependence, uncomplicated - F41.9 - Anxiety disorder, unspecified Therapy - Patient refused flu vaccine. Discussed benefits of flu vaccine with Patient. Vaccinations - Did not receive dose of Reported: Patient has not received the Covid Vaccine Counseling/Education - No not wishing to stop using electronic cigarettes/vaping - Not requesting contraception Plan StartCited- Alcohol abuse, uncomplicated Vivitrol 380 MG each Inject intrarmuscular every month, 28 days, 12 refills EndCited StartCited- Other Follow-up Appointment Vivitrol injection this - [facility] visit 1 week with mo EndCited Notes - Patient is not interested in the COVID-19 vaccination at this time. Practice Management Systolic blood pressure < 130 mmHg and diastolic < 80 mmHg diastolic < 80 mmHg. Advance Directives - Living Will Health Reminders - Assess BMI satisfied 02/18/2023. - Assess Tobacco Use satisfied 02/18/2023. 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 Referred Here Not referred by urgent care clinic and not the emergency room. No prior encounters. - Data to be reviewed: no clinical lab tests History of Present Illness - Reviewed Medications. Current Medication - Adderall XR 5 MG Oral Capsule Extended Release 24 Hour ONE PO QD, 30 days, 0 refills - Famotidine 20 MG Oral Tablet take 20 mg PO at HS, 30 days, 0 refills - Flonase Allergy Relief 50 MCG/ACT Nasal Suspension one puff to each nare daily, 31 days, 0 refills - Naltrexone HCl 50 MG Oral Tablet 1 po qd, 90 days, 1 refills - Ondansetron HCl 4 MG Oral Tablet take 4 mg PO every 8 hours as needed, 3 days, 0 refills - Vivitrol 380 MG Intramuscular Suspension Reconstituted Inject intrarmuscular every month, 28 days, 12 refills Past Medical/Surgical History Other: No previous suicide attempt. Interpersonal relationship problems Reported: No Safety Measures. Medical: No medical history or no significant history and no previous hospitalizations. Partners sexually transmitted infection status not known. : Not planning to have a baby in the next 12 months. Personal: Re-experiencing a previous traumatic event. Procedural: - Tooth extraction Surgical: - Extraction of wisdom tooth - Tonsillectomy with adenoidectomy - General surgery kidney x6 stents, tubes, cut some of the tube out - No tubal ligation Social History Environmental Exposure: No secondhand cigarette smoke exposure. Behavioral: Not a current tobacco user. Tobacco use: Not using electronic cigarettes/vaping. Alcohol: Not using alcohol. Drug Use: Not using drugs denied by patient. Sexual: Denied sexual activity, sexual orientation Chose Not to Disclose, and gender identity Chose Not To Disclose. Allergies - No Known Allergies Family History Father alcoholic Maternal: Depression committed suicide Physical Findings - Vitals taken 02/20/2023 08:45 am BP-Unsnmuc559/68 mmHg BP Cuff SizeRegular Pulse Rate-Zjwdsce91 bpm Respiration Rate20 per min Temp-Hdewxdrp13.2 F Pysbhb43 in Cddneh120 lbs Body Mass Index24.1 kg/m2 Body Surface Area1.7 m2 Oxygen Nelieailay23 % O2 DeviceNone (Room Air) QdK544 % Tests Urinalysis Was Performed: Urine color. Laboratory-based Chemistry: Drug Screen: Value UDS Staff Members Present 2 Urine drug screen by multiple class procedure. THC Not Present, PCP Not Present, OXY Not Present, [id number] Not Present, MTD Not Present, MET Not Present, MDMA Not Present, MESHA Not Present, BZO Not Present, BUP Not Present, and BAR Not Present. AMP Present and UDS Specimen sent to lab Urine Temperature. Assessment - Z68.24 - Body mass index [BMI] 24.0-24.9, adult Therapy - Other Administered 1 applicator of Vivitrol 380 MG on 02/20/23 08:15a, Patient tolerated therapy well. No signs or symptoms of adverse reactions. Patient waited in clinic for 15 minutes after administration. - Patient refused flu vaccine. Discussed benefits of flu vaccine with Patient. Vaccinations - Received dose of Reported: Patient has received the COVID Vaccine Counseling/Education - Discussed nutritional needs teach healthy choices including fruits and vegetables - Patient education about a proper diet - Not requesting contraception - Discussed concerns about exercise: promote physical activity Notes - Patient is not interested in the COVID-19 vaccination at this time. Practice Management Systolic blood pressure < 130 mmHg and diastolic < 80 mmHg diastolic < 80 mmHg. Advance Directives - Living Will Health Reminders - Assess BMI satisfied 02/20/2023. - Assess Tobacco Use satisfied 02/20/2023. 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 Referred Here Not referred by urgent care clinic and not the emergency room. No prior encounters. - Data to be reviewed: no clinical lab tests History of Present Illness - Reviewed Medications. Current Medication - Adderall XR 5 MG Oral Capsule Extended Release 24 Hour ONE PO QD, 30 days, 0 refills - Famotidine 20 MG Oral Tablet take 20 mg PO at HS, 30 days, 0 refills - Flonase Allergy Relief 50 MCG/ACT Nasal Suspension one puff to each nare daily, 31 days, 0 refills - Naltrexone HCl 50 MG Oral Tablet 1 po qd, 90 days, 1 refills - Ondansetron HCl 4 MG Oral Tablet take 4 mg PO every 8 hours as needed, 3 days, 0 refills - Vivitrol 380 MG Intramuscular Suspension Reconstituted Inject intrarmuscular every month, 28 days, 12 refills Past Medical/Surgical History Other: No previous suicide attempt. Interpersonal relationship problems Reported: No Safety Measures. Medical: No medical history or no significant history and no previous hospitalizations. Partners sexually transmitted infection status not known. : Not planning to have a baby in the next 12 months. Personal: Re-experiencing a previous traumatic event. Procedural: - Tooth extraction Surgical: - Extraction of wisdom tooth - Tonsillectomy with adenoidectomy - General surgery kidney x6 stents, tubes, cut some of the tube out - No tubal ligation Social History Environmental Exposure: No secondhand cigarette smoke exposure. Behavioral: Not a current tobacco user. Tobacco use: Not using electronic cigarettes/vaping. Alcohol: Not using alcohol. Drug Use: Not using drugs denied by patient. Sexual: Denied sexual activity, sexual orientation Chose Not to Disclose, and gender identity Chose Not To Disclose. Allergies - No Known Allergies Family History Father alcoholic Maternal: Depression committed suicide Physical Findings - Vitals taken 02/20/2023 08:45 am BP-Bswxpiy959/68 mmHg BP Cuff SizeRegular Pulse Rate-Mdscxbj86 bpm Respiration Rate20 per min Temp-Pdzdgdcn34.2 F Jlyiub90 in Lwuzzq444 lbs Body Mass Index24.1 kg/m2 Body Surface Area1.7 m2 Oxygen Lbscpmbryc19 % O2 DeviceNone (Room Air) AcJ321 % Tests Urinalysis Was Performed: Urine color. Laboratory-based Chemistry: Drug Screen: Value UDS Staff Members Present 2 Urine drug screen by multiple class procedure. THC Not Present, PCP Not Present, OXY Not Present, [id number] Not Present, MTD Not Present, MET Not Present, MDMA Not Present, MESHA Not Present, BZO Not Present, BUP Not Present, and BAR Not Present. AMP Present and UDS Specimen sent to lab Urine Temperature. Assessment - Z68.24 - Body mass index [BMI] 24.0-24.9, adult Therapy - Other Administered 1 applicator of Vivitrol 380 MG on 02/20/23 08:15a, Patient tolerated therapy well. No signs or symptoms of adverse reactions. Patient waited in clinic for 15 minutes after administration. - Patient refused flu vaccine. Discussed benefits of flu vaccine with Patient. Vaccinations - Received dose of Reported: Patient has received the COVID Vaccine Counseling/Education - Discussed nutritional needs teach healthy choices including fruits and vegetables - Patient education about a proper diet - Not requesting contraception - Discussed concerns about exercise: promote physical activity Notes - Patient is not interested in the COVID-19 vaccination at this time. Practice Management Systolic blood pressure < 130 mmHg and diastolic < 80 mmHg diastolic < 80 mmHg. Advance Directives - Living Will Health Reminders - Assess BMI satisfied 02/20/2023. - Assess Tobacco Use satisfied 02/20/2023. [facility]No Reason for Referral [facility]ed[facility] Work Phone: Review of systems Narrative - Reported Review of Systems not supported for this document type No [facility] Work Phone: Summary Purpose Family History Relationship Condition Age at Onset Recorded Date/T lianne Not Specified No pertinent family history Unknown Parent Family history of other condition Unknown Description Last Updated father alcoholic 06/13/2022 Maternal history of depression committed suicide 06/13/2022 Description Last Updated father alcoholic 06/13/2022 Description Last Updated father alcoholic 06/13/2022 Description Last Updated father alcoholic 06/13/2022 Description Last Updated father alcoholic 06/13/2022 Description Last Updated father alcoholic 06/13/2022 Description Last Updated father alcoholic 06/13/2022 Description Last Updated father alcoholic 06/13/2022 Description Last Updated father alcoholic 06/13/2022 Description Last Updated father alcoholic 06/13/2022 Description Last Updated father alcoholic 06/13/2022 Description Last Updated father alcoholic 06/13/2022 Description Last Updated father alcoholic 06/13/2022 Description Last Updated father alcoholic 06/13/2022 Description Last Updated father alcoholic 06/13/2022 Description Last Updated father alcoholic 06/13/2022 Description Last Updated father alcoholic 06/13/2022 Description Last Updated father alcoholic 06/13/2022 Description Last Updated father alcoholic 06/13/2022 Description Last Updated father alcoholic 06/13/2022 Description Last Updated father alcoholic 06/13/2022 Description Last Updated father alcoholic 06/13/2022 Description Last Updated father alcoholic 06/13/2022 Advance Directives Directive Pat Aware Third Alliance Party Effective Date Reviewed Sta tus Living Will Yes 06/13/2022 Support ed By Healthcare Will Note: Discussed with patient about living will. Gave patient informational packet and was advised to fill out and return once completed. Discharge Instructions * Instructions* Jose Pittman PA-C - 06/13/2020 Review discharge instructions and contact primary care physician for follow-up appointment. Take medications as prescribed and return for any worsening symptoms. Thank you for choosing [facility] to provide your Emergency care. You may receive a patient satisfaction survey in follow up to this visit. This is your time to provide us with genuine feedback that can better improve processes for your next visit. We aim to provide our patients with safe and excellent care. If you were satisfied with your care today, tell everyone. If you were not satisfied with your care today, tell us while you are still here so that we can improve your experience. Thank you, Electronically signed by: Jose Nixon PA-C, 06/13/2020 6:21 PM * Attachments The following attachments cannot be sent through Care Everywhere. * Musculoskeletal Pain (Chilean) * Chest Pain: Musculoskeletal (Chilean) documented in this encounter* Instructions* Dhaval Munoz MD - 06/21/2020 Return for worsening or changing pain, fevers not improved with ibuprofen and acetaminophen, uncontrolled vomiting, chest or abdominal pain, difficulty breathing, weakness, numbness, tingling, unusual behavior, or other problems that may occur. Follow up with your primary care doctor as discussed for a recheck and possible additional outpatient testing, such as referral onto a lung or digestive specialist to help diagnose additional sourcesof pain. Continue your regularly prescribed medications. Call your primary care doctor or any specialist to arrange an appointment. Please do not rely on the doctor's office to call you. Finish the entire course of the newly prescribed prednisone for an anti-inflammatory. Alternate ibuprofen and plain acetaminophen every 4 hours for fevers and discomfort. Ibuprofen/Motrin 600 mg with food every 8 hours as needed may help with pain and inflammation. Tramadol/Ultram as prescribed may also help with pain. Thank you for choosing [facility] to provide your Emergency care. You may receive a patient satisfaction survey in follow up to this visit. This is your time to provide us with genuine feedback that can better improve processes for the next patient. We aim to provide our patients with safe and excellent care. If you were satisfied with your care today, tell everyone. If you were not satisfied with your care today, tell us while you are still here so that we can improve your experience. Thank you, Your Emergency Medicine Physician [facility] Dr. Dhaval Munoz M.D. * Attachments The following attachments cannot be sent through Care Everywhere. * Iodine Contrast Test - Having an (Chilean) * Chest Pain: Musculoskeletal (Chilean) * Pleurisy (Chilean) documented in this encounter* Instructions* Dwight Vallejo PA-C - 11/29/2020 Stop taking the Motrin but continue taking the antibiotics you are prescribed * Attachments The following attachments cannot be sent through Care Everywhere. * Tooth and Gum Pain (Chilean) documented in this encounter Assessments Diagnosis Chest wall pain Painful respiration Acute pain of left shoulder Diagnosis Atypical chest pain Other chest pain Pleurisy Pleurisy without mention of effusion or current tuberculosis Diagnosis Pain, dental- Primary Unspecified disorder of the teeth and supporting structures Diagnosis Onset Date Resolution Status Pain, dental acute Chief Complaint and Reason for Visit Chief Complaint dental pain TOOTH PAIN, MEDS NOT WORKING TOOTH PAIN RETURN VISIT TOOTH INFECTION Pain Reason for Visit Pain, dental Chief Complaint BLOODY NOSE Chief Complaint BLOODY NOSE follow up ER 12-11-21 nosebleed Reason for Visit Former cigarette smo ker Chief Complaint Chest X-ray Physical Exam Physical Exam not supported for this document type No Physical Exam Recorded Physical Exam not supported for this document type No Physical Exam Recorded Physical Exam not supported for this document type No Physical Exam Recorded Physical Exam not supported for this document type No Physical Exam Recorded Physical Exam not supported for this document type No Physical Exam Recorded Physical Exam not supported for this document type No Physical Exam Recorded Physical Exam not supported for this document type No Physical Exam Recorded Physical Exam not supported for this document type No Physical Exam Recorded Physical Exam not supported for this document type No Physical Exam Recorded Physical Exam not supported for this document type No Physical Exam Recorded Physical Exam not supported for this document type No Physical Exam Recorded Physical Exam not supported for this document type No Physical Exam Recorded Physical Exam not supported for this document type No Physical Exam Recorded Physical Exam not supported for this document type No Physical Exam Recorded Physical Exam not supported for this document type No Physical Exam Recorded Physical Exam not supported for this document type No Physical Exam Recorded Physical Exam not supported for this document type No Physical Exam Recorded Physical Exam not supported for this document type No Physical Exam Recorded Physical Exam not supported for this document type No Physical Exam Recorded Physical Exam not supported for this document type No Physical Exam Recorded Physical Exam not supported for this document type No Physical Exam Recorded Physical Exam not supported for this document type No Physical Exam Recorded Physical Exam not supported for this document type No Physical Exam Recorded Physical Exam not supported for this document type No Physical Exam Recorded Physical Exam not supported for this document type No Physical Exam Recorded Physical Exam not supported for this document type No Physical Exam Recorded Physical Exam not supported for this document type No Physical Exam Recorded Physical Exam not supported for this document type No Physical Exam Recorded Physical Exam not supported for this document type No Physical Exam Recorded Physical Exam not supported for this document type No Physical Exam Recorded Additional Source Comments INFORMATION SOURCE (unrecogn ized section and content) DATE CREATED AUTHOR AUTHOR'S ORGANIZ ATION 05/22/2021 [facility] DATE CREATED AUTHOR AUTHOR'S ORGANIZ ATION 06/02/2021 [facility] DATE CREATED AUTHOR AUTHOR'S ORGANIZ ATION 10/29/2021 [facility] DATE CREATED AUTHOR AUTHOR'S ORGANIZ ATION 12/16/2021 [facility] DATE CREATED AUTHOR AUTHOR'S ORGANIZ ATION 12/18/2021 [facility] DATE CREATED AUTHOR AUTHOR'S ORGANIZ ATION 01/06/2022 [facility] DATE CREATED AUTHOR AUTHOR'S ORGANIZ ATION 02/19/2022 [facility] DATE CREATED AUTHOR AUTHOR'S ORGANIZ ATION 06/23/2022 [facility] Reason for Visit (unrecogniz ed section and content) Reason Comments Shortness of Breath Pleurisy Reason Comments Dental Pain Reason Comments Poison Monica Sandrine Zavala RN - 11/29/2020 11:42 AM Sandrine Osullivan RN - 11/29/2020 11:42 AM Dwight Morin PA-C - 11/29/2020 11:17 AM Cecilia Gonzalez RN - 11/29/2020 10:59 AM EDT ED Notes (unrecognized secti on and content) Pt discharged home, alert and oriented, skin warm dry and pink. Denies needs and or questions. Will follow up as directed, pt encouraged to return for worsening or new symptoms or other concerns. Pt given cotton balls soaked in lidocaine and benzocaine spray [address] [facility] [id number] EMERGENCY DEPARTMENT ENCOUNTER TRIAGE CHIEF COMPLAINT: Chief Complaint Patient presents with Dental Pain HPI: Melina Valenzuela is a 25 year old female who presents with dental pain in the left upper and lower side. Patient states that she went to the dentist to have her teeth fixed. Apparently they could not fix it due to the fact that need to be extracted. Patient states that she was referred down to [place]. At which time she states that the dentist there could not extract it because of tooth and a previous root canal. This time patient states that she has been referred to [facility] to the oral surgeon. She states that the dentist prescribed antibiotics and also Motrin with Motrin to help. Patient stated all she is requesting his pain control. She already has the antibiotics. Denies difficulty opening closing her mouth or denies difficulty swallowing. Patient rates the pain an 8 out of 10. REVIEW OF SYSTEMS: 10 point review of systems was discussed the patient and the pertinent positives and negatives are listed as above in the HPI. I have reviewed the nursing triage documentation and agree unless otherwise noted below. PAST MEDICAL HISTORY: Past Medical History: Diagnosis Date ADHD (attention deficit hyperactivity disorder) Anxiety Asthma CURRENT MEDICATIONS: Current Facility-Administered Medications: lidocaine (LIDOCAINE VISCOUS) 2 % mucous memb solution 30 mL, 30 mL, Oral, Now, JanuaryDwight PA-C benzocaine (TOPEX) metered spray 1 [place], 1 [place], Mucous Membrane, Once PRN, JanuaryDwight PA-C Current Outpatient Medications: etodolac (LODINE) 300 mg capsule, Take 1 Cap by mouth three times a day, Disp: 15 Cap, Rfl: 0 SURGICAL HISTORY: History reviewed. No pertinent surgical history. FAMILY HISTORY: History reviewed. No pertinent family history. SOCIAL HISTORY: Social History Socioeconomic History Marital status: Single Spouse name: Not on file Number of children: Not on file Years of education: Not on file Highest education level: Not on file Occupational History Not on file Tobacco Use Smoking status: Former Smoker Packs/day: 0.25 Smokeless tobacco: Never Used Tobacco comment: quit smoking Substance and Sexual Activity Alcohol use: No Drug use: No Sexual activity: Not on file Other Topics Concern Not on file Social History Narrative Not on file Social Determinants of Health Financial Resource Strain: Difficulty of Paying Living Expenses: Food Insecurity: Worried About Running Out of Food in the Last Year: Ran Out of Food in the Last Year: Transportation Needs: Lack of Transportation (Medical): Lack of Transportation (Non-Medical): Physical Activity: Days of Exercise per Week: Minutes of Exercise per Session: Stress: Feeling of Stress : Social Connections: Frequency of Communication with Friends and Family: Frequency of Social Gatherings with Friends and Family: Attends Faith Services: Active Member of Clubs or Organizations: Attends Club or Organization Meetings: Marital Status: Intimate Partner Violence: Fear of Current or Ex-Partner: Emotionally Abused: Physically Abused: Sexually Abused: ALLERGIES: Hydrocodone PHYSICAL EXAM: VITAL SIGNS: The Initial Triage assessment is as follows: ED Vitals Temp: 97.8 F (36.6 C) (11/29/20 1106) Temp Source: Oral (11/29/20 1106) Pulse: 75 (11/29/20 1106) Resp: 16 (11/29/20 1106) BP: 118/69 (11/29/20 1106) SpO2: 100 % (11/29/20 1106) Oxygen Source: Rm Air (11/29/20 1106) MEWS Level of Consciousness: Alert (11/29/20 1100) Constitutional: Non-toxic appearance. HEENT: Normocephalic, atraumatic. Extraocular muscles are intact. Multiple dental caries and fillings noted in the left lower teeth multiple missing teeth in the left upper indicating instructions. No obvious identifiable abscess. No trismus. Neck: Normal range of motion. No meningeal signs noted. Cardiovascular: Normal heart rate, Normal rhythm. Pulmonary/Chest: Clear to auscultation in all lung [place]. No respiratory distress. Abdomen: Soft, nontender. Extremities: Normal range of motion. Neurologic: Alert, Normal motor function, Normal sensory function, No focal deficits. Skin: Warm, Dry, No erythema, No rash. Radiology / Procedures: No orders to display Labs Reviewed - No data to display ED COURSE & MEDICAL DECISION MAKING: Pertinent Labs & Imaging studies reviewed. (See chart for details) Patient given cotton balls with assist lidocaine and benzocaine for topical anesthetic. Placed on Lodine. She is to stop taking her Motrin and continue antibiotics and follow with her dentist at [facility]. Return to the ED for symptoms worsen as noted in handout. FINAL IMPRESSION: ICD-10-CM ICD-9-CM 1. Pain, dental K08.[address] Tami Padron Functioning independently as an advanced practitioner, I have fully participated in the care of this patient. I have reviewed and agree with all clinical information including history, past medical history, medications, allergies, physical exam and plan for this patient. Electronically signed by: Dwight Vallejo PA-C, 11/29/2020 11:31 AM Seen by dentist in [place] on 10/24 and antibiotics and completed them. Went to dentis in [place] yesterday, couldn't do anything, referred to oral surgeon at [facility]. Did get Rx for motrin 800mg yesterday, still having pain. documented in this encounter Scheduled Active and Recently Administ ered Medications (unrecognized section and content) PRN Medication Order 03/25/2021 03/26/2021 03/27/2021 benzocaine (TOPEX) metered spray 1 [place] 1 [place], Mucous Membrane, ONCE PRN, 4 doses, Starting on Fri03/27/21 at 1523, Until Discontinued, Suppression of Gag Reflex 1541 (Given - Provid er: Juan Carlos, RN) Scheduled Medication Order 05/29/2021 05/30/2021 05/31/2021 predniSONE tablet 60 mg (COMPLETED) 60 mg, Oral, NOW, 1 dose, On Farzaneh 05/31/21 at 0050 0046 (Given - Provid er: Jackie Maldonado RN) Goals (unrecognized section and content) Goals may be documented in a n alternate sectionGoals may be documented in an alternate sectionGoals may be documented in an alternate section Includes: Active GoalsNo Active Goals Recorded Includes: Active GoalsNo Active Goals Recorded Includes: Active GoalsNo Active Goals Recorded Includes: Active GoalsNo Active Goals Recorded Includes: Active GoalsNo Active Goals Recorded Includes: Active GoalsNo Active Goals Recorded Includes: Active GoalsNo Active Goals Recorded Includes: Active GoalsNo Active Goals Recorded Includes: Active GoalsNo Active Goals Recorded Includes: Active GoalsNo Active Goals Recorded Includes: Active GoalsNo Active Goals Recorded Includes: Active GoalsNo Active Goals Recorded Includes: Active GoalsNo Active Goals Recorded Includes: Active GoalsNo Active Goals Recorded Includes: Active GoalsNo Active Goals Recorded Includes: Active GoalsNo Active Goals Recorded Includes: Active GoalsNo Active Goals Recorded Includes: Active GoalsNo Active Goals Recorded Includes: Active GoalsNo Active Goals Recorded Includes: Active GoalsNo Active Goals Recorded Includes: Active GoalsNo Active Goals Recorded Includes: Active GoalsNo Active Goals Recorded Includes: Active GoalsNo Active Goals Recorded Includes: Active GoalsNo Active Goals Recorded Includes: Active GoalsNo Active Goals Recorded Includes: Active GoalsNo Active Goals Recorded Includes: Active GoalsNo Active Goals Recorded Includes: Active GoalsNo Active Goals Recorded Includes: Active GoalsNo Active Goals Recorded Includes: Active GoalsNo Active Goals Recorded Care Teams (unrecognized sec tion and content) Team Status: Active Member Role Status Dates PHYSICIAN NO FAMILY Primary Care Provider Active Outsole Tacker Relationship Specialty Start Date End Date Cha Huang, [employer] - HOME CARE NURSE PCP - General 02/08/16 FOR RECORDS PERTAINING TO PATIENTS WHO ARE OR HAVE BEEN ENROLLED IN A CHEMICAL DEPENDENCY/SUBSTANCEABUSE PROGRAM, SOME INFORMATION MAY BE OMITTED. This clinical summary was aggregated from multiple sources. Caution should be exercised in using it in the provision of clinical care. This summary normalizes information from multiple sources, and as a consequence, information in this document may materially change the coding, format and clinical context of patient data. In addition, data may be omitted in some cases. CLINICAL DECISIONS SHOULD BE BASED ON THE PRIMARY CLINICAL RECORDS. [facility] [employer] [facility]. provides no warranty or guarantee of the accuracy or completeness of information in this document.
[2023-09-19 21:27] LABS: Bacteria 1+ /hpf (None Seen); Squamous Epithelial Cells - UA 5-10 SEEN /hpf (5-10); White Blood Cells 0-5 SEEN /hpf (0-5)
[2023-09-19 21:35] LABS: Amphetamine Urine VISTA NEGATIVE (<1000 ng/mL); Barbiturate Urine VISTA NEGATIVE (< 200 ng/mL); Benzodiazepine Urine VISTA NEGATIVE (< 200 ng/mL); Cocaine Urine VISTA NEGATIVE (< 300 ng/mL); Ecstacy Urine VISTA NEGATIVE (< 500 ng/mL); Methadone Urine VISTA NEGATIVE (< 300 ng/mL); PCP Urine VISTA NEGATIVE (< 25 ng/mL); THC Urine VISTA NEGATIVE (< 50 ng/mL); Vista UDS pH Range 6
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
[2023-09-19 23:37] VITALS: BP 118/66
[2023-09-19 23:40] VITALS: BP 118/66
== END 2023-09-19 23:30 | disposition home or self-care (01) ==
PROVIDERS: Emergency Provider Emergency Medicine; Visit Provider Emergency Medicine
DX: S00.83XA Contusion of other part of head, initial encounter (principal); S20.212A Contusion of left front wall of thorax, initial encounter; F17.290 Nicotine dependence, other tobacco product, uncomplicated; V43.52XA Car driver injured in collision with other type car in traffic accident, initial encounter; Y92.410 Unspecified street and highway as the place of occurrence of the external cause
CPT/HCPCS: 70450; 70486; 71260; 72125; 74177; 80048; 80076; 80307; 80320; 81001; 84703; 85025; 93005; 96361; 96374; 96375; 99283; J7030; Q9967; A4216; G0480; J2405